=== PATIENT | male | born 1935 | race Caucasian/White ===

== ENCOUNTER → 2016-10-29 08:02 | Outpatient (CLI) | payer MEDICARE, OTHER, SELFPAY ==
[2016-10-29 08:17] VITALS: BP 118/55; PULSE 74; RESP 16; TEMP 36.6; O2SAT 97
[2016-10-29 08:22] VITALS: BMI 23.7
[2016-10-29] MEDS: Lactated Ringers 1,000 ML 500 ML IV (08:35)
[2016-10-29] MEDS: Dextrose 5%/0.9% NaCl 1,000 ML 500 ML IV (10:57)
== END ==
PROVIDERS: Family Provider Family Medicine; PCP Family Medicine; Visit Provider Nurse Practitioner Family
DX: Z45.2 Encounter for adjustment and management of vascular access device (principal)
CPT/HCPCS: 96523; J7120

== ENCOUNTER 2016-11-03 08:00 | Outpatient (CLI) | payer MEDICARE, OTHER, SELFPAY ==
[2016-11-03] MEDS: Lactated Ringers 1,000 ML 500 ML IV (08:05)
[2016-11-03 09:15] VITALS: BP 120/75; PULSE 72; RESP 18; TEMP 36.8; O2SAT 98
--- NOTE | 2016-11-03 09:31 | NURSING ---
ls cta, ap reg, bs active x4 quad. steri strips to 6 lap sites intact w/scant old red drng.
[2016-11-03] MEDS: Dextrose 5%/0.9% NaCl 1,000 ML 500 ML IV (10:10)
--- NOTE | 2016-11-03 10:13 | NURSING ---
resting in chair, present. lunch ordered. 2nd iv bolus infusing. denies further needs at this time
[2016-11-03 12:23] VITALS: BP 130/65; PULSE 70; RESP 18; TEMP 36.9; O2SAT 98
== END 2016-11-03 12:23 | disposition home or self-care (01) ==
PROVIDERS: Family Provider Family Medicine; PCP Family Medicine; Visit Provider Nurse Practitioner Family
DX: Z45.2 Encounter for adjustment and management of vascular access device (principal)
CPT/HCPCS: 96523; J7120; A4216

== ENCOUNTER → 2017-06-25 06:28 | Outpatient (CLI) | payer MEDICARE, OTHER, SELFPAY ==
--- NOTE | 2017-06-25 06:31 | CT_ITS ---
STUDY: CT SOFT TISSUE NECK WITH CONTRAST REASON FOR EXAM: Male, 82 years old. History of esophageal carcinoma with resection and radiation and chemotherapy. RADIATION DOSAGE (If Supplied By Facility): CTDIvol = ( 17.20 ) mGy, DLP = ( 2092.91 ) mGycm TECHNIQUE: The patient was scanned in a multi-detector CT scanner. High resolution transaxial imaging was performed following intravenous administration of 100 ml of Isovue 300 contrast material. Sagittal and coronal images were reconstructed. Individualized dose optimization techniques were used for this CT. COMPARISON: None. FINDINGS: A right-sided portacatheter is seen. There is evidence of prior esophageal surgery with a gastric pull-through procedure. Anastomosis is seen in the proximal esophagus at the level of the aortic arch. There is gaseous distention of the proximal esophagus. Normal bilateral parotid glands. Normal bilateral aurist spaces. Normal bilateral parapharyngeal spaces. Normal bilateral carotid spaces. There is asymmetry of the submandibular glands bilaterally. The right submandibular gland is more prominent than the left. Normal bilateral sublingual and submandibular glands and spaces. Normal visualized nasopharynx. Normal retropharyngeal space. Normal perivertebral space. Normal visualized bilateral faucial tonsils. The visualized tongue, tongue base and oropharynx are normal. The visualized cervical lymph nodes (levels I-) are within normal size limits, and maintain normal morphology. There is no demonstrated solid or cystic mass lesion. There is no abnormal contrast enhancement. Normal epiglottis, bilateral vallecula and hypopharynx. The pre-epiglottic and paraglottic adipose spaces are normal. There is enlargement of the right vocal cord with inhomogeneous soft tissue density in its deep portion. There is a convexity of the right vocal cord. Right vocal cord paralysis due to probable mass lesion should be ruled out. Correlation with endoscopy is recommended. This extends into the right aryepiglottic fold. Normal subglottic trachea. Normal bilateral lobes of the thyroid gland. Normal visualized pulmonary apices. Normal visualized paranasal sinuses. There is multilevel degenerative changes of the cervical spine. CT/Soft Tissue Neck WITH Contrast IMPRESSION: Enlargement of the right vocal cord with homogeneous soft tissue density in its deep portion with convexity. A mass lesion with right vocal cord paralysis should be ruled out. This irregular thickening extends into the right aryepiglottic fold. Electronically Signed: Hany Patricio MD at 9:10 EST Tel [phone], Service support ,
--- NOTE | 2017-06-25 06:36 | CT_ITS ---
STUDY: CT CHEST WITH CONTRAST REASON FOR EXAM: Male, 82 years old. Right sided neck mass. Esophageal carcinoma and resection. RADIATION DOSAGE (If Supplied By Facility): CTDIvol = ( 17.20 ) mGy, DLP = ( 2092.91 ) mGycm TECHNIQUE: Transaxial imaging was performed following intravenous administration of 100 ml of Isovue 300 contrast material. Multiplanar coronal and sagittal images were reformatted. Individualized dose optimization techniques were used for this CT. COMPARISON: Comparison is made with prior examination July 15, 2016. FINDINGS: A right-sided portacatheter is seen. Emphysematous changes more prominent in the upper lobes. Thickening along the posterior aspect of the right major fissure. Increased linear markings at the lung bases worse on the left side suggestive of bibasilar scarring. There is a 1 cm noncalcified nodular density in the lateral aspect of the right lower lobe. This may represent disc changes secondary to scarring. Normal heart and pericardium. Calcified right paratracheal lymph node. Normal hilar regions. Normal enhanced pulmonary arteries. Normal aorta arch and descending thoracic aorta. There are multi-level degenerative changes of the thoracic spine. Increased kyphosis. The patient is status post gastric pull-through surgery and anastomosis. A filling defect is seen in the dependent portion of the stomach at the level of the diaphragmatic hiatus. Endoscopic correlation is recommended. CT/Chest WITH Contrast IMPRESSION: Status post esophageal resection with gastric pull-through and anastomosis as described. Filling defect is seen along the dependent portion of the stomach at the level of the diaphragmatic hiatus. Correlation with endoscopy is recommended. Findings suggestive of bibasilar scarring slightly worse on the right side with 1 cm noncalcified nodule. Electronically Signed: Hany Patricio MD at 14:40 EST Tel [phone], Service support ,
--- NOTE | 2017-06-25 06:36 | CT_ITS ---
STUDY: CT ABDOMEN AND PELVIS WITH CONTRAST REASON FOR EXAM: Male, 82 years old. The patient has a history of esophageal carcinoma with resection. Prior radiation and chemotherapy. RADIATION DOSAGE (If Supplied By Facility): CTDIvol = ( 17.20 ) mGy, DLP = ( 2092.91 ) mGycm TECHNIQUE: Transaxial images were obtained from the dome of the diaphragm to the symphysis pubis with oral contrast. 100 ml of Isovue 300 contrast was administered. Sagittal and coronal images were reconstructed. Individualized dose optimization techniques were used for this CT. COMPARISON: None. FINDINGS: Mild degree of increased linear markings at the lung bases likely worse on the right side suggestive of scarring. There is a 9.1 mm noncalcified nodule in the right lower lobe laterally. This is pleural based. This may represent possible scarring. Minimal bilateral pleural effusions. The visualized portions of the heart are within normal limits. Normal liver. Normal gallbladder and extrahepatic biliary system. Normal spleen. There is diffuse atrophy of the pancreas. Normal bilateral adrenal glands. There is a 3.1 cm cyst in the posterior superior aspect of the right kidney. Normal left kidney. There is evidence of prior gastric pull-through anastomosis through the diaphragmatic hiatus. There is evidence of a 2.6 cm x 2.2 cm rounded filling defect in the posterior aspect of the stomach at the level of the diaphragmatic hiatus. A recurrent mass lesion should be ruled out. Normal small intestine. There are multiple colonic diverticula consistent with diverticulosis. The appendix is visualized and appears normal. There is diffuse atherosclerotic calcification of the abdominal aorta, without a demonstrated aneurysm. Normal inferior vena cava. Normal retroperitoneum. Distended urinary bladder. There is enlargement of the prostate gland. The prostate measures 5.7 cm x 4.9 cm. This causes indentation at the bladder base. Normal abdominal wall. There are diffuse degenerative changes of the visualized lumbar spine. Minimal anterior listhesis of L4 on L5 most likely secondary to facet joint osteoarthritis. CT/Abdomen/Pelvis WITH Contrast IMPRESSION: Sinus suggestive of linear scarring at the lung bases with a 9.1 mm noncalcified nodule in the lateral aspect of the right lower lobe. Prior esophageal resection with gastric pull-through anastomosis as described. A filling defect is seen within the stomach. Correlation with endoscopy is recommended. Distended urinary bladder. Enlargement of the prostate. Electronically Signed: Hany Patircio MD at 14:36 EST Tel [phone], Service support ,
[2017-06-25 06:50] LABS: CREATININE FINGERSTICK 0.9 mg/dL (0.70-1.30); EGFR FINGERSTICK > 60.0000 mL/min (>60)
== END ==
PROVIDERS: Family Provider Family Medicine; PCP Family Medicine; Visit Provider Otolaryngology
DX: C15.9 Malignant neoplasm of esophagus, unspecified (principal); R22.1 Localized swelling, mass and lump, neck
CPT/HCPCS: 70491; 71260; 74177; Q9967; A4216

== ENCOUNTER 2017-07-25 08:15 | Day surgery (SDC) | payer MEDICARE, OTHER, SELFPAY ==
[2017-07-25 08:36] VITALS: BP 116/69; PULSE 64; RESP 16; TEMP 36.6; O2SAT 97; BMI 22.6
[2017-07-25 10:38] VITALS: BP 109/61; BP 116/69; PULSE 63; RESP 18; TEMP 36.3; O2SAT 100
--- NOTE | 2017-07-25 10:41 | OP.PCM_ITS ---
Problem List (1) Esophageal cancer Status: Acute Qualifiers: Malignant neoplasm of esophagus location: unspecified location Qualified Code(s): C15.9 - Malignant neoplasm of esophagus, unspecified (2) Esophageal mass Status: Acute Report of Operation Date of Procedure: 07/25/17 Pre-Operative Diagnosis: History of esophageal cancer and esophagectomy with questionable mass on CT in the neoesophagus Post-Operative Diagnosis: Normal EGD Surgery/Procedure Performed:: EGD Specimen's removed: None Description of Procedure: The major risks and benefits associated with the procedure were explained to the patient in detail. The patient verbalized understanding and agreement with the same. The patient was then placed in the left lateral decubitus position. IV sedation was started by anesthesia. The endoscope was then advanced under direct visualization over the tongue, into the esophagus , stomach and duodenum. The duodenum appeared normal. The scope was withdrawn into the stomach and the stomach was irrigated and washed so that the mucosa was able to be seen. There is a lot of food particles. The mucosa appeared normal in the entire stomach. There was an area of bulging in the mid neoesophagus. This area was pulsatile and when he coughed the mucosa slid over this easy. This seem to be outside of the stomach wall. I suspect this to be the pulmonary artery or vein. The mucosa overlying this bulge was normal. The proximal neoesophagus was normal. The anastomosis appeared normal with no sign of recurrence. Careful examination of the remainder of the esophagus was normal. The scope was then withdrawn from the patient and the procedure terminated. It was well tolerated and there were no immediate complications.
[2017-07-25 10:45] VITALS: BP 111/63; BP 116/69; PULSE 56; RESP 18; O2SAT 100
[2017-07-25 10:50] VITALS: BP 101/56; BP 116/69; PULSE 55; O2SAT 99
[2017-07-25 10:55] VITALS: BP 116/69; BP 119/61; PULSE 54; RESP 18; TEMP 36.6; O2SAT 100
[2017-07-25 11:58] VITALS: BP 116/69
== END 2017-07-25 11:30 | disposition home or self-care (01) ==
LOC: EN 08:16 → AC 08:18
PROVIDERS: Family Provider Family Medicine; PCP Family Medicine; Visit Provider Surgery
PROC: 0DJ08ZZ Inspection of Upper Intestinal Tract, Via Natural or Artificial Opening Endoscopic (ICD-10-PCS; CPT 43235; principal; 2017-07-25 09:25)
DX: C15.9 Malignant neoplasm of esophagus, unspecified (principal); K22.8 Other specified diseases of esophagus; E78.00 Pure hypercholesterolemia, unspecified; I25.10 Atherosclerotic heart disease of native coronary artery without angina pectoris; I35.0 Nonrheumatic aortic (valve) stenosis; I49.3 Ventricular premature depolarization; G25.81 Restless legs syndrome; K21.9 Gastro-esophageal reflux disease without esophagitis; Z86.59 Personal history of other mental and behavioral disorders; Z87.19 Personal history of other diseases of the digestive system; Z86.718 Personal history of other venous thrombosis and embolism; Z86.2 Personal history of diseases of the blood and blood-forming organs and certain disorders involving the immune mechanism; Z87.891 Personal history of nicotine dependence; Z95.1 Presence of aortocoronary bypass graft; Z95.2 Presence of prosthetic heart valve; Z79.82 Long term (current) use of aspirin; Z79.899 Other long term (current) drug therapy
CPT/HCPCS: 43235; J7120; A4216

== ENCOUNTER → 2017-11-10 13:59 | Outpatient (CLI) | payer MEDICARE, OTHER, SELFPAY ==
[2017-11-10 15:53] LABS: Cholesterol 142 mg/dL (200); Ferritin 74 ng/mL (26-388); High Density Lipoprotein 49 mg/dL; Iron 94 ug/dL (65-175); Triglycerides 87 mg/dL; Very Low Density Lipoprotein 17 mg/dL (5-40)
== END ==
PROVIDERS: Family Provider Family Medicine; PCP Family Medicine; Visit Provider Family Medicine
DX: Z00.01 Encounter for general adult medical examination with abnormal findings (principal); E78.5 Hyperlipidemia, unspecified; D61.810 Antineoplastic chemotherapy induced pancytopenia; T45.1X5A Adverse effect of antineoplastic and immunosuppressive drugs, initial encounter; C15.9 Malignant neoplasm of esophagus, unspecified
CPT/HCPCS: 36415; 80061; 82728; 83540

== ENCOUNTER 2018-05-06 09:03 | Emergency (ER) | payer MEDICARE, OTHER, SELFPAY ==
[2018-03-31 12:56] VITALS: BMI 23.7
[2018-05-06 09:06] VITALS: BP 163/87; PULSE 76; RESP 18; TEMP 36.8; O2SAT 100; BMI 23.1
--- NOTE | 2018-05-06 09:26 | ED.DCSUM_ITS ---
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 Patient states last 2 weeks he has had a cough. Intermittent. Now it is yellowish sputum. He denies any significant shortness of breath. He denies chest pain. He denies nausea, vomiting or diarrhea. 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 Physical Examination: Older male no acute distress. Accompanied by his . Vital signs are stable. His pulse ox is 100% on room air no signs of hypoxia. His heart rate is 86. He is in no distress. He is speaking in full sentences. HEENT exam unremarkable. Neck nontender. No lymphadenopathy. No JVD. Lungs clear to auscultation bilaterally. No rales, rhonchi or wheezing. Heart regular rhythm rate about 70. No murmur. Abdomen soft and nontender. Normal bowel sounds no peritoneal signs. Extremities moves all 4. Calves are nontender without edema or cords. Neurologically is awake and alert with no focal motor deficits. Test Results: Two-view chest x-ray shows no acute abnormality. No pneumonia. There is a right lower lobe pericardiac density that is from his procedure where he had partial distal esophageal resection and a stomach pull-through. I do not believe this to be a new mass or a pneumonia. I did discuss this with the radiologist. Emergency Department Course and Treatment: Repeat exam patient is doing well. Clinically has a bronchitis. He does not have a pneumonia. Ongoing cough for weeks is not improving. He will be started on Zithromax Z-MICHAEL. Given first dose in the ER. Treatment Plan: Zithromax and follow-up with his doctor if not improving. Disposition: Discharge Impression: Acute bronchitis This note was generated with [employer] dictation software. It may contain incorrect words, spelling, and punctuation that were not noted in review of the chart prior to signing ED Disposition - Plan for ED Patient: Chief Complaint: Shortness of Breath Referrals: Anthony Donahue DO [Primary Care Provider] -
--- NOTE | 2018-05-06 09:30 | RAD_ITS ---
STUDY: X-RAY CHEST REASON FOR EXAM: Male, 82 years old. Persistent cough. History of esophageal carcinoma. TECHNIQUE: PA and lateral views of the chest. COMPARISON: Comparison is made with prior study dated October 24, 2016. FINDINGS: A right-sided portacatheter is seen. The tip is in the midportion of the superior vena cava. There is blunting of the right costophrenic angle. There is evidence of a consolidation or mass lesion in the posterior medial segment of the right lower lobe. Sternal cerclage wires and vascular clips are present from a prior sternotomy and coronary artery bypass graft procedure (CABG). Normal mediastinum and claude. Normal visualized pulmonary arteries. There is atherosclerotic calcification of the aortic arch with tortuosity. There are diffuse degenerative changes of the visualized thoracic spine. Normal visualized ribs, clavicles, and shoulders. There is no demonstrated abnormality of the visualized soft tissue structures of the upper abdomen. RAD/Chest PA and Lateral IMPRESSION: Consolidation or mass lesion in the posterior medial segment of the right lower lobe. Blunting of the right costophrenic angle. Electronically Signed: Hany Patricio MD at 10:08 EST Tel [phone], Service support ,
[2018-05-06 09:58] VITALS: RESP 18
--- NOTE | 2018-05-06 10:47 | ED.DEP ---
ED Disposition - Plan for ED Patient: Disposition: Home or Assisted Living Chief Complaint: Shortness of Breath Instructions: Acute Bronchitis Prescriptions: Azithromycin [Zithromax] 250 mg PO DAILY 4 Days tab Referrals: Anthony Donahue DO [Primary Care Provider] - 1 Week if not improving Additional Instructions: Zithromax daily for the next 4 days starting tomorrow. Follow Up with your doctor if not improving.
[2018-05-06] MEDS: Azithromycin 250 MG Tablet 500 MG PO (11:30)
== END 2018-05-06 11:32 | disposition home or self-care (01) ==
PROVIDERS: Emergency Provider Emergency Medicine; Family Provider Family Medicine; PCP Family Medicine
DX: J20.9 Acute bronchitis, unspecified (principal); I25.10 Atherosclerotic heart disease of native coronary artery without angina pectoris; Z85.01 Personal history of malignant neoplasm of esophagus; Z95.2 Presence of prosthetic heart valve; Z95.1 Presence of aortocoronary bypass graft; Z79.82 Long term (current) use of aspirin; Z79.899 Other long term (current) drug therapy
CPT/HCPCS: 71046; 99283

== ENCOUNTER → 2018-05-29 16:35 | Outpatient (CLI) | payer MEDICARE, OTHER, SELFPAY ==
[2018-05-06 09:06] VITALS: BMI 23.1
--- NOTE | 2018-05-29 16:37 | CT_ITS ---
STUDY: CT MAXILLOFACIAL SINUSES REASON FOR EXAM: Male, 82 years old. History of esophageal carcinoma, sinusitis RADIATION DOSAGE (If Supplied By Facility): CTDIvol = ( 33.45 ) mGy, DLP = ( 834.91 ) mGycm TECHNIQUE: The patient was scanned in a multi detector CT scanner. High resolution axial imaging was performed without the administration of intravenous contrast material. Sagittal and coronal images were reconstructed. Individualized dose optimization techniques were used for this CT. COMPARISON: Report from 06/25/2017 CT soft tissue neck. Images not available. FINDINGS: FRONTAL SINUSES: Normal aeration, without mucosal inflammatory disease. ETHMOIDAL SINUSES: Normal aeration, without mucosal inflammatory disease. MAXILLARY SINUSES: Normal aeration, without mucosal inflammatory disease. SPHENOIDAL SINUSES: Normal aeration, without mucosal inflammatory disease. There is patency of the bilateral maxillary infundibuli with normal uncinate processes, ethmoid bullae, and hiatus semilunaris. Normal bilateral middle turbinates. Normal bilateral inferior turbinates. Normal midline nasal septum. There is patency of the bilateral nasal airways. The visualized osseous structures are normal. The visualized bilateral orbital contents are normal. There is atherosclerotic calcifications of the bilateral carotid arteries. Persistent prominence of the right aryepiglottic fold, incompletely visualized but described on prior neck CT report of 06/25/2017. CT/Sinus/Facial Bone IMPRESSION: 1. Normal CT examination of the maxillofacial sinuses. 2. Atherosclerosis. 3. Asymmetric right aryepiglottic fold grossly similar since description on prior neck CT report. Electronically Signed: Jamaal Martel MD at 10:12 EST , Service support ,
== END ==
PROVIDERS: Family Provider Family Medicine; PCP Family Medicine; Referring Provider Otolaryngology; Visit Provider Otolaryngology
DX: J32.9 Chronic sinusitis, unspecified (principal)
CPT/HCPCS: 70486

== ENCOUNTER → 2018-06-29 13:30 | Outpatient (CLI) | payer MEDICARE, OTHER, SELFPAY | PROVIDERS: Family Provider Family Medicine; PCP Family Medicine; Visit Provider Family Medicine | DX: R05 Cough (principal) | CPT/HCPCS: 87070; 87205 ==

== ENCOUNTER → 2018-07-14 12:10 | Outpatient (CLI) | payer MEDICARE, OTHER, SELFPAY ==
[2018-07-08 11:56] VITALS: BMI 23.1
--- NOTE | 2018-07-14 12:11 | CT_ITS ---
STUDY: CT CHEST/THORAX WITH CONTRAST REASON FOR EXAM: Male, 83 years old. Esophageal cancer. RADIATION DOSAGE (If Supplied By Facility): CTDIvol = ( 16.87 ) mGy, DLP = ( 956.05 ) mGycm TECHNIQUE: Transaxial imaging was performed following intravenous administration of Isovue 370 100ml IV. Multiplanar coronal and sagittal images were reformatted. Individualized dose optimization techniques were used for this CT. COMPARISON: CT chest with IV contrast June 25, 2017. FINDINGS: Right chest wall Port-A-Cath device has its tip in the superior vena cava. There is airspace disease consistent with subsegmental atelectasis in the posteromedial right lower lobe. Subsegmental minor chronic appearing interstitial densities noted in the anterior left apex. Minor subsegmental atelectasis or scarring also seen in the posterior inferior left lower lobe. There is a stable small dependent right pleural effusion and new small dependent left pleural effusion. Normal heart size and pericardium. Sternal cerclage wires and vascular clips are present from a prior sternotomy and coronary artery bypass graft procedure (CABG). Changes of prior gastric pull-up procedure again noted. There is [id number] volume of undigested material within the stomach and distal cervicothoracic esophagus just above the anastomosis. Normal hilar regions. Normal enhanced pulmonary arteries. The mid ascending aorta is upper normal in size, with an AP diameter of 3.85 cm. There is stable mild atherosclerotic calcification of the aortic arch. There are stable multi-level degenerative changes of the thoracic spine. There are degenerative arthroses of the right acromioclavicular joint and, to a lesser degree, the bilateral shoulders There is no demonstrated abnormality of the visualized upper abdomen. CT/Chest WITH Contrast IMPRESSION: 1. Esophagectomy and gastric pull-up again noted. There is mild to moderate distention of the stomach and upper thoracic esophagus with undigested food. 2. Atherosclerotic vascular calcifications again noted. Prior median sternotomy and CABG. 3. Stable subsegmental atelectasis or scarring in the posterior lung bases as well as mild, chronic-appearing interstitial densities in the anterior left apex. 4. Small left pleural effusion now seen in addition to the stable small right pleural effusion. Electronically Signed: Harsha Nielson MD at 13:26 EDT , Service support ,
--- NOTE | 2018-07-14 12:11 | CT_ITS ---
STUDY: CT ABDOMEN WITH CONTRAST REASON FOR EXAM: Male, 83 years old. Esophageal cancer. RADIATION DOSAGE (If Supplied By Facility): CTDIvol = ( ) mGy, DLP = ( ) mGycm TECHNIQUE: Transaxial images were obtained post I.V. administration of Isovue 370 100ml IV, and with oral contrast. Sagittal and coronal images were reconstructed. Individualized dose optimization techniques were used for this CT. COMPARISON: CT abdomen and pelvis with contrast June 25, 2017. FINDINGS: Subsegmental atelectasis or scarring in seen in the posterior lung bases The visualized portions of the heart are within normal limits. Normal liver. The patent portal vein diameter is 13 mm. Normal gallbladder and extrahepatic biliary system. The common bile duct diameter is 6 mm. Normal spleen. Stable subcentimeter rounded density adjacent to the splenic hilum consistent with a small accessory spleen. There is diffuse atrophy of the pancreas. Normal bilateral adrenal glands. There is a stable exophytic 3.5 x 3.25 x 2.9 cm cortical cyst at the posterior mid to lower pole of the right kidney. Normal left kidney. No hydronephrosis. Prior esophagectomy and gastric pull-up surgery again noted. There is mild distention of the stomach with undigested food. Normal small intestine. Normal colon. The appendix is visualized and appears normal. There is stable moderate atherosclerotic calcification of the abdominal aorta and proximal iliac arteries, without a demonstrated aneurysm. Normal inferior vena cava. Normal retroperitoneum. There is a stable small umbilical hernia containing fat. There are stable diffuse degenerative changes of the visualized lumbar spine, including mild anterolisthesis of L4 on L5 and mild retrolisthesis of L5 on S1. CT/Abdomen WITH IV Contrast IMPRESSION: 1. Prior esophagectomy and gastric pull up again noted. There is mild distention of the stomach with undigested food, but no other sign of bowel obstruction. The appendix is normal. 2. No CT signs of abdominal metastatic disease. 3. Stable exophytic 3.5 cm cortical cyst posterior mid to lower pole of the right kidney. No hydronephrosis. 4. Stable moderate aortoiliac atherosclerotic calcific plaquing. No demonstrated aneurysm. 5. Stable degenerative changes of the spine, as described. 6. Stable small, fat-containing umbilical hernia. Electronically Signed: Harsha Nielson MD at 14:15 EDT , Service support ,
[2018-07-14 12:51] LABS: CREATININE FINGERSTICK 0.9 mg/dL (0.70-1.30); EGFR FINGERSTICK > 60.0000 mL/min (>60)
== END ==
PROVIDERS: Family Provider Family Medicine; PCP Family Medicine; Referring Provider Internal Medicine Medical Oncology; Visit Provider Internal Medicine Medical Oncology
DX: C15.5 Malignant neoplasm of lower third of esophagus (principal); R05 Cough
CPT/HCPCS: 71260; 74160; Q9967

== ENCOUNTER → 2018-07-29 10:22 | Outpatient (CLI) | payer MEDICARE, OTHER, SELFPAY ==
[2018-07-20 13:59] VITALS: BMI 23.4
== END ==
PROVIDERS: Family Provider Family Medicine; PCP Family Medicine; Visit Provider Family Medicine
DX: R05 Cough (principal)
CPT/HCPCS: 87070; 87205

== ENCOUNTER → 2018-10-30 | Outpatient (CLI) | payer MEDICARE, OTHER, SELFPAY ==
[2018-10-26 13:04] VITALS: BMI 23.3
[2018-10-30 10:04] LABS: AST(SGOT) 21 U/L (15-37); Alanine Aminotransfer ALT/SGPT 17 U/L (16-61); Albumin, Serum 3.5 g/dL (3.2-5.0); Alkaline Phosphatase 89 U/L (45-117); Bilirubin, Direct 0.14 mg/dL (0.00-0.30); Cholesterol 131 mg/dL (200); Globulin 3.2 g/dL (2.2-4.2); High Density Lipoprotein 43 mg/dL; Protein, Total 6.7 g/dL (6.4-8.2); Triglycerides 102 mg/dL; Very Low Density Lipoprotein 20 mg/dL (5-40)
== END | disposition home or self-care (01) ==
LOC: LAB 07:35
PROVIDERS: Family Provider Family Medicine; PCP Family Medicine; Referring Provider Internal Medicine Cardiovascular Disease; Visit Provider Internal Medicine Cardiovascular Disease
DX: E78.5 Hyperlipidemia, unspecified (principal)
CPT/HCPCS: 36415; 80061; 80076

== ENCOUNTER → 2019-03-11 07:21 | Outpatient (CLI) | payer MEDICARE, OTHER, SELFPAY ==
[2019-01-20 13:07] VITALS: BMI 23.8
--- NOTE | 2019-03-11 07:30 | MRI_ITS ---
STUDY: MRI LUMBAR SPINE WITHOUT CONTRAST REASON FOR EXAM: Male, 83 years old. Restless legs. History of esophageal cancer. 2 previous lumbar spine surgeries most recently 2012. TECHNIQUE: Standardized fat and water weighted pulse sequences were obtained in the sagittal and axial planes. COMPARISON: 07/14/2018 CT abdomen and pelvis. FINDINGS: Prominent signal abnormality at the L3-4 endplates. This includes low T1/high STIR and T2 signal within the inferior endplate of L3. L4 has more confluent abnormal signal, mostly increased STIR/T2 and decreased T1, but with a region of decreased STIR/T2 and T1 signal communicating with the disc space anteriorly, likely representing a Schmorl's node. No other acute or concerning signal changes in the vertebrae. Alignment unchanged with mild 4 mm anterolisthesis of L4 on L5 and 2 mm retrolisthesis of L5 on S1. Changes of remote L4-5 laminectomy, and bilateral L4 spondylolysis again demonstrated. The conus terminates at the level of the T12 inferior endplate with normal contour and signal. At L1-2, there is no significant narrowing. At L2-3, small disc bulge and mild bilateral facet degeneration causes only mild narrowing. At L3-4, diffuse disc bulge and marked bilateral facet degeneration causes left greater than right subarticular zone narrowing, abutting and possibly compressing the traversing left L4 nerve root in the left subarticular zone. Mild right and moderate left foraminal narrowing. Osteophytes mildly displace the exiting left L3 nerve root. At L4-5, the spinal canal is decompressed with laminectomy. Anterolisthesis with unroofing of the disc causes moderate bilateral foraminal narrowing. At L5-S1, the spinal canal is decompressive laminectomy. Osteophytes extend into and mildly narrow the bilateral foramina. No acute finding in the paraspinal soft tissues. Incidental cyst posterior aspect right kidney. Chronic postoperative changes posterior paraspinal muscles and more peripheral subcutaneous fat. MRI/Spine Lumbar (Routine) IMPRESSION: Prominent signal changes at the L3-4 endplates, most likely degenerative in nature, including a Schmorl's node in the superior endplate of L4. An underlying metastatic lesion in the anterior aspect of the L4 vertebral endplate while less likely cannot be excluded. Consider obtaining CT lumbar spine; this would allow more accurate comparison with the previous study. Otherwise postoperative and degenerative changes described above. This is most prominent at L3-4. If there is left L4 radiculopathy, the left subarticular zone at this level is a most likely etiology. Electronically Signed: Juan Price, at 20:23 EST Tel , Service support ,
== END ==
PROVIDERS: Family Provider Family Medicine; PCP Family Medicine
DX: D49.0 Neoplasm of unspecified behavior of digestive system (principal)
CPT/HCPCS: 72148

== ENCOUNTER → 2019-06-23 07:50 | Outpatient (CLI) | payer MEDICARE, OTHER, SELFPAY ==
[2019-05-03 13:22] VITALS: BMI 23.8
[2019-06-23 08:43] LABS: AST(SGOT) 18 U/L (15-37); Alanine Aminotransfer ALT/SGPT 18 U/L (16-61); Albumin, Serum 3.5 g/dL (3.2-5.0); Alkaline Phosphatase 95 U/L (45-117); Bilirubin, Direct 0.17 mg/dL (0.00-0.30); Cholesterol 119 mg/dL (200); Globulin 3.4 g/dL (2.2-4.2); High Density Lipoprotein 41 mg/dL; Protein, Total 6.9 g/dL (6.4-8.2); Triglycerides 84 mg/dL; Very Low Density Lipoprotein 17 mg/dL (5-40)
== END ==
PROVIDERS: Family Provider Family Medicine; PCP Family Medicine; Referring Provider Internal Medicine Cardiovascular Disease; Visit Provider Internal Medicine Cardiovascular Disease
DX: E78.5 Hyperlipidemia, unspecified (principal)
CPT/HCPCS: 36591; 80061; 80076; A4216

== ENCOUNTER → 2019-07-09 09:45 | Outpatient (CLI) | payer MEDICARE, OTHER, SELFPAY ==
[2019-05-03 13:22] VITALS: BMI 23.8
--- NOTE | 2019-07-09 09:50 | ART_ITS ---
Reason For Study: Non Palpable Rt DP Procedure A bilateral lower extremity continuous wave Doppler with analog waveform analysis and ankle brachial indexes. Left Segmental Pressures Left brachial= 138mmHg. Left posterior tibial artery = 194mmHg. Left dorsalis pedis artery = 183mmHg. Left digit = 95 mmHg. Right Segmental Pressures Right brachial= 145mmHg. Right posterior tibial artery = 222mmHg. Right dorsalis pedis artery = 204mmHg. Right digit = 138 mmHg. Indices The right ankle brachial index by the posterior tibial artery is 1.53. The right ankle brachial index by the dorsalis pedis is 1.41. The right digital-brachial index is 0.95. The left ankle brachial index by the posterior tibial artery is 1.34. The left ankle brachial index by the dorsalis pedis is 1.26. The left digital-brachial index is 0.66. Interpretation Summary Triphasic Doppler waveforms are noted at ankle level bilaterally. Resting ankle-brachial indices are supra-normal on the right, and normal on the left. The right digital-brachial index is normal. The left digital-brachial index is mildly diminished. There is evidence of arterial calcification at ankle level on the right. Arterial flow appears normal at ankle level bilaterally, and at digital level on the right. There is evidence of mild, distal, small-vessel arterial occlusive disease at digital level on the left. Ordering Physician: Anthony Donahue Referring Physician: Anthony Donahue Performed By: Deepika Drake RDCS/RVT
== END ==
PROVIDERS: PCP Family Medicine; Referring Provider Family Medicine; Visit Provider Family Medicine
DX: R09.89 Other specified symptoms and signs involving the circulatory and respiratory systems (principal); M79.604 Pain in right leg
CPT/HCPCS: 93922

== ENCOUNTER → 2020-02-02 12:34 | Outpatient (CLI) | payer MEDICARE, OTHER, SELFPAY ==
[2020-01-17 16:24] VITALS: BMI 23.4
--- NOTE | 2020-02-02 12:35 | ECHOD_ITS ---
Reason For Study: VALVE REPL Procedure This was a 2D Doppler, Color Flow transthoracic echocardiogram. The exam was of adequate technical quality. Exam performed in department. Left Ventricle Normal LV size. Left ventricular systolic function is normal. The estimated ejection fraction is 60 %. The global longitudinal strain = -18 % (normal). Post operative septal motion. Right Ventricle Normal RV size. Normal systolic function. Atria The left atrium is mildly enlarged. The right atrium is mildly enlarged. No doppler evidence for ASD. Mitral Valve There is no mitral annular calcification. Normal mitral valve. Mild (1+) mitral valve insufficiency. Tricuspid Valve Normal tricuspid valve. Mild (1+) tricuspid valve insufficiency. Right ventricular systolic pressure estimated to be 34 mmHg. Aortic Valve Stable appearing bioprosthetic aortic valve apparatus. Pulmonic Valve The pulmonic valve is not well visualized. Trivial pulmonic valve insufficiency. Great Vessels Normal sized aortic root. Pericardium/Pleural No pericardial effusion. MMode/2D Measurements & Calculations LVIDd: 4.6 cm IVSd: 0.89 cm LVOT diam: 2.4 cm LVIDs: 3.1 cm LVPWd: 0.89 cm LVOT area: 4.4 cm2 RVDd: 4.3 cm FS: 32.2 % Ao root diam: 3.5 cm LAV(MOD-bp): 45.5 ml LVAd ap4: 29.8 cm2 LAV(MOD-bp) Indexed: 23.7 ml/m2 EDV(MOD-sp4): 100.0 ml LAV(MOD-sp2): 32.0 ml EDV(sp4-el): 100.7 ml LAV(MOD-sp4): 61.4 ml LVAs ap4: 18.7 cm2 ESV(MOD-sp4): 47.8 ml ESV(sp4-el): 45.7 ml EF(MOD-sp4): 52.2 % EF(sp4-el): 54.6 % SV(MOD-sp4): 52.2 ml SV(sp4-el): 55.0 ml LA A4 area: 21.3 cm2 LA dimension(2D): 4.1 cm RA A4 area: 20.4 cm2 Time Measurements MV dec time: 0.19 sec Doppler Measurements & Calculations MV E max gurwinder: 98.2 cm/sec Lat Peak E' Gurwinder: 10.2 cm/sec Med Peak E' Gurwinder: 4.6 cm/sec MV A max gurwinder: 73.3 cm/sec E/E' lat: 9.6 E/E' med: 21.4 MV E/A: 1.3 MV V2 max: 108.7 cm/sec Ao V2 max: 117.5 cm/sec AI max gurwinder: 198.6 cm/sec MV max P.7 mmHg Ao max P.5 mmHg AI max P.8 mmHg MV V2 mean: 70.0 cm/sec Ao V2 mean: 85.0 cm/sec MV mean P.2 mmHg Ao mean P.1 mmHg AI dec slope: 199.9 cm/sec2 MV V2 VTI: 34.8 cm Ao V2 VTI: 23.0 cm AI P1/2t: 291.0 msec MVA(VTI): 2.3 cm2 NIKI(I,D): 3.4 cm2 NIKI(V,D): 3.1 cm2 LV V1 max: 82.8 cm/sec SV(LVOT): 78.8 ml PA V2 max: 91.6 cm/sec LV V1 max P.7 mmHg LV V1 mean P.4 mmHg LV V1 mean: 56.5 cm/sec LV V1 VTI: 17.8 cm TR max gurwinder: 276.5 cm/sec TR max P.7 mmHg Interpretation Summary Left ventricular systolic function is normal. The estimated ejection fraction is 60 %. The global longitudinal strain = -18 % (normal). Post operative septal motion. The left atrium is mildly enlarged. The right atrium is mildly enlarged. Mild (1+) mitral valve insufficiency. Mild (1+) tricuspid valve insufficiency. Stable appearing bioprosthetic aortic valve apparatus. Trivial pulmonic valve insufficiency. Right ventricular systolic pressure estimated to be 34 mmHg. Transmitral diastolic flow velocities suggest diastolic dysfunction (pseudonormal pattern). Ordering Physician: Chris Swift Referring Physician: SOULEYMANE FOFANA Performed By: Miranda Recio, RDCS, RVT
== END ==
PROVIDERS: PCP Family Medicine; Referring Provider Internal Medicine Cardiovascular Disease; Visit Provider Internal Medicine Cardiovascular Disease
DX: I25.10 Atherosclerotic heart disease of native coronary artery without angina pectoris (principal); Z95.3 Presence of xenogenic heart valve; E78.5 Hyperlipidemia, unspecified
CPT/HCPCS: 93306

== ENCOUNTER 2020-05-18 09:47 | Outpatient (RCR) | payer MEDICARE, OTHER, SELFPAY ==
[2020-03-15 13:31] VITALS: BMI 23.8
== END 2020-05-18 23:59 ==
LOC: IMMUN 09:47
PROVIDERS: PCP Family Medicine; Visit Provider Family Medicine
DX: Z23 Encounter for immunization (principal)
CPT/HCPCS: 0011A; 0012A; 91301

== ENCOUNTER → 2020-08-10 11:40 | Outpatient (CLI) | payer MEDICARE, OTHER, SELFPAY ==
[2020-07-20 08:58] VITALS: BMI 23.1
--- NOTE | 2020-08-10 12:00 | RAD_ITS ---
STUDY: X-RAY - RIGHT TIBIA AND FIBULA REASON FOR EXAM: Localized pain and tenderness for 2 months. TECHNIQUE: 2 view(s) of the tibia and fibula were obtained. COMPARISON: None. FINDINGS: There is mild periosteal reaction of the medial aspect of the distal tibial metaphysis and subtle osteosclerosis of the distal tibial metaphysis. Normal visualized fibula. There is vascular calcification. RAD/Tibia & Fibula 2 Views IMPRESSION: Subtle osteosclerosis and mild periosteal reaction of the distal tibial metaphysis, from suspected stress fracture. Electronically Signed: David Patel MD at 14:08 EDT Tel , Service support , Fax
== END ==
PROVIDERS: PCP Family Medicine; Visit Provider Family Medicine
DX: M79.604 Pain in right leg (principal)
CPT/HCPCS: 73590

== ENCOUNTER → 2020-09-01 06:20 | Outpatient (CLI) | payer MEDICARE, OTHER, SELFPAY ==
[2020-07-20 08:58] VITALS: BMI 23.1
--- NOTE | 2020-09-01 06:43 | MRI_ITS ---
STUDY: MRI RIGHT ANKLE WITHOUT CONTRAST REASON FOR EXAM: Pain in right ankle and leg 2 months. TECHNIQUE: Standardized fat and water weighted pulse sequences were obtained in all 3 orthogonal planes. COMPARISON: Radiographs of the right tibia and fibula 08/10/2020. FINDINGS: There is mild edema in the medial subcutis adipose space. There is a very small volume of fluid in the distal posterior tibialis tendon sheath (T2 axial image 15). The posterior tibialis tendon is morphologically normal. Normal flexor digitorum longus tendon. Normal flexor hallucis longus tendon. Normal peroneus longus and brevis tendons. Normal tibialis anterior tendon. Normal extensor hallucis longus tendon. Normal extensor digitorum longus tendons. Normal Achilles tendon and teno-osseous insertion. There is a small posterior calcaneal enthesophyte. Normal plantar fascia. Normal plantar calcaneal tubercles. There is atrophy with fat replacement of the abductor digiti minimi muscle (T1 sagittal image 9). Normal distal tibiofibular syndesmotic ligamentous complex. Normal lateral ligamentous complex. Normal subtalar ligaments and sinus tarsi. Normal deltoid ligamentous complexes. Normal plantar calcaneonavicular (spring) ligament. There is a very small tibiotalar joint effusion (inversion recovery sagittal image 7). Normal talar dome. There is no bone edema or stress fracture of the distal tibia. Normal subtalar articulations. Normal talonavicular articulation. There is a small subchondral stress fracture of the talar head (inversion recovery sagittal image 10; T2 axial image 15). Normal calcaneocuboid articulation. Normal navicular-cuneiform articulations. MRI/Lower Ext Joint Only (Routine) IMPRESSION: Small subchondral stress fracture of the talar head. Very mild posterior tibialis tenosynovitis. Very small tibiotalar joint effusion. Atrophy of the abductor digiti minimi muscle. No demonstrated stress fracture of the visualized distal tibia. Electronically Signed: David Patel MD at 8:30 EDT Tel , Service support ,
== END ==
PROVIDERS: PCP Family Medicine; Referring Provider Family Medicine; Visit Provider Family Medicine
DX: M25.571 Pain in right ankle and joints of right foot (principal)
CPT/HCPCS: 73721

== ENCOUNTER → 2020-09-04 12:29 | Outpatient (CLI) | payer MEDICARE, OTHER, SELFPAY ==
[2020-03-15 13:31] VITALS: BMI 23.8
[2020-07-20 08:58] VITALS: BMI 23.1
--- NOTE | 2020-09-04 12:30 | CT_ITS ---
STUDY: CT CHEST, ABDOMEN T PELVIS WITH CONTRAST REASON FOR EXAM: Male, 85 years old. ESOPHAGEAL CANCER. Post radiation and chemotherapy. RADIATION DOSAGE (If Supplied By Facility): CTDIvol = ( 12.95 ) mGy, DLP = ( 852.51 ) mGycm TECHNIQUE: Transaxial imaging was performed following intravenous administration of IV 100mL Isovue-300. Individualized dose optimization techniques were used for this CT. COMPARISON: Comparison is made with prior CT scan of the thorax dated 07/14/2018. FINDINGS: A right-sided Port-A-Cath is seen with the tip in the superior vena cava. CHEST Stable minimal increased markings in the medial superior aspect of the left upper lobe with fibrocalcific scarring. Stable mild pleural parenchymal changes at the left lung base. Sternal cerclage wires and vascular clips are present from a prior sternotomy and coronary artery bypass graft procedure (CABG). Coronary artery calcification. Normal mediastinum. Normal hilar regions. Normal unenhanced pulmonary arteries. Normal aorta arch and descending thoracic aorta. There are multi-level degenerative changes of the thoracic spine. The patient is status post esophagectomy with gastric pull-through technique. ABDOMEN Normal liver. Mild distention of the gallbladder. Questionable tiny gallstones along the dependent portion of the gallbladder lumen. Normal spleen. Normal pancreas. Normal bilateral adrenal glands. Stable 3.5 cm x 3 cm cyst in the mid to lower pole of the right kidney. Normal left kidney. The patient is status post hepatectomy with the gastric pull-through anastomosis. Normal small intestine. Normal colon. The appendix is visualized and appears normal. There is diffuse atherosclerotic calcification of the abdominal aorta, without a demonstrated aneurysm. 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 Normal inferior vena cava. Normal retroperitoneum. There is a small umbilical hernia containing fat. There are diffuse degenerative changes of the visualized lumbar spine. Stable mild anterior listhesis of L4 on L5. PELVIS Normal urinary bladder. Prostatic hypertrophy. The prostate measures 4.5 cm x 6.3 cm. This causes indentation at the bladder base. Normal visualized small intestine. Normal visualized colon. There is no pelvic fluid. There is no pelvic lymphadenopathy or mass lesion. There is diffuse atherosclerotic calcification of the pelvic arteries. Normal abdominal wall. CT/CT Chest, Abd, Pel w/Contrast IMPRESSION: Status post esophagectomy with gastric pull-through procedure. Stable examination. Electronically Signed: Hany Patricio MD at 15:12 EDT , Service support ,
[2020-09-04 13:06] LABS: EGFR FINGERSTICK > 60.0000 mL/min (>60)
[2020-09-04] MEDS: 0.9% Saline Lock 10 ML Syringe IV (13:08)
== END ==
PROVIDERS: PCP Family Medicine; Referring Provider Internal Medicine Medical Oncology; Visit Provider Internal Medicine Medical Oncology
DX: C15.9 Malignant neoplasm of esophagus, unspecified (principal)
CPT/HCPCS: 71260; 74177; Q9967; A4216

== ENCOUNTER → 2020-09-20 11:23 | Outpatient (CLI) | payer MEDICARE, OTHER, SELFPAY ==
[2020-09-07 14:02] VITALS: BMI 22.8
[2020-09-20 12:56] LABS: AST(SGOT) 24 U/L (15-37); Alanine Aminotransfer ALT/SGPT 25 U/L (16-61); Albumin, Serum 3.7 g/dL (3.2-5.0); Alkaline Phosphatase 77 U/L (45-117); Bilirubin, Direct 0.24 mg/dL (0.00-0.30); Cholesterol 150 mg/dL (200); Globulin 3.3 g/dL (2.2-4.2); High Density Lipoprotein 62 mg/dL; Triglycerides 63 mg/dL; Very Low Density Lipoprotein 13 mg/dL (5-40)
== END ==
PROVIDERS: PCP Family Medicine; Referring Provider Nurse Practitioner Family; Visit Provider Nurse Practitioner Family
DX: E78.5 Hyperlipidemia, unspecified (principal); E78.00 Pure hypercholesterolemia, unspecified
CPT/HCPCS: 36415; 80061; 80076

== ENCOUNTER → 2020-12-28 06:08 | Outpatient (CLI) | payer MEDICARE, OTHER, SELFPAY ==
[2020-12-12 08:08] VITALS: BMI 23.2
--- NOTE | 2020-12-28 11:23 | STRESSREP ---
Stress Test Report Date: 12-28-2020 Procedure: Pharmacologic stress nuclear imaging study Indications: Chest pain; CAD; CABG; AVR; esophageal carcinoma (chemotherapy/radiation therapy) Consent: Per the patient Procedure: The patient underwent pharmacologic (Regadenoson 0.4mg ) evaluation with a peak heart rate of 84 beats per minute (62%predicted maximal heart rate) and a peak blood pressure of 132/72 mmHg. The baseline ECG demonstrated sinus bradycardia; right IVCD. The peak pharmacologic ECG demonstrated no obvious ECG changes. There were no cardiac dysrhythmias pretest, during pharmacologic infusion, or recovery. There was no complaint of chest discomfort during pharmacologic infusion or recovery. The examination was discontinued secondary to completion of protocol. Impression: 1. Pharmacologic (Regadenoson) evaluation 2. Peak pharmacologic ECG with continued sinus rhythm with right IVCD pattern with no obvious ECG changes. 3. There were no cardiac dysrhythmias pretest, during pharmacologic infusion, or recovery. 4. Nuclear images pending Myocardial perfusion imaging study: Technique: The patient was injected with 11.5 millicuries of technetium 99m Cardiolite and subsequently rest SPECT Cardiolite nuclear imaging was obtained in the horizontal long, vertical long, and short axis views. The patient underwent pharmacologic (Regadenoson) evaluation with a peak heart rate of 84 beats per minute (62% percent predicted maximal heart rate) and a peak blood pressure of 132/72 mmHg. The patient was injected with 32.6 millicuries of technetium 99m Cardiolite and subsequently stress SPECT Cardiolite nuclear imaging was obtained in the horizontal long, vertical long, and short axis views. A gated Cardiolite study at peak stress was obtained. Interpretation: Rest and stress SPECT Cardiolite nuclear imaging status post realignment, normalization, and attenuation correction demonstrate relative uniform tracer uptake and myocardial perfusion appearing within normal limits. There is end systolic thickening and brightening. The gated Cardiolite study demonstrates myocardial thickening and inward wall motion. The reported LVEF is 65%. Impression: 1. Rest and stress SPECT Cardiolite nuclear imaging demonstrate relative uniform tracer uptake and myocardial perfusion appearing within normal limits. 2. The gated Cardiolite study reports an LVEF of 65%. This note was generated with [employer] software. It may contain incorrect words, spelling, and punctuation that were not noted in checking the note before signing.
== END ==
PROVIDERS: PCP Family Medicine; Referring Provider Nurse Practitioner Gerontology; Visit Provider Nurse Practitioner Gerontology
DX: R07.9 Chest pain, unspecified (principal)
CPT/HCPCS: 78452; 93017; A9500; A4216; J2785

== ENCOUNTER 2021-02-10 11:30 | Emergency (ER) | payer MEDICARE, OTHER, SELFPAY ==
[2021-02-10 11:31] VITALS: BP 153/91; PULSE 79; RESP 18; TEMP 36.2; O2SAT 98; BMI 22.4
[2021-02-10 11:54] VITALS: PULSE 73; RESP 20; O2SAT 97
--- NOTE | 2021-02-10 11:54 | RAD_ITS ---
STUDY: X-RAY CHEST REASON FOR EXAM: Male, 85 years old. sob TECHNIQUE: Single view of the chest was obtained COMPARISON: 05/06/2018 FINDINGS: Subsegmental atelectasis in the lung bases. Cardiac size is stable. Midline sternotomy wires. Right-sided central line again seen. No pneumothorax. Calcifications of the aortic knob. Degenerative changes of the thoracic spine. IMPRESSION: Bibasilar platelike atelectasis and/or infiltrates. Electronically Signed: Antony Isaacs MD at 13:00 EDT Tel , Service support , RAD/Chest 1 View (Portable)
--- NOTE | 2021-02-10 11:55 | EKG12_ITS ---
Test Reason : SOB Blood Pressure : / mmHG Vent. Rate : 061 BPM Atrial Rate : 061 BPM P-R Int : 192 ms QRS Dur : 110 ms QT Int : 392 ms P-R-T Axes : 058 032 015 degrees QTc Int : 394 ms Normal sinus rhythm Normal ECG Confirmed by HOLLY MOLINA, NOEL ([id number]), script editor HECTOR AMADOR ([id number]) on 02/13/2021 8:46:47 AM Referred By: PATRIC Confirmed By:NOEL BARRERA MD
--- NOTE | 2021-02-10 12:06 | EDS_ITS ---
HPI History of Present Illness Chief Complaint: Cold Sx Informant: patient Narrative Narrative: 85-year-old male presenting with cough. He states he is coughing up yellow sputum. This has been ongoing for the past week. He is vaccinated for Covid. He has mild shortness of breath. Denies chest pain or chest pressure. Denies fever. Denies sick contacts. Prior similar symptoms: Yes PFSH PFS Medical History (Updated 02/10/21 @ 15:[address] Manisha Hendricks MD) Abnormal abdominal CT scan Adjustment disorder Atherosclerotic heart disease of [place] coronary artery without angina pectoris Chemotherapy-induced nausea Chest discomfort Dehydration Encounter for adjustment or management of vascular access device Esophageal cancer Esophageal cancer Esophageal mass History of DVT (deep vein thrombosis) Hyperlipidemia Hypokalemia Nonrheumatic aortic (valve) stenosis Nonrheumatic aortic valve disorder Premature ventricular contraction Primary cancer of lower third of esophagus Submandibular gland swelling Home Medications vrjnkguj-hgv-AO-lycopen-lutein 1 ea PO DAILY 07/22/17 [History Last Taken ] omeprazole 20 mg capsule,delayed release 20 mg PO DAILY cap 01/14/20 [History Last Taken Unknown] aspirin 81 mg chewable tablet 81 mg PO DAILY tablet 07/20/20 [History Last Taken Unknown] metoprolol tartrate 25 mg tablet 12.5 mg PO BID #90 tab 07/20/20 [Rx Last Taken Unknown] doxycycline hyclate 100 mg PO BID #14 cap 02/10/21 [Rx Last Taken Unknown] simvastatin 10 mg PO MOWEFR 02/10/21 [History Last Taken Unknown] Allergy/AdvReac Type Severity Reaction Status Date / Time No Known Allergies Allergy Verified 02/10/21 11:33 Family History Father No problems noted. Mother Cancer Surgical History History of aortic valve replacement with bioprosthetic valve (~02/13/16) History of bilateral cataract extraction History of esophageal surgery Hx of CABG (~02/13/16) Social History Smoking Status: Former smoker second hand exposure: No alcohol intake: current substance use type: does not use caffeine: Yes what type of physical activity do you participate in: none frequency: does not exercise ROS ROS ED Constitutional Constitutional ED: Denies fever(s) Eyes Eyes: Denies change in vision ENT ENT ED: Denies rhinorrhea or sore throat Cardiovascular Cardiovascular: Denies chest pain or palpitations Respiratory/Chest Respiratory/Chest: Reports cough and dyspnea Gastrointestinal Gastrointestinal: Denies abdominal pain, diarrhea, nausea or vomiting Genitourinary Genitourinary ED: Denies dysuria Musculoskeletal Musculoskeletal: Denies myalgias Integumentary Denies rash Neurologic Neurologic: Denies headache(s) Psychiatric Psychiatric: Denies suicidal thoughts EXAM Physical Exam Const Vital Signs: 02/10/21 11:31 02/10/21 11:54 Temperature 97.1 F L Temperature Source Temporal Pulse Rate 79 73 Respiratory Rate 18 20 H Respiratory Effort Normal Blood Pressure 153/91 H Blood Pressure Mean 111 Pulse Ox 98 97 Oxygen Delivery Method Room Air Room Air Positive well nourished and well developed General Appearance ED: well developed HEENT Reports normocephalic and head/scalp atraumatic Eyes PERRL and EOMs intact bilaterally Neck supple General: Negative for tenderness Chest Wall inspection of chest normal Resp normal respiratory effort and clear to auscultation bilaterally Cardio regular rate and regular rhythm GI non-tender and non-distended Palpation: soft; Negative for guarding or rebound tenderness present no CVA tenderness Extremity normal to inspection Neuro oriented x3 Sensorium / Orientation: alert Psych mental status grossly normal MDM MDM MDM Narrative Medical decision making narrative: CBC, chemistries are unremarkable other than sodium 133, glucose 148. Troponin is negative. Chest x-ray read by myself and radiology shows bibasilar platelike atelectasis and/or infiltrates. His ambulatory pulse ox is 94% on room air. Covid is negative. He is given prescription for doxycycline and advised to follow-up with his primary care physician. Advised return to ED for worsening complaints. Lab Data Attestation: I reviewed the patient's lab results. Labs: Laboratory Results - last 24 hr 02/10/21 02/10/21 12:50 12:50 WBC 9.0 RBC 3.97 L Hgb 13.0 Hct 37.8 L MCV 95.2 H MCH 32.7 H MCHC 34.4 RDW Std Deviation 43.6 RDW Coeff of Rick 12.4 Plt Count 146 L MPV 9.0 Immature Gran % (Auto) 0.400 Neut % (Auto) 82.1 H Lymph % (Auto) 8.5 L [place] % (Auto) 7.8 Eos % (Auto) 0.9 Baso % (Auto) 0.3 Absolute Neuts (auto) 7.4 Absolute Lymphs (auto) 0.76 L Nucleated RBC % 0 Sodium 133 L Potassium 4.3 Chloride 100 Carbon Dioxide 27.0 Anion Gap 6 BUN 18 Creatinine 1.15 Estim Creat Clear Calc 47.63 Est GFR (MDRD) Af Amer 77 Est GFR (MDRD) Non-Af 64 BUN/Creatinine Ratio 15.7 Glucose 148 H Calcium 8.8 Troponin I High Sens 10 Radiography Chest X-Ray - ED: 1 View, Read by ED Physician and Read by Radiologist Diagnostic Testing: Clinical Impression(s) from Imaging Studies Chest X-Ray 02/10/21 11:54 EKG Initial EKG: Attestation: I personally reviewed and interpreted this EKG as follows: Interpretation: Sinus Rhythm and No Acute Injury Pattern Discharge Plan Triage Chief Complaint: Cold Sx ED Provider: Manisha Hendricks Dx/Rx/DC Orders Clinical Impression: Pneumonia Instructions: ED Pneumonia (Adult) Prescriptions: New doxycycline hyclate 100 mg capsule 100 mg PO BID Qty: 14 RF: 0 No Action omeprazole 20 mg capsule,delayed release(DR/EC) 20 mg PO DAILY RF: 0 metoprolol tartrate 25 mg tablet 12.5 mg PO BID Qty: 90 RF: 3 aspirin 81 mg tablet,chewable 81 mg PO DAILY RF: 0 pepbudza-bxo-EH-lycopen-lutein 1 EACH tablet 1 ea PO DAILY RF: 0 simvastatin 10 mg tablet 10 mg PO MOWEFR RF: 0 Primary Care Provider: Anthony Donahue Referrals: Anthony Donahue DO [Primary Care Provider] - Disposition Disposition: Home, Self Care
[2021-02-10 13:11] LABS: Absolute Lymphocyte Count 0.76 X10^3/uL (0.83-4.51); Absolute Neutrophil Count 7.4 X10^3/uL (2.0-7.7); Basophil# 0.03 X10^3/uL; Basophil% 0.3 % (0-1); Eosinophil# 0.08 X10^3/uL; Eosinophils% 0.9 % (0-5); Hematocrit 37.8 % (40-54); Lymphocyte # 0.76 X10^3/ul (0.83-4.51); Lymphocyte % 8.5 % (19-41); Mean Corp Hgb Conc 34.4 g/dL (32-36); Mean Corpuscular Hgb 32.7 pg (27.0-32.0); Mean Corpuscular Volume 95.2 fL (80-94); Monocyte% 7.8 % (0-10); NRBC Flagged by Analyzer 0 % (0-5); Neutrophil # 7.38 X10^3/uL (2.7-7.7); Neutrophil % 82.1 % (47-70); Platelet Count 146 K/mm3 (150-450); RBC Distribution Width CV 12.4 % (11.6-14.6); RBC Distribution Width SD 43.6 fl (35.1-43.9); Red Blood Count 3.97 M/mm3 (4.6-6.2)
[2021-02-10 13:30] LABS: Anion Gap 6 (5-15); BUN 18 mg/dL (7-18); BUN/Creat Ratio 15.7 RATIO (10-20); Calcium,Total 8.8 mg/dL (8.5-10.1); Chloride 100 mmol/L (98-107); Creatinine, Serum 1.15 mg/dL (0.70-1.30); EST Glomerular Filtration Rate 64 mL/min (>60); Est Glom Filt Rate - Afr Amer 77 mL/min (>60); Estimated Creatinine Clearance 47.63 ml/min; Glucose 148 mg/dL (74-106); Potassium 4.3 mmol/L (3.5-5.1); Sodium Level 133 mmol/L (136-145); Troponin-I HS 10 pg/mL (3.0-78.0)
[2021-02-10 14:47] VITALS: O2SAT 96
[2021-02-10] MEDS: Doxycycline 100 MG CAPSULE PO (15:48)
== END 2021-02-10 16:06 | disposition home or self-care (01) ==
PROVIDERS: Emergency Provider Emergency Medicine; PCP Family Medicine
DX: J18.9 Pneumonia, unspecified organism (principal); E78.5 Hyperlipidemia, unspecified; I25.10 Atherosclerotic heart disease of native coronary artery without angina pectoris; I35.0 Nonrheumatic aortic (valve) stenosis; Z85.01 Personal history of malignant neoplasm of esophagus; Z92.21 Personal history of antineoplastic chemotherapy; Z86.718 Personal history of other venous thrombosis and embolism; Z95.1 Presence of aortocoronary bypass graft; Z79.82 Long term (current) use of aspirin; Z79.899 Other long term (current) drug therapy; Z87.891 Personal history of nicotine dependence
CPT/HCPCS: 36591; 71045; 80048; 84484; 85025; 87426; 93005; 99285; A4216

== ENCOUNTER → 2021-03-09 08:14 | Outpatient (CLI) | payer MEDICARE, OTHER, SELFPAY ==
--- NOTE | 2021-03-09 08:15 | CT_ITS ---
STUDY: CT CHEST T ABDOMEN WITH CONTRAST REASON FOR EXAM: Male, 85 years old. HX OF ESOPHAGEAL CA/ABD PAIN RADIATION DOSAGE (If Supplied By Facility): CTDIvol = ( 15.14 ) mGy, DLP = ( 1023.79 ) mGycm TECHNIQUE: Transaxial imaging was performed following intravenous administration of IV 100mL Isovue-370. Individualized dose optimization techniques were used for this CT. COMPARISON: Comparison is made with prior study dated 09/04/2020. FINDINGS: CHEST A right-sided raphael catheter seen with the tip in the superior vena cava. Stable minimal degree of increased markings in the lung bases suggestive of bibasilar scarring. Stable mild fibrocalcific scarring in the medial left upper lobe. Minimal right pleural effusion. Sternal cerclage wires and vascular clips are present from a prior sternotomy and coronary artery bypass graft procedure (CABG). Coronary artery calcification. Normal mediastinum. Normal hilar regions. Normal unenhanced pulmonary arteries. There is atherosclerotic calcification of the aortic arch with tortuosity and elongation of the aortic arch and descending thoracic aorta. Normal osseous structures. Once again, the patient is status post esophagectomy with gastric pull-through anastomosis. ABDOMEN There is evidence of a dilated intrahepatic biliary ducts. The gallbladder is distended. Normal spleen. There is diffuse atrophy of the pancreas. Normal bilateral adrenal glands. Stable 3.5 cm cyst in the mid to lower pole of the right kidney. Normal left kidney. The patient is status post esophageal resection with gastric pull-through anastomosis. Normal small intestine. There are multiple colonic diverticula consistent with diverticulosis. Moderate amount of fecal material is seen in the transverse colon. The appendix is visualized and appears normal. There is diffuse atherosclerotic calcification of the abdominal aorta, without a demonstrated aneurysm. Normal inferior vena cava. Normal retroperitoneum. Normal abdominal wall. There are diffuse degenerative changes of the visualized lumbar spine. CT/CT Chest AND Abd W/ Contrast IMPRESSION: Status post partial resection of the esophagus with gastric pull-through examination. Intrahepatic biliary ductal dilatation. Distended gallbladder. Electronically Signed: Hany Patricio MD at 15:13 EST , Service support ,
[2021-03-09] MEDS: 0.9% Saline Lock 10 ML Syringe IV (08:30)
== END ==
PROVIDERS: PCP Family Medicine; Referring Provider Internal Medicine Medical Oncology; Visit Provider Internal Medicine Medical Oncology
DX: R10.9 Unspecified abdominal pain (principal); Z85.01 Personal history of malignant neoplasm of esophagus
CPT/HCPCS: 71260; 74160; Q9967; A4216

== ENCOUNTER 2021-03-13 06:08 | Day surgery (SDC) | payer MEDICARE, OTHER, SELFPAY ==
--- NOTE | 2021-03-13 | ESO_PTH ---
PATIENT: MILAGROS MELVIN LOC: EN U#:[id number] AGE/SX: 85/M ROOM: RE03/13/[address]: Dr. Epifanio Alejandro MD : [id number] BED: DIS: 03/13/2021 SPEC #: [id number] RECD: 03/13/21 13:26 STATUS: EBONY ANGE #: [id number] ROB: 03/13/21 00:[address]: Epifanio Alejandro DEPT: SURGICAL PATHOLOGY RECD BY: Isaiah Rolle ENTERED: 03/13/21 13:26 SP TYPE: ANSLEY MARTINEZ DR: Dr. 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 Mild chronic inflammation. Negative for dysplasia/malignancy. See comment. BOOKER:benson 03/14/2021 COMMENT Alcian blue/PAS stain with matched control is used in the evaluation of the specimen. Immunohistochemistry ([id number]) for P53 and Ki-67 will be performed and results will be reported separately. 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 Case has been reviewed in consultation with Dr. Rubio who concurs with the above diagnosis. IDC:AM MICROSCOPIC DESCRIPTION Slides are reviewed. GROSS DESCRIPTION Received in fixative is one container labeled with the patient's name and designated proximal esophagus biopsy. The specimen consists of multiple irregular fragments of light franz soft tissue that in aggregate measure 1 x 0.3 x 0.1 cm. The specimen is totally submitted in one cassette. / BOOKER:benson 03/13/21 TC:5 CPT: 22245
--- NOTE | 2021-03-13 | IMM_PTH ---
PATIENT: MILAGROS MELVIN LOC: EN U#:[id number] AGE/SX: 85/M ROOM: RE03/13/[address]: Dr. Epifanio Alejandro MD : 1935 BED: DIS: 03/13/2021 SPEC #: [id number] RECD: 03/14/21 13:48 STATUS: EBONY RECharley #: [id number] ROB: 03/13/21 00:[address]: Epifanio Alejandro DEPT: IMMUNOHISTOCHEMISTRY RECD BY: Lenore Damico ENTERED: 03/14/21 13:50 SP TYPE: IMMUNO OTHR DR: Dr. Anthony Donahue, Tissues: Esophagus, NOS Procedures: P53 (initial) KI-67 (add) PHYSICIAN & INSTITUTION [place] [id number] SPECIMEN INFORMATION: Tissue Source: Proximal esophagus biopsy Clinical Info: Abdominal pain Specimen Number: [id number] CPT code: 96446, 26142 METHODOLOGY: Deparaffinized sections of prefer/formalin-fixed tissue or PAP/DQ stained slides are incubated with monoclonal/polyclonal antibodies/oligonucleotide probes. Localization is made via biotin free immunoperoxidase method. Appropriate controls are performed and reacted as expected. Results on target cell population are indicated in the following table: RESULTS: ANTIBODY / CLONE RESULT P53 (DO-7) negative Ki-67 (30-9) positive, very low These tests were developed and their performance characteristics determined by [facility]. They may not have been cleared or approved by the U.S. Food and Drug Administration. The FDA has determined that such clearance or approval is not necessary. The above immunohistochemical/dualISH markers are ordered and reviewed by the Pathologist. INTERPRETATION: Proximal esophagus, biopsy: Negative for dysplasia. BOOKER:benson 03/15/2021
[2021-03-13 06:39] VITALS: BP 143/81; PULSE 66; RESP 16; TEMP 36.1; O2SAT 99; BMI 22.4
--- NOTE | 2021-03-13 06:46 | HP.PCM_ITS ---
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: No Accompanied by: Is patient in pain?: No Allergies No Known Allergies Allergy (Verified 03/05/21 09:05) Medications liqdoohk-aat-FU-lycopen-lutein 1 ea PO DAILY 07/22/17 [History Confirmed 03/05/21] omeprazole 20 mg capsule,delayed release 20 mg PO DAILY cap 01/14/20 [History C onfirmed 03/05/21] aspirin 81 mg chewable tablet 81 mg PO DAILY tablet 07/20/20 [History Confirmed 03/05/21] metoprolol tartrate 25 mg tablet 12.5 mg PO BID #90 tab 07/20/20 [Rx Confirmed 03/05/21] doxycycline monohydrate 100 mg PO BID 7 Days #14 capsule 02/10/21 [Rx Confirmed 03/05/21] simvastatin 10 mg PO MOWEFR 02/10/21 [History Confirmed 03/05/21] [facility] Medical History (Updated 03/05/21 @ 09:04 by Hetal Villafuerte) Abnormal abdominal CT scan Adjustment disorder Atherosclerotic heart disease of [place] coronary artery without angina pectoris Chemotherapy-induced nausea Chest discomfort Dehydration Dyspepsia Encounter for adjustment or management of vascular access device Esophageal cancer Esophageal cancer Esophageal mass History of DVT (deep vein thrombosis) Hyperlipidemia Hypokalemia Nonrheumatic aortic (valve) stenosis Nonrheumatic aortic valve disorder Premature ventricular contraction 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 Mother Cancer Social History (Reviewed 03/05/21 @ 09:03 by Hetal Gonzalez Smoking Status: Former smoker second hand exposure: No alcohol intake: current substance use type: does not use caffeine: Yes what type of physical activity do you participate in: none frequency: does not exercise HPI HPI HPI: MILAGROS MELVIN, is a 85 M who presents to the office today for epigastric pain. Patient reports he is having postprandial epigastric pain that lasts about an hour. He does not change depending on what he is eating. He reports no dysphagia. ROS General General: No weight change, appetite, fatigue, colon cancer, breast cancer or weakness HEENT HEENT: Yes eye surgery; No difficulty swallowing, eye injury, swollen glands or hoarseness Endo Endocrine: No thyroid disease, diabetes mellitus, thyroid cancer, Hair loss, heat intolerance or cold intolerance Skin Skin: No rash or changing moles Breast Breast: No left breast lump, right breast lump, nipple discharge, breast pain, abnormal mammogram, abnormal US or breast enlargement Musc Musculoskeletal: No back problems, arthritis, rheumatoid arthritis, gout or joint pain Cardio Cardiovascular: Yes heart disease; No murmur, pacemaker, atrial fibrillation, high blood pressure, heart attack, heart stent, palpitations, shortness of breat with exertion or chest pain Psych Psychiatric: No depression, anxiety or hearing voices Resp Respiratory: Yes shortness of breath, No sleep apnea, No cough, No COPD, No asthma, No emphysema and No wheezing Gastro Gastrointestinal: No abdominal pain, No nausea or vomiting, No diarrhea, No constipation, No blood in stool, Yes acid reflux, No hemorrhoids, No ulcers, No gallbladder problem and No black,tarry stools Pavel Hematologic: Yes blood thinners, No blood disorders, No bleeding, No anemia and Yes blood clots Neuro Neurologic: No system reviewed and no additional complaints, except as documented, No as per HPI, No abnormal gait, No abnormal hearing, No abnormal movements, No abnormal speech, No behavioral changes, No burning sensations, No confusion, No convulsions, No disequilibrium, No dizziness, No localized weakness, No frequent falls, No headache(s), No lack of coordination, No loss of vision, No memory loss, No numbness, No other visual disturbances, No radicular pain, No restless legs, No sensory deficit, No syncope, No tingling, No tremor(s), No weakness and No other Exam Const General: cooperative Orientation: alert and oriented x3 HENMT Head: normal to inspection Neck Neck: normal visual inspection and full ROM Chest Chest palpation & inspection: normal inspection of the chest Resp Effort & Inspection: normal respiratory effort Auscultation: clear to auscultation bilaterally Cardio Rate: regular rate Rhythm: regular rhythm GI Inspection: non-distended Palpation: soft and nontender Skin General: no rashes or lesions noted Neuro General: patient alert and patient oriented x3 Extrem General: full ROM Psych Appearance: grossly normal Mental Status: mental status grossly normal Assessment and Plan Assessment and Plan (1) Abdominal pain: Status: Acute Qualifiers: Abdominal location: left upper quadrant Qualified Code(s): R10.12 - Left upper quadrant pain Orders: Orders: EGD Today Plan - Dr. Epifanio Alejandro MD: Patient is having epigastric pain postprandially. Patient had a small gallstone in the gallbladder in 2017 on ultrasound of the gallbladder. Patient has had esophagectomy for esophageal cancer. Patient is having a CT scan of the abdomen and pelvis this Friday for normal follow-up and I will perform an EGD next week to ensure that there is nothing wrong with his stomach or duodenum. If that is the case and I would recommend laparoscopic cholecystectomy for his gallstones this may be biliary colic. Epifanio Alejandro MD Pager: [facility] [address] [place] [address], [address] [place] [address] Office: Patient seen and examined, no changes. Pt had CT scan which was normal.
[2021-03-13] MEDS: Lactated Ringers 1,000 ML 15 ML IV (07:00)
--- NOTE | 2021-03-13 07:59 | OP.EGD_ITS ---
Patient Name: Moises Tavarez Procedure Date: 03/13/2021 6:58 AM Date of : 1935 Age: 85 Procedure: Upper GI endoscopy Indications: Abdominal pain in the left upper quadrant Providers: Epifanio Alejandro MD Referring MD: Seth Cheng MD Medicines: Monitored Anesthesia Care Patient Profile: This is an 85 year old male. Refer to note in patient chart for documentation of history and physical. Complications: No immediate complications. Estimated blood loss: Minimal. Procedure: Pre-Anesthesia Assessment: - Prior to the procedure, a History and Physical was performed, and patient medications and allergies were reviewed. The patient's tolerance of previous anesthesia was also reviewed. The risks and benefits of the procedure and the sedation options and risks were discussed with the patient. All questions were answered, and informed consent was obtained. Prior Anticoagulants: The patient has taken aspirin, last dose was 1 day prior to procedure. After reviewing the risks and benefits, the patient was deemed in satisfactory condition to undergo the procedure. After obtaining informed consent, the endoscope was passed under direct vision. Throughout the procedure, the patient's blood pressure, pulse, and oxygen saturations were monitored continuously. The Endoscope was introduced through the mouth, and advanced to the third part of duodenum. The upper GI endoscopy was accomplished without difficulty. The patient tolerated the procedure well. Scope In: 7:46:50 AM Scope Out: 7:53:35 AM Total Procedure Duration Time 0 hours 6 minutes 45 seconds Findings: Localized moderate mucosal changes were found in the upper third of the esophagus. Biopsies were taken with a cold forceps for histology. A large amount of food (residue) was found in the entire examined stomach. The examined duodenum was normal. Impression: - Mucosal changes in the esophagus. Biopsied. - A large amount of food (residue) in the stomach. Pt may have gastric emptying delays as pills from the prior evening were still in stomach. - Normal examined duodenum. Recommendation: - Discharge patient to home. - Resume previous diet. - Continue present medications. - Await pathology results. Procedure Code(s): --- Professional --- 98613, Esophagogastroduodenoscopy, flexible, transoral; with biopsy, single or multiple Diagnosis Code(s): --- Professional --- K22.8, Other specified diseases of esophagus R10.12, Left upper quadrant pain CPT copyright 2017 [employer]. All rights reserved. The codes documented in this report are preliminary and upon orthopedic podiatrist review may be revised to meet current compliance requirements. Epifanio Alejandro MD 03/13/2021 7:58:45 AM This report has been signed electronically. Number of Addenda: 0 Note Initiated On: 03/13/2021 6:58 AM
--- NOTE | 2021-03-13 08:00 | OP.CCLET_ITS ---
03/13/2021 Seth Cheng MD [address] [facility] [address] [place] [address] Re : Upper GI endoscopy procedure for Moises [place] Dear Dr. Cheng This procedure was performed on Saturday, March 13, 2021. My impressions and recommendations are as follows: Impressions : - Mucosal changes in the esophagus. Biopsied. - A large amount of food (residue) in the stomach. Pt may have gastric emptying delays as pills from the prior evening were still in stomach. - Normal examined duodenum. Recommendations : - Discharge patient to home. - Resume previous diet. - Continue present medications. - Await pathology results. My findings are described in the full procedure note, which is enclosed. If I can be of further assistance, please feel free to contact me at Doctor phone number(s): , Work: . Sincerely, Epifanio Alejandro MD 03/13/2021 7:58:45 AM This report has been signed electronically.
[2021-03-13 08:01] VITALS: BP 123/85; BP 143/81; PULSE 56; RESP 16; TEMP 35.8; O2SAT 98
[2021-03-13 08:05] VITALS: BP 128/74; BP 143/81; PULSE 55; RESP 16; O2SAT 97
[2021-03-13 08:10] VITALS: BP 132/73; BP 143/81; PULSE 58; RESP 16; O2SAT 99
[2021-03-13 08:15] VITALS: BP 135/70; BP 143/81; BP 146/85; PULSE 57; PULSE 61; RESP 16; TEMP 36; O2SAT 100; O2SAT 99
[2021-03-13 08:54] VITALS: BP 143/81
== END 2021-03-13 08:55 ==
LOC: EN 06:08 → AC 06:09
PROVIDERS: PCP Family Medicine; Referring Provider Family Medicine; Visit Provider Surgery
PROC: 0DJ08ZZ Inspection of Upper Intestinal Tract, Via Natural or Artificial Opening Endoscopic (ICD-10-PCS; CPT 43235; principal; 2021-03-13 07:25)
DX: K21.00 Gastro-esophageal reflux disease with esophagitis, without bleeding (principal); E78.5 Hyperlipidemia, unspecified; I35.0 Nonrheumatic aortic (valve) stenosis; I25.10 Atherosclerotic heart disease of native coronary artery without angina pectoris; G25.81 Restless legs syndrome; E78.00 Pure hypercholesterolemia, unspecified; Z86.73 Personal history of transient ischemic attack (TIA), and cerebral infarction without residual deficits; Z85.01 Personal history of malignant neoplasm of esophagus; Z86.718 Personal history of other venous thrombosis and embolism; Z95.2 Presence of prosthetic heart valve; Z95.1 Presence of aortocoronary bypass graft; Z79.82 Long term (current) use of aspirin; Z79.899 Other long term (current) drug therapy; Z87.891 Personal history of nicotine dependence
CPT/HCPCS: 43239; 88305; 88341; 88342; J7120; A4216; J2405

== ENCOUNTER → 2021-03-28 13:11 | Outpatient (CLI) | payer MEDICARE, OTHER, SELFPAY ==
--- NOTE | 2021-03-28 13:15 | NM_ITS ---
CLINICAL: 85-year-old male with history of abdominal pain. SEMI-SOLID PHASE 99m Tc SULFUR COLLOID GASTRIC EMPTYING STUDY COMPARISON: None available FINDINGS: The patient was administered 1.0 mCi of 99m Tc sulfur colloid mixed with oatmeal and consumed per os. Image acquisitions in the anterior-posterior projections were obtained for 60 minutes. There is prompt visualization of the stomach. No definitive emptying of the labeled radiopharmaceutical is defined over the course of image acquisition. NM/Gastric Emptying Study IMPRESSION: 1. SEVERELY ABNORMAL 99m Tc sulfur colloid semi-solid phase (oatmeal) gastric emptying imaging examination. A. There is marked delayed semi-solid phase gastric emptying compared to normal controls with no effective emptying identified. (Leobardo et al, J Nucl Med Tech 38: 186, 2010). Electronically Signed: Albin Gottlieb DO at 23:22 EST Tel , Service support ,
== END ==
PROVIDERS: PCP Family Medicine; Referring Provider Internal Medicine Medical Oncology; Visit Provider Internal Medicine Medical Oncology
DX: C15.5 Malignant neoplasm of lower third of esophagus (principal)
CPT/HCPCS: 78264; A9541

== ENCOUNTER → 2021-06-13 07:53 | Outpatient (CLI) | payer MEDICARE, OTHER, SELFPAY ==
[2021-06-13 08:57] LABS: AST(SGOT) 29 U/L (15-37); Alanine Aminotransfer ALT/SGPT 27 U/L (16-61); Albumin, Serum 3.7 g/dL (3.2-5.0); Alkaline Phosphatase 116 U/L (45-117); Cholesterol 140 mg/dL (200); Globulin 3.6 g/dL (2.2-4.2); High Density Lipoprotein 50 mg/dL; Protein, Total 7.3 g/dL (6.4-8.2); Triglycerides 107 mg/dL; Very Low Density Lipoprotein 21 mg/dL (5-40)
== END ==
PROVIDERS: Nurse Practitioner Family; PCP Family Medicine; Referring Provider Nurse Practitioner Gerontology; Visit Provider Nurse Practitioner Gerontology
DX: E78.00 Pure hypercholesterolemia, unspecified (principal); E78.5 Hyperlipidemia, unspecified
CPT/HCPCS: 36415; 80061; 80076

== ENCOUNTER 2021-08-29 05:51 | Emergency (ER) | payer MEDICARE, OTHER, SELFPAY ==
[2021-08-29 05:53] VITALS: BP 187/93; PULSE 55; RESP 17; TEMP 36.5; O2SAT 98; BMI 23.6
--- NOTE | 2021-08-29 06:14 | CT_ITS ---
EXAM: CT abdomen and pelvis with contrast. HISTORY: abd pain TECHNIQUE: CT Abdomen And Pelvis W/ Contrast Injection. This CT exam was performed using one or more of the following dose reduction techniques: automated exposure control, adjustment of the mA and/or kV according to patient size, and/or use of iterative reconstruction technique COMPARISON: March 09, 2021. LIMITATIONS: The contents of the hiatal hernia are not entirely included on the examination. LOWER CHEST: Postsurgical changes in the esophagus after gastric pull up procedure, partially visualized. A massive hiatal hernia is partially visualized containing multiple loops of large bowel and the majority of the small bowel as well as a significant portion of the mesentery. The hiatal hernia is increased in size since the prior exam. The multiple loops of small bowel within the hiatal hernia are new since the prior study. Small right pleural effusion. Bibasilar atelectasis. LIVER: Normal. GALLBLADDER: Distended. No gross wall thickening. Mild to moderate fluid adjacent to the gallbladder fundus BILE DUCTS: Normal. PANCREAS: Fatty atrophy. SPLEEN: Normal. ADRENAL GLANDS: Normal. 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 Cyst in the right kidney. No hydronephrosis. Moderate distention of the bladder. AORTA: Normal caliber. Atherosclerotic calcification of the abdominal aorta. 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 BOWEL/MESENTERY: Diverticula are without evidence of diverticulitis. Possible mild wall thickening of the underdistended descending and sigmoid colon. Moderate fluid-filled distention of the esophagus/gastric pull-up. No small bowel obstruction. APPENDIX: Not well visualized. PERITONEUM: Mild free fluid. REPRODUCTIVE ORGANS: Enlarged prostate gland. BONES/SOFT TISSUES: Degenerative and postsurgical changes in the lumbar spine. OTHER: None. CONCLUSION: 1. Postsurgical changes in the esophagus after gastric pull up procedure. Associated massive hiatal hernia contains multiple loops of large bowel and the majority of the small bowel as well as a significant portion of the mesentery. The hiatal hernia is increased in size since the prior exam. 2. Gallbladder distention with fluid adjacent to the fundus. If acute cholecystitis is a clinical concern, ultrasound is recommended. 3. Mild colitis of the left colon versus underdistention. Electronically Signed: Sigifredo Bolivar MD at 8:05 EDT , CT/Abdomen/Pelvis W IV Cont ONLY IMPRESSION: undefined
[2021-08-29 06:28] LABS: Absolute Lymphocyte Count 0.76 X10^3/uL (0.83-4.51); Basophil# 0.01 X10^3/uL; Basophil% 0.1 % (0-1); Eosinophil# 0.01 X10^3/uL; Eosinophils% 0.1 % (0-5); Hematocrit 38.9 % (40-54); Lymphocyte # 0.76 X10^3/ul (0.83-4.51); Lymphocyte % 10.4 % (19-41); Mean Corp Hgb Conc 33.4 g/dL (32-36); Mean Corpuscular Hgb 32.4 pg (27.0-32.0); Mean Platelet Vol. 10.1 fl (6.2-12.0); Monocyte# 0.43 X10^3/uL; Monocyte% 5.9 % (0-10); NRBC Flagged by Analyzer 0 % (0-5); Neutrophil # 6.04 X10^3/uL (2.7-7.7); Platelet Count 109 K/mm3 (150-450); RBC Distribution Width CV 13.2 % (11.6-14.6); RBC Distribution Width SD 47.6 fl (35.1-43.9); Red Blood Count 4.01 M/mm3 (4.6-6.2); White Blood Count 7.3 K/mm3 (4.4-11.0)
[2021-08-29 06:41] LABS: AST(SGOT) 26 U/L (15-37); Alanine Aminotransfer ALT/SGPT 24 U/L (16-61); Albumin, Serum 3.8 g/dL (3.2-5.0); Alkaline Phosphatase 98 U/L (45-117); Anion Gap 6 (5-15); BUN 17 mg/dL (7-18); BUN/Creat Ratio 13.2 RATIO (10-20); Bilirubin, Direct 0.17 mg/dL (0.00-0.30); Calcium,Total 9.1 mg/dL (8.5-10.1); Chloride 105 mmol/L (98-107); Creatinine, Serum 1.29 mg/dL (0.70-1.30); EST Glomerular Filtration Rate 56 mL/min (>60); Est Glom Filt Rate - Afr Amer 68 mL/min (>60); Estimated Creatinine Clearance 42.97 ml/min; Globulin 3.6 g/dL (2.2-4.2); Glucose 178 mg/dL (74-106); Lipase 89 U/L (73-393); Potassium 3.9 mmol/L (3.5-5.1); Protein, Total 7.4 g/dL (6.4-8.2); Sodium Level 138 mmol/L (136-145)
[2021-08-29] MEDS: Morphine 2 MG/ML Syringe IV (06:42)
[2021-08-29] MEDS: Ondansetron 4 MG/2 ML Vial IV (06:42)
[2021-08-29 07:01] LABS: Lactic Acid 2.1 mmol/L (0.4-1.9)
[2021-08-29] MEDS: fentaNYL 100 MCG/2 ML Ampul 50 MCG IV (07:18)
--- NOTE | 2021-08-29 07:19 | EX.ED.DYSGE1 ---
HPI History of Present Illness Chief Complaint: General Illness Narrative Narrative: Patient is an 86-year-old male from home with past medical history of esophageal cancer as well as esophageal resection secondary to the cancer. He states this was done approximately 5 years ago and that he can still eat and drink without difficulty and has no need for a feeding tube. He states that earlier this morning he awoke with generalized abdominal discomfort and bouts of dry heaving. He denies any chest pain or shortness of breath he denies any fevers or chills or known sick. He denies any loose stool or diarrhea. However because of his previous medical history and abdominal pain he presents for evaluation [facility] Medical History Abnormal abdominal CT scan Adjustment disorder Alcohol use Arthritis Atherosclerotic heart disease of [place] coronary artery without angina pectoris Back pain Cancer Cardiology follow-up encounter Chemotherapy-induced nausea Chest discomfort Dehydration DVT (deep venous thrombosis) Dyspepsia Encounter for adjustment or management of vascular access device Esophageal cancer Esophageal cancer Esophageal mass Former smoker Gastric reflux High cholesterol History of DVT (deep vein thrombosis) History of echocardiogram History of hiatal hernia History of stress test Hx of peripheral neuropathy Hyperlipidemia Hypokalemia Injury of head and neck Low iron Nonrheumatic aortic (valve) stenosis Nonrheumatic aortic valve disorder Premature ventricular contraction Primary cancer of lower third of esophagus Restless legs Submandibular gland swelling TIA (transient ischemic attack) Wears glasses Wears hearing aid Wears partial dentures Home Medications fuszevsx-vhl-SE-lycopen-lutein 1 ea PO DAILY 07/22/17 [History Last Taken 07/20/17] omeprazole 20 mg capsule,delayed release 20 mg PO DAILY cap 01/14/20 [History Last Taken Unknown] aspirin 81 mg chewable tablet 81 mg PO DAILY tablet 07/20/20 [History Last Taken Unknown] simvastatin 10 mg PO MOWEFR 02/10/21 [History Last Taken Unknown] metoprolol tartrate 25 mg tablet 12.5 mg PO BID #90 tab 07/31/21 [Rx Last Taken Unknown] Allergy/AdvReac Type Severity Reaction Status Date / Time No Known Allergies Allergy Verified 08/29/21 05:57 Family History Father No problems noted. Mother Cancer Surgical History History of aortic valve replacement with bioprosthetic valve (~02/13/16) History of bilateral cataract extraction History of cardiac catheterization History of esophageal surgery History of esophagogastroduodenoscopy (EGD) Hx of brain surgery Hx of CABG (~02/13/16) Hx of colonoscopy Hx of decompressive lumbar laminectomy Social History Smoking Status: Former smoker second hand exposure: No alcohol intake: current substance use type: does not use caffeine: Yes what type of physical activity do you participate in: none frequency: does not exercise ROS ROS ED Constitutional Constitutional ED: Denies chills or fever(s) ENT ENT ED: Denies sore throat Cardiovascular Cardiovascular: Denies chest pain Respiratory/Chest Respiratory/Chest: Denies cough or dyspnea Gastrointestinal Gastrointestinal: Reports abdominal pain and nausea; Denies diarrhea or vomiting Genitourinary Genitourinary ED: Denies dysuria Musculoskeletal Musculoskeletal: Denies myalgias Integumentary Denies rash Neurologic Neurologic: Denies headache(s) Hematologic/Lymphatic Hematologic/Lymphatic: Denies easy bleeding or easy bruising EXAM Physical Exam Const Vital Signs: 08/29/21 05:53 08/29/21 05:57 Temperature 97.7 F L Temperature Source Temporal Pulse Rate 55 L Respiratory Rate 17 Respiratory Effort Normal Blood Pressure 187/93 H Blood Pressure Mean 124 Pulse Ox 98 Oxygen Delivery Method Room Air Positive well nourished and well developed General Appearance ED: well developed HEENT Reports dry mucous membranes Mouth ED: Yes dry mucous membranes Mouth: dry mucous membranes Eyes PERRL and EOMs intact bilaterally Neck supple Chest Wall Chest Narrative: Patient has a port in place in the right upper chest without surrounding soft tissue changes to suggest infection Resp normal respiratory effort and clear to auscultation bilaterally Cardio regular rate and regular rhythm Rate: other Other Details: Radial pulses are +2-4 bilaterally are equal and symmetric GI non-distended and no masses GI Narrative: Abdomen is soft and nondistended with hyperactive bowel sounds. There is mild diffuse pain with palpation without voluntary guarding or rigidity. No pulsatile mass or fluid wave Palpation: soft Extremity normal to inspection Neuro oriented x3 and CN's II-XII intact bilaterally Sensorium / Orientation: alert Motor Exam: strength 5/5 throughout Psych mental status grossly normal Skin no rashes or lesions noted Skin Narrative: Skin turgor is increased MDM MDM MDM Narrative Medical decision making narrative: Patient presented to the ER hypertensive but afebrile. His abdomen was not domed or distended to suggest obstruction and I could not reproduce any specific location of pain. However with his history of previous cancer and his advanced age I did feel there is need for basic blood work and a CT scan. Labs revealed no clinically significant findings. His lactic acid is just slightly elevated and therefore do not feel this correlates with an acute ischemic event. CT scan showed massive hiatal hernia with some fluid around the gallbladder. His liver enzymes are normal and he does not have specific pain in the right upper quadrant but based on his report of nausea and pain an ultrasound will be added Lab Data Attestation: I reviewed the patient's lab results. Labs: Laboratory Results - last 24 hr 08/29/21 08/29/21 08/29/21 05:42 05:42 06:25 WBC 7.3 RBC 4.01 L Hgb 13.0 Hct 38.9 L MCV 97.0 H MCH 32.4 H MCHC 33.4 RDW Std Deviation 47.6 H RDW Coeff of Rick 13.2 Plt Count 109 L MPV 10.1 Immature Gran % (Auto) 0.500 Neut % (Auto) 83.0 H Lymph % (Auto) 10.4 L Mclennan % (Auto) 5.9 Eos % (Auto) 0.1 Baso % (Auto) 0.1 Absolute Neuts (auto) 6.0 Absolute Lymphs (auto) 0.76 L Nucleated RBC % 0 Sodium 138 Potassium 3.9 Chloride 105 Carbon Dioxide 27.0 Anion Gap 6 BUN 17 Creatinine 1.29 Estim Creat Clear Calc 42.97 Est GFR (MDRD) Af Amer 68 Est GFR (MDRD) Non-Af 56 L BUN/Creatinine Ratio 13.2 Glucose 178 H Lactic Acid 2.1 H* Calcium 9.1 Total Bilirubin 0.50 Direct Bilirubin 0.17 AST 26 ALT 24 Alkaline Phosphatase 98 Total Protein 7.4 Albumin 3.8 Globulin 3.6 Lipase 89 Radiography Diagnostic Testing: Clinical Impression(s) from Imaging Studies Abdomen/Pelvis CT 08/29/21 06:14 IMPRESSION: undefined Discharge Plan Triage Chief Complaint: General Illness ED Provider: Evelio Khoury Dx/Rx/DC Orders Prescriptions: No Action omeprazole 20 mg capsule,delayed release(DR/EC) 20 mg PO DAILY RF: 0 aspirin 81 mg tablet,chewable 81 mg PO DAILY RF: 0 oixqsrxw-yze-ZN-lycopen-lutein 1 EACH tablet 1 ea PO DAILY RF: 0 simvastatin 10 mg tablet 10 mg PO MOWEFR RF: 0 metoprolol tartrate 25 mg tablet 12.5 mg PO BID Qty: 90 RF: 3 Primary Care Provider: Anthony Donahue
[2021-08-29 08:15] VITALS: BP 190/96; PULSE 49; O2SAT 95
--- NOTE | 2021-08-29 08:16 | US_ITS ---
STUDY: ABDOMINAL ULTRASOUND - RIGHT UPPER QUADRANT REASON FOR VISIT: Male, 86 years old abd pain -- EPIGASTRIC PAIN X 1 DAY, NAUSEA TECHNIQUE: Ultrasound evaluation of the right upper quadrant was performed with real-time and static loya-scale imaging. TECHNICAL QUALITY: Adequate. COMPARISON: Comparison is made with prior examination of 05/08/2016. FINDINGS: Liver: The liver measures 16.7 cm. There is normal echogenicity of the liver. The bile ducts are within normal limits. There is hepatic color flow. The direction of portal flow is hepatopetal. There is no demonstrated mass lesion. Gallbladder: There is a distended gallbladder. The gallbladder wall measures 2.7 mm. There is a negative sonographic Ramirez''s sign. There is pericholecystic fluid. There are multiple echogenic structures within the gallbladder, consistent with multiple gallstones. Sludge is also seen within the gallbladder lumen. Common Bile Duct (C.B.D.): The common bile duct measures 3.8 mm. Pancreas: There is diffuse atrophy of the pancreas. There is increased echogenicity of the pancreas. There is no demonstrated pancreatic mass or cyst. Right Kidney: Normal size of the right kidney. The right kidney measures 10.3 cm x 5.4 cm x 5.1 cm. Normal renal cortex. The right cortex measures 1.8 cm. There is a 3.5 cm x 3.8 cm x 3.4 cm renal cyst. There is no right hydronephrosis. US/Gallbladder IMPRESSION: Multiple gallstones and sludge within the gallbladder lumen. Small amount of pericholecystic fluid. Right renal cyst. Electronically Signed: Hany Patricio MD at 10:06 EDT ,
[2021-08-29] MEDS: Morphine 4 MG/ML Syringe IV (09:24)
[2021-08-29 09:56] VITALS: BP 178/86; O2SAT 95
[2021-08-29 10:29] LABS: Reflex Lactate? Y
--- NOTE | 2021-08-29 11:01 | NURSING ---
CALLING [facility] FOR TRANSFER
--- NOTE | 2021-08-29 11:18 | ED.RN ---
critical result received lactate 3.1 md aware.
[2021-08-29 11:19] LABS: Lactic Acid 3.1 mmol/L (0.4-1.9)
--- NOTE | 2021-08-29 11:22 | NURSING ---
CALLED [facility], ETA IS 30 MIN
[2021-08-29 11:35] VITALS: BP 195/107; PULSE 71; RESP 16; O2SAT 96
[2021-08-29 11:37] LABS: International Normalized Ratio 1.2; Prothrombin Time (Protime)PT. 14.7 SECONDS (11.7-14.9)
[2021-08-29 11:38] LABS: Partial Thromboplast Time 25.2 Seconds (24.1-36.2)
[2021-08-29] MEDS: Lactated Ringers 1,000 ML 150 ML IV (11:41)
--- NOTE | 2021-08-29 11:51 | ED.RN ---
Report given to Saba at [facility].
== END 2021-08-29 12:49 | disposition other institution (70) ==
PROVIDERS: Emergency Medicine; Emergency Provider Emergency Medicine; PCP Family Medicine; Visit Provider Emergency Medicine
DX: K44.9 Diaphragmatic hernia without obstruction or gangrene (principal); I25.10 Atherosclerotic heart disease of native coronary artery without angina pectoris; E78.5 Hyperlipidemia, unspecified; Z87.891 Personal history of nicotine dependence; E78.00 Pure hypercholesterolemia, unspecified; Z85.01 Personal history of malignant neoplasm of esophagus; Z86.718 Personal history of other venous thrombosis and embolism; K21.9 Gastro-esophageal reflux disease without esophagitis; I35.0 Nonrheumatic aortic (valve) stenosis; Z86.73 Personal history of transient ischemic attack (TIA), and cerebral infarction without residual deficits; Z92.21 Personal history of antineoplastic chemotherapy; Z79.82 Long term (current) use of aspirin; Z79.899 Other long term (current) drug therapy; Z95.2 Presence of prosthetic heart valve; Z95.1 Presence of aortocoronary bypass graft
CPT/HCPCS: 74177; 76705; 80048; 80076; 83605; 83690; 85025; 85610; 85730; 96361; 96365; 96375; 96376; 99285; J7030; J7120; Q9967; A4216; J2405

== ENCOUNTER → 2021-11-30 | Outpatient (CLI) | payer MEDICARE, OTHER, SELFPAY ==
[2021-11-30 08:45] LABS: AST(SGOT) 18 U/L (15-37); Alanine Aminotransfer ALT/SGPT 15 U/L (16-61); Albumin, Serum 3.4 g/dL (3.2-5.0); Alkaline Phosphatase 92 U/L (45-117); Bilirubin, Direct 0.19 mg/dL (0.00-0.30); Cholesterol 139 mg/dL (200); Globulin 3.3 g/dL (2.2-4.2); High Density Lipoprotein 52 mg/dL; Protein, Total 6.7 g/dL (6.4-8.2); Triglycerides 89 mg/dL; Very Low Density Lipoprotein 18 mg/dL (5-40)
== END | disposition home or self-care (01) ==
LOC: LAB 07:23
PROVIDERS: PCP Family Medicine; Referring Provider Nurse Practitioner Family; Visit Provider Nurse Practitioner Family
DX: E78.5 Hyperlipidemia, unspecified (principal)
CPT/HCPCS: 36415; 80061; 80076

== ENCOUNTER 2022-04-26 07:56 | Day surgery (SDC) | payer MEDICARE, OTHER, SELFPAY ==
[2022-04-26] MEDS: Lactated Ringers 1,000 ML 15 ML IV (08:10)
--- NOTE | 2022-04-26 08:27 | HP.PCM_ITS ---
History and Physical Date of Admission: 04/26/22 Intake Vital Signs ? 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 Abnormal abdominal CT scan Adjustment disorder Alcohol use Arthritis Atherosclerotic heart disease of [place] coronary artery without angina pectoris Back pain Cancer Cardiology follow-up encounter Chemotherapy-induced nausea Chest discomfort Dehydration DVT (deep venous thrombosis) Dyspepsia Encounter for adjustment or management of vascular access device Esophageal cancer Esophageal cancer Esophageal mass Former smoker Gastric reflux High cholesterol History of DVT (deep vein thrombosis) History of echocardiogram History of hiatal hernia History of stress test Hx of peripheral neuropathy Hyperlipidemia Hypokalemia Injury of head and neck Low iron Nonrheumatic aortic (valve) stenosis Nonrheumatic aortic valve disorder Premature ventricular contraction Primary cancer of lower third of esophagus Restless legs Submandibular gland swelling TIA (transient ischemic attack) Wears glasses Wears hearing aid Wears partial dentures Surgical History? History of aortic valve replacement with bioprosthetic valve (~02/13/16) History of bilateral cataract extraction History of cardiac catheterization History of esophageal surgery History of esophagogastroduodenoscopy (EGD) History of hernia repair (~09/01/21) History of repair of hiatal hernia Hx of brain surgery Hx of CABG (~02/13/16) Hx of colonoscopy Hx of decompressive lumbar laminectomy Family History? Father? No problems noted. Mother?? Cancer Social History? Smoking Status:? Former smoker how long ago did patient quit smoking:? 02/13/2016 second hand exposure:? No alcohol intake:? current alcohol intake frequency: holidays/special occasions only substance use type:? does not use caffeine:? Yes Type: coffee Number of servings: 3 and tea Number of servings: 1 what type of physical activity do you participate in:? none frequency:? does not exercise HPI HPI HPI: Patient is a 86-year-old male here with diarrhea.? The patient had history of esophageal cancer with esophagectomy.? Patient was admitted to an outside hospital in August with a hiatal hernia containing his transverse colon and part of the small bowel.? He had laparotomy at that time.? He says he was doing well until about 2 months ago when he started having diarrhea.? He says that his bowel movements in the morning started solid but they progressed to diarrhea and then he has diarrhea through the rest of the day.? He only complains of mild abdominal pain which is diffuse.? He says he feels gas rumbling and then the diarrhea starts.? Patient denies right upper quadrant pain or nausea or vomiting. ROS General General: No weight change, appetite, fatigue, colon cancer, breast cancer or weakness HEENT HEENT: Yes eye injury and eye surgery; No difficulty swallowing, swollen glands or hoarseness Endo Endocrine: No thyroid disease, diabetes mellitus, thyroid cancer, Hair loss, heat intolerance or cold intolerance Skin Skin: No rash or changing moles Breast Breast: No left breast lump, right breast lump, nipple discharge, breast pain, abnormal mammogram, abnormal US or breast enlargement Musc Musculoskeletal: No back problems, arthritis, rheumatoid arthritis, gout or joint pain Cardio Cardiovascular: Yes heart disease; No murmur, pacemaker, atrial fibrillation, high blood pressure, heart attack, heart stent, palpitations, shortness of breat with exertion or chest pain Psych Psychiatric: No depression, anxiety or hearing voices Resp Respiratory: No shortness of breath, No sleep apnea, No cough, No COPD, No asthma, No emphysema and No wheezing Gastro Gastrointestinal: Yes abdominal pain, No nausea or vomiting, Yes diarrhea, Yes constipation, No blood in stool, No acid reflux, No hemorrhoids, No ulcers, No gallbladder problem and No black,tarry stools Pavel Hematologic: Yes blood thinners, No blood disorders, No bleeding, No anemia and No blood clots Neuro Neurologic: No system reviewed and no additional complaints, except as documented, No as per HPI, No abnormal gait, No abnormal hearing, No abnormal movements, No abnormal speech, No behavioral changes, No burning sensations, No confusion, No convulsions, No disequilibrium, No dizziness, No localized weakness, No frequent falls, No headache(s), No lack of coordination, No loss of vision, No memory loss, Yes numbness, No other visual disturbances, No radicular pain, No restless legs, No sensory deficit, No syncope, No tingling, No tremor(s), No weakness and No other Exam Const General: cooperative Orientation: alert and oriented x3 [facility] Head: normal to inspection Neck Neck: normal visual inspection and full ROM Chest Chest palpation & inspection: normal inspection of the chest Resp Effort & Inspection: normal respiratory effort Auscultation: clear to auscultation bilaterally Cardio Rate: regular rate Rhythm: regular rhythm GI Inspection: non-distended Palpation: soft and nontender Skin General: no rashes or lesions noted Neuro General: patient alert and patient oriented x3 Extrem General: full ROM Psych Appearance: grossly normal Mental Status: mental status grossly normal Assessment and Plan Assessment and Plan (1) Chronic diarrhea: ?Status:?Chronic ?Plan: Patient has been having a lot of diarrhea over the last few months.? Patient denies any blood in the diarrhea.? He did have a laparotomy due to transverse colon being in his hiatal hernia back in August.? Patient has not had a CT scan since then his last colonoscopy was about 4 to 5 years ago.? At this time I recommend performing a colonoscopy to check the colon and perform random biopsies for microscopic colitis.? If the colonoscopy is normal and the biopsies are normal then I would recommend performing a CT scan. Epifanio Alejandro MD Pager: [facility] [address] [place] [address], [address] [place] [id number] Office: I have examined the patient and the H&P has been reviewed. There are no clinical changes since date of exam.
[2022-04-26 08:32] VITALS: BP 141/79; PULSE 65; RESP 16; TEMP 36.6; O2SAT 93; BMI 22.1
--- NOTE | 2022-04-26 09:00 | COLBX_PTH ---
PATIENT: MILAGROS MELVIN LOC: EN U#:[id number] AGE/SX: 86/M ROOM: RE04/26/[address]: Dr. Epifanio Alejandro MD : 1935 BED: DIS: 04/26/2022 SPEC #: [id number] RECD: 04/26/22 12:02 STATUS: EBONY ANGE #: [id number] ROB: 04/26/22 09:[address]: Epifanio Alejandro DEPT: SURGICAL PATHOLOGY RECD BY: Bubba Harvey ENTERED: 04/26/22 12:02 SP TYPE: COLON BX OTHR DR: Dr. Anthony Donahue DO Tissues: COLON BIOPSY Procedures: Surgery Specimen Level IV HEADER OPERATION: Partial colonoscopy with biopsies (MAC) PRE-OP DIAGNOSIS: Chronic diarrhea TISSUE SUBMITTED: Random colon biopsy MICROSCOPIC DIAGNOSIS Colon, random biopsy: Melanosis coli. AM:benson 04/30/2022 MICROSCOPIC DESCRIPTION Slides are reviewed. GROSS DESCRIPTION Received in fixative is one container labeled with the patient's name and designated random colon biopsy. The specimen consists of multiple irregular fragments of light franz soft tissue that in aggregate measure 1.5 x 0.5 x 0.1 cm. The specimen is totally submitted in one cassette. / SJ:benson 04/26/2022 TC:3 CPT: 98162
--- NOTE | 2022-04-26 09:09 | OP.COLON_ITS ---
Patient Name: Moises Tavarez Procedure Date: 04/26/2022 8:36 AM Date of : 1935 Age: 86 Procedure: Colonoscopy Indications: Chronic diarrhea Providers: Epifanio Alejandro MD Referring MD: Epifanio Alejandro MD Medicines: Monitored Anesthesia Care Patient Profile: This is an 86 year old male. Refer to note in patient chart for documentation of history and physical. Last Colonoscopy: 5 years ago. Complications: No immediate complications. Estimated blood loss: Minimal. Procedure: Pre-Anesthesia Assessment: - Prior to the procedure, a History and Physical was performed, and patient medications and allergies were reviewed. The patient's tolerance of previous anesthesia was also reviewed. The risks and benefits of the procedure and the sedation options and risks were discussed with the patient. All questions were answered, and informed consent was obtained. Prior Anticoagulants: The patient has taken no previous anticoagulant or antiplatelet agents. After reviewing the risks and benefits, the patient was deemed in satisfactory condition to undergo the procedure. After I obtained informed consent, the scope was passed under direct vision. Throughout the procedure, the patient's blood pressure, pulse, and oxygen saturations were monitored continuously. The pediatric colonoscope was introduced through the anus and advanced to the transverse colon. The colonoscopy was extremely difficult due to significant looping. Successful completion of the procedure was aided by changing the patient to a supine position. The patient tolerated the procedure well. The quality of the bowel preparation was good. Scope In: 8:43:33 AM Scope Out: 9:03:46 AM Total Procedure Duration Time 0 hours 20 minutes 13 seconds Findings: The entire examined colon appeared normal on direct and retroflexion views. Biopsies for histology were taken with a cold forceps from the entire colon for evaluation of microscopic colitis. Impression: - The entire examined colon is normal on direct and retroflexion views. - Biopsies were taken with a cold forceps from the entire colon for evaluation of microscopic colitis. Recommendation: - Discharge patient to home. - Resume previous diet. - Continue present medications. - Await pathology results. - Repeat colonoscopy in 6 months because the examination was incomplete. - Return to GI office. Procedure Code(s): --- Professional --- 13076, 52, Colonoscopy, flexible; with biopsy, single or multiple Diagnosis Code(s): --- Professional --- K52.9, Noninfective gastroenteritis and colitis, unspecified CPT copyright 2017 [employer]. All rights reserved. The codes documented in this report are preliminary and upon napper fixer review may be revised to meet current compliance requirements. Epifanio Alejandro MD 04/26/2022 9:09:14 AM This report has been signed electronically. Number of Addenda: 0 Note Initiated On: 04/26/2022 8:36 AM
[2022-04-26 09:10] VITALS: BP 111/74; BP 141/79; PULSE 72; RESP 18; TEMP 36.5; O2SAT 98
--- NOTE | 2022-04-26 09:11 | OP.CCLET_ITS ---
04/26/2022 Anthony Donahue [address] [place] [address] Re : Colonoscopy procedure for Moises Beebe Dear Dr. Donahue This procedure was performed on Tuesday, April 26, 2022. My impressions and recommendations are as follows: Impressions : - The entire examined colon is normal on direct and retroflexion views. - Biopsies were taken with a cold forceps from the entire colon for evaluation of microscopic colitis. Recommendations : - Discharge patient to home. - Resume previous diet. - Continue present medications. - Await pathology results. - Repeat colonoscopy in 6 months because the examination was incomplete. - Return to GI office. My findings are described in the full procedure note, which is enclosed. If I can be of further assistance, please feel free to contact me at Doctor phone number(s): , Work: . Sincerely, Epifanio Alejandro MD 04/26/2022 9:09:14 AM This report has been signed electronically.
[2022-04-26 09:15] VITALS: BP 114/74; BP 141/79; PULSE 72; RESP 18; O2SAT 100
[2022-04-26 09:20] VITALS: BP 109/79; BP 141/79; PULSE 74; RESP 18; TEMP 36.6; O2SAT 100
[2022-04-26 09:22] VITALS: BP 115/77; BP 141/79; PULSE 73; RESP 18; TEMP 36.6; O2SAT 100
[2022-04-26] MEDS: 0.9% Saline Lock 10 ML Syringe IV (09:44)
[2022-04-26 09:52] VITALS: BP 141/79
== END 2022-04-26 09:55 | disposition home or self-care (01) ==
LOC: EN 07:57 → AC 07:58
PROVIDERS: PCP Family Medicine; Referring Provider Surgery; Visit Provider Surgery
PROC: 0DJD8ZZ Inspection of Lower Intestinal Tract, Via Natural or Artificial Opening Endoscopic (ICD-10-PCS; CPT 45378; principal; 2022-04-26 08:55)
DX: K63.89 Other specified diseases of intestine (principal); K52.9 Noninfective gastroenteritis and colitis, unspecified; I25.10 Atherosclerotic heart disease of native coronary artery without angina pectoris; K21.9 Gastro-esophageal reflux disease without esophagitis; E78.00 Pure hypercholesterolemia, unspecified; Z86.718 Personal history of other venous thrombosis and embolism; Z86.73 Personal history of transient ischemic attack (TIA), and cerebral infarction without residual deficits; Z95.1 Presence of aortocoronary bypass graft; Z87.891 Personal history of nicotine dependence; Z79.82 Long term (current) use of aspirin; Z79.899 Other long term (current) drug therapy; Z85.01 Personal history of malignant neoplasm of esophagus
CPT/HCPCS: 45380; 88305; J7120; A4216; J2405

== ENCOUNTER 2022-04-27 08:58 | Emergency (ER) | payer MEDICARE, OTHER, SELFPAY ==
[2022-04-27 08:59] VITALS: BP 178/98; PULSE 78; RESP 16; TEMP 36.4; O2SAT 100; BMI 22.1
--- NOTE | 2022-04-27 09:51 | CT_ITS ---
EXAM: CT ABDOMEN AND PELVIS WITH INTRAVENOUS CONTRAST CLINICAL INDICATION: Abdominal pain. Colonoscopy yesterday. Esophageal carcinoma and had esophageal resection with gastric pull-through procedure and anastomosis. TECHNIQUE: Helically acquired images were obtained of the abdomen and pelvis with intravenous contrast. This CT exam was performed using one or more of the following dose reduction techniques: automated exposure control, adjustment of the mA and/or kV according to patient size, and/or use of iterative reconstruction technique. This report was created using [employer] report [employer] technology. CONTRAST: 100 mL of IV Isovue-370. RADIATION DOSE: CTDIvol = 14.70 mGy, DLP = 913.29 mGy-cm COMPARISON: CT abdomen and pelvis with contrast 08/29/2021. CT chest, abdomen and pelvis with contrast 03/09/2021. FINDINGS: LOWER THORAX: Esophageal resection with gastric pull-through anastomosis and the bowel loops overlying the right hemidiaphragm are unchanged. The bowel loops overlying the left hemidiaphragm are now below the left hemidiaphragm. Lung bases are clear. No cardiomegaly. No significant pericardial effusion. ABDOMEN: LIVER: Normal liver. Mild intrahepatic biliary ductal dilatation is unchanged. GALLBLADDER AND BILE DUCTS: Normal gallbladder without gallstones and no pericholecystic fluid. Mild intrahepatic biliary ductal dilatation is unchanged. PANCREAS: Unremarkable. No focal cystic or solid mass. SPLEEN: Unremarkable. Normal size without focal cystic or solid mass. ADRENALS: Unremarkable. No nodules. KIDNEYS AND URETERS: Nonenhancing right posterior renal cyst is unchanged. Normal renal size and position. STOMACH AND BOWEL: See above. PELVIS: APPENDIX: Normal. BLADDER: Unremarkable. REPRODUCTIVE: Unremarkable as visualized. No mass. ABDOMEN and PELVIS: INTRAPERITONEAL SPACE: No free air. No free fluid. BONES/JOINTS: Pronounced L4-L5 disc space height narrowing with mild degenerative anterolisthesis of L4-5, moderately pronounced stenosis of the bilateral L4-L5 intervertebral neural foramina. Postsurgical absence of the L4 and L5 spinous processes and lamina. Moderate L5-S1 disc space height narrowing with degenerative vacuum phenomenon. Prominent central Schmorl''s node of the upper L4 vertebral body. No suspicious lytic or blastic abnormality. SOFT TISSUES: Unremarkable. No discrete abdominal or pelvic wall hernia. VASCULATURE: Unremarkable. Abdominal aorta is non-dilated. LYMPH NODES: Unremarkable. No enlarged lymph nodes. CT/Abdomen/Pelvis WITH Contrast IMPRESSION: 1. No CT evidence of pneumoperitoneum from recent colonoscopy. 2. No acute abnormality in the abdomen and pelvis. 3. Esophageal resection with gastric pull-through anastomosis and the bowel loops overlying the right hemidiaphragm are unchanged. 4. Interval improvement of the bowel loops which were overlying the left hemidiaphragm and are now below the left hemidiaphragm. Electronically Signed: Mauro Gomez MD at 12:13 EST ,
[2022-04-27] MEDS: 0.9% Normal Saline 1,000 ML 1000 ML IV (10:17)
[2022-04-27] MEDS: Ondansetron 4 MG/2 ML Vial IV ×2 (10:18→14:11)
[2022-04-27] MEDS: Morphine 4 MG/ML Syringe IV ×2 (10:19→14:51)
[2022-04-27 10:21] LABS: Absolute Lymphocyte Count 0.86 X10^3/uL (0.83-4.51); Absolute Neutrophil Count 10.1 X10^3/uL (2.0-7.7); Basophil# 0.01 X10^3/uL; Basophil% 0.1 % (0-1); Eosinophil# 0.01 X10^3/uL; Eosinophils% 0.1 % (0-5); Hematocrit 38.4 % (40-54); Lymphocyte # 0.86 X10^3/ul (0.83-4.51); Lymphocyte % 7.5 % (19-41); Mean Corp Hgb Conc 33.9 g/dL (32-36); Mean Corpuscular Hgb 32.3 pg (27.0-32.0); Mean Corpuscular Volume 95.5 fL (80-94); Mean Platelet Vol. 9.6 fl (6.2-12.0); Monocyte# 0.49 X10^3/uL; Monocyte% 4.3 % (0-10); NRBC Flagged by Analyzer 0 % (0-5); Neutrophil # 10.07 X10^3/uL (2.7-7.7); Neutrophil % 87.7 % (47-70); Platelet Count 148 K/mm3 (150-450); RBC Distribution Width CV 14.3 % (11.6-14.6); RBC Distribution Width SD 50.4 fl (35.1-43.9); Red Blood Count 4.02 M/mm3 (4.6-6.2); White Blood Count 11.5 K/mm3 (4.4-11.0)
[2022-04-27 10:37] LABS: AST(SGOT) 21 U/L (15-37); Alanine Aminotransfer ALT/SGPT 18 U/L (16-61); Alkaline Phosphatase 97 U/L (45-117); Anion Gap 9 (5-15); BUN 24 mg/dL (7-18); BUN/Creat Ratio 17.5 RATIO (10-20); Calcium,Total 9.6 mg/dL (8.5-10.1); Chloride 104 mmol/L (98-107); Creatinine, Serum 1.37 mg/dL (0.70-1.30); EST Glomerular Filtration Rate 52 mL/min (>60); Est Glom Filt Rate - Afr Amer 63 mL/min (>60); Estimated Creatinine Clearance 38.75 ml/min; Globulin 3.9 g/dL (2.2-4.2); Glucose 198 mg/dL (74-106); Lipase 60 U/L (73-393); Protein, Total 7.9 g/dL (6.4-8.2); Sodium Level 137 mmol/L (136-145)
[2022-04-27 11:00] VITALS: BP 180/79; PULSE 68; RESP 16; TEMP 36.6
--- NOTE | 2022-04-27 11:01 | ED.VIS.GI ---
HPI HPI - GI History of Present Illness Chief Complaint: Abd Pain Informant: patient Abdominal Pain/Flank Pain Onset: Yesterday Context: Sudden Onset Timing: Continuous Quality: Aching and - (Nauseating) Location: Diffuse and Epigastric Worsened by: Nothing Relieved by: - (Vomiting) Nausea/Vomiting/Emesis GI Symptom: Positive for Nausea and Vomiting Onset: Yesterday Diarrhea/Melena/Hematochezia GI Symptom: Positive for Diarrhea; Negative for Melena or Hematochezia Onset: Yesterday Associated Symptoms Associated Symptoms: Negative for Dysuria, Frequency or Hematuria Narrative Narrative: Patient presents with abdominal pain that began yesterday afternoon. Patient had a colonoscopy done yesterday. Patient states that his pain began after he got home after that. Patient states his pain has been constant. Patient describes the pain as aching and nauseating. Patient states the pain is mainly over the epigastric area but also has some pain diffusely across his abdomen. Patient states it did get better after an episode of vomiting yesterday. Patient denies any hematemesis or coffee-ground emesis. Patient states she has also had some diarrhea but denies any melena or hematochezia. Patient denies any dysuria, frequency, or hematuria. Patient denies any fevers or chills. [facility] Medical History Abnormal abdominal CT scan Adjustment disorder Alcohol use Arthritis Atherosclerotic heart disease of [place] coronary artery without angina pectoris Back pain Cancer Cardiology follow-up encounter Chemotherapy-induced nausea Chest discomfort Dehydration DVT (deep venous thrombosis) Dyspepsia Encounter for adjustment or management of vascular access device Esophageal cancer Esophageal cancer Esophageal mass Former smoker Gastric reflux High cholesterol History of DVT (deep vein thrombosis) History of echocardiogram History of hiatal hernia History of stress test Hx of peripheral neuropathy Hyperlipidemia Hypokalemia Injury of head and neck Low iron Migraine headache Nonrheumatic aortic (valve) stenosis Nonrheumatic aortic valve disorder Premature ventricular contraction Primary cancer of lower third of esophagus Restless legs Submandibular gland swelling TIA (transient ischemic attack) Wears glasses Wears hearing aid Wears partial dentures Home Medications aspirin 81 mg chewable tablet 81 mg PO QHS 07/20/20 [History Last Taken Unknown] metoprolol tartrate 25 mg tablet 12.5 mg PO BID #90 tabs 07/31/21 [Rx Last Taken Unknown] omeprazole 20 mg capsule,delayed release 20 mg PO BID 11/28/21 [History Last Taken Unknown] simvastatin 10 mg tablet 10 mg PO MOWEFR 90 days #39 tabs 11/28/21 [Rx Last Taken Unknown] ondansetron 4 mg disintegrating tablet 4 mg PO Q8H PRN PRN Nausea #10 tabs 04/27/22 [Rx Last Taken Unknown] Allergy/AdvReac Type Severity Reaction Status Date / Time diphenhydramine Allergy Intermediate Restless Verified 04/27/22 09:00 [From Benadryl] legs Family History Father No problems noted. Mother Cancer Surgical History History of aortic valve replacement with bioprosthetic valve (~02/13/16) History of bilateral cataract extraction History of cardiac catheterization History of esophageal surgery History of esophagogastroduodenoscopy (EGD) History of hernia repair (~09/01/21) History of repair of hiatal hernia Hx of brain surgery Hx of CABG (~02/13/16) Hx of colonoscopy Hx of decompressive lumbar laminectomy Social History Smoking Status: Former smoker how long ago did patient quit smokin02/13/2016 second hand exposure: No alcohol intake: current alcohol intake frequency: holidays/special occasions only substance use type: does not use caffeine: Yes Type: coffee Number of servings: 3 and tea Number of servings: 1 what type of physical activity do you participate in: none frequency: does not exercise ROS ROS ED Constitutional Constitutional ED: Reports chills; Denies fever(s) Eyes Eyes: Denies blurry vision or change in vision ENT ENT ED: Denies rhinorrhea or sore throat Cardiovascular Cardiovascular: Reports chest pain; Denies palpitations Respiratory/Chest Respiratory/Chest: Denies cough or dyspnea Gastrointestinal Gastrointestinal: Reports abdominal pain, diarrhea, nausea and vomiting Genitourinary Genitourinary ED: Denies dysuria or hematuria Musculoskeletal Musculoskeletal: Denies back pain or neck pain Integumentary Denies abscess or rash Neurologic Neurologic: Denies headache(s) or weakness Allergic/Immunologic Allergic/Immunologic ED: Denies mouth swelling or urticaria EXAM Physical Exam Const Vital Signs: 04/27/22 08:59 04/27/22 11:00 04/27/22 13:37 Temperature 97.6 F L 97.9 F 98.0 F Temperature Source Temporal Temporal Oral Pulse Rate 78 68 78 Respiratory Rate 16 16 18 Blood Pressure 178/98 H 180/79 H 157/92 H Blood Pressure Mean 124 112 113 Pulse Ox 100 96 Oxygen Delivery Method Room Air Room Air Positive well nourished and well developed General Appearance ED: well developed HEENT Reports moist mucous membranes Neck supple and no JVD Resp normal respiratory effort and clear to auscultation bilaterally Cardio regular rate, regular rhythm and no murmurs GI normal to inspection, nondistended, normoactive bowel sounds Palpation: soft and tender epigastric; Negative for guarding or rebound tenderness present Extremity normal to inspection General Extremety ED: Negative for edema or tenderness General Extremity: Negative for edema Neuro oriented x3, CN's II-XII intact bilaterally and no sensory deficits noted Sensorium / Orientation: alert Motor Exam: strength 5/5 throughout Psych mental status grossly normal Mood & Affect: depressed Skin no rashes or lesions noted MDM MDM MDM Narrative Medical decision making narrative: Patient was given IV fluids, morphine, and Zofran. Patient did have an emesis after drinking the oral contrast for the CT scan. Patient was able to hold down approximately three fourths of the dose of the contrast. CBC shows a slight leukocytosis of 11.5. Hemoglobin was stable at 13.0. Comprehensive metabolic profile shows a creatinine of 1.37 and BUN of 24. These are consistent with prior results. Lipase was normal. CT scan of the abdomen pelvis was obtained. There is no evidence of perforation or obstruction. There is no acute abnormality noted. This was interpreted by the radiologist and reviewed by myself. Patient was feeling better on reevaluation. Case was discussed with Dr. Alejandro. He recommended obtaining influenza swab. COVID-19 and influenza swab was obtained and is pending. Patient will follow up with Dr. Alejandro this week. Patient was instructed to start with a liquid diet and advance as tolerated. Patient started having more nausea. Patient was given a repeat dose of Zofran and morphine. Patient had another emesis. Patient was observed after this. Patient was feeling better on reevaluation. Patient was offered admission and NG tube placement. Patient states he wants to go home. Patient states he feels like he can go home and tolerate p.o. fluids. Patient was instructed to return if worse in any way. Patient and family understood and were agreeable with the plan. All questions were answered. Lab Data Attestation: I reviewed the patient's lab results. Labs: Laboratory Results - last 24 hr 04/27/22 04/27/22 10:10 10:10 WBC 11.5 H RBC 4.02 L Hgb 13.0 Hct 38.4 L MCV 95.5 H MCH 32.3 H MCHC 33.9 RDW Std Deviation 50.4 H RDW Coeff of Rick 14.3 Plt Count 148 L MPV 9.6 Immature Gran % (Auto) 0.300 Neut % (Auto) 87.7 H Lymph % (Auto) 7.5 L [place] % (Auto) 4.3 Eos % (Auto) 0.1 Baso % (Auto) 0.1 Absolute Neuts (auto) 10.1 H Absolute Lymphs (auto) 0.86 Nucleated RBC % 0 Sodium 137 Potassium 4.0 Chloride 104 Carbon Dioxide 24.0 Anion Gap 9 BUN 24 H Creatinine 1.37 H Estim Creat Clear Calc 38.75 Est GFR (MDRD) Af Amer 63 Est GFR (MDRD) Non-Af 52 L BUN/Creatinine Ratio 17.5 Glucose 198 H Calcium 9.6 Total Bilirubin 1.10 H AST 21 ALT 18 Alkaline Phosphatase 97 Total Protein 7.9 Albumin 4.0 Globulin 3.9 Albumin/Globulin Ratio 1.0 Lipase 60 L Radiography Diagnostic Testing: Clinical Impression(s) from Imaging Studies Abdomen/Pelvis CT 04/27/22 09:51 IMPRESSION: 1. No CT evidence of pneumoperitoneum from recent colonoscopy. 2. No acute abnormality in the abdomen and pelvis. 3. Esophageal resection with gastric pull-through anastomosis and the bowel loops overlying the right hemidiaphragm are unchanged. 4. Interval improvement of the bowel loops which were overlying the left hemidiaphragm and are now below the left hemidiaphragm. Electronically Signed: Mauro Gomez MD at 12:13 EST , Discharge Plan Triage Chief Complaint: Abd Pain ED Provider: Palomo Ayers Dx/Rx/DC Orders Clinical Impression: Abdominal pain, History of esophageal cancer Instructions: ED Abdominal Pain Unkn Cause Male... Prescriptions: New ondansetron [ondansetron] 4 mg tablet,disintegrating 4 mg PO Q8H PRN PRN (Reason: Nausea) Qty: 10 0RF No Action omeprazole 20 mg capsule,delayed release(DR/EC) 20 mg PO BID simvastatin 10 mg tablet 10 mg PO MOWEFR 90 Days Qty: 39 3RF aspirin 81 mg tablet,chewable 81 mg PO QHS metoprolol tartrate 25 mg tablet 12.5 mg PO BID Qty: 90 3RF Primary Care Provider: Anthony Donahue Referrals: Epifanio Alejandro MD [Med Staff - Active Staff] - 3-5 Days Anthony Donahue DO [Primary Care Provider] - Disposition Disposition: Home, Self Care
--- NOTE | 2022-04-27 11:15 | ED.RN ---
pt with 150cc emesis after drinking ct scan. aware and ct and no further orders.
[2022-04-27 13:37] VITALS: BP 157/92; PULSE 78; RESP 18; TEMP 36.7; O2SAT 96
--- NOTE | 2022-04-27 14:54 | ED.RN ---
EMESIS AFTER SECOND MORPHINE. OBSERVE PT PER
[2022-04-27 15:21] VITALS: BP 139/84; PULSE 90; RESP 16; O2SAT 99
== END 2022-04-27 15:22 | disposition home or self-care (01) ==
PROVIDERS: Emergency Provider Emergency Medicine; PCP Family Medicine; Visit Provider Emergency Medicine
DX: R10.9 Unspecified abdominal pain (principal); R19.7 Diarrhea, unspecified; E78.5 Hyperlipidemia, unspecified; I25.10 Atherosclerotic heart disease of native coronary artery without angina pectoris; R11.2 Nausea with vomiting, unspecified; R07.9 Chest pain, unspecified; Z87.891 Personal history of nicotine dependence; Z85.01 Personal history of malignant neoplasm of esophagus; Z20.822 Contact with and (suspected) exposure to COVID-19
CPT/HCPCS: 36591; 74177; 80053; 83690; 85025; 87428; 96361; 96374; 96375; 96376; 99284; J7030; Q9967; A4216; J2405

== ENCOUNTER 2022-04-28 10:45 | Emergency (ER) | payer MEDICARE, OTHER, SELFPAY ==
[2022-04-28] VITALS (7 sets, daily range): BP systolic 128–156; BP diastolic 83–96; PULSE 68–80; RESP 16–18; TEMP 36; O2SAT 98; BMI 20.9
--- NOTE | 2022-04-28 11:10 | EKG12_ITS ---
Test Reason : NAUSEA/VOMITING Blood Pressure : / mmHG Vent. Rate : 090 BPM Atrial Rate : 090 BPM P-R Int : 158 ms QRS Dur : 104 ms QT Int : 390 ms P-R-T Axes : 081 048 012 degrees QTc Int : 477 ms Sinus rhythm with Premature supraventricular complexes Low voltage QRS (Limb Leads) Confirmed by SLOAN MOLINA, AUDI ([id number]), newspaper or periodical editor HECTOR AMADOR ([id number]) on 04/30/2022 1:13:40 PM Referred By: Confirmed By:AUDI LISA MD
--- NOTE | 2022-04-28 11:11 | EX.ED.DYSGE1 ---
HPI History of Present Illness Chief Complaint: Nausea/Vomiting/Diarrhea Narrative Narrative: 86-year-old male presenting with nausea, vomiting, diarrhea. Patient had colonoscopy on Friday per Dr. Alejandro. He was seen in the ED yesterday had CT scan performed. He states throughout the night he continued to have diarrhea and vomiting. Has been unable to keep anything down. Complains of diffuse abdominal pain. Denies fever. Denies blood in stool or emesis. Prior similar symptoms: Yes Recent Illness/Hospitalization: Yes PFSH PFSH Medical History Abnormal abdominal CT scan Adjustment disorder Alcohol use Arthritis Atherosclerotic heart disease of [place] coronary artery without angina pectoris Back pain Cancer Cardiology follow-up encounter Chemotherapy-induced nausea Chest discomfort Dehydration DVT (deep venous thrombosis) Dyspepsia Encounter for adjustment or management of vascular access device Esophageal cancer Esophageal cancer Esophageal mass Former smoker Gastric reflux High cholesterol History of DVT (deep vein thrombosis) History of echocardiogram History of hiatal hernia History of stress test Hx of peripheral neuropathy Hyperlipidemia Hypokalemia Injury of head and neck Low iron Migraine headache Nonrheumatic aortic (valve) stenosis Nonrheumatic aortic valve disorder Premature ventricular contraction Primary cancer of lower third of esophagus Restless legs Submandibular gland swelling TIA (transient ischemic attack) Wears glasses Wears hearing aid Wears partial dentures Home Medications aspirin 81 mg chewable tablet 81 mg PO QHS 07/20/20 [History Last Taken Unknown] metoprolol tartrate 25 mg tablet 12.5 mg PO BID #90 tabs 07/31/21 [Rx Last Taken Unknown] omeprazole 20 mg capsule,delayed release 20 mg PO BID 11/28/21 [History Last Taken Unknown] simvastatin 10 mg tablet 10 mg PO MOWEFR 90 days #39 tabs 11/28/21 [Rx Last Taken Unknown] ondansetron 4 mg disintegrating tablet 4 mg PO Q8H PRN PRN Nausea #10 tabs 04/27/22 [Rx Last Taken Unknown] Allergy/AdvReac Type Severity Reaction Status Date / Time diphenhydramine Allergy Intermediate Restless Verified 04/28/22 10:52 [From Benadryl] legs Family History Father No problems noted. Mother Cancer Surgical History History of aortic valve replacement with bioprosthetic valve (~02/13/16) History of bilateral cataract extraction History of cardiac catheterization History of esophageal surgery History of esophagogastroduodenoscopy (EGD) History of hernia repair (~09/01/21) History of repair of hiatal hernia Hx of brain surgery Hx of CABG (~02/13/16) Hx of colonoscopy Hx of decompressive lumbar laminectomy Social History Smoking Status: Former smoker how long ago did patient quit smokin02/13/2016 second hand exposure: No alcohol intake: current alcohol intake frequency: holidays/special occasions only substance use type: does not use caffeine: Yes Type: coffee Number of servings: 3 and tea Number of servings: 1 what type of physical activity do you participate in: none frequency: does not exercise ROS ROS ED Constitutional Constitutional ED: Denies fever(s) Eyes Eyes: Denies change in vision ENT ENT ED: Denies rhinorrhea or sore throat Cardiovascular Cardiovascular: Denies chest pain or palpitations Respiratory/Chest Respiratory/Chest: Denies cough or dyspnea Gastrointestinal Gastrointestinal: Reports abdominal pain, diarrhea, nausea and vomiting Genitourinary Genitourinary ED: Denies dysuria Musculoskeletal Musculoskeletal: Denies myalgias Integumentary Denies rash Neurologic Neurologic: Denies headache(s) Psychiatric Psychiatric: Denies suicidal thoughts EXAM Physical Exam Const Vital Signs: 04/28/22 10:46 Temperature 96.8 F L Temperature Source Temporal Pulse Rate 80 Respiratory Rate 18 Blood Pressure 155/96 H Blood Pressure Mean 115 Pulse Ox 98 Oxygen Delivery Method Room Air Positive well nourished and well developed General Appearance ED: well developed HEENT Reports normocephalic and head/scalp atraumatic Eyes PERRL and EOMs intact bilaterally Neck supple General: Negative for tenderness Chest Wall inspection of chest normal Resp normal respiratory effort and clear to auscultation bilaterally Cardio regular rate and regular rhythm GI non-distended Palpation: soft and tender other (diffuse); Negative for guarding or rebound tenderness present no CVA tenderness Extremity normal to inspection Neuro oriented x3 Sensorium / Orientation: alert Psych mental status grossly normal MDM MDM MDM Narrative Medical decision making narrative: Patient was given IV fluids, Zofran. He continues to have nausea and vomiting in the ED. CBC, chemistries are unremarkable. Glucose 175. Total bili 1.1. Lipase is normal. Troponin is negative. Abdominal x-ray read by myself and radiology shows no acute pulmonary process, small bowel ileus, no obstruction. Discussed with Dr. Alejandro. He will evaluate the patient in the ED. patient had CT abdomen pelvis without contrast. Images were reviewed by Dr. Alejandro. He has a small bowel obstruction with loop of bowel kinked in the previous hiatal hernia repair site. Patient is now agreeable to NG tube. Dr. Alejandro feels patient should be transferred to [facility] where his previous surgeries were performed. Patient and family are agreeable to this plan. Discussed with [facility] for transfer. Lab Data Attestation: I reviewed the patient's lab results. Labs: Laboratory Results - last 24 hr 04/28/22 04/28/22 04/28/22 11:31 11:31 12:56 WBC 8.9 RBC 4.00 L Hgb 12.8 L Hct 38.4 L MCV 96.0 H MCH 32.0 MCHC 33.3 RDW Std Deviation 50.9 H RDW Coeff of Rick 14.6 Plt Count 130 L MPV 9.5 Immature Gran % (Auto) 0.300 Neut % (Auto) 85.7 H Lymph % (Auto) 6.4 L [place] % (Auto) 7.5 Eos % (Auto) 0.0 Baso % (Auto) 0.1 Absolute Neuts (auto) 7.6 Absolute Lymphs (auto) 0.57 L Nucleated RBC % 0 Differential Comment SCANNED Sodium 137 Potassium 3.7 Chloride 104 Carbon Dioxide 27.0 Anion Gap 6 BUN 30 H Creatinine 1.28 Estim Creat Clear Calc 39.13 Est GFR (MDRD) Af Amer 68 Est GFR (MDRD) Non-Af 56 L BUN/Creatinine Ratio 23.4 H Glucose 175 H Calcium 9.0 Total Bilirubin 1.10 H AST 17 ALT 17 Alkaline Phosphatase 86 Troponin I High Sens 12 Total Protein 7.6 Albumin 3.7 Globulin 3.9 Albumin/Globulin Ratio 0.9 Lipase 73 Urine Color Yellow Urine Clarity Clear Urine pH 5.0 Ur Specific [place] 1.020 Urine Protein 30 H Urine Glucose (UA) Normal Urine Ketones 5 H Urine Occult Blood 25 H Urine Nitrite Negative Urine Bilirubin Negative Urine Urobilinogen Normal Ur Leukocyte Esterase Negative Urine RBC 0 SEEN Urine WBC 0 SEEN Ur Squamous Epith Cells 0 SEEN Urine Bacteria 0 SEEN Urine Mucus 0 SEEN Radiography Diagnostic Testing: Clinical Impression(s) from Imaging Studies Acute Abdomen Series 04/28/22 11:45 IMPRESSION: No acute pulmonary process, opacification in the right lung base is the patient''s stomach from an esophageal pull-through surgery Small bowel ileus, no demonstrated free air or obstruction Remote CABG Electronically Signed: Harsha Faustin MD at 12:02 EST , Abdomen/Pelvis CT 04/28/22 13:04 IMPRESSION: Stable appearance of a known gastric pull-through surgery. Small bowel ileus Hyperdense sludge within the gallbladder but no CT evidence of acute cholecystitis Stable right renal cyst, no specific follow-up needed Degenerative bony changes Overall, little significant interval change since the previous study Electronically Signed: Harsha Faustin MD at 14:03 EST , Discharge Plan Triage Chief Complaint: Nausea/Vomiting/Diarrhea ED Provider: Manisha Hendricks Dx/Rx/DC Orders Clinical Impression: SBO (small bowel obstruction) Prescriptions: No Action omeprazole 20 mg capsule,delayed release(DR/EC) 20 mg PO BID simvastatin 10 mg tablet 10 mg PO MOWEFR 90 Days Qty: 39 3RF aspirin 81 mg tablet,chewable 81 mg PO QHS ondansetron [ondansetron] 4 mg tablet,disintegrating 4 mg PO Q8H PRN PRN (Reason: Nausea) Qty: 10 0RF metoprolol tartrate 25 mg tablet 12.5 mg PO BID Qty: 90 3RF Primary Care Provider: Anthony Donahue Referrals: Anthony Donahue DO [Primary Care Provider] - Disposition Disposition: Acute Care Hospital Discharge Location: [facility]
[2022-04-28] MEDS: 0.9% Normal Saline 1,000 ML 1000 ML IV (11:36)
[2022-04-28] MEDS: Ondansetron 4 MG/2 ML Vial IV (11:36)
[2022-04-28 11:37] LABS: Absolute Lymphocyte Count 0.57 X10^3/uL (0.83-4.51); Absolute Neutrophil Count 7.6 X10^3/uL (2.0-7.7); Basophil# 0.01 X10^3/uL; Basophil% 0.1 % (0-1); Hematocrit 38.4 % (40-54); Hemoglobin 12.8 g/dL (13.0-16.5); Lymphocyte # 0.57 X10^3/ul (0.83-4.51); Lymphocyte % 6.4 % (19-41); Mean Corp Hgb Conc 33.3 g/dL (32-36); Mean Platelet Vol. 9.5 fl (6.2-12.0); Monocyte# 0.67 X10^3/uL; Monocyte% 7.5 % (0-10); NRBC Flagged by Analyzer 0 % (0-5); Neutrophil # 7.64 X10^3/uL (2.7-7.7); Neutrophil % 85.7 % (47-70); POSITIVE DIFFERENTIAL YES; Platelet Count 130 K/mm3 (150-450); RBC Distribution Width CV 14.6 % (11.6-14.6); RBC Distribution Width SD 50.9 fl (35.1-43.9); White Blood Count 8.9 K/mm3 (4.4-11.0)
[2022-04-28 11:41] LABS: Differential Indicated SCAN CRITERIA MET
--- NOTE | 2022-04-28 11:45 | RAD_ITS ---
STUDY: X-RAY - ACUTE ABDOMINAL SERIES REASON FOR EXAM: Male, 86 years old. vomiting TECHNIQUE: Single view of the chest. Supine, and erect view(s) of the abdomen were obtained. 4 views obtained COMPARISON: None. FINDINGS: Satisfactory appearance of a right subclavian port Lungs are expanded without evidence of a superimposed acute pulmonary process, the opacification in the right lung base is the patient''s stomach as a result of an esophageal pull-through surgery Remote CABG. Normal mediastinum and claude. Normal visualized pulmonary arteries. There is atherosclerotic calcification of the aortic arch with tortuosity. Multiple air-fluid levels are noted on the upright abdominal film consistent with an ileus, no demonstrated obstruction. The soft tissue structures of the abdomen and pelvis are unremarkable. There are diffuse degenerative changes of the visualized lumbar spine. RAD/Acute Abdomen Inc Chest IMPRESSION: No acute pulmonary process, opacification in the right lung base is the patient''s stomach from an esophageal pull-through surgery Small bowel ileus, no demonstrated free air or obstruction Remote CABG Electronically Signed: Harsha Faustin MD at 12:02 EST ,
[2022-04-28 11:55] LABS: ALB/GLOB Ratio 0.9 RATIO (0.9-2.4); AST(SGOT) 17 U/L (15-37); Alanine Aminotransfer ALT/SGPT 17 U/L (16-61); Albumin, Serum 3.7 g/dL (3.2-5.0); Alkaline Phosphatase 86 U/L (45-117); Anion Gap 6 (5-15); BUN 30 mg/dL (7-18); BUN/Creat Ratio 23.4 RATIO (10-20); Chloride 104 mmol/L (98-107); Creatinine, Serum 1.28 mg/dL (0.70-1.30); EST Glomerular Filtration Rate 56 mL/min (>60); Est Glom Filt Rate - Afr Amer 68 mL/min (>60); Estimated Creatinine Clearance 39.13 ml/min; Globulin 3.9 g/dL (2.2-4.2); Glucose 175 mg/dL (74-106); Lipase 73 U/L (73-393); Potassium 3.7 mmol/L (3.5-5.1); Protein, Total 7.6 g/dL (6.4-8.2); Sodium Level 137 mmol/L (136-145); Troponin-I HS 12 pg/mL (3.0-78.0)
[2022-04-28 12:09] LABS: Differential Comment SCANNED
[2022-04-28 13:01] LABS: Bacteria 0 SEEN /hpf (None Seen); Mucous, Urine 0 SEEN /hpf (<or=2+); Red Blood Cells-Urine 0 SEEN /hpf (0-5); Squamous Epithelial Cells - UA 0 SEEN /hpf (0-5); White Blood Cells 0 SEEN /hpf (0-5)
--- NOTE | 2022-04-28 13:04 | CT_ITS ---
STUDY: CT ABDOMEN AND PELVIS WITHOUT CONTRAST REASON FOR EXAM: Male, 86 years old. Abd pain, vomiting RADIATION DOSAGE (If Supplied By Facility): CTDIvol = ( 6.86 ) mGy, DLP = ( 404.63 ) mGy TECHNIQUE: Transaxial images were obtained from the dome of the diaphragm to the symphysis pubis without oral contrast, and without intravenous contrast. Sagittal and coronal images were reconstructed. Individualized dose optimization techniques were used for this CT. COMPARISON: Yesterday FINDINGS: Lung bases again show chronic interstitial changes with opacification in the right lung base due to gastric pull-through surgery. Previously noted atelectasis in the right lung base has slightly worsened since the previous study. Heart size is normal. Normal liver. Hyperdense sludge noted within the gallbladder but there is no wall thickening or other evidence of cholecystitis. Normal spleen. Normal pancreas. Normal bilateral adrenal glands. No obstructive uropathy, or suspicious solid renal lesion, stable simple cyst in the right kidney. There has been a previous gastric pull-through surgery. Stable fluid distended loops of small bowel consistent with ileus. Retained stool in the colon There is diffuse atherosclerotic calcification of the abdominal aorta with elongation and tortuosity, but without a demonstrated aneurysm. Normal inferior vena cava. Normal retroperitoneum. Normal urinary bladder. Prostate is mildly enlarged and contains calcifications. Normal abdominal wall. There are diffuse degenerative changes of the visualized lumbar spine, and pelvis. CT/Abdomen/Pelvis without Cont IMPRESSION: Stable appearance of a known gastric pull-through surgery. Small bowel ileus Hyperdense sludge within the gallbladder but no CT evidence of acute cholecystitis Stable right renal cyst, no specific follow-up needed Degenerative bony changes Overall, little significant interval change since the previous study Electronically Signed: Harsha Faustin MD at 14:03 EST ,
[2022-04-28 13:05] LABS: Color, Urine Yellow (Yellow); Glucose, Dipstick Normal (Normal); Ketone-Dipstick 5 mg/dl (Negative); Leukocyte Esterase-Dipstick Negative /ul (Negative); Nitrite-Dipstick Negative (Negative); Occult Blood-Urine 25 /ul (Negative); Protein-Dipstick 30 mg/dl (Negative); Urine Bilirubin Dipstick Negative (Negative); Urine Clarity Clear (Clear); Urine Urobilinogen Normal (Normal)
--- NOTE | 2022-04-28 14:09 | HP.PCM.SX_ITS ---
HPI - General HPI Narrative MILAGROS MELVIN, is a 86 M who presents with continued vomiting and abdominal pain. The patient had a colonoscopy for chronic diarrhea on Friday. At that time the patient's colonoscopy was complicated by redundant colon and significant looping and I was unable to complete the colonoscopy. I was only able to examine the patient's transverse and descending colon. The procedure was aborted. The following day the patient came back again with vomiting overnight and central abdominal pain. Patient has CT scan which showed dilated proximal bowel. Patient was feeling better and was discharged home from the emergency room. He says he vomited all night long and came back again today with the same abdominal pain in the central abdomen and vomiting of anything he can try to take down. He says he is having some diarrhea. He does not think he is passing any flatus. [facility] Medical History Abnormal abdominal CT scan Adjustment disorder Alcohol use Arthritis Atherosclerotic heart disease of [place] coronary artery without angina pectoris Back pain Cancer Cardiology follow-up encounter Chemotherapy-induced nausea Chest discomfort Dehydration DVT (deep venous thrombosis) Dyspepsia Encounter for adjustment or management of vascular access device Esophageal cancer Esophageal cancer Esophageal mass Former smoker Gastric reflux High cholesterol History of DVT (deep vein thrombosis) History of echocardiogram History of hiatal hernia History of stress test Hx of peripheral neuropathy Hyperlipidemia Hypokalemia Injury of head and neck Low iron Migraine headache Nonrheumatic aortic (valve) stenosis Nonrheumatic aortic valve disorder Premature ventricular contraction Primary cancer of lower third of esophagus Restless legs Submandibular gland swelling TIA (transient ischemic attack) Wears glasses Wears hearing aid Wears partial dentures Home Medications aspirin 81 mg chewable tablet 81 mg PO QHS 07/20/20 [History Last Taken Unknown] metoprolol tartrate 25 mg tablet 12.5 mg PO BID #90 tabs 07/31/21 [Rx Last Taken Unknown] omeprazole 20 mg capsule,delayed release 20 mg PO BID 11/28/21 [History Last Taken Unknown] simvastatin 10 mg tablet 10 mg PO MOWEFR 90 days #39 tabs 11/28/21 [Rx Last Taken Unknown] ondansetron 4 mg disintegrating tablet 4 mg PO Q8H PRN PRN Nausea #10 tabs 04/27/22 [Rx Last Taken Unknown] Allergy/AdvReac Type Severity Reaction Status Date / Time diphenhydramine Allergy Intermediate Restless Verified 04/28/22 10:52 [From Benadryl] legs Family History Father No problems noted. Mother Cancer Surgical History History of aortic valve replacement with bioprosthetic valve (~02/13/16) History of bilateral cataract extraction History of cardiac catheterization History of esophageal surgery History of esophagogastroduodenoscopy (EGD) History of hernia repair (~09/01/21) History of repair of hiatal hernia Hx of brain surgery Hx of CABG (~02/13/16) Hx of colonoscopy Hx of decompressive lumbar laminectomy Social History Smoking Status: Former smoker how long ago did patient quit smokin02/13/2016 second hand exposure: No alcohol intake: current alcohol intake frequency: holidays/special occasions only substance use type: does not use caffeine: Yes Type: coffee Number of servings: 3 and tea Number of servings: 1 what type of physical activity do you participate in: none frequency: does not exercise Vital Signs Vital Signs Vital Signs: 04/28/22 10:46 Temperature 96.8 F L Temperature Source Temporal Pulse Rate 80 Respiratory Rate 18 Blood Pressure 155/96 H Blood Pressure Mean 115 Pulse Ox 98 Oxygen Delivery Method Room Air Weight Weight: 150 lb Body Mass Index (BMI) 20.9 Physical Exam Const oriented x3 Resp normal respiratory effort GI soft to palpation Palpation: tender Results Lab / Micro Data Result Diagrams: 04/28/22 11:31 04/28/22 11:31 Labs: Laboratory Results - last 24 hr 04/28/22 11:31: WBC 8.9, RBC 4.00 L, Hgb 12.8 L, Hct 38.4 L, MCV 96.0 H, MCH 32.0, MCHC 33.3, RDW Std Deviation 50.9 H, RDW Coeff of Rick 14.6, Plt Count 130 L, MPV 9.5, Immature Gran % (Auto) 0.300, Neut % (Auto) 85.7 H, Lymph % (Auto) 6.4 L, Burt % (Auto) 7.5, Eos % (Auto) 0.0, Baso % (Auto) 0.1, Absolute Neuts (auto) 7.6, Absolute Lymphs (auto) 0.57 L, Nucleated RBC % 0, Differential Comment SCANNED 04/28/22 11:31: Sodium 137, Potassium 3.7, Chloride 104, Carbon Dioxide 27.0, Anion Gap 6, BUN 30 H, Creatinine 1.28, Estim Creat Clear Calc 39.13, Est GFR (MDRD) Af Amer 68, Est GFR (MDRD) Non-Af 56 L, BUN/Creatinine Ratio 23.4 H, Glucose 175 H, Calcium 9.0, Total Bilirubin 1.10 H, AST 17, ALT 17, Alkaline Phosphatase 86, Troponin I High Sens 12, Total Protein 7.6, Albumin 3.7, Globulin 3.9, Albumin/Globulin Ratio 0.9, Lipase 73 04/28/22 12:56: Urine Color Yellow, Urine Clarity Clear, Urine pH 5.0, Ur Specific Evangeline 1.020, Urine Protein 30 H, Urine Glucose (UA) Normal, Urine Ketones 5 H, Urine Occult Blood 25 H, Urine Nitrite Negative, Urine Bilirubin Negative, Urine Urobilinogen Normal, Ur Leukocyte Esterase Negative, Urine RBC 0 SEEN, Urine WBC 0 SEEN, Ur Squamous Epith Cells 0 SEEN, Urine Bacteria 0 SEEN, Urine Mucus 0 SEEN Radiology Impression Acute Abdomen Series 04/28/22 11:45 IMPRESSION: No acute pulmonary process, opacification in the right lung base is the patient''s stomach from an esophageal pull-through surgery Small bowel ileus, no demonstrated free air or obstruction Remote CABG Electronically Signed: Harsha Faustin MD at 12:02 EST , Abdomen/Pelvis CT 04/28/22 13:04 IMPRESSION: Stable appearance of a known gastric pull-through surgery. Small bowel ileus Hyperdense sludge within the gallbladder but no CT evidence of acute cholecystitis Stable right renal cyst, no specific follow-up needed Degenerative bony changes Overall, little significant interval change since the previous study Electronically Signed: Harsha Faustin MD at 14:03 EST , Assessment & Plan Assessment/Plan (1) SBO (small bowel obstruction): PLAN: The patient has ongoing vomiting after his colonoscopy. I am unsure as to the etiology. Patient's had significant surgery in the past with esophageal resection as well as a recent laparotomy with a large hiatal hernia repair. I am unsure as to why I was unable to reach the end of the colon or how this would create a small bowel obstruction. The patient had a repeat CT scan today which was read as possible ileus but it appears the distal small bowel loops are nondistended and its mostly the stomach and proximal small bowel. This did not resolve at all and his white count is still normal. At this time I would like him transferred to his surgical center where he had all of his surgical procedures done at [facility]. I am unsure as to the etiology of what is happening but if it is a bowel obstruction I would not feel comfortable operating as he has had several rearrangements of his bowel from past surgeries. I offered the patient conservative admission to decompress with NG and observe but I informed him that he would need to be transferred if any surgical intervention was necessary with the patient's that he would rather not have an NG tube or be admi tted. Epifanio Alejandro MD Pager: [facility] [address] [place] [address], [address] [place] [address] Office:
--- NOTE | 2022-04-28 14:15 | NURSING ---
CALLED [facility], TALKED TO ROSA MARY
--- NOTE | 2022-04-28 14:43 | RAD_ITS ---
STUDY: X-RAY - ABDOMEN/PELVIS REASON FOR EXAM: Male, 86 years old. sbo -- KUB with both diaphragms for NG/OG Verification TECHNIQUE: To AP view of the chest abdomen COMPARISON: None. FINDINGS: Dense opacification right base/right upper abdomen. Enteric tube appears to be over the right mainstem bronchus with kinking along its tip. Patient at productive size and has esophagectomy and gastric pull up. Right internal jugular port. Atelectasis or infiltrate in the right base. RAD/Abdomen Single View (Portable) IMPRESSION: Enteric tube is kinked along its distal course projecting over the right mainstem bronchus, this however could be within the patient''s gastric pull-up as there was a large drainage of gastric fluid obtained. Reviewed with Dr. GALLEGOS at the time of interpretation. Atelectasis right base. Electronically Signed: Jeane Peralta MD at 15:57 EST Reading Location ID and State: , Service support ,
[2022-04-28] MEDS: Lidocaine Jelly 2% 20 ML Syringe (URO-JET) 1 APPLIC TOPICAL (15:10)
[2022-04-28] MEDS: Oxymetazoline 0.05% 1 SPRAY SPRAY.BTL 2 SPRAY NASAL (15:10)
--- NOTE | 2022-04-28 16:01 | NURSING ---
1534 CALLED [facility], ETA IS 2 HOURS
--- NOTE | 2022-04-28 17:03 | NURSING ---
JANUSZ, PHYSICANS, CALLED. THE [address] [facility] FROM [facility] IS COMING FOR PATIENT. HE WAS ASKED TO TRY AND OUT SOURCE
--- NOTE | 2022-04-28 20:20 | NURSING ---
CALLED PHYSICIANS AT 2015, S[facility] 25 MINUTES OUT.
== END 2022-04-28 20:59 | disposition short-term general hospital (02) ==
PROVIDERS: Emergency Provider Emergency Medicine; PCP Family Medicine; Visit Provider Emergency Medicine
DX: K56.609 Unspecified intestinal obstruction, unspecified as to partial versus complete obstruction (principal); I25.10 Atherosclerotic heart disease of native coronary artery without angina pectoris; Z87.891 Personal history of nicotine dependence; Z86.718 Personal history of other venous thrombosis and embolism; Z86.73 Personal history of transient ischemic attack (TIA), and cerebral infarction without residual deficits
CPT/HCPCS: 36591; 74018; 74022; 74176; 80053; 81001; 83690; 84484; 85025; 93005; 96361; 96374; 99285; J7030; A4216; J2405

== ENCOUNTER → 2022-06-19 | Outpatient (CLI) | payer MEDICARE, OTHER, SELFPAY | END | disposition home or self-care (01) | LOC: PSN 13:40 | PROVIDERS: PCP Family Medicine; Referring Provider Physician Assistant Medical; Visit Provider Physician Assistant Medical | DX: I97.89 Other postprocedural complications and disorders of the circulatory system, not elsewhere classified (principal); I48.91 Unspecified atrial fibrillation | CPT/HCPCS: 93225; 93226 ==

== ENCOUNTER → 2022-10-11 | Outpatient (CLI) | payer MEDICARE, OTHER, SELFPAY ==
[2022-10-11 17:14] LABS: Absolute Lymphocyte Count 1.31 X10^3/uL (0.83-4.51); Absolute Neutrophil Count 2.8 X10^3/uL (2.0-7.7); Basophil# 0.04 X10^3/uL; Basophil% 0.8 % (0-1); Eosinophil# 0.15 X10^3/uL; Eosinophils% 3.2 % (0-5); Hematocrit 37.2 % (40-54); Hemoglobin 12.1 g/dL (13.0-16.5); Lymphocyte # 1.31 X10^3/ul (0.83-4.51); Lymphocyte % 27.8 % (19-41); Mean Corp Hgb Conc 32.5 g/dL (32-36); Mean Corpuscular Hgb 32.2 pg (27.0-32.0); Mean Corpuscular Volume 98.9 fL (80-94); Mean Platelet Vol. 9.4 fl (6.2-12.0); Monocyte# 0.39 X10^3/uL; Monocyte% 8.3 % (0-10); NRBC Flagged by Analyzer 0 % (0-5); Neutrophil # 2.83 X10^3/uL (2.7-7.7); Neutrophil % 59.9 % (47-70); Platelet Count 152 K/mm3 (150-450); RBC Distribution Width CV 13.5 % (11.6-14.6); RBC Distribution Width SD 49.1 fl (35.1-43.9); Red Blood Count 3.76 M/mm3 (4.6-6.2); White Blood Count 4.7 K/mm3 (4.4-11.0)
[2022-10-11 17:27] LABS: Erythrocyte Sedimentation Rate 22 mm/hr (0-20)
[2022-10-11 18:09] LABS: AST(SGOT) 24 U/L (15-37); Alanine Aminotransfer ALT/SGPT 16 U/L (16-61); Albumin, Serum 3.9 g/dL (3.2-5.0); Alkaline Phosphatase 123 U/L (45-117); Bilirubin, Direct 0.17 mg/dL (0.00-0.30); Cholesterol 135 mg/dL (200); Globulin 4.1 g/dL (2.2-4.2); High Density Lipoprotein 51 mg/dL; Triglycerides 77 mg/dL; Very Low Density Lipoprotein 15 mg/dL (5-40)
[2022-10-11 18:23] LABS: Ferritin 51 ng/mL (26-388); LDH 250 U/L (87-241)
[2022-10-11 19:13] LABS: AST(SGOT) 25 U/L (15-37); Alanine Aminotransfer ALT/SGPT 17 U/L (16-61); Albumin, Serum 3.9 g/dL (3.2-5.0); Alkaline Phosphatase 119 U/L (45-117); Anion Gap 10 (5-15); BUN 19 mg/dL (7-18); BUN/Creat Ratio 14.6 RATIO (10-20); Calcium,Total 9.2 mg/dL (8.5-10.1); Chloride 104 mmol/L (98-107); EST Glomerular Filtration Rate 55 mL/min (>60); Est Glom Filt Rate - Afr Amer 67 mL/min (>60); Globulin 4.1 g/dL (2.2-4.2); Glucose 89 mg/dL (74-106); Potassium 4.7 mmol/L (3.5-5.1); Sodium Level 137 mmol/L (136-145)
[2022-10-14 16:09] LABS: Endomysial Antibody IgA Negative (Negative); Immunoglobulin A 337 mg/dL (61-437); t-Transglutaminase IgA <2 U/mL (0-3)
[2022-10-15 14:09] LABS: Anti-Centromere B Ab <0.2 AI (0.0-0.9); Anti-Chromatin <0.2 AI (0.0-0.9); Anti-Jo <0.2 AI (0.0-0.9); Anti-Scleroderma-70 AB <0.2 AI (0.0-0.9); Anti-dsDNA Ab <1 IU/mL (0-9); RNP Ab <0.2 AI (0.0-0.9); SJOGREN'S Anti-SS-A test < 0.2 AI (0.0-0.9); SJOGREN'S Anti-SS-B test 1.1 AI (0.0-0.9); Smith Ab <0.2 AI (0.0-0.9); Vitamin D 1,25-Dihydroxy 58.5 pg/mL (24.8-81.5)
[2022-10-17 17:07] LABS: Albumin 3.8 g/dL (2.9-4.4); Alpha-1-Globulins 0.3 g/dL (0.0-0.4); Alpha-2-Globulins 0.9 g/dL (0.4-1.0); Cytoplasmic Ab (C-ANCA) <1:20 titer (Neg:<1:20); Gamma Globulin 1.2 g/dL (0.4-1.8); Immunoglobulin A 354 mg/dL (61-437); Immunoglobulin E 5 IU/mL (6-495); Immunoglobulin G 1123 mg/dL (603-1613); Immunoglobulin M 79 mg/dL (15-143); PROEL- TOTAL PROTEIN 7.1 g/dL (6.0-8.5); Perinuclear Ab (P-ANCA) <1:20 titer (Neg:<1:20)
== END | disposition home or self-care (01) ==
LOC: LAB 15:46
PROVIDERS: Internal Medicine Medical Oncology; Nurse Practitioner Family; PCP Family Medicine; Visit Provider Internal Medicine Gastroenterology
DX: K52.9 Noninfective gastroenteritis and colitis, unspecified (principal); E78.00 Pure hypercholesterolemia, unspecified; I49.3 Ventricular premature depolarization; Z85.01 Personal history of malignant neoplasm of esophagus; K22.9 Disease of esophagus, unspecified
CPT/HCPCS: 36415; 80053; 80061; 80076; 82652; 82728; 82784; 82785; 83516; 83615; 84165; 84443; 85025; 85652; 86140; 86225; 86235; 86255; 86256; 86334

== ENCOUNTER → 2022-10-14 | Outpatient (CLI) | payer MEDICARE, OTHER, SELFPAY ==
[2022-10-16 20:07] LABS: Pancreatic Elastase, Fecal < 50 (>200)
[2022-10-19 21:07] LABS: Calprotectin, Stool 79 ug/g (0-120); Fats, Neutral Normal (.); Fats, Total Normal (.)
== END | disposition home or self-care (01) ==
LOC: LABSPEC 09:17
PROVIDERS: PCP Family Medicine; Referring Provider Internal Medicine Gastroenterology; Visit Provider Internal Medicine Gastroenterology
DX: R10.12 Left upper quadrant pain (principal); K52.9 Noninfective gastroenteritis and colitis, unspecified
CPT/HCPCS: 82274; 82653; 82705; 83630; 83993; 87177; 87209; 87329; 87493; 87506

== ENCOUNTER → 2022-10-21 | Outpatient (CLI) | payer MEDICARE, OTHER, SELFPAY ==
--- NOTE | 2022-10-21 07:32 | CT_ITS ---
STUDY: CT ABDOMEN AND PELVIS WITH CONTRAST REASON FOR EXAM: Male, 87 years old. Abdominal pain. Esophageal cancer with 80% of the esophagus removed. Status post chemotherapy and radiation. RADIATION DOSAGE (If Supplied By Facility): CTDIvol = ( 21.68 ) mGy, DLP = ( 662.93 ) mGycm TECHNIQUE: 100 mL of Isovue 300 was administered. Oral contrast was also utilized. Transaxial images were obtained from the dome of the diaphragm to the symphysis pubis in the arterial, nephrographic and excretory phases. Multiplanar coronal and sagittal images were reformatted. Individualized Dose Optimization Techniques Were Used For This CT. COMPARISON: April 28, 2022 and April 27, 2022. FINDINGS: Small left pleural effusion. The lungs are otherwise unremarkable.. The visualized portions of the heart are within normal limits. Evidence of median sternotomy. There is evidence of a gastric pull-up procedure in the right posterior hemithorax. Normal liver. Normal gallbladder and extrahepatic biliary system. Normal spleen. Normal pancreas. Normal bilateral adrenal glands. Only the antrum lies below the diaphragm. Normal small intestine. Normal colon. There is non-visualization of the appendix. There is diffuse atherosclerotic calcification of the abdominal aorta, without a demonstrated aneurysm. Normal IVC. No retroperitoneal adenopathy. There is a 4.4 x 3.4 x 3.3 cm cyst extending off the lower pole but otherwise normal right kidney. There is questionable cortical loss in the upper pole of the left kidney. There is decreased enhancement as well. This appears unchanged from April 27, 2022 Mild wall thickening of the urinary bladder without filling defect. Markedly enlarged prostate. No pelvic lymphadenopathy. No free air or free fluid is seen within the peritoneal cavity. Normal abdominal wall. There are diffuse degenerative changes of the visualized lumbar spine. No lytic or blastic lesions. CT/Abdomen/Pelvis WITH Contrast IMPRESSION: 1. Cortical loss and decreased enhancement in the upper pole left kidney. This is stable. 2. Status post gastric pull-up procedure. 3. Stable left renal cyst. 4. No evidence of acute intra-abdominal process. 5. Small left pleural effusion. Electronically Signed: Ray Henry DO at 21:49 EDT Reading Location ID and State: [facility] / [place] Tel [phone], Service support ,
[2022-10-21] MEDS: 0.9% Saline Lock 10 ML Syringe IV (07:50)
== END | disposition home or self-care (01) ==
LOC: NM 07:30 → CT 07:31
PROVIDERS: PCP Family Medicine; Referring Provider Internal Medicine Gastroenterology; Visit Provider Internal Medicine Gastroenterology
DX: R10.9 Unspecified abdominal pain (principal)
CPT/HCPCS: 74177; Q9967; A4216

== ENCOUNTER → 2022-10-28 | Outpatient (CLI) | payer MEDICARE, OTHER, SELFPAY ==
--- NOTE | 2022-10-28 11:36 | NM_ITS ---
CLINICAL: 87-year-old male with history of esophageal carcinoma status post gastric pull-through procedure with the current clinical presentation of gastroparesis. SEMI-SOLID PHASE 99m Tc SULFUR COLLOID GASTRIC EMPTYING STUDY COMPARISON: None available FINDINGS: The patient was administered 1.1 mCi of 99m Tc sulfur colloid mixed with oatmeal and consumed per os. Image acquisitions in the anterior-posterior projections were obtained for 60 minutes. There is prompt visualization of the stomach. There is no gastroesophageal reflux identified. The T ? linear fit was calculated to be 53.46 minutes, (Normal: 12-56 minutes). NM/Gastric Emptying Study IMPRESSION: 1. NORMAL 99m Tc sulfur colloid semi-solid phase (oatmeal) gastric emptying imaging examination. A. There is upper limits of normal and preserved semi-solid phase gastric emptying compared to normal controls with maintained first order kinetics throughout all phases of the examination. Electronically Signed: Albin Gottlieb, at 9:45 EDT ,
== END | disposition home or self-care (01) ==
LOC: NM 11:36
PROVIDERS: PCP Family Medicine; Referring Provider Internal Medicine Gastroenterology; Visit Provider Internal Medicine Gastroenterology
DX: R10.9 Unspecified abdominal pain (principal)
CPT/HCPCS: 78264; A9541

== ENCOUNTER → 2023-03-07 | Outpatient (CLI) | payer MEDICARE, OTHER, SELFPAY ==
--- NOTE | 2023-03-07 08:29 | US_ITS ---
STUDY: ABDOMINAL ULTRASOUND - RIGHT UPPER QUADRANT REASON FOR VISIT: Male, 87 years old RUQ PAIN INTERMITTENT TECHNIQUE: Ultrasound evaluation of the right upper quadrant was performed with real-time and static loya-scale imaging. TECHNICAL QUALITY: Adequate. COMPARISON: 08/29/2021 FINDINGS: Liver: The liver measures 14.8 cm. There is normal echogenicity of the liver. The bile ducts are within normal limits. There is hepatic color flow. The direction of portal flow is hepatopetal. There is no demonstrated mass lesion. Gallbladder: Normal distended gallbladder. The gallbladder wall measures 2 mm. There is a negative sonographic Ramirez''s sign. There is no pericholecystic fluid. There are multiple echogenic structures within the gallbladder, consistent with multiple gallstones. Common Bile Duct (C.B.D.): The common bile duct measures 5 mm. Pancreas: There is nonvisualization of the pancreas.. Right Kidney: Normal size of the right kidney. The right kidney measures 9.9 cm. Normal renal cortex. The right cortex measures 2.0 cm. 4 cm cyst in the upper pole the right kidney. There is no right hydronephrosis. US/Abdomen Limited IMPRESSION: Cholelithiasis. Electronically Signed: Albin Driver MD at 22:28 EST ,
== END | disposition home or self-care (01) ==
PROVIDERS: PCP Family Medicine; Referring Provider Family Medicine; Visit Provider Family Medicine
DX: R10.11 Right upper quadrant pain (principal)
CPT/HCPCS: 76705

== ENCOUNTER 2023-07-03 08:48 | Observation (INO) | payer MEDICARE, OTHER, SELFPAY ==
[2023-07-03] VITALS (10 sets, daily range): BP systolic 112–160; BP diastolic 44–56; PULSE 79–105; RESP 14–26; TEMP 36.4–36.8; O2SAT 93–98; BMI 23.8; BMI 23.5
--- NOTE | 2023-07-03 09:08 | EKG12_ITS ---
Test Reason : CP Blood Pressure : / mmHG Vent. Rate : 097 BPM Atrial Rate : 000 BPM P-R Int : 000 ms QRS Dur : 100 ms QT Int : 354 ms P-R-T Axes : 000 027 -19 degrees QTc Int : 449 ms Atrial fibrillation with premature ventricular or aberrantly conducted complexes Incomplete right bundle branch block CAN NOT RULE OUT Septal infarct , age undetermined Abnormal ECG Confirmed by Yohannes Rock ([id number]), photography editor OTTO CALABRESE ([id number]) on 07/07/2023 1:56:21 PM Referred By: Confirmed By:Yohannes Rock
--- NOTE | 2023-07-03 09:08 | RAD_ITS ---
EXAM: XR CHEST, 1 VIEW CLINICAL INDICATION: chest pain TECHNIQUE: Frontal view of the chest. COMPARISON: No relevant prior studies available. FINDINGS: LUNGS AND PLEURAL SPACES: Tenting of the peripheral aspect of the right hemidiaphragm due to scarring. Blunting of the right costophrenic sulcus may be due to pleural thickening or small pleural fluid. Mild asymmetric bibasilar fibrosis. Thickening of the minor fissure versus small fluid. No pneumothorax. HEART: Unremarkable. Normal cardiac size. MEDIASTINUM: Central airways and mediastinal contour are unremarkable. BONES/JOINTS: Intact sternal wires. No acute fracture. SOFT TISSUES: Unremarkable. TUBES, LINES AND DEVICES: Right IJ approach [id number] tip is in the distal SVC. RAD/Chest 1 View (Portable) IMPRESSION: 1. No suspicious acute cardiopulmonary pathology. 2. Asymmetric bibasilar fibrosis with tenting in the peripheral aspect of the right hemidiaphragm. Electronically Signed: Mauro Gomez MD at 10:44 EST ,
[2023-07-03] MEDS: Aspirin 81 MG TAB.CHEW 324 MG PO (09:24)
[2023-07-03 09:52] LABS: Absolute Lymphocyte Count 0.91 X10^3/uL (0.83-4.51); Absolute Neutrophil Count 5.8 X10^3/uL (2.0-7.7); Basophil# 0.03 X10^3/uL; Basophil% 0.4 % (0-1); Eosinophil# 0.04 X10^3/uL; Eosinophils% 0.5 % (0-5); Hematocrit 34.6 % (40-54); Hemoglobin 11.6 g/dL (13.0-16.5); Lymphocyte # 0.91 X10^3/ul (0.83-4.51); Lymphocyte % 12.4 % (19-41); Mean Corp Hgb Conc 33.5 g/dL (32-36); Mean Corpuscular Hgb 32.4 pg (27.0-32.0); Mean Corpuscular Volume 96.6 fL (80-94); Mean Platelet Vol. 10.2 fl (6.2-12.0); Monocyte# 0.51 X10^3/uL; NRBC Flagged by Analyzer 0 % (0-5); Neutrophil # 5.81 X10^3/uL (2.7-7.7); Neutrophil % 79.4 % (47-70); Platelet Count 114 K/mm3 (150-450); RBC Distribution Width CV 14.1 % (11.6-14.6); RBC Distribution Width SD 49.9 fl (35.1-43.9); Red Blood Count 3.58 M/mm3 (4.6-6.2); White Blood Count 7.3 K/mm3 (4.4-11.0)
--- NOTE | 2023-07-03 10:07 | ED.VIS.CHEST ---
HPI History of Present Illness Chief Complaint: Chest Pain Narrative Narrative: 88-year-old male presenting with chest pain. States started last evening at about 930. Patient has a history of ND and CABG x 4. Patient states that he also has a hiatal hernia secondary to esophageal cancer and removal of part of his lower esophagus. Patient also states that he has a history of gallbladder problems and states that he had an ultrasound which showed gallstones. He states that he has not had a lot of pain with eating. Yesterday he ate pork chops and salad at lunch and did not get any symptoms until 9:30 at night. He states that the symptoms are all in his chest. He does feel lightheaded when he stands. Patient still has a port for his history of esophageal cancer but does not receive chemotherapy anymore. Denies nausea, vomiting, diarrhea. Denies shortness of breath. Denies fever or chills. [facility] Medical History Abdominal pain Abnormal abdominal CT scan Adjustment disorder Alcohol use Arthritis Atherosclerotic heart disease of [place] coronary artery without angina pectoris Back pain Cancer Cardiology follow-up encounter Chemotherapy-induced nausea Chest discomfort Dehydration DVT (deep venous thrombosis) Dyspepsia Encounter for adjustment or management of vascular access device Former smoker Gastric reflux History of DVT (deep vein thrombosis) History of echocardiogram History of hiatal hernia History of stress test Hx of peripheral neuropathy Hyperlipidemia Hypokalemia Injury of head and neck Low iron Migraine headache Nonrheumatic aortic (valve) stenosis Nonrheumatic aortic valve disorder Premature ventricular contraction Primary cancer of lower third of esophagus Restless legs SBO (small bowel obstruction) Submandibular gland swelling TIA (transient ischemic attack) Wears glasses Wears hearing aid Wears partial dentures Home Medications aspirin 81 mg chewable tablet 81 mg PO QHS 07/20/20 [History Last Taken 07/02/23] simvastatin 10 mg tablet 10 mg PO MOWEFR 90 days #39 tabs 07/23/22 [Rx Last Taken 07/02/23] metoprolol tartrate 25 mg tablet 12.5 mg (1/2 x 25 mg) PO BID #90 tabs 08/14/22 [Rx Last Taken 07/02/23] omeprazole 20 mg capsule,delayed release 20 mg PO BID #180 caps 08/14/22 [Rx Last Taken 07/02/23] budesonide 3 mg capsule,delayed,extended release 6 mg (2 x 3 mg) PO DAILY 30 days #60 ea 11/08/22 [Rx Last Taken 07/02/23] [id number]-[id number] 2 - 3 cap PO TID 07/03/23 [History Last Taken 07/02/23] multivitamin-ferrous fumarate-folic acid 18 mg-400 mcg tablet (Daily Multivitamin with Iron) 1 tab PO DAILY 07/03/23 [History Last Taken 07/02/23] propylene glycol 0.6 % eye drops (Systane Balance) 1 drp EACH EYE BID PRN dry eye(s) 07/03/23 [History Last Taken 07/02/23] Allergy/AdvReac Type Severity Reaction Status Date / Time diphenhydramine Allergy Intermediate Restless Verified 07/03/23 08:49 [From Benadryl] legs Family History Father No problems noted. Mother Cancer Surgical History History of aortic valve replacement with bioprosthetic valve (~02/13/16) History of bilateral cataract extraction History of cardiac catheterization History of esophageal surgery History of esophagogastroduodenoscopy (EGD) History of hernia repair (~09/01/21) History of repair of hiatal hernia Hx of brain surgery Hx of CABG (~02/13/16) Hx of colonoscopy Hx of decompressive lumbar laminectomy Hx of exploratory laparotomy (~04/2022) Social History Smoking Status: Former smoker how long ago did patient quit smokin02/13/2016 second hand exposure: No alcohol intake: current alcohol intake frequency: holidays/special occasions only substance use type: does not use caffeine: Yes Type: coffee Number of servings: 3 and tea Number of servings: 1 what type of physical activity do you participate in: none frequency: does not exercise ROS ROS ED Constitutional Constitutional ED: Denies chills, fever(s) or sweats Eyes Eyes: Denies blurry vision or change in vision ENT ENT ED: Denies ear pain or sore throat Cardiovascular Cardiovascular: Reports chest pain and other Details: Lightheadedness ; Denies palpitations or racing heartbeat Respiratory/Chest Respiratory/Chest: Denies cough, dyspnea or sputum Gastrointestinal Gastrointestinal: Denies abdominal pain, constipation, diarrhea, nausea or vomiting Genitourinary Genitourinary ED: Denies dysuria, hematuria or urinary frequency Musculoskeletal Musculoskeletal: Denies arthralgias, myalgias or neck pain Integumentary Denies abscess, Abrasions or rash Neurologic Neurologic: Denies headache(s), paresthesias or weakness Psychiatric Psychiatric: Denies anxiety, depression, suicidal ideation or suicidal thoughts Endocrine Endocrinology: Denies polydipsia or polyuria EXAM Physical Exam Const Vital Signs: 07/03/23 08:49 07/03/23 09:41 07/03/23 09:42 Temperature 98.1 F Temperature Source Temporal Pulse Rate 96 Pulse Rate [Lying] Pulse Rate [Sitting (for 1 minute prior to obtaining)] Pulse Rate [Standing (for 1 minute prior to obtaining)] Respiratory Rate 14 Respiratory Pattern Normal Blood Pressure 160/55 H Blood Pressure [Lying] Blood Pressure [Sitting (for 1 minute prior to obtaining)] Blood Pressure [Standing (for 1 minute prior to obtaining)] Blood Pressure Mean 90 Blood Pressure Mean [Lying] Blood Pressure Mean [Sitting (for 1 minute prior to obtaining)] Blood Pressure Mean [Standing (for 1 minute prior to obtaining)] Pulse Ox 95 Oxygen Delivery Method Room Air Room Air 07/03/23 10:19 07/03/23 10:08 07/03/23 11:29 Temperature Temperature Source Pulse Rate 88 80 Pulse Rate [Lying] 96 Pulse Rate [Sitting (for 1 minute prior to obtaining)] 88 Pulse Rate [Standing (for 1 minute prior to obtaining)] 105 H Respiratory Rate 16 18 Respiratory Pattern Blood Pressure 131/51 H 113/53 L Blood Pressure [Lying] 112/54 L Blood Pressure [Sitting (for 1 minute prior to obtaining)] 122/48 H Blood Pressure [Standing (for 1 minute prior to obtaining)] 123/55 H Blood Pressure Mean 77 73 Blood Pressure Mean [Lying] 73 Blood Pressure Mean [Sitting (for 1 minute prior to obtaining)] 72 Blood Pressure Mean [Standing (for 1 minute prior to obtaining)] 77 Pulse Ox 94 97 Oxygen Delivery Method Room Air 07/03/23 13:00 Temperature Temperature Source Pulse Rate 79 Pulse Rate [Lying] Pulse Rate [Sitting (for 1 minute prior to obtaining)] Pulse Rate [Standing (for 1 minute prior to obtaining)] Respiratory Rate 18 Respiratory Pattern Blood Pressure 117/44 L Blood Pressure [Lying] Blood Pressure [Sitting (for 1 minute prior to obtaining)] Blood Pressure [Standing (for 1 minute prior to obtaining)] Blood Pressure Mean 68 Blood Pressure Mean [Lying] Blood Pressure Mean [Sitting (for 1 minute prior to obtaining)] Blood Pressure Mean [Standing (for 1 minute prior to obtaining)] Pulse Ox 93 Oxygen Delivery Method Positive well nourished General Appearance ED: NAD HEENT Reports moist mucous membranes normocephalic and atraumatic Eyes PERRL Chest Wall inspection of chest normal Resp normal respiratory effort and clear to auscultation bilaterally Effort and Inspection: respiratory distress Auscultation: Negative for rales, rhonchi or wheezes Cardio regular rate and regular rhythm GI normal to inspection, nondistended, normoactive bowel sounds, soft to palpation and non-tender Extremity normal to inspection Neuro oriented x3 and CN's II-XII intact bilaterally Sensorium / Orientation: awake and alert Psych mental status grossly normal MDM MDM MDM Narrative Medical decision making narrative: Differential includes but is not limited to ACS, PE, pneumonia, muscle strain, costochondritis, GERD, gastritis, cholelithiasis, pancreatitis, dehydration, anemia. Patient currently pain-free. Physical exam unremarkable. Abdomen soft nontender nondistended. Lungs clear bilaterally. Heart regular rate and rhythm. CBC to assess white blood cell count, hemoglobin, platelets. BMP to assess renal function, electrolytes, glucose. LFTs to assess liver enzymes. Lipase to assess for pancreatitis. Patient declines analgesia. Will obtain orthostatic vital signs given his lightheadedness. Chest x-ray to rule out pneumonia. EKG to rule out ischemia. High-sensitivity troponin will be obtained for the same reason. EKG shows atrial fibrillation at 97 bpm. CBC within normal limits. CMP shows total bilirubin 1.1, direct bilirubin 0.33, LFTs otherwise unremarkable. Creatinine elevated at 1.52 which is above his baseline. Patient will require IV fluids. High-sensitivity troponin 92, delta troponin 119 therefore patient has a change of greater than 20 and will need to be admitted to the hospital. Lipase negative. Chest x-ray my interpretation shows no acute process. Patient given aspirin 325 mg. Impression: 1. Chest pain 2. NSTEMI 3. Dehydration Lab Data Attestation: I reviewed the patient's lab results. Labs: Laboratory Results - last 24 hr 07/03/23 07/03/23 09:37 12:10 WBC 7.3 RBC 3.58 L Hgb 11.6 L Hct 34.6 L MCV 96.6 H MCH 32.4 H MCHC 33.5 RDW Std Deviation 49.9 H RDW Coeff of Rick 14.1 Plt Count 114 L MPV 10.2 Immature Gran % (Auto) 0.300 Neut % (Auto) 79.4 H Lymph % (Auto) 12.4 L [place] % (Auto) 7.0 Eos % (Auto) 0.5 Baso % (Auto) 0.4 Absolute Neuts (auto) 5.8 Absolute Lymphs (auto) 0.91 Nucleated RBC % 0 Sodium 140 Potassium 4.1 Chloride 109 H Carbon Dioxide 21.0 Anion Gap 10 BUN 24 H Creatinine 1.52 H Estim Creat Clear Calc 35.09 Est GFR (MDRD) Af Amer 56 L Est GFR (MDRD) Non-Af 46 L BUN/Creatinine Ratio 15.8 Glucose 111 H Calcium 8.6 Total Bilirubin 1.10 H Direct Bilirubin 0.33 H AST 20 ALT 14 L Alkaline Phosphatase 104 Troponin I High Sens 92 H 119 H Total Protein 6.5 Albumin 3.2 Globulin 3.3 Lipase 11 L Radiography Diagnostic Testing: Clinical Impression(s) from Imaging Studies Chest X-Ray 07/03/23 09:08 IMPRESSION: 1. No suspicious acute cardiopulmonary pathology. 2. Asymmetric bibasilar fibrosis with tenting in the peripheral aspect of the right hemidiaphragm. Electronically Signed: Mauro Gomez MD at 10:44 EST , Discharge Plan Triage Chief Complaint: Chest Pain ED Provider: Kennedy Yo Dx/Rx/DC Orders Prescriptions: No Action metoprolol tartrate 25 mg tablet 12.5 mg PO BID Qty: 90 3RF omeprazole 20 mg capsule,delayed release(DR/EC) 20 mg PO BID Qty: 180 3RF aspirin 81 mg tablet,chewable 81 mg PO QHS [id number] [Zenpep] 2 - 3 cap PO TID Rx Instructions: TAKE 2-3 CAPS AFTER MEALS AND 1 CAPSULE AFTER SNACKS Daily Multivitamin with Iron 18-400 mg-mcg tablet 1 tab PO DAILY Systane Balance 0.6 % drops 1 drp EACH EYE BID PRN (Reason: dry eye(s)) simvastatin 10 mg tablet 10 mg PO MOWEFR 90 Days Qty: 39 3RF budesonide 3 mg capsule,delayed,extend.release 6 mg PO DAILY 30 Days Qty: 60 2RF Primary Care Provider: Anthony Donahue Referrals: Anthony Donahue DO [Primary Care Provider] -
[2023-07-03 10:12] LABS: AST(SGOT) 20 U/L (15-37); Alanine Aminotransfer ALT/SGPT 14 U/L (16-61); Albumin, Serum 3.2 g/dL (3.2-5.0); Alkaline Phosphatase 104 U/L (45-117); Anion Gap 10 (5-15); BUN 24 mg/dL (7-18); BUN/Creat Ratio 15.8 RATIO (10-20); Bilirubin, Direct 0.33 mg/dL (0.00-0.30); Calcium,Total 8.6 mg/dL (8.5-10.1); Chloride 109 mmol/L (98-107); Creatinine, Serum 1.52 mg/dL (0.70-1.30); EST Glomerular Filtration Rate 46 mL/min (>60); Est Glom Filt Rate - Afr Amer 56 mL/min (>60); Estimated Creatinine Clearance 35.09 ml/min; Globulin 3.3 g/dL (2.2-4.2); Glucose 111 mg/dL (74-106); Lipase 11 U/L (13-75); Potassium 4.1 mmol/L (3.5-5.1); Protein, Total 6.5 g/dL (6.4-8.2); Sodium Level 140 mmol/L (136-145); Troponin-I HS 92 pg/mL (3.0-78.0)
[2023-07-03 13:17] LABS: Troponin-I HS 119 pg/mL (3.0-78.0)
--- NOTE | 2023-07-03 13:44 | HP.PCM.HOS_ITS ---
HPI - General General Date of Admission: 07/03/23 Date of Service: 07/03/23 Chief Complaint: Chest pain HPI Narrative MILAGROS MELVIN SR, is a 88 M with multiple comorbidities including coronary artery disease status post CABG, esophageal CA status post esophagectomy in 2017 currently remission, history of gallbladder disease for which cholecystectomy was recommended but deferred presented with chest pain. Per patient he was in usual state of health when he developed chest discomfort. Pain was located in the retrosternal region described as heaviness which a sensation of heavy objects [place] on the chest. Patient denies any shortness of breath however did complain of some lightheadedness. In view of the persistent nature of his sym ptoms presented to the emergency department. Initial cardiac enzymes came back negative repeat however did show a significant bump. Given patient past cardiac history decision was made to admit patient for further management [facility] Medical History Abdominal pain Abnormal abdominal CT scan Adjustment disorder Alcohol use Arthritis Atherosclerotic heart disease of [place] coronary artery without angina pectoris Back pain Cancer Cardiology follow-up encounter Chemotherapy-induced nausea Chest discomfort Dehydration DVT (deep venous thrombosis) Dyspepsia Encounter for adjustment or management of vascular access device Former smoker Gastric reflux History of DVT (deep vein thrombosis) History of echocardiogram History of hiatal hernia History of stress test Hx of peripheral neuropathy Hyperlipidemia Hypokalemia Injury of head and neck Low iron Migraine headache Nonrheumatic aortic (valve) stenosis Nonrheumatic aortic valve disorder Premature ventricular contraction Primary cancer of lower third of esophagus Restless legs SBO (small bowel obstruction) Submandibular gland swelling TIA (transient ischemic attack) Wears glasses Wears hearing aid Wears partial dentures Home Medications aspirin 81 mg chewable tablet 81 mg PO QHS 07/20/20 [History Last Taken 07/02/23] simvastatin 10 mg tablet 10 mg PO MOWEFR 90 days #39 tabs 07/23/22 [Rx Last Taken 07/02/23] metoprolol tartrate 25 mg tablet 12.5 mg (1/2 x 25 mg) PO BID #90 tabs 08/14/22 [Rx Last Taken 07/02/23] omeprazole 20 mg capsule,delayed release 20 mg PO BID #180 caps 08/14/22 [Rx Last Taken 07/02/23] budesonide 3 mg capsule,delayed,extended release 6 mg (2 x 3 mg) PO DAILY 30 days #60 ea 11/08/22 [Rx Last Taken 07/02/23] hfexra-cxuqydxt-ozmyaby 2 - 3 cap PO TID 07/03/23 [History Last Taken 07/02/23] multivitamin-ferrous fumarate-folic acid 18 mg-400 mcg tablet (Daily Multivitamin with Iron) 1 tab PO DAILY 07/03/23 [History Last Taken 07/02/23] propylene glycol 0.6 % eye drops (Systane Balance) 1 drp EACH EYE BID PRN dry eye(s) 07/03/23 [History Last Taken 07/02/23] Allergy/AdvReac Type Severity Reaction Status Date / Time diphenhydramine Allergy Intermediate Restless Verified 07/03/23 08:49 [From Benadryl] legs Family History Father No problems noted. Mother Cancer Surgical History History of aortic valve replacement with bioprosthetic valve (~02/13/16) History of bilateral cataract extraction History of cardiac catheterization History of esophageal surgery History of esophagogastroduodenoscopy (EGD) History of hernia repair (~09/01/21) History of repair of hiatal hernia Hx of brain surgery Hx of CABG (~02/13/16) Hx of colonoscopy Hx of decompressive lumbar laminectomy Hx of exploratory laparotomy (~04/2022) Social History Smoking Status: Former smoker how long ago did patient quit smokin02/13/2016 second hand exposure: No alcohol intake: current alcohol intake frequency: holidays/special occasions only substance use type: does not use caffeine: Yes Type: coffee Number of servings: 3 and tea Number of servings: 1 what type of physical activity do you participate in: none frequency: does not exercise ROS ROS Narrative GENERAL: denies fever, chills, night sweats, weight loss, anorexia HEENT: denies headache, sinus congestion, or drainage, dysphagia RESPIRATORY: denies cough, sputum production, CARDIAC: chest pain, palpitations, orthopnea, PND GASTROINTESTINAL: denies abdominal pain, nausea, vomiting, melena, GENITOURINARY: denies dysuria, urgency, frequency, heamaturia EXTREMITY: denies swelling MUSCULOSKELETAL: denies current joint pain or tenderness NEUROLOGIC: denies focal numbness, weakness, tingling HEMATOLOGIC: denies easy bruising and/or hemorrhage INTEGUMENT: denies rashes PSYCHIATRIC: denies suicidal or homicidal ideation Vital Signs Vital Signs Vital Signs: 07/03/23 08:49 07/03/23 09:41 07/03/23 09:42 Temperature 98.1 F Temperature Source Temporal Pulse Rate 96 Pulse Rate [Lying] Pulse Rate [Sitting (for 1 minute prior to obtaining)] Pulse Rate [Standing (for 1 minute prior to obtaining)] Respiratory Rate 14 Respiratory Pattern Normal Blood Pressure 160/55 H Blood Pressure [Lying] Blood Pressure [Sitting (for 1 minute prior to obtaining)] Blood Pressure [Standing (for 1 minute prior to obtaining)] Blood Pressure Mean 90 Blood Pressure Mean [Lying] Blood Pressure Mean [Sitting (for 1 minute prior to obtaining)] Blood Pressure Mean [Standing (for 1 minute prior to obtaining)] Pulse Ox 95 Oxygen Delivery Method Room Air Room Air 07/03/23 10:19 07/03/23 10:08 07/03/23 11:29 Temperature Temperature Source Pulse Rate 88 80 Pulse Rate [Lying] 96 Pulse Rate [Sitting (for 1 minute prior to obtaining)] 88 Pulse Rate [Standing (for 1 minute prior to obtaining)] 105 H Respiratory Rate 16 18 Respiratory Pattern Blood Pressure 131/51 H 113/53 L Blood Pressure [Lying] 112/54 L Blood Pressure [Sitting (for 1 minute prior to obtaining)] 122/48 H Blood Pressure [Standing (for 1 minute prior to obtaining)] 123/55 H Blood Pressure Mean 77 73 Blood Pressure Mean [Lying] 73 Blood Pressure Mean [Sitting (for 1 minute prior to obtaining)] 72 Blood Pressure Mean [Standing (for 1 minute prior to obtaining)] 77 Pulse Ox 94 97 Oxygen Delivery Method Room Air 07/03/23 13:00 Temperature Temperature Source Pulse Rate 79 Pulse Rate [Lying] Pulse Rate [Sitting (for 1 minute prior to obtaining)] Pulse Rate [Standing (for 1 minute prior to obtaining)] Respiratory Rate 18 Respiratory Pattern Blood Pressure 117/44 L Blood Pressure [Lying] Blood Pressure [Sitting (for 1 minute prior to obtaining)] Blood Pressure [Standing (for 1 minute prior to obtaining)] Blood Pressure Mean 68 Blood Pressure Mean [Lying] Blood Pressure Mean [Sitting (for 1 minute prior to obtaining)] Blood Pressure Mean [Standing (for 1 minute prior to obtaining)] Pulse Ox 93 Oxygen Delivery Method Weight Weight: 77.7 kg Body Mass Index (BMI) 23.8 Physical Exam Narrative GENERAL: cooperative HEENT: Atraumatic; normocephalic EYES; Anicteric, Normal Conjunctiva NECK; supple, normal thyroid, RESPIRATORY: Diminished to auscultation CARDIOVASCULAR: Regular S1 S2, GI: soft, normoactive bowel sounds, : No Renal angle tenderness; EXTREMITIES: No edema, no clubbing, MUSCULOSKELETAL: no muscle wasting NEURO: Awake; no lateralizing signs. SKIN: No Rash PSYCH; Flat affect Results Lab / Micro Data 07/03/23 09:37 07/03/23 09:37 Labs: Laboratory Results - last 24 hr 07/03/23 09:37: WBC 7.3, RBC 3.58 L, Hgb 11.6 L, Hct 34.6 L, MCV 96.6 H, MCH 32.4 H, MCHC 33.5, RDW Std Deviation 49.9 H, RDW Coeff of Rick 14.1, Plt Count 114 L, MPV 10.2, Immature Gran % (Auto) 0.300, Neut % (Auto) 79.4 H, Lymph % (Auto) 12.4 L, [place] % (Auto) 7.0, Eos % (Auto) 0.5, Baso % (Auto) 0.4, Absolute Neuts (auto) 5.8, Absolute Lymphs (auto) 0.91, Nucleated RBC % 0, Sodium 140, Potassium 4.1, Chloride 109 H, Carbon Dioxide 21.0, Anion Gap 10, BUN 24 H, Creatinine 1.52 H, Estim Creat Clear Calc 35.09, Est GFR (MDRD) Af Amer 56 L, Est GFR (MDRD) Non-Af 46 L, BUN/Creatinine Ratio 15.8, Glucose 111 H, Calcium 8.6, Total Bilirubin 1.10 H, Direct Bilirubin 0.33 H, AST 20, ALT 14 L, Alkaline Phosphatase 104, Troponin I High Sens 92 H, Total Protein 6.5, Albumin 3.2, Emmy bulin 3.3, Lipase 11 L 07/03/23 12:10: Troponin I High Sens 119 H Imaging Radiology Impression Chest X-Ray 07/03/23 09:08 IMPRESSION: 1. No suspicious acute cardiopulmonary pathology. 2. Asymmetric bibasilar fibrosis with tenting in the peripheral aspect of the right hemidiaphragm. Electronically Signed: Mauro Gomez MD at 10:44 EST , Assessment & Plan Assessment/Plan (1) Chest pain: PLAN: Plan Patient is an 88-year-old gentleman presented with chest pain 1 chest pain ? Patient has significant past cardiac history including coronary artery disease with previous CABG. Patient admitted to monitored bed plan is to rule out CO with serial cardiac enzymes. As part of patient's management ordered 2D echo started on therapeutic Lovenox. Patient already on beta-blockers as well as statin therapy did continue 2. Gallbladder disease ? Patient had apparently been offered cholecystectomy deferred. Ordered right upper quadrant ultrasound for further management 3. History of esophageal CA ? Status post minimally invasive esophagectomy in October 2016 with subsequent adjuvant chemotherapy. Patient has since remained in remission. Patient is followed by Dr. Schneider oncology as outpatient plan is to resume care on discharge 4. Coronary artery disease ? Status post CABG 5. History of exocrine pancreatic insufficiency ? Patient is on lipase/protease/amylase supplements did continue 6. Dyslipidemia -Patient is on statin therapy, continued at home dose 7. Valvular heart disease ? With history of aortic valve replacement with bioprosthetic valve 8.Previous history of DVT ? Treated appropriately ordered D-dimer given patient chest discomfort 9. Chronic kidney disease stage III ? Kidney function appears to be at baseline 10. DVT prophylaxis ? On Lovenox Time spent in the patient's overall evaluation,decision-making process, review of diagnostic data, adjustment of management, discussion with other providers, nursing nursing and ancillary staff involved in patient's care documentation,75 Minutes Advance planning; did discuss with the patient and family (patient's son) regarding advanced directives as well as CODE STATUS. Did explain the various scenarios involved ( FULL CODE, DNR CCA, DNR CCA with no intubation, and DNR CC and what each meant) patient elected remain full code with CPR and intubation if needed. Order was placed. Time spent on discussion 18 minutes. Charges/Coding Visit Charges Inpatient E&M: 64311 Init Hosp L3 Procedures Hospitalists Procedures: 74957 Advncd Care Plan 30 Min
--- NOTE | 2023-07-03 14:08 | US_ITS ---
STUDY: ABDOMINAL ULTRASOUND - RIGHT UPPER QUADRANT REASON FOR VISIT: Male, 88 years old RUQ pain TECHNIQUE: Ultrasound evaluation of the right upper quadrant was performed with real-time and static loya-scale imaging. TECHNICAL QUALITY: Adequate. COMPARISON: None. FINDINGS: Liver: The liver measures 13 cm. There is normal echogenicity of the liver. The bile ducts are within normal limits. There is hepatic color flow. The direction of portal flow is hepatopetal. There is no demonstrated mass lesion. Gallbladder: Normal distended gallbladder. The gallbladder wall measures 6 mm. There is a negative sonographic Ramirez''s sign. There is no pericholecystic fluid. There are multiple gallstones. Common Bile Duct (C.B.D.): The common bile duct measures 3.3 mm. Pancreas: Not visualized due to abdominal wall scar. Right Kidney: Normal size of the right kidney. The right kidney measures 9.8 x 5.1 x 4.4 cm. Normal renal cortex. The right cortex measures 1.5 cm. There is a cyst measuring 3.5 x 3.6 x 3.2 cm. There is no right hydronephrosis. US/Gallbladder IMPRESSION: Cholelithiasis without definitive evidence for acute cholecystitis. HIDA scan would be useful for further evaluation if clinically warranted Electronically Signed: Randy Chappell MD at 18:49 EST ,
[2023-07-03 14:21] LABS: D-Dimer Quantitative (DVT/PE) 2.26 FEU/ug/m (0.27-0.49)
--- NOTE | 2023-07-03 18:10 | EKG12_ITS ---
Test Reason : CP ADMIT Blood Pressure : / mmHG Vent. Rate : 095 BPM Atrial Rate : 214 BPM P-R Int : 000 ms QRS Dur : 090 ms QT Int : 358 ms P-R-T Axes : 256 047 -31 degrees QTc Int : 449 ms Atrial flutter with variable A-V block with premature ventricular or aberrantly conducted complexes Septal infarct , age undetermined Abnormal ECG Confirmed by Yohannes Rock ([id number]), graphics editor OTTO CALABRESE ([id number]) on 07/11/2023 10:15:00 AM Referred By: EDUARDO Confirmed By:Yohannes Rock
--- NOTE | 2023-07-03 18:10 | ECHOD_ITS ---
Reason For Study: Chest Pain Procedure This was a 2D Doppler, Color Flow transthoracic echocardiogram. The study was technically difficult. Exam performed portable in patient room. Left Ventricle Normal LV size. The estimated ejection fraction is 55 %. Unable to assess diastolic dysfunction. No regional wall motion abnormalities noted. Right Ventricle Normal RV size. Normal systolic function. Atria The left atrium is moderately enlarged. The right atrium is moderately enlarged. No doppler evidence for ASD. Mitral Valve There is moderate to severe mitral annular calcification. There is no mitral valve stenosis. No mitral valve insufficiency. Tricuspid Valve There is no tricuspid stenosis. Mild tricuspid valve insufficiency. Unable to estimate RV systolic pressure due to insufficient tricuspid regurgitant envelope. Aortic Valve Trisinus/trileaflet aortic valve. Aortic sclerosis, no stenosis. There is no aortic stenosis. No aortic valve insufficiency. Pulmonic Valve There is no pulmonic valvular stenosis. Trivial pulmonic valve insufficiency. Great Vessels Normal aortic root. Pericardium/Pleural No pericardial effusion. MMode/2D Measurements & Calculations LVIDd: 5.0 cm IVSd: 0.84 cm LVOT diam: 2.0 cm LVIDs: 3.6 cm LVPWd: 0.74 cm LVOT area: 3.3 cm2 RVDd: 4.6 cm FS: 27.8 % LA dimension: 4.2 cm LAV(MOD-sp4): 89.1 ml LA A4 area: 28.1 cm2 RA A4 area: 29.4 cm2 Doppler Measurements & Calculations MV E max olaf: 108.3 cm/sec MV V2 max: 147.4 cm/sec Ao V2 max: 108.4 cm/sec MV max P.7 mmHg Ao max P.7 mmHg MV V2 mean: 83.8 cm/sec NIKI(V,D): 3.4 cm2 MV mean P.4 mmHg MV V2 VTI: 26.3 cm MVA(VTI): 2.4 cm2 LV V1 max: 112.1 cm/sec SV(LVOT): 62.0 ml PA V2 max: 57.8 cm/sec LV V1 max P.0 mmHg LV V1 mean P.2 mmHg LV V1 mean: 67.3 cm/sec LV V1 VTI: 18.9 cm ECHO/Echo Complete Interpretation Summary The estimated ejection fraction is 55 %. Unable to assess diastolic dysfunction. The left atrium is moderately enlarged. The right atrium is moderately enlarged. Ordering Physician: Kenneth Whitten Referring Physician: Anthony Donahue Performed By: Adán Contreras RCS
[2023-07-03] MEDS: 0.9% Normal Saline (1000mL) 1,000 ML 125 ML IV (19:10)
[2023-07-03 19:38] LABS: Troponin-I HS 114 pg/mL (3.0-78.0)
[2023-07-03] MEDS: Metoprolol Tartrate 25 MG Tablet 12.5 MG PO (22:12)
[2023-07-03] MEDS: Enoxaparin 80 MG/0.8 ML Syringe SC (22:16)
[2023-07-03] MEDS: Aspirin 81 MG TAB.CHEW PO (22:16)
[2023-07-03] MEDS: Pantoprazole Sodium 20 MG Tablet PO (22:17)
[2023-07-04] VITALS (7 sets, daily range): BP systolic 116–134; BP diastolic 54–69; PULSE 84–108; RESP 16–18; TEMP 36.4–36.8; O2SAT 92–98
[2023-07-04] MEDS: 0.9% Normal Saline (1000mL) 1,000 ML 125 ML IV ×3 (03:35→21:59)
[2023-07-04 06:40] LABS: Absolute Lymphocyte Count 0.75 X10^3/uL (0.83-4.51); Absolute Neutrophil Count 5.5 X10^3/uL (2.0-7.7); Basophil# 0.03 X10^3/uL; Basophil% 0.4 % (0-1); Eosinophil# 0.05 X10^3/uL; Eosinophils% 0.7 % (0-5); Hematocrit 34.8 % (40-54); Hemoglobin 11.3 g/dL (13.0-16.5); Lymphocyte # 0.75 X10^3/ul (0.83-4.51); Lymphocyte % 10.9 % (19-41); Mean Corp Hgb Conc 32.5 g/dL (32-36); Mean Corpuscular Hgb 31.8 pg (27.0-32.0); Mean Platelet Vol. 10.6 fl (6.2-12.0); Monocyte# 0.52 X10^3/uL; Monocyte% 7.5 % (0-10); NRBC Flagged by Analyzer 0 % (0-5); Neutrophil # 5.51 X10^3/uL (2.7-7.7); Neutrophil % 79.9 % (47-70); Platelet Count 115 K/mm3 (150-450); RBC Distribution Width CV 14.1 % (11.6-14.6); RBC Distribution Width SD 50.5 fl (35.1-43.9); Red Blood Count 3.55 M/mm3 (4.6-6.2); White Blood Count 6.9 K/mm3 (4.4-11.0)
[2023-07-04 08:08] LABS: Anion Gap 8 (5-15); BUN 24 mg/dL (7-18); BUN/Creat Ratio 18.5 RATIO (10-20); Calcium,Total 8.5 mg/dL (8.5-10.1); Chloride 110 mmol/L (98-107); EST Glomerular Filtration Rate 55 mL/min (>60); Est Glom Filt Rate - Afr Amer 67 mL/min (>60); Estimated Creatinine Clearance 41.03 ml/min; Glucose 99 mg/dL (74-106); Potassium 4.2 mmol/L (3.5-5.1); Sodium Level 137 mmol/L (136-145)
--- NOTE | 2023-07-04 08:31 | CT_ITS ---
STUDY: CTA CHEST REASON FOR EXAM: Male, 88 years old. CHEST PAIN; ELEVATED DIMER RADIATION DOSAGE (If Supplied By Facility): CTDIvol = ( 14.30 ) mGy, DLP = ( 461.65 ) mGycm TECHNIQUE: The examination was performed with the intravenous administration of IV 100mL Isovue-370. Post-processing of the angiographic images was performed, with multiplanar reformation and 3D reconstruction. Individualized dose optimization techniques were used for this CT. COMPARISON: None. FINDINGS: Port on the right extends to the superior vena cava. Normal enhancement of the main pulmonary artery and right and left pulmonary arteries. Normal enhancement of the bilateral peripheral pulmonary arteries. There is no demonstrated pulmonary embolism. There is atherosclerotic calcification of the aortic arch with tortuosity. There is no demonstrated aortic dissection. Sternal cerclage wires are present from a prior sternotomy. There are calcifications of the coronary arteries. There is postoperative change in the mediastinum with esophagectomy and gastric pull-through. Normal hilar regions. Normal visualized trachea and bronchi. The lungs are well expanded. There are moderate mid and lower lung airspace opacities. There are moderate bilateral pleural effusions Normal chest wall structures. There are degenerative changes of thoracic spine. Normal visualized upper abdomen. CT/CTA Chest W/WO Contrast IMPRESSION: CTA chest examination, without a demonstrated pulmonary embolism or arterial dissection. Bilateral pneumonia or edema and pleural effusions. Postoperative change. Electronically Signed: Julian Connors MD at 10:03 [facility] ,
--- NOTE | 2023-07-04 08:46 | PCM.PN.HOSP ---
Reason for Visit Reason for Visit: Diagnoses Chest pain, unspecified (07/03/23) Subjective Subjective Patient is an 88-year-old gentleman admitted with chest discomfort patient was found to have elevated troponin peaked at 119 trending down. Was also found to have elevated D-dimer CTA of the chest ordered for subsequent eval of note patient had been started on therapeutic Lovenox on admission Objective Data Objective Data Vital Signs: Vital Signs Temp Pulse Resp BP Pulse Ox O2 Del Method 97.5 F L 108 H 18 116/67 95 Room Air 07/04/23 04:15 07/04/23 04:15 07/04/23 04:15 07/04/23 04:15 07/04/23 07:25 07/04/23 07:25 Oxygen Delivery Method Room Air Weight: 76.5 kg Body Mass Index (BMI) 23.5 Intake & Output: Intake and Output for Last 24 Hours 07/02/23 07/03/23 07/04/23 23:59 23:59 23:59 Intake Total 1500 / 1500 Balance 1500 / 1500 Lab / Micro Data 07/04/23 05:23 07/04/23 05:23 Labs: Laboratory Results - last 24 hr 07/03/23 09:37: WBC 7.3, RBC 3.58 L, Hgb 11.6 L, Hct 34.6 L, MCV 96.6 H, MCH 32.4 H, MCHC 33.5, RDW Std Deviation 49.9 H, RDW Coeff of Rick 14.1, Plt Count 114 L, MPV 10.2, Immature Gran % (Auto) 0.300, Neut % (Auto) 79.4 H, Lymph % (Auto) 12.4 L, Bollinger % (Auto) 7.0, Eos % (Auto) 0.5, Baso % (Auto) 0.4, Absolute Neuts (auto) 5.8, Absolute Lymphs (auto) 0.91, Nucleated RBC % 0, D-Dimer Quant (PE/DVT) 2.26 H*, Sodium 140, Potassium 4.1, Chloride 109 H, Carbon Dioxide 21.0, Anion Gap 10, BUN 24 H, Creatinine 1.52 H, Estim Creat Clear Calc 35.09, Est GFR (MDRD) Af Amer 56 L, Est GFR (MDRD) Non-Af 46 L, BUN/Creatinine Ratio 15.8, Glucose 111 H, Calcium 8.6, Total Bilirubin 1.10 H, Direct Bilirubin 0.33 H, AST 20, ALT 14 L, Alkaline Phosphatase 104, Troponin I High Sens 92 H, Total Protein 6.5, Albumin 3.2, Globulin 3.3, Lipase 11 L 07/03/23 12:10: Troponin I High Sens 119 H 07/03/23 19:03: Troponin I High Sens 114 H 07/04/23 05:23: WBC 6.9, RBC 3.55 L, Hgb 11.3 L, Hct 34.8 L, MCV 98.0 H, MCH 31.8, MCHC 32.5, RDW Std Deviation 50.5 H, RDW Coeff of Rick 14.1, Plt Count 115 L, MPV 10.6, Immature Gran % (Auto) 0.600, Neut % (Auto) 79.9 H, Lymph % (Auto) 10.9 L, Bollinger % (Auto) 7.5, Eos % (Auto) 0.7, Baso % (Auto) 0.4, Absolute Neuts (auto) 5.5, Absolute Lymphs (auto) 0.75 L, Nucleated RBC % 0, Sodium 137, Potassium 4.2, Chloride 110 H, Carbon Dioxide 19.0 L, Anion Gap 8, BUN 24 H, Creatinine 1.30, Estim Creat Clear Calc 41.03, Est GFR (MDRD) Af Amer 67, Est GFR (MDRD) Non-Af 55 L, BUN/Creatinine Ratio 18.5, Glucose 99, Calcium 8.5 Radiography Diagnostic Testing: Radiology Impression Chest X-Ray 07/03/23 09:08 IMPRESSION: 1. No suspicious acute cardiopulmonary pathology. 2. Asymmetric bibasilar fibrosis with tenting in the peripheral aspect of the right hemidiaphragm. Electronically Signed: Mauro Gomez MD at 10:44 EST , Gallbladder Ultrasound 07/03/23 14:08 IMPRESSION: Cholelithiasis without definitive evidence for acute cholecystitis. HIDA scan would be useful for further evaluation if clinically warranted Electronically Signed: Randy Chappell MD at 18:49 EST Reading Location ID and State: [address] [place] [address] Tel , Service support , Physical Exam Narrative GENERAL: cooperative HEENT: Atraumatic; normocephalic EYES; Anicteric, Normal Conjunctiva NECK; supple, normal thyroid, RESPIRATORY: Diminished to auscultation CARDIOVASCULAR: Regular S1 S2, GI: soft, normoactive bowel sounds, : No Renal angle tenderness; EXTREMITIES: No edema, no clubbing, MUSCULOSKELETAL: no muscle wasting NEURO: Awake; no lateralizing signs. SKIN: No Rash PSYCH; Flat affect Assessment & Plan Assessment/Plan (1) Chest pain: PLAN: Plan Patient is an 88-year-old gentleman presented with chest pain 1. Chest pain ? Patient has significant past cardiac history including coronary artery disease with previous CABG. Patient admitted to monitored bed plan is to rule out AL with serial cardiac enzymes. As part of patient's management ordered 2D echo started on therapeutic Lovenox. Patient already on beta-blockers as well as statin therapy did continue ? 07/04/2023atient is an 88-year-old gentleman admitted with chest discomfort patient was found to have elevated troponin peaked at 119 trending down. Was also found to have elevated D-dimer CTA of the chest ordered for subsequent eval of note patient had been started on therapeutic Lovenox on admission 2. Gallbladder disease ? Patient had apparently been offered cholecystectomy deferred. Ordered right upper quadrant ultrasound for further management ? 07/04/2023; right upper quadrant ultrasound Cholelithiasis without definitive evidence for acute cholecystitis. HIDA scan would be useful for further evaluation if clinically warranted.. With patient continue to experience pain with meals HIDA scan was ordered for subsequent eval 3. Elevated D-dimer ? CT of the chest as well as bilateral venous duplex ordered to rule out VTE 4. History of esophageal CA ? Status post minimally invasive esophagectomy in October 2016 with subsequent adjuvant chemotherapy. Patient has since remained in remission. Patient is followed by Dr. Cheng with oncology as outpatient plan is to resume care on discharge 5. Coronary artery disease ? Status post CABG. Patient remains on guideline directed medical ? 07/04/2023 patient had slightly elevated troponin plan is to consult cardiology if patient CTA fails to reveal pulmonary embolism 6. History of exocrine pancreatic insufficiency ? Patient is on lipase/protease/amylase supplements did continue 7. Dyslipidemia -Patient is on statin therapy, continued at home dose 8. Valvular heart disease ? With history of aortic valve replacement with bioprosthetic valve 9.Previous history of DVT ? Treated appropriately ordered D-dimer given patient chest discomfort 10. Chronic kidney disease stage III ? Kidney function appears to be at baseline 11. DVT prophylaxis ? On Lovenox Time spent in the patient's overall evaluation,decision-making process, review of diagnostic data, adjustment of management, discussion with other providers, nursing nursing and ancillary staff involved in patient's care documentation, 50 Minutes Charges/Coding Visit Charges Inpatient E&M: 55684 [facility] L3
--- NOTE | 2023-07-04 08:57 | VDLE_ITS ---
Reason For Study: ELEVATED D DIMER (2.26) RIGHT LEFT GSV is absent (harvested). GSV is normal. CFV is compressible, spontaneous, competent CFV is compressible, spontaneous, competent, and demonstrates pulsatile venous flow. and demonstrates pulsatile venous flow. FV is compressible, spontaneous, competent FV is compressible, spontaneous, competent and demonstrates pulsatile venous flow. and demonstrates pulsatile venous flow. POP V is compressible, spontaneous, competent POP V is compressible, spontaneous, competent and demonstrates pulsatile venous flow. and demonstrates pulsatile venous flow. T/P Trunk is compressible. T/P Trunk is compressible. PTV is compressible. PTV is compressible. RT PerV is compressible. LT PerV is compressible. Procedure This is a venous duplex using B-mode, color flow and spectral Doppler. Exam performed portable in patient room. The study was technically difficult. A preliminary report was called and/or faxed to [facility]. VL/Venous Duplex US - Matt Extrem Interpretation Summary No evidence for acute deep venous thrombosis bilateral lower extremities Surgically absent right great saphenous vein Patent and compressible left great saphenous vein Pulsatile venous flow is noted bilaterally consistent with proximal venous hype rtension or obstruction. Clinical correlation would be appropriate. Ordering Physician: Kenneth Whitten Referring Physician: Anthony Donahue Performed By: Hetal Delgado, OUSMANE, RVT
--- NOTE | 2023-07-04 08:57 | NM_ITS ---
CLINICAL: 88-year-old male with history of right upper quadrant abdominal pain. RADIONUCLIDE HEPATOBILIARY SCINTIGRAPHY COMPARISON: Abdominal ultrasound report 07/03/2023, CT of the abdomen-pelvis report 07/04/2023 FINDINGS: Following the intravenous administration of 5.4 mCi of 99m Tc Mebrofenin, hepatobiliary images reveal: 1. Relatively prompt and homogeneous radiopharmaceutical concentration is noted by a normal sized liver. No parenchymal defects are identified. 2. Gallbladder activity is identified at 45 minutes post radiopharmaceutical administration. 3. Small intestinal tract is not visualized during 60 minutes of pre-CCK sequential imaging. Small bowel activity is identified following the administration of cholecystokinin. 4. Washout of the radiopharmaceutical by the hepatic parenchyma appears qualitatively delayed. Cholecystokinin (0.02 ug/kg) was administered intravenously over a 30-minute period. The post CCK gallbladder ejection fraction calculated at 20 minutes following Cholecystokinin administration was noted to be < 5 % (normal greater than 35%). OR/Hepatobilliary Img w/Pharm Int IMPRESSION: 1. ABNORMAL 99m Tc Mebrofenin hepatobiliary imaging examination with Cholecystokinin. A. A gallbladder ejection fraction calculated to be less than 35% following the administration of Cholecystokinin is consistent with the presence of functional hepatobiliary disease (gallbladder and/or sphincter of Oddi dyskinesia) and/or organic hepatobiliary disease (chronic acalculous cholecystitis and/or cystic duct syndrome) in patients with intermediate to high pretest likelihoods of hepatobiliary illness. ([employer] [facility] et al, Journal of Nuclear Medicine 32:1695, 1991). B. 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 Electronically Signed: Albin Gottlieb DO at 11:55 EST ,
--- NOTE | 2023-07-04 09:08 | CT_ITS ---
STUDY: CT ABDOMEN AND PELVIS WITH CONTRAST REASON FOR EXAM: Male, 88 years old. ESOPHAGEAL CANCER RADIATION DOSAGE (If Supplied By Facility): CTDIvol = ( 13.93 ) mGy, DLP = ( 1476.88 ) mGycm TECHNIQUE: Transaxial images were obtained from the dome of the diaphragm to the symphysis pubis without oral contrast. IV 100mL Isovue-370 was administered. Sagittal and coronal images were reconstructed. Individualized dose optimization techniques were used for this CT. COMPARISON: None. FINDINGS: There is bilateral lower lung consolidation and pleural effusions. The visualized portions of the heart are within normal limits. Normal liver. Normal gallbladder and extrahepatic biliary system. Normal spleen. There is diffuse atrophy of the pancreas. Normal bilateral adrenal glands. There is 4.5 cm cyst of the right kidney. There is focal atrophy and decreased function of the upper pole of the left kidney. The patient is status post esophagectomy and gastric pull-through. Normal small intestine. Normal colon. The appendix is visualized and appears normal. There is diffuse atherosclerotic calcification of the abdominal aorta, without a demonstrated aneurysm. Normal inferior vena cava. Normal retroperitoneum. Normal urinary bladder. There is enlargement of the prostate gland. There is no free fluid in the abdomen or pelvis. Normal abdominal wall. There are diffuse degenerative changes of the visualized lumbar spine. CT/Abdomen/Pelvis WITH Contrast IMPRESSION: Postoperative change. No obstruction. Colonic diverticulosis. Decreased function and atrophy of the upper pole of the left kidney. Lower lung consolidation and pleural effusions. Electronically Signed: Julian Connors MD at 10:10 EST ,
[2023-07-04] MEDS: Enoxaparin 80 MG/0.8 ML Syringe SC (12:17)
[2023-07-04] MEDS: Budesonide 3 MG CAPSULE.EC 6 MG PO (12:18)
[2023-07-04] MEDS: Pantoprazole Sodium 20 MG Tablet PO ×2 (12:18→21:50)
[2023-07-04] MEDS: Metoprolol Tartrate 25 MG Tablet 12.5 MG PO ×2 (12:18→21:57)
[2023-07-04] MEDS: Multivitamins,Ther W-Minerals Tablet 1 TABLET PO (12:23)
[2023-07-04] MEDS: Creon 24,000 unit DR Capsule PO (12:24)
--- NOTE | 2023-07-04 14:54 | CASEMGMT ---
Met with?patient to complete M[employer] form. M[employer] form explained to?patient who voiced understanding and signed form. Original form placed in pt?s chart and copy provided to patient. Fany Srivastava, Discharge Planning Asst
[2023-07-04] MEDS: Atorvastatin Calcium 10 MG Tablet 5 MG PO (15:22)
--- NOTE | 2023-07-04 15:59 | PCM.CONS.C ---
Assessment & Plan Assessment/Plan (1) History of aortic valve replacement with bioprosthetic valve: PLAN: Patient has a history of aortic valve replacement with a stentless bioprosthetic device. This was in January 2016. Echo today shows no significant gradients across the valve. LV function is normal. The patient should practice SBE prophylaxis. (2) Atherosclerotic heart disease of creek coronary artery without angina pectoris: QUALIFIERS: [place] vs. transplanted heart: creek heart Qualified Code(s): I25.10 - Atherosclerotic heart disease of [place] coronary artery without angina pectoris; I25.10 - Atherosclerotic heart disease of [place] coronary artery without angina pectoris; I25.10 - Atherosclerotic heart disease of [place] coronary artery without angina pectoris PLAN: The patient's enzymes are not consistent with an acute coronary syndrome. This makes represents a minimal elevation probably related to his atrial fibrillation in the face of known coronary disease and rapid ventricular response. I do not feel that further investigation is indicated at this point in time. (3) Atrial fibrillation: QUALIFIERS: Atrial fibrillation type: persistent (not longstanding) Qualified Code(s): I48.19 - Other persistent atrial fibrillation PLAN: The patient's EKG and telemetry are consistent with atrial fibrillation and at times with rapid ventricular response at other times in the 80 to 90 bpm range. The daughter and patient report to me that their son noticed he was in atrial fibrillation in April 2022 when he was at [facility]. He had a Holter monitor done May 2022 which showed sinus rhythm no atrial fibrillation was noted at that time. It appears that he has been he has been in atrial fibrillation since his admission here this admission. He has not been anticoagulated in his home environment raises the possibility that this severe pain he had may be intestinal ischemia related to an embolic event. I have asked that his stools be Hemoccult. Would also like to anticoagulate him with Eliquis 2.5 mg twice daily even in the face of the bioprosthetic valve I feel that Eliquis is a safer alternative than trying to anticoagulate him with Coumadin and bridging him with heparin. If the patient has heme positive stool we should discontinue the oral anticoagulation. PLAN: Plan 1. Eliquis 2.5 mg twice daily. 2. Hemoccult stools 3. Monitor his H&H. 4. Defers further abdominal pain evaluation to the primary service. HPI Consult Data Date of Consult: 07/04/23 HPI Narrative Reason for Consultation: Chest pain and with a patient with known coronary disease HPI Narrative: MILAGROS MELVIN SR, is a 88 M who presents patient presented with lower thoracic upper abdominal severe discomfort to the emergency department. His EKG did not show any definitive ischemic changes he was in atrial fibrillation. He had a CTA done that showed no evidence of pulmonary emboli or dissection. And his abdominal pelvic CT did not show anything that could explain the severe pain. He did have an abnormal HIDA scan which is being evaluated and worked up by the primary service. The patient's troponins were minimally elevated. There were 92, 119, and 114 in sequence. This is not unexpected in someone with atrial fibrillation and known coronary artery disease. 2D echocardiogram done today preliminary shows an EF in the 55% range with no wall motion abnormalities there is moderate left and right atrial enlargement there is mitral and calcification with no mitral regurgitation there is mild tricuspid regurgitation the patient has a bovine aortic valve replacement and the aortic valve peak gradient was measured at 5. The patient has survived esophageal cancer status post multiple extensive GI surgical interventions. These were done at [facility]. Atrophy had coronary bypass graft surgery done in January 2016 where he received a LINO to the diagonal and LAD as a sequential graft a vein graft to the circumflex. This was accompanied with an aortic valve replacement with a #25 stentless pericardial valve. This was done in January 2016 at [facility]. The patient reports to me that it was a bovine prosthesis. The patient has a history of hyperlipidemia which has been fairly well-controlled on simvastatin. His last lipids in the office done in September 2022 showed a total cholesterol 135 HDL 51 LDL 69 triglycerides 77. The patient is followed up routinely by his oncologist and a CT abdomen was performed today. He had been seen in the oncology office recently complaining of some discomfort and was afraid his cancer may be have recurred. The patient is active in his home environment according to he and his daughter's report. [facility] Medical History Abdominal pain Abnormal abdominal CT scan Adjustment disorder Alcohol use Arthritis Atherosclerotic heart disease of [place] coronary artery without angina pectoris Back pain Cancer Cardiology follow-up encounter Chemotherapy-induced nausea Chest discomfort Dehydration DVT (deep venous thrombosis) Dyspepsia Encounter for adjustment or management of vascular access device Former smoker Gastric reflux History of DVT (deep vein thrombosis) History of echocardiogram History of hiatal hernia History of stress test Hx of peripheral neuropathy Hyperlipidemia Hypokalemia Injury of head and neck Low iron Migraine headache Nonrheumatic aortic (valve) stenosis Nonrheumatic aortic valve disorder Premature ventricular contraction Primary cancer of lower third of esophagus Restless legs SBO (small bowel obstruction) Submandibular gland swelling TIA (transient ischemic attack) Wears glasses Wears hearing aid Wears partial dentures Home Medications aspirin 81 mg chewable tablet 81 mg PO QHS 07/20/20 [History Last Taken 07/02/23] simvastatin 10 mg tablet 10 mg PO MOWEFR 90 days #39 tabs 07/23/22 [Rx Last Taken 07/02/23] metoprolol tartrate 25 mg tablet 12.5 mg (1/2 x 25 mg) PO BID #90 tabs 08/14/22 [Rx Last Taken 07/02/23] omeprazole 20 mg capsule,delayed release 20 mg PO BID #180 caps 08/14/22 [Rx Last Taken 07/02/23] budesonide 3 mg capsule,delayed,extended release 6 mg (2 x 3 mg) PO DAILY 30 days #60 ea 11/08/22 [Rx Last Taken 07/02/23] aphecq-wglqjhcs-xtxjotq 2 - 3 cap PO TID 07/03/23 [History Last Taken 07/02/23] multivitamin-ferrous fumarate-folic acid 18 mg-400 mcg tablet (Daily Multivitamin with Iron) 1 tab PO DAILY 07/03/23 [History Last Taken 07/02/23] propylene glycol 0.6 % eye drops (Systane Balance) 1 drp EACH EYE BID PRN dry eye(s) 07/03/23 [History Last Taken 07/02/23] Allergy/AdvReac Type Severity Reaction Status Date / Time diphenhydramine Allergy Intermediate Restless Verified 07/03/23 08:49 [From Benadryl] legs Family History Father No problems noted. Mother Cancer Surgical History History of aortic valve replacement with bioprosthetic valve (~02/13/16) History of bilateral cataract extraction History of cardiac catheterization History of esophageal surgery History of esophagogastroduodenoscopy (EGD) History of hernia repair (~09/01/21) History of repair of hiatal hernia Hx of brain surgery Hx of CABG (~02/13/16) Hx of colonoscopy Hx of decompressive lumbar laminectomy Hx of exploratory laparotomy (~04/2022) Social History Smoking Status: Former smoker how long ago did patient quit smokin02/13/2016 second hand exposure: No alcohol intake: current alcohol intake frequency: holidays/special occasions only substance use type: does not use caffeine: Yes Type: coffee Number of servings: 3 and tea Number of servings: 1 what type of physical activity do you participate in: none frequency: does not exercise ROS Constitutional Constitutional: Reports as per HPI Eyes Eyes: Reports systems reviewed and no addt'l complaints, except as documented ENT HEENT: Reports systems reviewed and no addt'l complaints, except as documented Cardiovascular Cardiovascular: Reports as per HPI Respiratory/Chest Respiratory/Chest: Reports as per HPI Gastrointestinal Gastrointestinal: Reports as per HPI Genitourinary Genitourinary: Reports systems reviewed and no addt'l complaints, except as documented Musculoskeletal Musculoskeletal: Reports systems reviewed and no addt'l complaints, except as documented Integumentary Integumentary: Reports systems reviewed and no addt'l complaints, except as documented Neurologic Neurologic: Reports systems reviewed and no addt'l complaints, except as documented Psychiatric Psychiatric: Reports systems reviewed and no addt'l complaints, except as documented Endocrine Endocrinology: Reports systems reviewed and no addt'l complaints, except as documented Hematologic/Lymphatic Hematologic/Lymphatic: Reports as per HPI Allergic/Immunologic Allergic/Immunologic: Reports systems reviewed and no addt'l complaints, except as documented Physical Exam Const oriented x3 HEENT normocephalic Eyes EOMs intact bilaterally Neck no JVD Chest Chest Narrative: There is deformity of the chest in the midline incision. Is consistent with his coronary bypass graft surgery. He also has a Mediport in the immediate right infraclavicular area Chest: midline sternotomy incision Resp normal respiratory effort and clear to auscultation bilaterally Cardio regular rate Rhythm: abnormal rhythm irregularly irregular Heart Sounds: S1 normal, S2 normal and murmur systolic I/ soft right sternal border; Negative for click or gallop GI soft to palpation and no bruits Extremity no pedal edema Skin no rashes or lesions noted Neuro Neuro Narrative: Alert and oriented x 3 Psych mental status grossly normal Risk Stratification Risk Stratification Applicable: Yes Age >/= 65: Yes >/= 3 CAD Risk Factors (HTN, HLD, DM, family hx of CAD, or current smoker): Yes Aspirin Use in the Past 7 Days: Yes Severe Angina (>/= episodes in 24 hours): No EKG ST Changes >/= 0.5mm: No Positive Cardiac Marker: Yes DALTON Risk Stratification Score: 4 DALTON % Risk: 20% Risk Charges/Coding Visit Charges Inpatient E&M: 64852 Init Hosp L3 Objective Data Vital Signs: Vital Signs Temp Pulse Resp BP Pulse Ox O2 Del Method 97.8 F 84 16 121/54 H 94 Room Air 07/04/23 15:17 07/04/23 15:17 07/04/23 15:17 07/04/23 15:17 07/04/23 15:17 07/04/23 15:17 Oxygen Delivery Method Room Air Weight: 168 lb 10.458 oz Body Mass Index (BMI) 23.5 Intake & Output: Intake and Output for Last 24 Hours 07/02/23 07/03/23 07/04/23 23:59 23:59 23:59 Intake Total 2500 / 2500 Balance 2500 / 2500 Lab / Micro Data Attestation: I reviewed the patient's lab results. 07/04/23 05:23 07/04/23 05:23 Labs: Laboratory Results - last 24 hr 07/03/23 19:03: Troponin I High Sens 114 H 07/04/23 05:23: WBC 6.9, RBC 3.55 L, Hgb 11.3 L, Hct 34.8 L, MCV 98.0 H, MCH 31.8, MCHC 32.5, RDW Std Deviation 50.5 H, RDW Coeff of Rick 14.1, Plt Count 115 L, MPV 10.6, Immature Gran % (Auto) 0.600, Neut % (Auto) 79.9 H, Lymph % (Auto) 10.9 L, [place] % (Auto) 7.5, Eos % (Auto) 0.7, Baso % (Auto) 0.4, Absolute Neuts (auto) 5.5, Absolute Lymphs (auto) 0.75 L, Nucleated RBC % 0, Sodium 137, Potassium 4.2, Chloride 110 H, Carbon Dioxide 19.0 L, Anion Gap 8, BUN 24 H, Creatinine 1.30, Estim Creat Clear Calc 41.03, Est GFR (MDRD) Af Amer 67, Est GFR (MDRD) Non-Af 55 L, BUN/Creatinine Ratio 18.5, Glucose 99, Calcium 8.5 Rhythm Strip Rhythm Strip: A-fib Rate: 90 Cardiology Labs/Tests 07/04/23 05:23: WBC 6.9, RBC 3.55 L, Hgb 11.3 L, Hct 34.8 L, MCV 98.0 H, MCH 31.8, MCHC 32.5, Plt Count 115 L, MPV 10.6, Immature Gran % (Auto) 0.600, Neut % (Auto) 79.9 H, Lymph % (Auto) 10.9 L, [place] % (Auto) 7.5, Eos % (Auto) 0.7, Baso % (Auto) 0.4, Absolute Neuts (auto) 5.5, Nucleated RBC % 0, Sodium 137, Potassium 4.2, Chloride 110 H, Carbon Dioxide 19.0 L, Anion Gap 8, BUN 24 H, Creatinine 1.30, Est GFR (MDRD) Af Amer 67, Est GFR (MDRD) Non-Af 55 L, BUN/Creatinine Ratio 18.5, Glucose 99, Calcium 8.5 Rhythm: EKG: ECHO: Stress Test: Cardiac Cath: PCI: CT Surgery: Holter monitor: EPS: PPM: CXR: Chest CT Scan: Radiography Diagnostic Testing: Radiology Impression Gallbladder Ultrasound 07/03/23 14:08 IMPRESSION: Cholelithiasis without definitive evidence for acute cholecystitis. HIDA scan would be useful for further evaluation if clinically warranted Electronically Signed: Randy Chappell MD at 18:49 EST , Echocardiogram 07/03/23 18:10 Interpretation Summary The estimated ejection fraction is 55 %. Unable to assess diastolic dysfunction. The left atrium is moderately enlarged. The right atrium is moderately enlarged. Ordering Physician: Kenneth Whitten Referring Physician: Anthony Donahue Performed By: Adán Contreras RCS Chest CTA 07/04/23 08:31 IMPRESSION: CTA chest examination, without a demonstrated pulmonary embolism or arterial dissection. Bilateral pneumonia or edema and pleural effusions. Postoperative change. Electronically Signed: Julian Connors MD at 10:03 EST , Hepatobiliary Scan Nuclear Medicine 07/04/23 08:57 IMPRESSION: 1. ABNORMAL 99m Tc Mebrofenin hepatobiliary imaging examination with Cholecystokinin. A. A gallbladder ejection fraction calculated to be less than 35% following the administration of Cholecystokinin is consistent with the presence of functional hepatobiliary disease (gallbladder and/or sphincter of Oddi dyskinesia) and/or organic hepatobiliary disease (chronic acalculous cholecystitis and/or cystic duct syndrome) in patients with intermediate to high pretest likelihoods of hepatobiliary illness. (Tiburcio Wynn al, Journal of Nuclear Medicine 32:1695, 1991). B. 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 Electronically Signed: Albin Gottlieb DO at 11:55 EST , Venous Doppler Study 07/04/23 08:57 Interpretation Summary No evidence for acute deep venous thrombosis bilateral lower extremities Surgically absent right great saphenous vein Patent and compressible left great saphenous vein Pulsatile venous flow is noted bilaterally consistent with proximal venous hypertension or obstruction. Clinical correlation would be appropriate. Ordering Physician: Kenneth Whitten Referring Physician: Anthony Donahue Performed By: Hetal Delgado, BRANDONCS, RVT Abdomen/Pelvis CT 07/04/23 09:08 IMPRESSION: Postoperative change. No obstruction. Colonic diverticulosis. Decreased function and atrophy of the upper pole of the left kidney. Lower lung consolidation and pleural effusions. Electronically Signed: Julian Connors MD at 10:10 EST ,
[2023-07-04] MEDS: Aspirin 81 MG TAB.CHEW PO (21:51)
[2023-07-04] MEDS: APIXABAN 2.5 MG TABLET (WCH) PO (21:52)
--- NOTE | 2023-07-05 03:38 | EKG12_ITS ---
Test Reason : RHYTHM CHANGE Blood Pressure : / mmHG Vent. Rate : 078 BPM Atrial Rate : 192 BPM P-R Int : 000 ms QRS Dur : 090 ms QT Int : 386 ms P-R-T Axes : 000 033 -31 degrees QTc Int : 440 ms Critical Test Result: AV Block ATRIAL TACH WITH VARIABLE CONDUCTION Septal infarct , age undetermined Abnormal ECG When compared with ECG of 03-JUL-2023 19:52, MANUAL COMPARISON REQUIRED, DATA IS UNCONFIRMED Confirmed by Yohannes Rock ([id number]), assignment desk editor OTTO CALABRESE ([id number]) on 07/11/2023 10:14:25 AM Referred By: DAMIAN Confirmed By:Yohannes Rock
[2023-07-05 04:00] LABS: Absolute Lymphocyte Count 0.69 X10^3/uL (0.83-4.51); Absolute Neutrophil Count 4.3 X10^3/uL (2.0-7.7); Basophil# 0.02 X10^3/uL; Basophil% 0.4 % (0-1); Eosinophil# 0.02 X10^3/uL; Eosinophils% 0.4 % (0-5); Hemoglobin 11.2 g/dL (13.0-16.5); Lymphocyte # 0.69 X10^3/ul (0.83-4.51); Lymphocyte % 12.6 % (19-41); Mean Corp Hgb Conc 32.9 g/dL (32-36); Mean Corpuscular Hgb 32.3 pg (27.0-32.0); Mean Platelet Vol. 10.2 fl (6.2-12.0); Monocyte# 0.46 X10^3/uL; Monocyte% 8.4 % (0-10); NRBC Flagged by Analyzer 0 % (0-5); Neutrophil # 4.25 X10^3/uL (2.7-7.7); Neutrophil % 77.8 % (47-70); Platelet Count 116 K/mm3 (150-450); RBC Distribution Width CV 14.4 % (11.6-14.6); RBC Distribution Width SD 51.2 fl (35.1-43.9); Red Blood Count 3.47 M/mm3 (4.6-6.2); White Blood Count 5.5 K/mm3 (4.4-11.0)
--- NOTE | 2023-07-05 04:11 | PCM.HOSP.N ---
Hospitalist Note Staff concern for rhythm change. EKG with AF with questionable variable block, possible mobitz type II. Currently VS otherwise stable. Requested staff send EKG and update Dr. Rock for EKG review for Cardiology opinion. In interim will request pacer pads to be placed to be cautious. No current immediate need for atropine.
[2023-07-05 04:23] LABS: Anion Gap 7 (5-15); BUN 25 mg/dL (7-18); BUN/Creat Ratio 19.4 RATIO (10-20); Calcium,Total 8.2 mg/dL (8.5-10.1); Chloride 111 mmol/L (98-107); Creatinine, Serum 1.29 mg/dL (0.70-1.30); EST Glomerular Filtration Rate 56 mL/min (>60); Est Glom Filt Rate - Afr Amer 67 mL/min (>60); Estimated Creatinine Clearance 41.35 ml/min; Glucose 112 mg/dL (74-106); Potassium 4.4 mmol/L (3.5-5.1); Sodium Level 137 mmol/L (136-145)
[2023-07-05 04:24] VITALS: BP 94/76; PULSE 82; RESP 16; TEMP 36.8; O2SAT 95
[2023-07-05] MEDS: 0.9% Normal Saline (1000mL) 1,000 ML 125 ML IV (04:26)
[2023-07-05 07:54] VITALS: O2SAT 93
--- NOTE | 2023-07-05 08:05 | PN.HOSP_ITS ---
Reason for Visit Reason for Visit: Diagnoses Atherosclerotic heart disease of [place] coronary artery without angina pectoris (07/03/23) Other persistent atrial fibrillation (07/03/23) Chest pain, unspecified (07/03/23) Presence of xenogenic heart valve (07/03/23) Subjective Subjective Patient went into A-fib with RVR rate remains controlled. Objective Data Objective Data Vital Signs: Vital Signs Temp Pulse Resp BP Pulse Ox O2 Del Method 98.3 F 82 16 94/76 95 Room Air 07/05/23 04:24 07/05/23 04:24 07/05/23 04:24 07/05/23 04:24 07/05/23 04:24 07/05/23 07:58 Oxygen Delivery Method Room Air Weight: 76.5 kg Body Mass Index (BMI) 23.5 Intake & Output: Intake and Output for Last 24 Hours 07/03/23 07/04/23 07/05/23 23:59 23:59 23:59 Intake Total 3331.25 / 3331.25 806.25 / 806.25 Balance 3331.25 / 3331.25 806.25 / 806.25 Lab / Micro Data 07/05/23 03:16 07/05/23 03:16 Labs: Laboratory Results - last 24 hr 07/04/23 05:23: Sodium 137, Potassium 4.2, Chloride 110 H, Carbon Dioxide 19.0 L , Anion Gap 8, BUN 24 H, Creatinine 1.30, Estim Creat Clear Calc 41.03, Est GFR (MDRD) Af Amer 67, Est GFR (MDRD) Non-Af 55 L, BUN/Creatinine Ratio 18.5, Glucose 99, Calcium 8.5 07/05/23 03:16: WBC 5.5, RBC 3.47 L, Hgb 11.2 L, Hct 34.0 L, MCV 98.0 H, MCH 32. 3 H, MCHC 32.9, RDW Std Deviation 51.2 H, RDW Coeff of Rick 14.4, Plt Count 116 L , MPV 10.2, Immature Gran % (Auto) 0.400, Neut % (Auto) 77.8 H, Lymph % (Auto) 12.6 L, [place] % (Auto) 8.4, Eos % (Auto) 0.4, Baso % (Auto) 0.4, Absolute Neuts (auto) 4.3, Absolute Lymphs (auto) 0.69 L, Nucleated RBC % 0, Sodium 137, Potassium 4.4, Chloride 111 H, Carbon Dioxide 19.0 L, Anion Gap 7, BUN 25 H, Creatinine 1.29, Estim Creat Clear Calc 41.35, Est GFR (MDRD) Af Amer 67, Est GFR (MDRD) Non-Af 56 L, BUN/Creatinine Ratio 19.4, Glucose 112 H, Calcium 8.2 L Radiography Diagnostic Testing: Radiology Impression Echocardiogram 07/03/23 18:10 Interpretation Summary The estimated ejection fraction is 55 %. Unable to assess diastolic dysfunction. The left atrium is moderately enlarged. The right atrium is moderately enlarged. Ordering Physician: Kenneth Whitten Referring Physician: Anthony Donahue Performed By: Adán Contreras RCS Chest CTA 07/04/23 08:31 IMPRESSION: CTA chest examination, without a demonstrated pulmonary embolism or arterial dissection. Bilateral pneumonia or edema and pleural effusions. Postoperative change. Electronically Signed: Julian Connors MD at 10:03 EST , Hepatobiliary Scan Nuclear Medicine 07/04/23 08:57 IMPRESSION: 1. ABNORMAL 99m Tc Mebrofenin hepatobiliary imaging examination with Cholecystokinin. A. A gallbladder ejection fraction calculated to be less than 35% following the administration of Cholecystokinin is consistent with the presence of functional hepatobiliary disease (gallbladder and/or sphincter of Oddi dyskinesia) and/or organic hepatobiliary disease (chronic acalculous cholecystitis and/or cystic duct syndrome) in patients with intermediate to high pretest likelihoods of hepatobiliary illness. (Tiburcio Heart et al, Journal of Nuclear Medicine 32:1695, 1991). B. 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 Electronically Signed: Albin Gottlieb DO at 11:55 EST , Venous Doppler Study 07/04/23 08:57 Interpretation Summary No evidence for acute deep venous thrombosis bilateral lower extremities Surgically absent right great saphenous vein Patent and compressible left great saphenous vein Pulsatile venous flow is noted bilaterally consistent with proximal venous hypertension or obstruction. Clinical correlation would be appropriate. Ordering Physician: Kenneth Whitten Referring Physician: Anthony Donahue Performed By: Hetal Delgado, OUSMANE, RVT Abdomen/Pelvis CT 07/04/23 09:08 IMPRESSION: Postoperative change. No obstruction. Colonic diverticulosis. Decreased function and atrophy of the upper pole of the left kidney. Lower lung consolidation and pleural effusions. Electronically Signed: Julian Connors MD at 10:10 EST , Rhythm Strip Rhythm Strip: A-fib Rate: 90 Physical Exam Narrative GENERAL: cooperative HEENT: Atraumatic; normocephalic EYES; Anicteric, Normal Conjunctiva NECK; supple, normal thyroid, RESPIRATORY: Diminished to auscultation CARDIOVASCULAR: Regular S1 S2, GI: soft, normoactive bowel sounds, : No Renal angle tenderness; EXTREMITIES: No edema, no clubbing, MUSCULOSKELETAL: no muscle wasting NEURO: Awake; no lateralizing signs. SKIN: No Rash PSYCH; Flat affect Assessment & Plan Assessment/Plan (1) Chest pain: PLAN: Plan Patient is an 88-year-old gentleman presented with chest pain 1. Chest pain ? Patient has significant past cardiac history including coronary artery disease with previous CABG. Patient admitted to monitored bed plan is to rule out MT with serial cardiac enzymes. As part of patient's management ordered 2D echo started on therapeutic Lovenox. Patient already on beta-blockers as well as statin therapy did continue ? 07/04/2023atient is an 88-year-old gentleman admitted with chest discomfort patient was found to have elevated troponin peaked at 119 trending down. Was also found to have elevated D-dimer CTA of the chest ordered for subsequent eval of note patient had been started on therapeutic Lovenox on admission ? 07/05/2023; chest pain resolved 2. Gallbladder disease ? Patient had apparently been offered cholecystectomy deferred. Ordered right upper quadrant ultrasound for further management ? 07/04/2023; right upper quadrant ultrasound Cholelithiasis without definitive evidence for acute cholecystitis. HIDA scan would be useful for further evaluation if clinically warranted.. With patient continue to experience pain with meals HIDA scan was ordered for subseq uent eval ? 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 Plan is for patient to follow-up with primary surgeon as outpatient for subsequent care 3. Paroxysmal A-fib ? Seen in consultation by cardiology Dr. Rock recommended initiation of Eliquis 4. History of esophageal CA ? Status post minimally invasive esophagectomy in October 2016 with subsequent adjuvant chemotherapy. Patient has since remained in remission. Patient is fol lowed by Dr. Cheng with oncology as outpatient plan is to resume care on discharge 5. Coronary artery disease ? Status post CABG. Patient remains on guideline directed medical ? 07/04/2023 patient had slightly elevated troponin plan is to consult cardiology if patient CTA fails to reveal pulmonary embolism 6. History of exocrine pancreatic insufficiency ? Patient is on lipase/protease/amylase supplements did continue 7. Dyslipidemia -Patient is on statin therapy, continued at home dose 8. Valvular heart disease ? With history of aortic valve replacement with bioprosthetic valve 9. Previous history of DVT ? Treated appropriately ordered D-dimer given patient chest discomfort ? CT of the chest as well as bilateral venous duplex ordered to rule out VTE ? CTA and bilateral venous duplex both negative for VTE 10. Chronic kidney disease stage III ? Kidney function appears to be at baseline 11. DVT prophylaxis ? On Lovenox Time spent in the patient's overall evaluation,decision-making process, review of diagnostic data, adjustment of management, discussion with other providers, nursing nursing and ancillary staff involved in patient's care documentation,33 Minutes
[2023-07-05] MEDS: Multivitamins,Ther W-Minerals Tablet 1 TABLET PO (08:07)
[2023-07-05] MEDS: Creon 24,000 unit DR Capsule PO (08:08)
--- NOTE | 2023-07-05 10:11 | PCM.DC.SUM ---
Providers Date of Admission: 07/03/23 Date of Discharge: 07/05/23 Primary Care Physician: Dr. Anthony Donahue, DO Consultations 07/04/23 12:55 Consult: Cardiology Routine Consulting Provider: Yohannes Rock Reason for Consult: ELEVATED TROP EMERGENT Consult: No MD Notified: Yes Date Notified: 07/04/23 Time Notified: 12:55 Method of Notification: Verbal Reason For Visit: CHEST PAIN Diagnosis Discharge Diagnosis (1) Chest pain: Status: Resolved Code(s): R07.9 - Chest pain, unspecified Plan Patient is an 88-year-old gentleman presented with chest pain 1. Chest pain ? Patient has significant past cardiac history including coronary artery disease with previous CABG. Patient admitted to monitored bed plan is to rule out UT with serial cardiac enzymes. As part of patient's management ordered 2D echo started on therapeutic Lovenox. Patient already on beta-blockers as well as statin therapy did continue ? 07/04/2023atient is an 88-year-old gentleman admitted with chest discomfort patient was found to have elevated troponin peaked at 119 trending down. Was also found to have elevated D-dimer CTA of the chest ordered for subsequent eval of note patient had been started on therapeutic Lovenox on admission ? 07/05/2023; chest pain resolved 2. Gallbladder disease ? Patient had apparently been offered cholecystectomy deferred. Ordered right upper quadrant ultrasound for further management ? 07/04/2023; right upper quadrant ultrasound Cholelithiasis without definitive evidence for acute cholecystitis. HIDA scan would be useful for further evaluation if clinically warranted.. With patient continue to experience pain with meals HIDA scan was ordered for subsequent eval ? 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 Plan is for patient to follow-up with primary surgeon as outpatient for subsequent care 3. Paroxysmal A-fib ? Seen in consultation by cardiology Dr. Rock recommended initiation of Eliquis 4. History of esophageal CA ? Status post minimally invasive esophagectomy in October 2016 with subsequent adjuvant chemotherapy. Patient has since remained in remission. Patient is followed by Dr. Cheng with oncology as outpatient plan is to resume care on discharge 5. Coronary artery disease ? Status post CABG. Patient remains on guideline directed medical ? 07/04/2023 patient had slightly elevated troponin plan is to consult cardiology if patient CTA fails to reveal pulmonary embolism 6. History of exocrine pancreatic insufficiency ? Patient is on lipase/protease/amylase supplements did continue 7. Dyslipidemia -Patient is on statin therapy, continued at home dose 8. Valvular heart disease ? With history of aortic valve replacement with bioprosthetic valve 9. Previous history of DVT ? Treated appropriately ordered D-dimer given patient chest discomfort ? CT of the chest as well as bilateral venous duplex ordered to rule out VTE ? CTA and bilateral venous duplex both negative for VTE 10. Chronic kidney disease stage III ? Kidney function appears to be at baseline 11. DVT prophylaxis ? On Lovenox Time spent in the patient's overall evaluation,decision-making process, review of diagnostic data, adjustment of management, discussion with other providers, nursing nursing and ancillary staff involved in patient's care documentation,33 Minutes Medications at Discharge Home Medications aspirin 81 mg chewable tablet 81 mg PO QHS 07/20/20 simvastatin 10 mg tablet 10 mg PO MOWEFR 90 days #39 tabs 07/23/22 metoprolol tartrate 25 mg tablet 12.5 mg (1/2 x 25 mg) PO BID #90 tabs 08/14/22 omeprazole 20 mg capsule,delayed release 20 mg PO BID #180 caps 08/14/22 budesonide 3 mg capsule,delayed,extended release 6 mg (2 x 3 mg) PO DAILY 30 days #60 ea 11/08/22 ringnx-yhgscvnv-mrmqbnb 2 - 3 cap PO TID 07/03/23 multivitamin-ferrous fumarate-folic acid 18 mg-400 mcg tablet (Daily Multivitamin with Iron) 1 tab PO DAILY 07/03/23 propylene glycol 0.6 % eye drops (Systane Balance) 1 drp EACH EYE BID PRN dry eye(s) 07/03/23 apixaban 2.5 mg tablet 2.5 mg PO BID #120 tabs 07/05/23 Physical Exam Narrative GENERAL: cooperative HEENT: Atraumatic; normocephalic EYES; Anicteric, Normal Conjunctiva NECK; supple, normal thyroid, RESPIRATORY: Diminished to auscultation CARDIOVASCULAR: Regular S1 S2, GI: soft, normoactive bowel sounds, : No Renal angle tenderness; EXTREMITIES: No edema, no clubbing, MUSCULOSKELETAL: no muscle wasting NEURO: Awake; no lateralizing signs. SKIN: No Rash PSYCH; Flat affect Weight / BMI Weight Weight: 76.5 kg Body Mass Index (BMI) 23.5 ABG / Lab / Microbiology Data 07/05/23 03:16 07/05/23 03:16 Laboratory: Laboratory Results - last 24 hr 07/05/23 03:16: WBC 5.5, RBC 3.47 L, Hgb 11.2 L, Hct 34.0 L, MCV 98.0 H, MCH 32.3 H, MCHC 32.9, RDW Std Deviation 51.2 H, RDW Coeff of Rick 14.4, Plt Count 116 L, MPV 10.2, Immature Gran % (Auto) 0.400, Neut % (Auto) 77.8 H, Lymph % (Auto) 12.6 L, [place] % (Auto) 8.4, Eos % (Auto) 0.4, Baso % (Auto) 0.4, Absolute Neuts (auto) 4.3, Absolute Lymphs (auto) 0.69 L, Nucleated RBC % 0, Sodium 137, Potassium 4.4, Chloride 111 H, Carbon Dioxide 19.0 L, Anion Gap 7, BUN 25 H, Creatinine 1.29, Estim Creat Clear Calc 41.35, Est GFR (MDRD) Af Amer 67, Est GFR (MDRD) Non-Af 56 L, BUN/Creatinine Ratio 19.4, Glucose 112 H, Calcium 8.2 L Radiography Diagnostic Testing: Radiology Impression Echocardiogram 07/03/23 18:10 Interpretation Summary The estimated ejection fraction is 55 %. Unable to assess diastolic dysfunction. The left atrium is moderately enlarged. The right atrium is moderately enlarged. Ordering Physician: Kenneth Whitten Referring Physician: Anthony Donahue Performed By: Adán Contreras RCS Hepatobiliary Scan Nuclear Medicine 07/04/23 08:57 IMPRESSION: 1. ABNORMAL 99m Tc Mebrofenin hepatobiliary imaging examination with Cholecystokinin. A. A gallbladder ejection fraction calculated to be less than 35% following the administration of Cholecystokinin is consistent with the presence of functional hepatobiliary disease (gallbladder and/or sphincter of Oddi dyskinesia) and/or organic hepatobiliary disease (chronic acalculous cholecystitis and/or cystic duct syndrome) in patients with intermediate to high pretest likelihoods of hepatobiliary illness. (T[place]urcio Heart et al, Journal of Nuclear Medicine 32:1695, 1991). B. 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 Electronically Signed: Albin Gottlieb DO at 11:55 EST , Venous Doppler Study 07/04/23 08:57 Interpretation Summary No evidence for acute deep venous thrombosis bilateral lower extremities Surgically absent right great saphenous vein Patent and compressible left great saphenous vein Pulsatile venous flow is noted bilaterally consistent with proximal venous hypertension or obstruction. Clinical correlation would be appropriate. Ordering Physician: Kenneth Whitten Referring Physician: Anthony Donahue Performed By: Hetal Delgado, OUSMANE, RVT Abdomen/Pelvis CT 07/04/23 09:08 IMPRESSION: Postoperative change. No obstruction. Colonic diverticulosis. Decreased function and atrophy of the upper pole of the left kidney. Lower lung consolidation and pleural effusions. Electronically Signed: Julian Connors MD at 10:10 EST , D/C Instructions Discharge Diet: No restrictions Discharge Activity: Return to Normal Activity Call your doctor if you observe: Fever of 101 or Higher, Shortness of breath, Fainting spells and Chest pain Meaningful Use Info Meaningful Use Diagnoses (Choose all that apply): None applicable Discharge Plan Admission Admit Date/Time: 07/03/23 14:01 Attending Provider: Kenneth Whitten Primary Care Provider: Anthony Donahue Consulting Providers: oYhannes Rock Discharge Orders/Prescriptions Prescriptions: New apixaban 2.5 mg tablet 2.5 mg PO BID Qty: 120 0RF Continued metoprolol tartrate 25 mg tablet 12.5 mg PO BID Qty: 90 3RF omeprazole 20 mg capsule,delayed release(DR/EC) 20 mg PO BID Qty: 180 3RF aspirin 81 mg tablet,chewable 81 mg PO QHS nmgljp-nnezalvz-soysgyx [Zenpep] 2 - 3 cap PO TID Rx Instructions: TAKE 2-3 CAPS AFTER MEALS AND 1 CAPSULE AFTER SNACKS Daily Multivitamin with Iron 18-400 mg-mcg tablet 1 tab PO DAILY Systane Balance 0.6 % drops 1 drp EACH EYE BID PRN (Reason: dry eye(s)) simvastatin 10 mg tablet 10 mg PO MOWEFR 90 Days Qty: 39 3RF budesonide 3 mg capsule,delayed,extend.release 6 mg PO DAILY 30 Days Qty: 60 2RF Referrals / Follow Up: Anthony Donahue DO [Primary Care Provider] - Within 2 Weeks Disposition Disposition (needs filled in before D/C Order can be placed): Home, Self Care Charges/Coding Visit Charges Inpatient E&M: 28609 Disch Hosp >30min
[2023-07-05 10:20] VITALS: BP 125/58; PULSE 103; RESP 16; TEMP 36.5; O2SAT 95
[2023-07-05] MEDS: Budesonide 3 MG CAPSULE.EC 6 MG PO (10:25)
[2023-07-05 10:26] VITALS: PULSE 103
[2023-07-05] MEDS: Metoprolol Tartrate 25 MG Tablet 12.5 MG PO (10:26)
[2023-07-05] MEDS: Pantoprazole Sodium 20 MG Tablet PO (10:26)
[2023-07-05] MEDS: APIXABAN 2.5 MG TABLET (WCH) PO (10:26)
--- NOTE | 2023-07-05 11:42 | PCM.PN.CARD ---
Subjective Subjective The patient reports he is feeling much better today. His heart rate slowed last night into the 70s and EKG was done which showed atrial tachycardia at about 200 to 210 bpm with a 3-1 conduction. His blood pressure was 95/70 and he was asymptomatic. The patient reports that he has been up to the bathroom but is very difficult given the compression hose that he has on He denies any lightheadedness reports that his abdominal discomfort has resolved and he tolerated breakfast this morning. Objective Data Vital Signs: Vital Signs Temp Pulse Resp BP Pulse Ox O2 Del Method 97.7 F L 103 H 16 125/58 H 95 Room Air 07/05/23 10:20 07/05/23 10:26 07/05/23 10:20 07/05/23 10:20 07/05/23 10:20 07/05/23 10:20 Oxygen Delivery Method Room Air Weight: 168 lb 10.458 oz Body Mass Index (BMI) 23.5 Intake & Output: Intake and Output for Last 24 Hours 07/03/23 07/04/23 07/05/23 23:59 23:59 23:59 Intake Total 3331.25 / 3331.25 806.25 / 806.25 Balance 3331.25 / 3331.25 806.25 / 806.25 Lab / Micro Data Attestation: I reviewed the patient's lab results. 07/05/23 03:16 07/05/23 03:16 Labs: Laboratory Results - last 24 hr 07/05/23 03:16: WBC 5.5, RBC 3.47 L, Hgb 11.2 L, Hct 34.0 L, MCV 98.0 H, MCH 32.3 H, MCHC 32.9, RDW Std Deviation 51.2 H, RDW Coeff of Rick 14.4, Plt Count 116 L, MPV 10.2, Immature Gran % (Auto) 0.400, Neut % (Auto) 77.8 H, Lymph % (Auto) 12.6 L, [place] % (Auto) 8.4, Eos % (Auto) 0.4, Baso % (Auto) 0.4, Absolute Neuts (auto) 4.3, Absolute Lymphs (auto) 0.69 L, Nucleated RBC % 0, Sodium 137, Potassium 4.4, Chloride 111 H, Carbon Dioxide 19.0 L, Anion Gap 7, BUN 25 H, Creatinine 1.29, Estim Creat Clear Calc 41.35, Est GFR (MDRD) Af Amer 67, Est GFR (MDRD) Non-Af 56 L, BUN/Creatinine Ratio 19.4, Glucose 112 H, Calcium 8.2 L Rhythm Strip Rhythm Strip: Atrial tach/flutter Rate: 90 Cardiology Labs/Tests 07/05/23 03:16: WBC 5.5, RBC 3.47 L, Hgb 11.2 L, Hct 34.0 L, MCV 98.0 H, MCH 32.3 H, MCHC 32.9, Plt Count 116 L, MPV 10.2, Immature Gran % (Auto) 0.400, Neut % (Auto) 77.8 H, Lymph % (Auto) 12.6 L, [place] % (Auto) 8.4, Eos % (Auto) 0.4, Baso % (Auto) 0.4, Absolute Neuts (auto) 4.3, Nucleated RBC % 0, Sodium 137, Potassium 4.4, Chloride 111 H, Carbon Dioxide 19.0 L, Anion Gap 7, BUN 25 H, Creatinine 1.29, Est GFR (MDRD) Af Amer 67, Est GFR (MDRD) Non-Af 56 L, BUN/Creatinine Ratio 19.4, Glucose 112 H, Calcium 8.2 L Rhythm: EKG: ECHO: Stress Test: Cardiac Cath: PCI: CT Surgery: Holter monitor: EPS: PPM: CXR: Chest CT Scan: Radiography Diagnostic Testing: Radiology Impression Echocardiogram 07/03/23 18:10 Interpretation Summary The estimated ejection fraction is 55 %. Unable to assess diastolic dysfunction. The left atrium is moderately enlarged. The right atrium is moderately enlarged. Ordering Physician: Kenneth Whitten Referring Physician: Anthony Donahue Performed By: Adán Contreras RCS Hepatobiliary Scan Nuclear Medicine 07/04/23 08:57 IMPRESSION: 1. ABNORMAL 99m Tc Mebrofenin hepatobiliary imaging examination with Cholecystokinin. A. A gallbladder ejection fraction calculated to be less than 35% following the administration of Cholecystokinin is consistent with the presence of functional hepatobiliary disease (gallbladder and/or sphincter of Oddi dyskinesia) and/or organic hepatobiliary disease (chronic acalculous cholecystitis and/or cystic duct syndrome) in patients with intermediate to high pretest likelihoods of hepatobiliary illness. (Tiburcio Wynn al, Journal of Nuclear Medicine 32:1695, 1991). B. 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 Electronically Signed: Albin Gottlieb DO at 11:55 EST , Venous Doppler Study 07/04/23 08:57 Interpretation Summary No evidence for acute deep venous thrombosis bilateral lower extremities Surgically absent right great saphenous vein Patent and compressible left great saphenous vein Pulsatile venous flow is noted bilaterally consistent with proximal venous hypertension or obstruction. Clinical correlation would be appropriate. Ordering Physician: Kenneth Whitten Referring Physician: Anthony Donahue Performed By: Hetal Delgado, OUSMANE, RVT Physical Exam Const oriented x3 HEENT normocephalic Eyes EOMs intact bilaterally Neck supple Chest Chest Narrative: Multiple scars related to surgical interventions and a Mediport in place in the right infraclavicular Resp normal respiratory effort and clear to auscultation bilaterally Cardio Rate: tachycardic Rhythm: regular rhythm Heart Sounds: S1 normal, S2 normal and murmur systolic II/; Negative for click or gallop GI soft to palpation Extremity no pedal edema Skin no rashes or lesions noted Neuro Neuro Narrative: Alert and oriented x 3 Psych mental status grossly normal Assessment & Plan Assessment/Plan (1) Atrial fibrillation: QUALIFIERS: Atrial fibrillation type: persistent (not longstanding) Qualified Code(s): I48.19 - Other persistent atrial fibrillation PLAN: Patient's rhythm on the EKG done last night and on the telemetry appears to be an atrial tachycardia or slow atrial flutter in the 200 to 250 bpm range. He has variable AV conduction majority of time his heart rates in the 95-110 range. We will increase his beta-moira to 12 and half milligrams 3 times a day during the daytime to try and better control his rate. I am concerned about given him beta-blockers at bedtime due to the potential of bradycardia arrhythmias at night. He should increase his activity levels and make sure he is safe to be discharged home. (2) History of aortic valve replacement with bioprosthetic valve: PLAN: The patient does have a 2/6 systolic murmur. The echo did not show any significant gradients. (3) Atherosclerotic heart disease of [place] coronary artery without angina pectoris: QUALIFIERS: [place] vs. transplanted heart: [place] heart Qualified Code(s): I25.10 - Atherosclerotic heart disease of [place] coronary artery without angina pectoris; I25.10 - Atherosclerotic heart disease of [place] coronary artery without angina pectoris; I25.10 - Atherosclerotic heart disease of [place] coronary artery without angina pectoris PLAN: The patient denies any anginal type symptoms he should continue with aggressive secondary risk factor modifications. PLAN: Plan 1. Would recommend continued Eliquis at 2.5 mg twice daily due to the patient's atrial tach/flutter. 2. Further evaluation for his gallbladder per per the primary service. 3. Will monitor him through the office for heart rate control and blood pressure management with the potential to increase his Lopressor in the ambulatory setting. His target heart rate should be in the 70-80 range. Charges/Coding Visit Charges Inpatient E&M: 51785 Subs Hosp L2
[2023-07-05] MEDS: 0.9% Saline Lock 10 ML Syringe IV (12:03)
--- NOTE | 2023-07-05 12:36 | CASEMGMT ---
RN [facility] Planning: Pt to DC home on eliquis. Spoke with pharmacy who applied the coupon for 1 month free. Per pharmacy no RX coverage on file. Spoke with pt bedside. Pt reports he does not have Part D due to the cost. Pt reports he was on something in the past that was 800$ per month and was able to do the prescription assistance. Pt informed to contact his box tender next week to make them aware he does not have prescription drug coverage so that they can discuss alternate option or work with pt to apply for the patient assistance program. Pt agreeable. Jazmin Sultana MSN, RN, CCM
== END 2023-07-05 12:18 | disposition home or self-care (01) ==
LOC: ED 14:14 → PCU 17:39
PROVIDERS: Admitting Provider Internal Medicine; Emergency Provider Student in an Organized Health Care Education/Training Program; PCP Family Medicine; Visit Provider Internal Medicine
DX: R07.89 Other chest pain (principal); I48.0 Paroxysmal atrial fibrillation; N18.30 Chronic kidney disease, stage 3 unspecified; E86.0 Dehydration; I47.19 Other supraventricular tachycardia; R42 Dizziness and giddiness; Z87.891 Personal history of nicotine dependence; I25.10 Atherosclerotic heart disease of native coronary artery without angina pectoris; E78.5 Hyperlipidemia, unspecified; Z95.828 Presence of other vascular implants and grafts; Z95.2 Presence of prosthetic heart valve; Z79.82 Long term (current) use of aspirin; Z79.899 Other long term (current) drug therapy; I25.2 Old myocardial infarction; Z95.1 Presence of aortocoronary bypass graft; K44.9 Diaphragmatic hernia without obstruction or gangrene; Z85.01 Personal history of malignant neoplasm of esophagus; Z86.718 Personal history of other venous thrombosis and embolism; K21.9 Gastro-esophageal reflux disease without esophagitis; K80.20 Calculus of gallbladder without cholecystitis without obstruction; I45.10 Unspecified right bundle-branch block; R94.31 Abnormal electrocardiogram [ECG] [EKG]
CPT/HCPCS: 36415; 36591; 71045; 71275; 74177; 76705; 78227; 80048; 80076; 83690; 84484; 85025; 85379; 93005; 93306; 93970; 96360; 96361; 96372; 99221; 99252; 99285; A9537; J7030; Q9967; A4216; G0378; G0463; J2805

== ENCOUNTER 2023-07-07 15:11 | Emergency (ER) | payer MEDICARE, OTHER, SELFPAY ==
[2023-07-07] VITALS (7 sets, daily range): BP systolic 125–146; BP diastolic 59–68; PULSE 101–108; RESP 16–24; TEMP 35.6–36.4; O2SAT 95–100
--- NOTE | 2023-07-07 15:45 | EKG12_ITS ---
Test Reason : SOB Blood Pressure : / mmHG Vent. Rate : 106 BPM Atrial Rate : 214 BPM P-R Int : 000 ms QRS Dur : 094 ms QT Int : 344 ms P-R-T Axes : 151 032 -67 degrees QTc Int : 456 ms Atrial flutter with variable A-V block with premature ventricular or aberrantly conducted complexes ST & WVE ABNORMALITY Abnormal ECG Confirmed by Yohannes Rock ([id number]), news video editor OTTO CALABRESE ([id number]) on 07/08/2023 11:20:05 AM Referred By: JOSE MANUEL/CHRISTIANO Confirmed By:Yohannes Rock
--- NOTE | 2023-07-07 15:53 | EX.ED.DYSGE1 ---
HPI History of Present Illness Chief Complaint: Shortness of Breath Informant: patient Narrative Narrative: Patient present secondary to increased shortness of breath. Patient was admitted to the hospital July 02 through the secondary to lower chest and upper abdominal pain. He was found to be in A-fib. He was started on Eliquis and is currently on Lopressor for rate control. Per cardiology's notes his target heart rate is between 70 and 80. Patient also was found to have some gallstones during his workup and a HIDA scan revealed diminished output. He is scheduled to follow-up with surgery as an outpatient for this. Patient called the cardiology office today asking for oxygen. He reports getting shortness of breath with any exertion. As an example, he references going up 14 steps to his second story. He states he has to stop 3 times to catch his breath. He states the director cpg was concerned about possible GI bleed since he was just initiated on Eliquis. Patient denies having black stools. [facility] Medical History Abdominal pain Abnormal abdominal CT scan Adjustment disorder Alcohol use Arthritis Atherosclerotic heart disease of [place] coronary artery without angina pectoris Back pain Cancer Cardiology follow-up encounter Chemotherapy-induced nausea Chest discomfort Dehydration DVT (deep venous thrombosis) Dyspepsia Encounter for adjustment or management of vascular access device Former smoker Gastric reflux History of DVT (deep vein thrombosis) History of echocardiogram History of hiatal hernia History of stress test Hx of peripheral neuropathy Hyperlipidemia Hypokalemia Injury of head and neck Low iron Migraine headache Nonrheumatic aortic (valve) stenosis Nonrheumatic aortic valve disorder Premature ventricular contraction Primary cancer of lower third of esophagus Restless legs SBO (small bowel obstruction) Submandibular gland swelling TIA (transient ischemic attack) Wears glasses Wears hearing aid Wears partial dentures Home Medications aspirin 81 mg chewable tablet 81 mg PO QHS Heart [facility] 07/20/20 [History Last Taken 07/02/23] simvastatin 10 mg tablet 10 mg PO MOWEFR cholesterol 90 days #39 tabs 07/23/22 [Rx Last Taken 07/02/23] metoprolol tartrate 25 mg tablet 12.5 mg (1/2 x 25 mg) PO BID blood pressure #90 tabs 08/14/22 [Rx Last Taken 07/02/23] omeprazole 20 mg capsule,delayed release 20 mg PO BID reflux #180 caps 08/14/22 [Rx Last Taken 07/02/23] budesonide 3 mg capsule,delayed,extended release 6 mg (2 x 3 mg) PO DAILY bowls 30 days #60 ea 11/08/22 [Rx Last Taken 07/02/23] calblz-unbvokxp-ndpgcad 2 - 3 cap PO TID enzyme 07/03/23 [History Last Taken 07/02/23] multivitamin-ferrous fumarate-folic acid 18 mg-400 mcg tablet (Daily Multivitamin with Iron) 1 tab PO DAILY vitamin 07/03/23 [History Last Taken 07/02/23] propylene glycol 0.6 % eye drops (Systane Balance) 1 drp EACH EYE BID PRN dry eye(s) 07/03/23 [History Last Taken 07/02/23] apixaban 2.5 mg tablet 2.5 mg PO BID #120 tabs 07/05/23 [Rx Last Taken Unknown] furosemide 40 mg tablet (Lasix) 40 mg PO DAILY #30 tabs 07/07/23 [Rx Last Taken Unknown] Allergy/AdvReac Type Severity Reaction Status Date / Time diphenhydramine Allergy Intermediate Restless Verified 07/07/23 15:16 [From Benadryl] legs Family History Father No problems noted. Mother Cancer Surgical History History of aortic valve replacement with bioprosthetic valve (~02/13/16) History of bilateral cataract extraction History of cardiac catheterization History of esophageal surgery History of esophagogastroduodenoscopy (EGD) History of hernia repair (~09/01/21) History of repair of hiatal hernia Hx of brain surgery Hx of CABG (~02/13/16) Hx of colonoscopy Hx of decompressive lumbar laminectomy Hx of exploratory laparotomy (~04/2022) Social History Smoking Status: Former smoker how long ago did patient quit smokin02/13/2016 second hand exposure: No alcohol intake: current alcohol intake frequency: holidays/special occasions only substance use type: does not use caffeine: Yes Type: coffee Number of servings: 3 and tea Number of servings: 1 what type of physical activity do you participate in: none frequency: does not exercise ROS ROS ED Constitutional Constitutional ED: Denies chills or fever(s) Eyes Eyes: Denies discharge from eye(s) ENT ENT ED: Denies discharge from eye(s), rhinorrhea or sore throat Cardiovascular Cardiovascular: Reports chest pain; Denies palpitations Respiratory/Chest Respiratory/Chest: Reports dyspnea; Denies cough Gastrointestinal Gastrointestinal: Denies abdominal pain, nausea or vomiting Genitourinary Genitourinary ED: Denies dysuria Musculoskeletal Musculoskeletal: Denies back pain or extremity pain Integumentary Denies Abrasions or rash Neurologic Neurologic: Denies headache(s) or weakness Allergic/Immunologic Allergic/Immunologic ED: Denies lip swelling or urticaria EXAM Physical Exam Const Vital Signs: 07/07/23 15:14 07/07/23 15:26 07/07/23 15:28 Temperature 96.1 F L Temperature Source Temporal Pulse Rate 105 H 108 H Respiratory Rate 20 H 23 H Respiratory Effort Short of Breath Blood Pressure 146/59 H 146/65 H Blood Pressure Mean 88 92 Pulse Ox 100 95 Oxygen Delivery Method Room Air Room Air Room Air 07/07/23 16:18 07/07/23 16:34 07/07/23 17:00 Temperature Temperature Source Pulse Rate 105 H 101 H 102 H Respiratory Rate 16 24 H 23 H Respiratory Effort Blood Pressure 125/61 H 125/61 H 128/68 H Blood Pressure Mean 82 82 88 Pulse Ox 100 96 96 Oxygen Delivery Method Room Air Room Air Room Air Positive well nourished and well developed General Appearance ED: well developed HEENT Reports moist mucous membranes Eyes EOMs intact bilaterally Chest Wall inspection of chest normal and palpation of chest normal Resp normal respiratory effort Resp Narrative: Diminished breath sounds bilateral bases with mild crackles. Cardio Rhythm: abnormal rhythm irregularly irregular (Heart rate slightly irregular with ventricular rate of 105-106.) GI non-tender Palpation: soft Extremity normal to inspection Neuro oriented x3 and no sensory deficits noted Motor Exam: strength 5/5 throughout Psych mental status grossly normal Skin no rashes or lesions noted MDM MDM MDM Narrative Medical decision making narrative: Patient placed on groundwater monitoring technician. IV line initiated. Labwork obtained to evaluate for leukocytosis, anemia, and electrolyte derangement. EKG obtained to evaluate for cardiac arrhythmia/ischemia. Chest x-ray obtained to evaluate for acute lung pathology, cardiac size, or mediastinal abnormality. History & Record Review Discussion w/independent historian: Patient and Family Additional record(s) reviewed:: Prior inpatient record, Prior ED visit and Prior labs Lab Data Attestation: I reviewed the patient's lab results. Labs: Laboratory Results - last 24 hr 07/07/23 16:15 WBC 7.2 RBC 3.62 L Hgb 11.6 L Hct 35.4 L MCV 97.8 H MCH 32.0 MCHC 32.8 RDW Std Deviation 51.5 H RDW Coeff of Rick 14.6 Plt Count 127 L MPV 9.8 Immature Gran % (Auto) 0.700 Neut % (Auto) 85.0 H Lymph % (Auto) 6.8 L Clinch % (Auto) 7.3 Eos % (Auto) 0.1 Baso % (Auto) 0.1 Absolute Neuts (auto) 6.1 Absolute Lymphs (auto) 0.49 L Nucleated RBC % 0 Differential Comment SEE COMMENT Platelet Estimate SLT DEC RBC Morphology N CHROM Anisocytosis RARE Macrocytosis RARE Sodium 138 Potassium 4.2 Chloride 109 H Carbon Dioxide 22.0 Anion Gap 7 BUN 29 H Creatinine 1.32 H Est GFR (MDRD) Af Amer 66 Est GFR (MDRD) Non-Af 54 L BUN/Creatinine Ratio 22.0 H Glucose 150 H Calcium 8.3 L Total Bilirubin 0.80 Direct Bilirubin 0.31 H AST 21 ALT 14 L Alkaline Phosphatase 89 Troponin I High Sens 121 H* B-Natriuretic Peptide 1601.8 H Total Protein 6.4 Albumin 3.1 L Globulin 3.3 Lipase < 10 L Radiography Chest X-Ray - ED: 1 View, Read by ED Physician and CHF Diagnostic Testing: Clinical Impression(s) from Imaging Studies Chest X-Ray 07/07/23 16:00 IMPRESSION: Worsening atelectasis or infiltrate and small pleural effusions in both lung bases. Electronically Signed: Arslan Amato MD at 17:29 EDT , EKG Initial EKG: Attestation: I personally reviewed and interpreted this EKG as follows: Interpretation: Atrial Flutter (A flutter with ventricular rate of 106. PVC noted.) Treatment and Re-Evaluation :: CBC reveals white count of 7.2 with a hemoglobin 11.6. Chemistry studies reveal a BUN of 29 and creatinine 1.32. This is near his baseline. Glucose is 150 troponin is elevated at 121. This is consistent from his recent admission. His BNP is 1601. LFTs are largely unremarkable. Portable chest x-ray per my interpretation reveals CHF with small effusions bilaterally, left greater than right. Radiology interpretation reviewed and agrees. I spoke with Dr. Rock who knows the patient from his recent admission. He asked that we give the patient 40 mg of IV Lasix here. Patient is to increase his metoprolol from 12.5 mg Q 12 hours to 12.5 mg every 6 hours. Patient will call Dr. Rock with an update tomorrow. I will write him a prescription for Lasix that he will take only as directed by Dr. Rock. Discharge Plan Triage Chief Complaint: Shortness of Breath ED Provider: Nikole Pichardo Dx/Rx/DC Orders Clinical Impression: CHF (congestive heart failure) Instructions: ED Heart Failure, Congestive (CHF) Prescriptions: New furosemide [Lasix] 40 mg tablet 40 mg PO DAILY Qty: 30 0RF No Action metoprolol tartrate 25 mg tablet 12.5 mg PO BID Qty: 90 3RF omeprazole 20 mg capsule,delayed release(DR/EC) 20 mg PO BID Qty: 180 3RF aspirin 81 mg tablet,chewable 81 mg PO QHS [id number]-iqhsxito-[id number] [Zenpep] 2 - 3 cap PO TID Rx Instructions: TAKE 2-3 CAPS AFTER MEALS AND 1 CAPSULE AFTER SNACKS Daily Multivitamin with Iron 18-400 mg-mcg tablet 1 tab PO DAILY Systane Balance 0.6 % drops 1 drp EACH EYE BID PRN (Reason: dry eye(s)) apixaban 2.5 mg tablet 2.5 mg PO BID Qty: 120 0RF simvastatin 10 mg tablet 10 mg PO MOWEFR 90 Days Qty: 39 3RF budesonide 3 mg capsule,delayed,extend.release 6 mg PO DAILY 30 Days Qty: 60 2RF Primary Care Provider: Anthony Donahue Referrals: Anthony Donahue, [Primary Care Provider] - Activity Restrictions/Additional Instructions: As discussed with Dr. Rock, please increase your metoprolol 12.5 mg to every [address] Rock tomorrow with an update on your symptoms. He may instruct you to start taking the oral Lasix that was written for you tonight. Do not take this medication unless directed by Dr. Rock. Disposition Disposition: Home, Self Care
--- NOTE | 2023-07-07 16:00 | RAD_ITS ---
STUDY: X-RAY CHEST REASON FOR EXAM: Male, 88 years old. sob TECHNIQUE: Single AP portable view of the chest. COMPARISON: 07/03/2023. FINDINGS: Stable indwelling catheter through the right IJ into the lower SVC. Increasing atelectasis or infiltrate in both lung bases. Bilateral small pleural effusions. Normal size heart. Previous CABG. Normal mediastinum and claude. Normal visualized pulmonary arteries. Normal visualized aortic arch and descending thoracic aorta. There are diffuse degenerative changes of the visualized thoracic spine. Normal visualized ribs, clavicles, and shoulders. There is no demonstrated abnormality of the visualized soft tissue structures of the upper abdomen. RAD/Chest 1 View (Portable) IMPRESSION: Worsening atelectasis or infiltrate and small pleural effusions in both lung bases. Electronically Signed: Arslan Amato MD at 17:29 EDT ,
[2023-07-07 16:22] LABS: Absolute Lymphocyte Count 0.49 X10^3/uL (0.83-4.51); Absolute Neutrophil Count 6.1 X10^3/uL (2.0-7.7); Basophil# 0.01 X10^3/uL; Basophil% 0.1 % (0-1); Eosinophil# 0.01 X10^3/uL; Eosinophils% 0.1 % (0-5); Hematocrit 35.4 % (40-54); Hemoglobin 11.6 g/dL (13.0-16.5); Lymphocyte # 0.49 X10^3/ul (0.83-4.51); Lymphocyte % 6.8 % (19-41); Mean Corp Hgb Conc 32.8 g/dL (32-36); Mean Corpuscular Volume 97.8 fL (80-94); Mean Platelet Vol. 9.8 fl (6.2-12.0); Monocyte# 0.52 X10^3/uL; Monocyte% 7.3 % (0-10); NRBC Flagged by Analyzer 0 % (0-5); Neutrophil # 6.08 X10^3/uL (2.7-7.7); POSITIVE DIFFERENTIAL YES; Platelet Count 127 K/mm3 (150-450); RBC Distribution Width CV 14.6 % (11.6-14.6); RBC Distribution Width SD 51.5 fl (35.1-43.9); Red Blood Count 3.62 M/mm3 (4.6-6.2); White Blood Count 7.2 K/mm3 (4.4-11.0)
[2023-07-07 16:27] LABS: Differential Indicated SCAN CRITERIA MET
[2023-07-07 16:55] LABS: Anisocytosis RARE; Macrocytosis RARE; Platelet Estimate SLT DEC (ADEQ); Red Cell Morphology N CHROM NORMAL (NORM C&C)
[2023-07-07 16:56] LABS: BNP,B-Type NATRIURETIC PEPTIDE 1601.8 pg/mL (0-100)
[2023-07-07 17:03] LABS: AST(SGOT) 21 U/L (15-37); Alanine Aminotransfer ALT/SGPT 14 U/L (16-61); Albumin, Serum 3.1 g/dL (3.2-5.0); Alkaline Phosphatase 89 U/L (45-117); Anion Gap 7 (5-15); BUN 29 mg/dL (7-18); Bilirubin, Direct 0.31 mg/dL (0.00-0.30); Calcium,Total 8.3 mg/dL (8.5-10.1); Chloride 109 mmol/L (98-107); Creatinine, Serum 1.32 mg/dL (0.70-1.30); EST Glomerular Filtration Rate 54 mL/min (>60); Est Glom Filt Rate - Afr Amer 66 mL/min (>60); Globulin 3.3 g/dL (2.2-4.2); Glucose 150 mg/dL (74-106); Lipase < 10 U/L (13-75); Potassium 4.2 mmol/L (3.5-5.1); Protein, Total 6.4 g/dL (6.4-8.2); Sodium Level 138 mmol/L (136-145); Troponin-I HS (w/2H Reflex) 121 pg/mL (3.0-78.0)
[2023-07-07] MEDS: Furosemide 40 MG/4 ML Vial IV (17:28)
[2023-07-07 18:19] LABS: Reflex Troponin-HS? (from REC) Y
--- NOTE | 2023-07-07 18:37 | ED.RN ---
rn flushed IVAD with 10ml 0.9% saline and 5ml heparin before deaccessing. pt tolerated well.
== END 2023-07-07 18:42 | disposition home or self-care (01) ==
PROVIDERS: Emergency Provider Emergency Medicine; PCP Family Medicine; Visit Provider Emergency Medicine
DX: I50.9 Heart failure, unspecified (principal); I48.91 Unspecified atrial fibrillation; Z87.891 Personal history of nicotine dependence; I25.10 Atherosclerotic heart disease of native coronary artery without angina pectoris; E78.5 Hyperlipidemia, unspecified; Z86.73 Personal history of transient ischemic attack (TIA), and cerebral infarction without residual deficits; Z79.899 Other long term (current) drug therapy; K21.9 Gastro-esophageal reflux disease without esophagitis; Z95.3 Presence of xenogenic heart valve; Z98.41 Cataract extraction status, right eye; Z98.42 Cataract extraction status, left eye; Z95.1 Presence of aortocoronary bypass graft
CPT/HCPCS: 36591; 71045; 80048; 80076; 83690; 83880; 84484; 85025; 93005; 96374; 99285; A4216; J1940

== ENCOUNTER 2023-07-11 11:53 | Inpatient (IN) | payer MEDICARE, OTHER, SELFPAY ==
[2023-07-11] VITALS (12 sets, daily range): BP systolic 112–149; BP diastolic 55–86; PULSE 102–104; RESP 16–25; TEMP 35.9–36.8; O2SAT 95–100; BMI 24.3
--- NOTE | 2023-07-11 12:43 | RAD_ITS ---
STUDY: X-RAY CHEST REASON FOR EXAM: Male, 88 years old. Chest pain TECHNIQUE: Single AP portable view of the chest. COMPARISON: Comparison is made with prior study July 07, 2023. FINDINGS: A right-sided raphael catheter seen with the tip in the superior vena cava. EKG electrodes are seen. Persistent pleural-parenchymal changes at the lung bases slightly worse on the left side. There has been minimal improvement as compared to prior study. There is no demonstrated pleural abnormality. Sternal cerclage wires and vascular clips are present from a prior sternotomy and coronary artery bypass graft procedure (CABG). Normal mediastinum and claude. Normal visualized pulmonary arteries. There is atherosclerotic calcification of the aortic arch with tortuosity. There are diffuse degenerative changes of the visualized thoracic spine. There is degenerative osteoarthritis of the bilateral shoulders. There is no demonstrated abnormality of the visualized soft tissue structures of the upper abdomen. RAD/Chest 1 View (Portable) IMPRESSION: Persistent bibasilar pleural-parenchymal changes worse on the left lung base. There has been mild improvement as compared to prior study. Electronically Signed: Hany Patricio MD at 13:54 EDT ,
[2023-07-11 13:21] LABS: Absolute Lymphocyte Count 0.57 X10^3/uL (0.83-4.51); Basophil# 0.02 X10^3/uL; Basophil% 0.3 % (0-1); Hematocrit 39.3 % (40-54); Lymphocyte # 0.57 X10^3/ul (0.83-4.51); Lymphocyte % 8.1 % (19-41); Mean Corp Hgb Conc 33.1 g/dL (32-36); Mean Corpuscular Hgb 31.9 pg (27.0-32.0); Mean Corpuscular Volume 96.6 fL (80-94); Monocyte# 0.42 X10^3/uL; Monocyte% 5.9 % (0-10); NRBC Flagged by Analyzer 0 % (0-5); Neutrophil # 6.03 X10^3/uL (2.7-7.7); Neutrophil % 85.1 % (47-70); POSITIVE DIFFERENTIAL YES; Platelet Count 153 K/mm3 (150-450); RBC Distribution Width SD 52.1 fl (35.1-43.9); Red Blood Count 4.07 M/mm3 (4.6-6.2); White Blood Count 7.1 K/mm3 (4.4-11.0)
[2023-07-11 13:34] LABS: BNP,B-Type NATRIURETIC PEPTIDE 2376.5 pg/mL (0-100)
[2023-07-11 13:43] LABS: Anion Gap 11 (5-15); BUN 39 mg/dL (7-18); BUN/Creat Ratio 22.3 RATIO (10-20); Calcium,Total 8.6 mg/dL (8.5-10.1); Chloride 105 mmol/L (98-107); Creatinine, Serum 1.75 mg/dL (0.70-1.30); EST Glomerular Filtration Rate 39 mL/min (>60); Est Glom Filt Rate - Afr Amer 47 mL/min (>60); Glucose 149 mg/dL (74-106); Potassium 3.7 mmol/L (3.5-5.1); Sodium Level 137 mmol/L (136-145); Troponin-I HS 124 pg/mL (3.0-78.0)
--- NOTE | 2023-07-11 14:27 | HP.PCM.HOS_ITS ---
HPI - General General Date of Admission: 07/11/23 HPI Narrative MILAGROS MELVIN, is a 88 M who presents to the hospital at the direction of his furniture sprayer secondary to increasing shortness of breath. He was recently admitted for atrial tachycardia with 3-1 conduction block and discharged with a heart rate of 103 on metoprolol. He continued to have some shortness of breath and called the furniture sprayer who recommended increasing his beta-moira to every 6 hours dosing which she has been on since Friday without any significant improvement as his heart rate is still at around 103 on presentation to the ER. Creatinine is slightly elevated from his baseline of 1.3 to 1.75 but his BNP has also been elevated and he is unclear if he was supposed be taking 40 mg of Lasix or 20 mg of Lasix. Troponin is elevated but stable for him. [facility] Medical History Abdominal pain Abnormal abdominal CT scan Adjustment disorder Alcohol use Arthritis Atherosclerotic heart disease of [place] coronary artery without angina pectoris Back pain Cancer Cardiology follow-up encounter Chemotherapy-induced nausea Chest discomfort Dehydration DVT (deep venous thrombosis) Dyspepsia Encounter for adjustment or management of vascular access device Former smoker Gastric reflux History of DVT (deep vein thrombosis) History of echocardiogram History of hiatal hernia History of stress test Hx of peripheral neuropathy Hyperlipidemia Hypokalemia Injury of head and neck Low iron Migraine headache Nonrheumatic aortic (valve) stenosis Nonrheumatic aortic valve disorder Premature ventricular contraction Primary cancer of lower third of esophagus Restless legs SBO (small bowel obstruction) Submandibular gland swelling TIA (transient ischemic attack) Wears glasses Wears hearing aid Wears partial dentures Home Medications aspirin 81 mg chewable tablet 81 mg PO QHS Heart health 07/20/20 [History Last Taken 07/02/23] simvastatin 10 mg tablet 10 mg PO MOWEFR cholesterol 90 days #39 tabs 07/23/22 [Rx Last Taken 07/02/23] omeprazole 20 mg capsule,delayed release 20 mg PO BID reflux #180 caps 08/14/22 [Rx Last Taken 07/02/23] budesonide 3 mg capsule,delayed,extended release 6 mg (2 x 3 mg) PO DAILY bowls 30 days #60 ea 11/08/22 [Rx Last Taken 07/02/23] hjsdlv-ajchiaeq-zxsleon 2 - 3 cap PO TID enzyme 07/03/23 [History Last Taken 07/02/23] multivitamin-ferrous fumarate-folic acid 18 mg-400 mcg tablet (Daily Multivitamin with Iron) 1 tab PO DAILY vitamin 07/03/23 [History Last Taken 07/02/23] propylene glycol 0.6 % eye drops (Systane Balance) 1 drp EACH EYE BID PRN dry eye(s) 07/03/23 [History Last Taken 07/02/23] apixaban 2.5 mg tablet 2.5 mg PO BID #120 tabs 07/05/23 [Rx Last Taken Unknown] furosemide 40 mg tablet (Lasix) 40 mg PO DAILY #30 tabs 07/07/23 [Rx Last Taken Unknown] metoprolol tartrate 25 mg tablet 12.5 mg PO .x4/day blood pressure 07/11/23 [History Last Taken Unknown] Allergy/AdvReac Type Severity Reaction Status Date / Time diphenhydramine Allergy Intermediate Restless Verified 07/07/23 15:16 [From Benadryl] legs Family History Father No problems noted. Mother Cancer Surgical History History of aortic valve replacement with bioprosthetic valve (~02/13/16) History of bilateral cataract extraction History of cardiac catheterization History of esophageal surgery History of esophagogastroduodenoscopy (EGD) History of hernia repair (~09/01/21) History of repair of hiatal hernia Hx of brain surgery Hx of CABG (~02/13/16) Hx of colonoscopy Hx of decompressive lumbar laminectomy Hx of exploratory laparotomy (~04/2022) Social History Smoking Status: Former smoker how long ago did patient quit smokin02/13/2016 second hand exposure: No alcohol intake: current alcohol intake frequency: holidays/special occasions only substance use type: does not use caffeine: Yes Type: coffee Number of servings: 3 and tea Number of servings: 1 what type of physical activity do you participate in: none frequency: does not exercise ROS Constitutional Constitutional: Denies chills, fatigue, fever(s) or malaise Eyes Eyes: Denies blurry vision ENT HEENT: Denies headache(s) or nasal discharge Cardiovascular Cardiovascular: Reports dyspnea on exertion and orthopnea; Denies chest pain or syncope Respiratory/Chest Respiratory/Chest: Reports cough; Denies shortness of breath at rest or shortness of breath with exertion Gastrointestinal Gastrointestinal: Denies constipation, diarrhea, nausea or vomiting Genitourinary Genitourinary: Denies dysuria Neurologic Neurologic: Denies focal weakness, numbness or tremor(s) Psychiatric Psychiatric: Denies anxiety or depression Vital Signs Vital Signs Vital Signs: 07/11/23 12:00 07/11/23 12:05 07/11/23 12:49 Temperature 97.6 F L 97.6 F L Temperature Source Oral Oral Pulse Rate 102 H 102 H Respiratory Rate 25 H 25 H Respiratory Effort Respiratory Pattern Blood Pressure 132/64 H 132/64 H Blood Pressure Mean 86 86 Pulse Ox 95 95 Oxygen Delivery Method Room Air Room Air Room Air 07/11/23 13:05 07/11/23 13:42 07/11/23 14:00 Temperature 97.3 F L 96.7 F L Temperature Source Temporal Temporal Pulse Rate 102 H 103 H Respiratory Rate 21 H 23 H Respiratory Effort Short of Breath Respiratory Pattern Tachypnea Blood Pressure 112/55 L 136/64 H Blood Pressure Mean 74 88 Pulse Ox 98 96 Oxygen Delivery Method Room Air Room Air Room Air Physical Exam Narrative General: Alert, Oriented x3, Cooperative, No apparent distress HEENT: Atraumatic, PERRLA, EOMI, Normocephalic Oral: Moist Mucosa Neck: Supple, No JVD Lungs: Diminished, Normal air movement, No rhonchi, No wheeze, No rales Cardiovascular: Tachycardic, Regular Rhythm, Normal S1, Normal S2, No murmurs Abdomen: Soft, Non Tender, Non-Distended, No Hepato-splenomegaly Extremities: No edema, Capillary Refill Less than 3 Seconds Skin: No rashes, No breakdown Musculoskeletal: No Tenderness to Palpation of Joints or Extremities Neurological: No focal neurological deficits, Motor Exam 5/5 strength throughout, Sensory exam intact to light touch and pain Psych/Mental Status: Normal Affect, Appropriate Results Lab / Micro Data 07/11/23 13:00 07/11/23 13:00 Labs: Laboratory Results - last 24 hr 07/11/23 13:00: WBC 7.1, RBC 4.07 L, Hgb 13.0, Hct 39.3 L, MCV 96.6 H, MCH 31.9, MCHC 33.1, RDW Std Deviation 52.1 H, RDW Coeff of Rick 15.0 H, Plt Count 153, MPV 10.0, Immature Gran % (Auto) 0.600, Neut % (Auto) 85.1 H, Lymph % (Auto) 8.1 L, [place] % (Auto) 5.9, Eos % (Auto) 0.0, Baso % (Auto) 0.3, Absolute Neuts (auto) 6.0, Absolute Lymphs (auto) 0.57 L, Nucleated RBC % 0, Sodium 137, Potassium 3.7, Chloride 105, Carbon Dioxide 21.0, Anion Gap 11, BUN 39 H, Creatinine 1.75 H, Est GFR (MDRD) Af Amer 47 L, Est GFR (MDRD) Non-Af 39 L, BUN/Creatinine Ratio 22.3 H, Glucose 149 H, Calcium 8.6, Troponin I High Sens 124 H*, B-Natriuretic Peptide 2376.5 H Imaging Radiology Impression Chest X-Ray 07/11/23 12:43 IMPRESSION: Persistent bibasilar pleural-parenchymal changes worse on the left lung base. There has been mild improvement as compared to prior study. Electronically Signed: Hany Patricio MD at 13:54 EDT Reading Location ID and State: [facility] / [place] , Service support , Assessment & Plan Assessment/Plan (1) CHF (congestive heart failure): (2) Atrial fibrillation: QUALIFIERS: Atrial fibrillation type: persistent (not longstanding) Qualified Code(s): I48.19 - Other persistent atrial fibrillation PLAN: Plan 1. Shortness of breath secondary to acute on chronic diastolic CHF/paroxysmal A-fib/HTN/HLD/CAD status post CABG ? He had an echo on 07/04/2023 with an EF of 55% with dilated right and left atria ? Will continue with aggressive diuresis ? Will increase his beta-moira to 50 mg p.o. twice daily as it does appear that his pressures can handle ? His creatinine did elevate slightly so this will be closely monitored however his BNP also went up from 1600 to about 2400 ? He does have a history of an aortic valve replacement ? Continue Eliquis 2. History of esophageal cancer in remission/exocrine pancreatic insufficiency/history of DVT ? He did have an esophagectomy between and has a port in his right chest remains in remission ? Continue with his pancreatic medications ? He did have Doppler in his lower extremities on his previous admission which were negative for any blood clots and a CTA at that time was negative for PE 3. GERD ? Stable ? Continue with PPI 4. Gallbladder disease ? Did have a HIDA scan on 07/05/2023 with an EF of less than 35%, he will need to follow-up with general surgery as an outpatient DVT: Eliquis 75 minutes was spent on direct patient care, including documentation as well as chart review and collaboration with colleagues Charges/Coding Visit Charges Inpatient E&M: 02811 Init Hosp L3
[2023-07-11] MEDS: Furosemide 40 MG/4 ML Vial IV ×2 (15:01→18:27)
--- NOTE | 2023-07-11 15:13 | EDS_ITS ---
HPI History of Present Illness Chief Complaint: Shortness of Breath Narrative Narrative: 88-year-old male sent to the ER by Dr. Rock for diuresis. Patient with history of CHF on Eliquis for persistent A-fib. Patient apparently needs to be admitted for diuresis as he is having more shortness of breath and dyspnea on exertion. He is also describing orthopnea. He feels well at rest. At baseline last week he said he could walk 100 feet and now he can only walk 5. PFSH PFS Medical History Abdominal pain Abnormal abdominal CT scan Adjustment disorder Alcohol use Arthritis Atherosclerotic heart disease of [place] coronary artery without angina pectoris Back pain Cancer Cardiology follow-up encounter Chemotherapy-induced nausea Chest discomfort Dehydration DVT (deep venous thrombosis) Dyspepsia Encounter for adjustment or management of vascular access device Former smoker Gastric reflux History of DVT (deep vein thrombosis) History of echocardiogram History of hiatal hernia History of stress test Hx of peripheral neuropathy Hyperlipidemia Hypokalemia Injury of head and neck Low iron Migraine headache Nonrheumatic aortic (valve) stenosis Nonrheumatic aortic valve disorder Premature ventricular contraction Primary cancer of lower third of esophagus Restless legs SBO (small bowel obstruction) Submandibular gland swelling TIA (transient ischemic attack) Wears glasses Wears hearing aid Wears partial dentures Home Medications aspirin 81 mg chewable tablet 81 mg PO QHS Heart health 07/20/20 [History Last Taken 07/02/23] simvastatin 10 mg tablet 10 mg PO MOWEFR cholesterol 90 days #39 tabs 07/23/22 [Rx Last Taken 07/02/23] metoprolol tartrate 25 mg tablet 12.5 mg (1/2 x 25 mg) PO BID blood pressure #90 tabs 08/14/22 [Rx Last Taken 07/02/23] omeprazole 20 mg capsule,delayed release 20 mg PO BID reflux #180 caps 08/14/22 [Rx Last Taken 07/02/23] budesonide 3 mg capsule,delayed,extended release 6 mg (2 x 3 mg) PO DAILY bowls 30 days #60 ea 11/08/22 [Rx Last Taken 07/02/23] guhvmh-geeqekzl-oroczts 2 - 3 cap PO TID enzyme 07/03/23 [History Last Taken 07/02/23] multivitamin-ferrous fumarate-folic acid 18 mg-400 mcg tablet (Daily Multivitamin with Iron) 1 tab PO DAILY vitamin 07/03/23 [History Last Taken 07/02/23] propylene glycol 0.6 % eye drops (Systane Balance) 1 drp EACH EYE BID PRN dry eye(s) 07/03/23 [History Last Taken 07/02/23] apixaban 2.5 mg tablet 2.5 mg PO BID #120 tabs 07/05/23 [Rx Last Taken Unknown] furosemide 40 mg tablet (Lasix) 40 mg PO DAILY #30 tabs 07/07/23 [Rx Last Taken Unknown] Allergy/AdvReac Type Severity Reaction Status Date / Time diphenhydramine Allergy Intermediate Restless Verified 07/07/23 15:16 [From Benadryl] legs Family History Father No problems noted. Mother Cancer Surgical History History of aortic valve replacement with bioprosthetic valve (~02/13/16) History of bilateral cataract extraction History of cardiac catheterization History of esophageal surgery History of esophagogastroduodenoscopy (EGD) History of hernia repair (~09/01/21) History of repair of hiatal hernia Hx of brain surgery Hx of CABG (~02/13/16) Hx of colonoscopy Hx of decompressive lumbar laminectomy Hx of exploratory laparotomy (~04/2022) Social History Smoking Status: Former smoker how long ago did patient quit smokin02/13/2016 second hand exposure: No alcohol intake: current alcohol intake frequency: holidays/special occasions only substance use type: does not use caffeine: Yes Type: coffee Number of servings: 3 and tea Number of servings: 1 what type of physical activity do you participate in: none frequency: does not exercise ROS ROS ED Constitutional Constitutional ED: Denies chills, fever(s) or sweats Eyes Eyes: Denies blurry vision or change in vision ENT ENT ED: Denies ear pain or sore throat Cardiovascular Cardiovascular: Denies chest pain, palpitations or racing heartbeat Respiratory/Chest Respiratory/Chest: Reports dyspnea and dyspnea on exertion; Denies sputum Gastrointestinal Gastrointestinal: Denies abdominal pain, constipation, diarrhea, nausea or vomiting Genitourinary Genitourinary ED: Denies dysuria, hematuria or urinary frequency Musculoskeletal Musculoskeletal: Denies arthralgias, myalgias or neck pain Integumentary Denies abscess, Abrasions or rash Neurologic Neurologic: Denies headache(s), paresthesias or weakness Psychiatric Psychiatric: Denies anxiety, depression, suicidal ideation or suicidal thoughts Endocrine Endocrinology: Denies polydipsia or polyuria EXAM Physical Exam Const Vital Signs: 07/11/23 12:00 07/11/23 12:05 07/11/23 12:49 Temperature 97.6 F L 97.6 F L Temperature Source Oral Oral Pulse Rate 102 H 102 H Respiratory Rate 25 H 25 H Respiratory Effort Respiratory Pattern Blood Pressure 132/64 H 132/64 H Blood Pressure Mean 86 86 Pulse Ox 95 95 Oxygen Delivery Method Room Air Room Air Room Air 07/11/23 13:05 07/11/23 13:42 07/11/23 14:00 Temperature 97.3 F L 96.7 F L Temperature Source Temporal Temporal Pulse Rate 102 H 103 H Respiratory Rate 21 H 23 H Respiratory Effort Short of Breath Respiratory Pattern Tachypnea Blood Pressure 112/55 L 136/64 H Blood Pressure Mean 74 88 Pulse Ox 98 96 Oxygen Delivery Method Room Air Room Air Room Air Positive well nourished HEENT Reports moist mucous membranes Eyes PERRL and EOMs intact bilaterally Neck no lymphadenopathy Resp normal respiratory effort Auscultation: Negative for rhonchi Cardio Rate: tachycardic Rhythm: abnormal rhythm irregularly irregular GI non-tender Neuro oriented x3 and CN's II-XII intact bilaterally Psych mental status grossly normal Skin no wounds MDM MDM MDM Narrative Medical decision making narrative: Patient presenting with presumed CHF exacerbation. Appropriate lab work was obtained. CBC shows normal white blood cell count of 7.1, hemoglobin 13.0, platelets 153, creatinine near baseline at 1.75 however slightly elevated. Glucose 149 without anion gap. High-sensitivity troponin is 124 which is similar to previous. BNP is not 2376.5 which is higher than before. Patient given 40 mg of Lasix. Chest x-ray my interpretation shows very mild by lateral pleural effusions. This is improved from previous. Radiology interprets this and agrees. EKG on my interpretation shows same a flutter rate with a variable AV block 140 abdomen atrial flutter with a ventricular rate of 104 bpm with variable AV block. Discussed with hospitalist for admission. Impression: 1. A flutter 2. CHF exacerbation Lab Data Attestation: I reviewed the patient's lab results. Labs: Laboratory Results - last 24 hr 07/11/23 13:00 WBC 7.1 RBC 4.07 L Hgb 13.0 Hct 39.3 L MCV 96.6 H MCH 31.9 MCHC 33.1 RDW Std Deviation 52.1 H RDW Coeff of Rick 15.0 H Plt Count 153 MPV 10.0 Immature Gran % (Auto) 0.600 Neut % (Auto) 85.1 H Lymph % (Auto) 8.1 L [place] % (Auto) 5.9 Eos % (Auto) 0.0 Baso % (Auto) 0.3 Absolute Neuts (auto) 6.0 Absolute Lymphs (auto) 0.57 L Nucleated RBC % 0 Sodium 137 Potassium 3.7 Chloride 105 Carbon Dioxide 21.0 Anion Gap 11 BUN 39 H Creatinine 1.75 H Est GFR (MDRD) Af Amer 47 L Est GFR (MDRD) Non-Af 39 L BUN/Creatinine Ratio 22.3 H Glucose 149 H Calcium 8.6 Troponin I High Sens 124 H* B-Natriuretic Peptide 2376.5 H Radiography Diagnostic Testing: Clinical Impression(s) from Imaging Studies Chest X-Ray 07/11/23 12:43 IMPRESSION: Persistent bibasilar pleural-parenchymal changes worse on the left lung base. There has been mild improvement as compared to prior study. Electronically Signed: Hany Patricio MD at 13:54 EDT , Discharge Plan Triage Chief Complaint: Shortness of Breath ED Provider: Kennedy Yo Dx/Rx/DC Orders Primary Care Provider: Anthony Donahue
[2023-07-11] MEDS: Aspirin 81 MG TAB.CHEW PO (22:18)
[2023-07-11] MEDS: Atorvastatin Calcium 10 MG Tablet 5 MG PO (22:18)
[2023-07-11] MEDS: Metoprolol Tartrate 50 MG Tablet PO (22:18)
[2023-07-11] MEDS: APIXABAN 2.5 MG TABLET (WCH) PO (22:19)
[2023-07-11] MEDS: Pantoprazole Sodium 20 MG Tablet PO (22:19)
[2023-07-12] VITALS (8 sets, daily range): BP systolic 110–124; BP diastolic 52–77; PULSE 86–102; RESP 15–18; TEMP 36.3–36.6; O2SAT 98–100; BMI 24.3
[2023-07-12 05:10] LABS: Absolute Lymphocyte Count 0.94 X10^3/uL (0.83-4.51); Absolute Neutrophil Count 6.1 X10^3/uL (2.0-7.7); Basophil# 0.03 X10^3/uL; Basophil% 0.4 % (0-1); Hemoglobin 13.4 g/dL (13.0-16.5); Lymphocyte # 0.94 X10^3/ul (0.83-4.51); Lymphocyte % 12.4 % (19-41); Mean Corp Hgb Conc 33.5 g/dL (32-36); Mean Corpuscular Hgb 32.1 pg (27.0-32.0); Mean Corpuscular Volume 95.9 fL (80-94); Mean Platelet Vol. 10.4 fl (6.2-12.0); Monocyte# 0.49 X10^3/uL; Monocyte% 6.5 % (0-10); NRBC Flagged by Analyzer 0 % (0-5); Neutrophil % 80.3 % (47-70); Platelet Count 153 K/mm3 (150-450); RBC Distribution Width CV 15.2 % (11.6-14.6); Red Blood Count 4.17 M/mm3 (4.6-6.2); White Blood Count 7.6 K/mm3 (4.4-11.0)
[2023-07-12 05:37] LABS: Anion Gap 11 (5-15); BUN 46 mg/dL (7-18); BUN/Creat Ratio 24.2 RATIO (10-20); Calcium,Total 8.9 mg/dL (8.5-10.1); Chloride 105 mmol/L (98-107); EST Glomerular Filtration Rate 36 mL/min (>60); Est Glom Filt Rate - Afr Amer 43 mL/min (>60); Estimated Creatinine Clearance 28.07 ml/min; Glucose 149 mg/dL (74-106); Potassium 3.9 mmol/L (3.5-5.1); Sodium Level 137 mmol/L (136-145)
--- NOTE | 2023-07-12 07:28 | PN.HOSP_ITS ---
Reason for Visit Reason for Visit: Diagnoses Other persistent atrial fibrillation (07/11/23) Heart failure, unspecified (07/11/23) Subjective Subjective Had chest pain across his chest last night, since resolved. Objective Data Objective Data Vital Signs: Vital Signs Temp Pulse Resp BP Pulse Ox O2 Del Method O2 Flow Rate 36.3 C L 102 H 15 123/57 H 98 Nasal Cannula 1 07/12/23 06:00 07/12/23 06:00 07/12/23 06:00 07/12/23 06:00 07/12/23 06:00 07/12/23 06:00 07/12/23 06:00 Oxygen Flow Rate (L/min) 1 Oxygen Delivery Method Nasal Cannula Weight: 79.2 kg Body Mass Index (BMI) 24.3 Intake & Output: Intake and Output for Last 24 Hours 07/10/23 07/11/23 07/12/23 23:59 23:59 23:59 Intake Total 200 / 300 100 / 100 Balance 200 / 300 100 / 100 Lab / Micro Data 07/12/23 04:11 07/12/23 04:11 Labs: Laboratory Results - last 24 hr 07/11/23 13:00: WBC 7.1, RBC 4.07 L, Hgb 13.0, Hct 39.3 L, MCV 96.6 H, MCH 31.9, MCHC 33.1, RDW Std Deviation 52.1 H, RDW Coeff of Rick 15.0 H, Plt Count 153, MPV 10.0, Immature Gran % (Auto) 0.600, Neut % (Auto) 85.1 H, Lymph % (Auto) 8.1 L, [place] % (Auto) 5.9, Eos % (Auto) 0.0, Baso % (Auto) 0.3, Absolute Neuts (auto) 6.0, Absolute Lymphs (auto) 0.57 L, Nucleated RBC % 0, Sodium 137, Potassium 3.7, Chloride 105, Carbon Dioxide 21.0, Anion Gap 11, BUN 39 H, Creatinine 1.75 H, Est GFR (MDRD) Af Amer 47 L, Est GFR (MDRD) Non-Af 39 L, BUN/Creatinine Ratio 22.3 H, Glucose 149 H, Calcium 8.6, Troponin I High Sens 124 H*, B-Natriuretic Peptide 2376.5 H 07/12/23 04:11: WBC 7.6, RBC 4.17 L, Hgb 13.4, Hct 40.0, MCV 95.9 H, MCH 32.1 H, MCHC 33.5, RDW Std Deviation 52.0 H, RDW Coeff of Rick 15.2 H, Plt Count 153, MPV 10.4, Immature Gran % (Auto) 0.400, Neut % (Auto) 80.3 H, Lymph % (Auto) 12.4 L, [place] % (Auto) 6.5, Eos % (Auto) 0.0, Baso % (Auto) 0.4, Absolute Neuts (auto) 6.1, Absolute Lymphs (auto) 0.94, Nucleated RBC % 0, Sodium 137, Potassium 3.9, Chloride 105, Carbon Dioxide 21.0, Anion Gap 11, BUN 46 H, Creatinine 1.90 H, Estim Creat Clear Calc 28.07, Est GFR (MDRD) Af Amer 43 L, Est GFR (MDRD) Non-Af 36 L, BUN/Creatinine Ratio 24.2 H, Glucose 149 H, Calcium 8.9 Radiography Diagnostic Testing: Radiology Impression Chest X-Ray 07/11/23 12:43 IMPRESSION: Persistent bibasilar pleural-parenchymal changes worse on the left lung base. There has been mild improvement as compared to prior study. Electronically Signed: Hany Patricio MD at 13:54 EDT Reading Location ID and State: [facility] / [place] , Service support , Physical Exam Const alert and no apparent distress Constitutional Narrative: up in chair. breathing. no respiratory distress. No conversational dyspnea. Resp normal respiratory effort, no retractions, no use of accessory muscles and clear to auscultation bilaterally Cardio regular rate, regular rhythm, S1 normal heart sound and S2 normal heart sound GI normal to inspection, nondistended, normoactive bowel sounds, soft to palpation and non-distended Assessment & Plan Assessment/Plan (1) CHF (congestive heart failure): (2) Atrial fibrillation: QUALIFIERS: Atrial fibrillation type: persistent (not l ongstanding) Qualified Code(s): I48.19 - Other persistent atrial fibrillation PLAN: Plan acute HFpEF * He had an echo on 07/04/2023 with an EF of 55% with dilated right and left atria * furosemide 40 IV BID, will dc given OTILIO * No ACEi given OTILIO OTILIO * worsening this month: 1.29 on 07/04, now up to 1.9 * hold diuresis Chronic conditions: * pAfib: metop tart and apixaban. * History of esophageal cancer in remission/exocrine pancreatic insuffic iency/history of DVT? He did have an esophagectomy between and has a port in his right chest remains in remission? Continue with his pancreatic medications * GERD? Stable? Continue with PPI * 4. Gallbladder disease? Did have a HIDA scan on 07/05/2023 with an EF of less than 35%, he will need to follow-up with general surgery as an outpatient DVT: not indicated as already anticoagulated. Disposition: plan to monitor overnight, if stable, could anticipate discharge on the . Charges/Coding Visit Charges Inpatient E&M: 10390 Subs Hosp L2
[2023-07-12] MEDS: Metoprolol Tartrate 50 MG Tablet PO ×2 (09:49→21:55)
[2023-07-12] MEDS: Pantoprazole Sodium 20 MG Tablet PO ×2 (09:50→21:53)
[2023-07-12] MEDS: Budesonide 3 MG CAPSULE.EC 6 MG PO (09:50)
[2023-07-12] MEDS: APIXABAN 2.5 MG TABLET (WCH) PO ×2 (09:50→21:53)
[2023-07-12] MEDS: Flu Vacc QS2023-24(65YR UP)/PF 240 MCG/0.7 ML Syringe IM (09:53)
--- NOTE | 2023-07-12 10:15 | CASEMGMT ---
ELIZABETH CUTLER Face to Face with patient for initial transition planning/care coordination assessment. RN OMAYRA introduced self and role at [facility]. Patient sitting in chair, alert and oriented. Patient willing to participate in assessment and is able to answer all questions appropriately. Care providers, pharmacy, and demographics verified. PCP: [facility] Specialists: Pranav, development assistant; Prosper, oncologist; Friend, GI Preferred Pharmacy: [facility] retail Insurance: MCR, [employer] Prescription Benefit: none Living Will/HPOA: yes, son Moises Tavarez Jr LNOK: son Living Arrangements: Patient lives with son in a 2 story home with bed and bath on first floor. Patient states he was independent at home. Transportation: self, son DME/HHC: Patient has shower chair, cane, walker, and grab bars at home. No previous HHC or SNF. Will montior for home oxygen at discharge, prefers [employer]. Will monitor for HHC pending therapy. Patient wishes to discharge home and denies needs at discharge, will monitor for HHC at discharge. Patient states he has no further needs or concerns at this time. CM to follow for discharge planning needs that may arise. Disposition Plan: Patient to discharge home with family support and follow-up plans in place. Will monitor progress with therapy and need for HHC. Terra MOSLEY, RN, CM
--- NOTE | 2023-07-12 11:39 | EKG12_ITS ---
Test Reason : CP Blood Pressure : / mmHG Vent. Rate : 098 BPM Atrial Rate : 196 BPM P-R Int : 000 ms QRS Dur : 106 ms QT Int : 370 ms P-R-T Axes : 241 043 -67 degrees QTc Int : 472 ms Atrial flutter with 2:1 A-V conduction Incomplete right bundle branch block Anteroseptal infarct , age undetermined Abnormal ECG When compared with ECG of 11-JUL-2023 12:13, MANUAL COMPARISON REQUIRED, DATA IS UNCONFIRMED Confirmed by HOLLY MOLINA, NOEL ([id number]), editorial assistant HECTOR AMADOR ([id number]) on 07/15/2023 6:55:43 AM Referred By: Confirmed By:NOEL BARRERA MD
--- NOTE | 2023-07-12 16:41 | CASEMGMT ---
RN CM in to complete MORRISSEY form with patient. RN CM explained MORRIS[facility]Y form to patient, patient voiced understanding. Patient signed M[employer]RIS[employer] Form and filed in chart. Patient provided with copy of signed MORRISSEY. RN CM discussed possible HHC at discharge. A list of HHC providers including quality and resource use data and consistent with the patient?s preferred geographical region, medical needs, and insurance network were [facility]. CM to follow therapy and setup HHC if needed. Patient declined further needs or concerns at this time.
[2023-07-12] MEDS: Aspirin 81 MG TAB.CHEW PO (21:53)
[2023-07-12] MEDS: traZODone 50 MG Tablet PO (21:53)
[2023-07-13] VITALS (7 sets, daily range): BP systolic 110–127; BP diastolic 52–62; PULSE 86–100; RESP 18–20; TEMP 35.9–36.3; O2SAT 97–100; BMI 23.8
[2023-07-13 05:56] LABS: Anion Gap 12 (5-15); BUN 64 mg/dL (7-18); BUN/Creat Ratio 28.2 RATIO (10-20); Calcium,Total 8.7 mg/dL (8.5-10.1); Chloride 106 mmol/L (98-107); Creatinine, Serum 2.27 mg/dL (0.70-1.30); EST Glomerular Filtration Rate 29 mL/min (>60); Est Glom Filt Rate - Afr Amer 35 mL/min (>60); Glucose 163 mg/dL (74-106); Potassium 4.3 mmol/L (3.5-5.1); Sodium Level 136 mmol/L (136-145)
--- NOTE | 2023-07-13 07:41 | PN.HOSP_ITS ---
Reason for Visit Reason for Visit: Diagnoses Other persistent atrial fibrillation (07/11/23) Heart failure, unspecified (07/11/23) Subjective Subjective No events overnight. No further chest pain. Objective Data Objective Data Vital Signs: Vital Signs Temp Pulse Resp BP Pulse Ox O2 Del Method O2 Flow Rate 36.1 C L 86 18 110/52 L 100 Nasal Cannula 2 07/13/23 03:45 07/13/23 03:45 07/13/23 03:45 07/13/23 03:45 07/13/23 03:45 07/13/23 04:26 07/13/23 04:26 Oxygen Flow Rate (L/min) 2 Oxygen Delivery Method Nasal Cannula Weight: 77.5 kg Body Mass Index (BMI) 23.8 Intake & Output: Intake and Output for Last 24 Hours 07/11/23 07/12/23 07/13/23 23:59 23:59 23:59 Intake Total 200 / 300 700 / 1050 350 / 350 Balance 200 / 300 700 / 1050 350 / 350 Lab / Micro Data 07/12/23 04:11 07/13/23 05:21 Labs: Laboratory Results - last 24 hr 07/13/23 05:21: Sodium 136, Potassium 4.3, Chloride 106, Carbon Dioxide 18.0 L, Anion Gap 12, BUN 64 H, Creatinine 2.27 H, Estim Creat Clear Calc 23.50, Est GFR (MDRD) Af Amer 35 L, Est GFR (MDRD) Non-Af 29 L, BUN/Creatinine Ratio 28.2 H, Glucose 163 H, Calcium 8.7 Physical Exam Const alert and no apparent distress HEENT head/scalp atraumatic and moist oral mucous membranes Resp normal respiratory effort, no retractions, no use of accessory muscles and clear to auscultation bilaterally Cardio regular rate, regular rhythm, S1 normal heart sound and S2 normal heart sound GI normal to inspection, nondistended, normoactive bowel sounds, soft to palpation, non-tender and non-distended Extremity normal to inspection Assessment & Plan Assessment/Plan (1) CHF (congestive heart failure): (2) Atrial fibrillation: QUALIFIERS: Atrial fibrillation type: persistent (not longstanding) Qualified Code(s): I48.19 - Other persistent atrial fibrillation PLAN: Plan acute HFpEF * He had an echo on 07/04/2023 with an EF of 55% with dilated right and left atria * furosemide dc'd given OTILIO * No ACEi given OTILIO OTILIO * worsening this month: 1.29 on 07/04, now up to 2.27 * continue hold diuresis * check urine studies. Elevated troponin * unclear if demand ischemia * cardiology consulted. * already anticoagulated Chronic conditions: * pAfib: metop tart and apixaban. * History of esophageal cancer in remission/exocrine pancreatic insufficiency/history of DVT? He did have an esophagectomy between and has a port in his right chest remains in remission? Continue with his pancreatic medications * GERD? Stable? Continue with PPI * 4. Gallbladder disease? Did have a HIDA scan on 07/05/2023 with an EF of less than 35%, he will need to follow-up with general surgery as an outpatient DVT: not indicated as already anticoagulated. Charges/Coding Visit Charges Inpatient E&M: 27893 Subs Hosp L2
[2023-07-13] MEDS: Budesonide 3 MG CAPSULE.EC 6 MG PO (08:50)
[2023-07-13] MEDS: Pantoprazole Sodium 20 MG Tablet PO ×2 (08:50→20:33)
[2023-07-13] MEDS: APIXABAN 2.5 MG TABLET (WCH) PO ×2 (08:50→20:33)
[2023-07-13] MEDS: Metoprolol Tartrate 50 MG Tablet PO ×2 (08:50→20:33)
--- NOTE | 2023-07-13 11:52 | PCM.CONS.C ---
Assessment & Plan Assessment/Plan (1) (HFpEF) heart failure with preserved ejection fraction: PLAN: Patient presently does not appear to be fluid volume overloaded. Furosemide being held for increasing creatinine. (2) Atrial tachycardia: PLAN: Presently ventricular rate controlled with metoprolol. Will continue to monitor. (3) Paroxysmal atrial fibrillation: PLAN: On apixaban for history of paroxysmal atrial fibrillation. (4) History of aortic valve replacement with bioprosthetic valve: PLAN: Periodic echo and clinical surveillance (5) Coronary artery disease: PLAN: History of nonobstructive coronary artery disease. Continue aspirin. Beta-blockers. Troponin mildly elevated but not much difference than baseline. (6) Acute kidney injury: PLAN: Recommend nephrology consult. HPI Consult Data Date of Consult: 07/13/23 HPI Narrative Reason for Consultation: Dyspnea HPI Narrative: This gentleman has past medical history significant for paroxysmal atrial fibrillation, atrial tachycardia, nonobstructive coronary artery disease diagnosed on coronary angiography in 2015 with negative stress test in 2020, esophageal cancer and diastolic heart failure. He has been admitted to the hospital with exacerbation of his diastolic heart failure. Patient called his commercial coordinator Dr. Rock with complaints of increasing shortness of breath at home. He was advised to go to the emergency room. In the emergency room, patient was noted to have markedly elevated BNP. Subsequently admitted with exacerbation heart failure. Denies any chest pains. Positive shortness of breath with exertion. [facility] Medical History Abdominal pain Abnormal abdominal CT scan Adjustment disorder Alcohol use Arthritis Atherosclerotic heart disease of [place] coronary artery without angina pectoris Back pain Cancer Cardiology follow-up encounter Chemotherapy-induced nausea Chest discomfort Dehydration DVT (deep venous thrombosis) Dyspepsia Encounter for adjustment or management of vascular access device Former smoker Gastric reflux History of DVT (deep vein thrombosis) History of echocardiogram History of hiatal hernia History of stress test Hx of peripheral neuropathy Hyperlipidemia Hypokalemia Injury of head and neck Low iron Migraine headache Nonrheumatic aortic (valve) stenosis Nonrheumatic aortic valve disorder Premature ventricular contraction Primary cancer of lower third of esophagus Restless legs SBO (small bowel obstruction) Submandibular gland swelling TIA (transient ischemic attack) Wears glasses Wears hearing aid Wears partial dentures Home Medications aspirin 81 mg chewable tablet 81 mg PO QHS [email or web address] 07/20/20 [History Last Taken 07/02/23] simvastatin 10 mg tablet 10 mg PO MOWEFR cholesterol 90 days #39 tabs 07/23/22 [Rx Last Taken 07/02/23] omeprazole 20 mg capsule,delayed release 20 mg PO BID reflux #180 caps 08/14/22 [Rx Last Taken 07/02/23] budesonide 3 mg capsule,delayed,extended release 6 mg (2 x 3 mg) PO DAILY bowls 30 days #60 ea 11/08/22 [Rx Last Taken 07/02/23] fzdsch-gaqzdndn-wqbcbse 2 - 3 cap PO TID enzyme 07/03/23 [History Last Taken 07/02/23] multivitamin-ferrous fumarate-folic acid 18 mg-400 mcg tablet (Daily Multivitamin with Iron) 1 tab PO DAILY vitamin 07/03/23 [History Last Taken 07/02/23] propylene glycol 0.6 % eye drops (Systane Balance) 1 drp EACH EYE BID PRN dry eye(s) 07/03/23 [History Last Taken 07/02/23] apixaban 2.5 mg tablet 2.5 mg PO BID #120 tabs 07/05/23 [Rx Last Taken Unknown] furosemide 40 mg tablet (Lasix) 40 mg PO DAILY #30 tabs 07/07/23 [Rx Last Taken Unknown] metoprolol tartrate 25 mg tablet 12.5 mg PO .x4/day blood pressure 07/11/23 [History Last Taken Unknown] Allergy/AdvReac Type Severity Reaction Status Date / Time diphenhydramine Allergy Intermediate Restless Verified 07/07/23 15:16 [From Benadryl] legs Family History Father No problems noted. Mother Cancer Surgical History History of aortic valve replacement with bioprosthetic valve (~02/13/16) History of bilateral cataract extraction History of cardiac catheterization History of esophageal surgery History of esophagogastroduodenoscopy (EGD) History of hernia repair (~09/01/21) History of repair of hiatal hernia Hx of brain surgery Hx of CABG (~02/13/16) Hx of colonoscopy Hx of decompressive lumbar laminectomy Hx of exploratory laparotomy (~04/2022) Social History Smoking Status: Former smoker how long ago did patient quit smokin02/13/2016 second hand exposure: No alcohol intake: current alcohol intake frequency: holidays/special occasions only substance use type: does not use caffeine: Yes Type: coffee Number of servings: 3 and tea Number of servings: 1 what type of physical activity do you participate in: none frequency: does not exercise Physical Exam Narrative Comfortable. No apparent distress. Lying flat in the bed. Heart sounds 1 and 2 noted. Chest clear to auscultation bilaterally. Trace bilateral ankle edema. Risk Stratification Risk Stratification Applicable: No Objective Data Vital Signs: Vital Signs Temp Pulse Resp BP Pulse Ox O2 Del Method O2 Flow Rate 96.7 F L 95 18 126/56 H 97 Room Air 2 07/13/23 08:46 07/13/23 08:50 07/13/23 08:46 07/13/23 08:46 07/13/23 08:46 07/13/23 10:00 07/13/23 04:26 Oxygen Flow Rate (L/min) 2 Oxygen Delivery Method Room Air Weight: 170 lb 13.732 oz Body Mass Index (BMI) 23.8 Intake & Output: Intake and Output for Last 24 Hours 07/11/23 07/12/23 07/13/23 23:59 23:59 23:59 Intake Total 200 / 300 700 / 1050 750 / 750 Balance 200 / 300 700 / 1050 750 / 750 Lab / Micro Data 07/12/23 04:11 07/13/23 05:21 Labs: Laboratory Results - last 24 hr 07/13/23 05:21: Sodium 136, Potassium 4.3, Chloride 106, Carbon Dioxide 18.0 L, Anion Gap 12, BUN 64 H, Creatinine 2.27 H, Estim Creat Clear Calc 23.50, Est GFR (MDRD) Af Amer 35 L, Est GFR (MDRD) Non-Af 29 L, BUN/Creatinine Ratio 28.2 H, Glucose 163 H, Calcium 8.7 Rhythm Strip Rhythm Strip: Atrial tachycardia with 3:1 conduction Cardiology Labs/Tests 07/13/23 05:21: Sodium 136, Potassium 4.3, Chloride 106, Carbon Dioxide 18.0 L, Anion Gap 12, BUN 64 H, Creatinine 2.27 H, Est GFR (MDRD) Af Amer 35 L, Est GFR (MDRD) Non-Af 29 L, BUN/Creatinine Ratio 28.2 H, Glucose 163 H, Calcium 8.7 Rhythm: EKG: Atrial tachycardia versus slow atrial flutter with 2:1 conduction ECHO: Stress Test: Cardiac Cath: PCI: CT Surgery: Holter monitor: EPS: PPM: CXR: Chest CT Scan:
[2023-07-13] MEDS: traZODone 50 MG Tablet PO (20:32)
[2023-07-13] MEDS: Aspirin 81 MG TAB.CHEW PO (20:32)
[2023-07-14] VITALS (13 sets, daily range): BP systolic 100–121; BP diastolic 40–62; PULSE 82–99; RESP 16–24; TEMP 36.4–36.8; O2SAT 91–100; BMI 23.8
--- NOTE | 2023-07-14 | IMM_PTH ---
PATIENT: MILAGROS MELVIN LOC: [facility] U#:[id number] AGE/SX: 88/M ROOM: [facility] RE07/13/[address]: Dr. Dany Sauer MD : 1935 BED: 1 DIS: 07/19/2023 SPEC #: [id number] RECD: 07/16/23 13:44 STATUS: EBONY REQ #: [id number] ROB: 07/14/23 00:[address]: Palomo Worley DEPT: IMMUNOHISTOCHEMISTRY RECD BY: Odilon Gacria ENTERED: 07/16/23 13:46 SP TYPE: IMMUNO OTHR DR: MD Dr. Holger Nelson MD Dr. Mark Stutzman, DO Dr. Dany Sauer MD Tissues: THORACIC FLUID Procedures: Gomez Ret (add) CK5-6 (add) CK7 (add) KI-67 (add) P53 (add) Vimentin (add) Pankeratin (initial) P40 (add) CD68 (ADD) PHYSICIAN & INSTITUTION [place] [id number] SPECIMEN INFORMATION: Tissue Source: Thoracentesis Clinical Info: Left pleural effusion Specimen Number: [id number] CPT code: 57437, 71524 x8 METHODOLOGY: Deparaffinized sections of prefer/formalin-fixed tissue or PAP/DQ stained slides are incubated with monoclonal/polyclonal antibodies/oligonucleotide probes. Localization is made via biotin free immunoperoxidase method. Appropriate controls are performed and reacted as expected. Results on target cell population are indicated in the following table: RESULTS: ANTIBODY / CLONE RESULT AE1-3 (AE1/AE3/PCK26) positive CK7 (OV-TL12/30) positive Vimentin (V9) positive CD68 (KP-1) positive CALRET (polyclonal) positive CK5-6 (D5 & 1684) positive P40 (BC28) negative P53 (DO-7) negative, null pattern Ki-67 (30-9) positive, rare cells These tests were developed and their performance characteristics determined by [facility]. They may not have been cleared or approved by the U.S. Food and Drug Administration. The FDA has determined that such clearance or approval is not necessary. The above immunohistochemical/dualISH markers are ordered and reviewed by the Pathologist. INTERPRETATION: Thoracentesis (cellblock): No evidence of malignancy. AM:benson 07/17/2023
--- NOTE | 2023-07-14 | FLU_PTH ---
PATIENT: MILAGROS MELVIN LOC: [facility] U#:[id number] AGE/SX: 88/M ROOM: [facility] RE07/13/[address]: Dr. Dany Sauer MD : 1935 BED: 1 DIS: 07/19/2023 SPEC #: [id number] RECD: 07/14/23 15:26 STATUS: EBONY CASSIDY #: [id number] ROB: 07/14/23 00:[address]: Palomo Worley DEPT: CYTOLOGY RECD BY: Isaiah Rolle ENTERED: 07/15/23 08:24 SP TYPE: Fluid OTHR DR: MD Dr. Holger Nelson MD Dr. Mark Stutzman, DO Dr. Nicholas F Kotsonis, MD Tissues: THORACIC FLUID Procedures: Special Stain Group II Mucicarmine Stain (control) Surgery Specimen Level IV Cytospin Fluid HEADER OPERATION: Thoracentesis PRE-OP DIAGNOSIS: Left pleural effusion TISSUE SUBMITTED: Thoracentesis for cytology DIAGNOSIS CYTOLOGY Thoracentesis fluid for cytology (cytospin and cellblock); Negative for malignant cells. See comment. AM/ 07/16/2023 COMMENT Immunohistochemistry ([id number]) supports the above diagnosis. Mucin stain with matched control was used in the evaluation of this case. CYTOLOGY STUDY Slides are reviewed. CYTOLOGY GROSS Received is 80 ml of Light yellow-cloudy fluid labeled with the patient's name and and designated per the requisition as Thoracentesis. Submitted for cytology preparation including cell block. mr 07/15/23 TC:5 CPT: 51645 ,60911,76885
[2023-07-14 00:09] LABS: Bacteria 0 SEEN /hpf (None Seen); Mucous, Urine 0 SEEN /hpf (<or=2+); Red Blood Cells-Urine 0 SEEN /hpf (0-5); Squamous Epithelial Cells - UA 0 SEEN /hpf (0-5); White Blood Cells 0 SEEN /hpf (0-5)
[2023-07-14 00:48] LABS: Urea Nitrogen, Urine 720 mg/dL (NO RANGE EST.)
[2023-07-14 01:39] LABS: Color, Urine Yellow (Yellow); Glucose, Dipstick Normal (Normal); Ketone-Dipstick Negative (Negative); Leukocyte Esterase-Dipstick 25 /ul (Negative); Nitrite-Dipstick Negative (Negative); Occult Blood-Urine 10 /ul (Negative); Protein-Dipstick 30 mg/dl (Negative); Specific Gravity, Urine 1.025 (1.002-1.030); Urine Clarity Clear (Clear); Urine Urobilinogen 1 mg/dl (Normal)
[2023-07-14 01:57] LABS: Urine Bilirubin Dipstick 1 mg/dL (Negative)
[2023-07-14 04:43] LABS: Hyaline Cast 25-50 SEEN /lpf (0-5)
--- NOTE | 2023-07-14 07:31 | PCM.PN.HOSP ---
Reason for Visit Reason for Visit: Diagnoses Atherosclerotic heart disease of [place] coronary artery without angina pectoris (07/13/23) Other supraventricular tachycardia (07/13/23) Paroxysmal atrial fibrillation (07/13/23) Other persistent atrial fibrillation (07/13/23) Unspecified diastolic (congestive) heart failure (07/13/23) Heart failure, unspecified (07/13/23) Acute kidney failure, unspecified (07/13/23) Presence of xenogenic heart valve (07/13/23) Subjective Subjective Having right sided chest pain intermittently. Objective Data Objective Data Vital Signs: Vital Signs Temp Pulse Resp BP Pulse Ox O2 Del Method O2 Flow Rate 36.3 C L 100 20 H 121/62 H 100 Nasal Cannula 2 07/13/23 20:30 07/13/23 20:33 07/13/23 20:30 07/13/23 20:33 07/13/23 20:30 07/13/23 22:00 07/13/23 22:00 Oxygen Flow Rate (L/min) 2 Oxygen Delivery Method Nasal Cannula Weight: 77.3 kg Body Mass Index (BMI) 23.8 Intake & Output: Intake and Output for Last 24 Hours 07/12/23 07/13/23 07/14/23 23:59 23:59 23:59 Intake Total 700 / 1050 950 / 1050 100 / 100 Output Total 150 / 150 Balance 700 / 1050 950 / 900 -50 / -50 Lab / Micro Data 07/12/23 04:11 07/14/23 06:22 Labs: Laboratory Results - last 24 hr 07/13/23 00:00: Urine Creatinine 181.00, Urine Urea Nitrogen 720 07/13/23 23:50: Urine Color Yellow, Urine Clarity Clear, Urine pH 5.0, Ur Specific [place] 1.025, Urine Protein 30 H, Urine Glucose (UA) Normal, Urine Ketones Negative, Urine Occult Blood 10 H, Urine Nitrite Negative, Urine Bilirubin 1 H, Urine Urobilinogen 1 H, Ur Leukocyte Esterase 25 H, Urine RBC 0 SEEN, Urine WBC 0 SEEN, Ur Squamous Epith Cells 0 SEEN, Urine Bacteria 0 SEEN, Hyaline Casts 25-50 SEEN, Urine Mucus 0 SEEN Rhythm Strip Rhythm Strip: Atrial tachycardia with 3:1 conduction Physical Exam Const alert and no apparent distress Constitutional Narrative: flat affect. minimal eye contact. HEENT head/scalp atraumatic and moist oral mucous membranes Resp normal respiratory effort, no retractions, no use of accessory muscles and clear to auscultation bilaterally Cardio regular rate, regular rhythm, S1 normal heart sound and S2 normal heart sound GI normal to inspection, nondistended, normoactive bowel sounds, soft to palpation, non-tender and non-distended Extremity normal to inspection Neuro Sensorium / Orientation: awake and alert Assessment & Plan Assessment/Plan (1) CHF (congestive heart failure): (2) Atrial fibrillation: QUALIFIERS: Atrial fibrillation type: persistent (not longstanding) Qualified Code(s): I48.19 - Other persistent atrial fibrillation PLAN: Plan acute HFpEF He had an echo on 07/04/2023 with an EF of 55% with dilated right and left atria furosemide dc'd given OTILIO No ACEi given OTILIO Pleurl effusions likely cause of dyspena suspect transudative. CT chest showed moderate pleural effusions. Given ongoing symptoms, will order thoracentesis. OTILIO worsening this month: 1.29 on 07/04, now up to 2.27 continue hold diuresis FEUrea 12.91%. Consult nephrology. Will given IVF, 1 liters. Elevated troponin unclear if demand ischemia Seen by cardiology. Appears at baseline. already anticoagulated Chronic conditions: pAfib: metop tart and apixaban held. History of esophageal cancer in remission/exocrine pancreatic insufficiency/history of DVT? He did have an esophagectomy between and has a port in his right chest remains in remission? Continue with his pancreatic medications GERD? Stable? Continue with PPI Gallbladder disease? Did have a HIDA scan on 07/05/2023 with an EF of less than 35%, he will need to follow-up with general surgery as an outpatient DVT: SCD Charges/Coding Visit Charges Inpatient E&M: 77980 Subs Hosp L2
[2023-07-14 07:45] LABS: Anion Gap 13 (5-15); BUN 86 mg/dL (7-18); BUN/Creat Ratio 30.8 RATIO (10-20); Calcium,Total 8.7 mg/dL (8.5-10.1); Chloride 105 mmol/L (98-107); Creatinine, Serum 2.79 mg/dL (0.70-1.30); EST Glomerular Filtration Rate 23 mL/min (>60); Est Glom Filt Rate - Afr Amer 28 mL/min (>60); Estimated Creatinine Clearance 19.12 ml/min; Glucose 172 mg/dL (74-106); Potassium 4.5 mmol/L (3.5-5.1); Sodium Level 135 mmol/L (136-145)
--- NOTE | 2023-07-14 08:50 | RAD_ITS ---
STUDY: X-RAY CHEST REASON FOR EXAM: Male, 88 years old. SOB TECHNIQUE: Single AP portable view of the chest. COMPARISON: Comparison is made with prior study dated July 11, 2023. FINDINGS: A right-sided portacatheter is seen with the tip at the junction of the superior vena cava and right atrium. EKG electrodes are seen. Residual small bilateral pleural effusions with bibasilar atelectasis worse at the left lung base. There has been improvement as compared to prior study. Sternal cerclage wires and vascular clips are present from a prior sternotomy and coronary artery bypass graft procedure (CABG). Normal mediastinum and claude. Normal visualized pulmonary arteries. There is atherosclerotic calcification of the aortic arch with tortuosity. There are diffuse degenerative changes of the visualized thoracic spine. There is degenerative osteoarthritis of the bilateral shoulders. There is no demonstrated abnormality of the visualized soft tissue structures of the upper abdomen. RAD/Chest 1 View IMPRESSION: Persistent small bilateral pleural effusions with bibasilar atelectasis and/or infiltrates worse at the left lung base. There is been improvement as compared to prior study. Electronically Signed: Hany Particio MD at 10:43 EDT ,
--- NOTE | 2023-07-14 08:52 | CT_ITS ---
STUDY: CT CHEST WITHOUT CONTRAST REASON FOR EXAM: Male, 88 years old. Dyspnea RADIATION DOSAGE (If Supplied By Facility): CTDIvol = ( 14.09 ) mGy, DLP = ( 478.75 ) mGycm TECHNIQUE: Transaxial imaging was performed without the administration of intravenous contrast material. Individualized dose optimization techniques were used for this CT. COMPARISON: Comparison is made with prior chest radiograph done earlier in the day and prior CT head scan of thorax dated March 09, 2021. FINDINGS: CHEST A right-sided raphael catheter seen with the tip in the superior vena cava. Moderate bilateral pleural effusions with bibasilar infiltration and/or atelectasis. There are calcifications of the coronary arteries. Cardiomegaly. The right atrium is dilated. Prior CABG. There are small lymph nodes within the mediastinum, which are normal in size and morphology most compatible with reactive lymph hyperplasia. Calcified right hilar lymph nodes. Normal unenhanced pulmonary arteries. Normal aorta arch and descending thoracic aorta. There are multi-level degenerative changes of the thoracic spine. There is no demonstrated abnormality of the visualized upper abdomen. CT/Chest without Contrast IMPRESSION: Moderate degree of bilateral pleural effusions with bibasilar atelectasis and/or infiltrates. Electronically Signed: Hany Patricio MD at 10:59 EDT ,
--- NOTE | 2023-07-14 09:08 | NM_ITS ---
CLINICAL: Male, 88 years old. Dyspnea -- COVID PRECATUTIONS -- CT OF CHEST TODAY ALSO NUCLEAR VENTILATION/PERFUSION - LUNG TECHNIQUE: The patient was administered 5.8 mCi of Tc MAA followed by a perfusion lung scan. Comparison made to prior chest radiograph dated July 14, 2023.. Perfusion examination was performed. COMPARISON STUDIES : NM - None. CR - Not available for review at this time. CT - Not available for review at this time. MR - Not available for review at this time. FINDINGS: The pulmonary perfusion study demonstrates uniform perfusion throughout both lung perez. There are no demonstrated segmental or subsegmental perfusion defects NM/Quant Lung Perfusion Scan IMPRESSION: No evidence of pulmonary embolism. Electronically Signed: Hany Patricio MD at 10:42 EDT ,
[2023-07-14] MEDS: Pantoprazole Sodium 20 MG Tablet PO ×2 (09:21→22:09)
[2023-07-14] MEDS: APIXABAN 2.5 MG TABLET (WCH) PO (09:21)
[2023-07-14] MEDS: Budesonide 3 MG CAPSULE.EC 6 MG PO (09:22)
[2023-07-14] MEDS: Metoprolol Tartrate 50 MG Tablet PO ×2 (09:22→22:08)
[2023-07-14 11:18] LABS: Allen Test Positive; Base Excess -10 mmol/L (-2 to +2); Bicarbonate 15.4 mmol/L (22-26); Blood Gas Specimen Type ART; Mode Not entered; O2 Delivery Device Cannula; PO2 128 mmHG (75-100); SITE L Radial; SO2 99 % (95-99); Total Carbon Dioxide 16 mmol/L; pCO2 28.3 mmHg (35-45); pH 7.34 (7.35-7.45)
--- NOTE | 2023-07-14 11:53 | PCM.CONS.R ---
Assessment & Plan Assessment/Plan (1) Acute kidney injury: (2) (HFpEF) heart failure with preserved ejection fraction: (3) Paroxysmal atrial fibrillation: PLAN: Plan This is a pleasant 88-year-old male with past medical history significant for coronary artery disease status post CABG, history of aortic valve replacement with bioprosthetic valve, atrial fibrillation, heart failure with preserved EF, esophageal cancer status post esophagectomy in 2017 currently in remission who presented to the emergency room on July 10 per direction of his janitor supervisor secondary to worsening shortness of breath. Patient was admitted for shortness of breath felt to be secondary to acute on chronic heart failure with preserved EF. Initially patient was started on furosemide 40 mg IV twice daily but diuretic stopped due to worsening creatinine. Nephrology consulted in view of rising creatinine. In reviewing past serum creatinine trends, baseline creatinine is around 1.1 to 1.3 mg/dL. Patient's creatinine was 1.32 on July 06, on admission, July 10, creatinine 1.75. Serum creatinine slowly rising since admission and today creatinine is up to 2.79 mg/dL. Possible rise in serum creatinine from overdiuresis. Also to note patient reports he has had poor appetite since admission, therefore likely volume depleted. Patient is off IV diuretics. Recommend continue holding diuretics for now. He is being started on gentle IV fluids today. Patient is nonoliguric, weights are down 2 kg since admission. No hyperkalemia or significant acidemia, volume status appears to be compensated therefore no acute indication for LIVESTOCK PRODUCER at this time. Encouraged patient to try to increase solute and fluid intake. Reviewed patient's blood pressures, no significant hypotension over the last few days. Patient is on metoprolol. No recent ARLEN or ARB's. UA from admission 30 protein, no RBCs. Patient did have CT of abdomen and pelvis with contrast on July 03, focal atrophy and decreased function in upper pole of left kidney. Will obtain renal ultrasound. Other reasons for shortness of breath being ruled out, patient to have RSV and COVID checked as well as had noncontrast chest CT and VQ scan this morning. Last echo from July 03: EF 55%, normal LV size, unable to assess diastolic dysfunction, left atrium and right atrium moderately enlarged. Further orders forthcoming as hospitalization evolves, thank you for allowing us to participate in the care of Mr. Tavarez. HPI Consult Data Date of Consult: 07/14/23 HPI Narrative HPI Narrative: MILAGROS TAVAREZ, is a 88 M with past medical history significant for coronary artery disease status post CABG, history of aortic valve replacement with bioprosthetic valve, atrial fibrillation, heart failure with preserved EF, esophageal cancer status post esophagectomy in 2017 currently in remission who presented to the emergency room on July 10 per direction of his janitor supervisor secondary to worsening shortness of breath. Patient was admitted for shortness of breath felt to be secondary to acute on chronic diastolic heart failure and A-fib. Initially patient was started on aggressive diuresis, Lasix 40 mg IV twice daily. Nephrology consulted in view of rising creatinine. On admission, July 10 patient's creatinine was 1.75, serum creatinine has been slowly rising since admission and today his creatinine is 2.79 mg/dL. Patient is alert and oriented. He reports he has not been seen by legal administrative assistant in past. In reviewing past creatinine trends it seems baseline creatinine is around 1.3 mg/dL. Patient reports since being in hospital his shortness of breath has slightly improved. He does not wear oxygen at home. Patient does report he has very poor appetite and has only had Jell-O to eat over the last 24 hours. He denies any urinary habitus changes including dysuria or hematuria. Denies NSAIDs. [facility] Medical History Abdominal pain Abnormal abdominal CT scan Adjustment disorder Alcohol use Arthritis Atherosclerotic heart disease of [place] coronary artery without angina pectoris Back pain Cancer Cardiology follow-up encounter Chemotherapy-induced nausea Chest discomfort Dehydration DVT (deep venous thrombosis) Dyspepsia Encounter for adjustment or management of vascular access device Former smoker Gastric reflux History of DVT (deep vein thrombosis) History of echocardiogram History of hiatal hernia History of stress test Hx of peripheral neuropathy Hyperlipidemia Hypokalemia Injury of head and neck Low iron Migraine headache Nonrheumatic aortic (valve) stenosis Nonrheumatic aortic valve disorder Premature ventricular contraction Primary cancer of lower third of esophagus Restless legs SBO (small bowel obstruction) Submandibular gland swelling TIA (transient ischemic attack) Wears glasses Wears hearing aid Wears partial dentures Home Medications aspirin 81 mg chewable tablet 81 mg PO QHS Heart health 07/20/20 [History Last Taken 07/02/23] simvastatin 10 mg tablet 10 mg PO MOWEFR cholesterol 90 days #39 tabs 07/23/22 [Rx Last Taken 07/02/23] omeprazole 20 mg capsule,delayed release 20 mg PO BID reflux #180 caps 08/14/22 [Rx Last Taken 07/02/23] budesonide 3 mg capsule,delayed,extended release 6 mg (2 x 3 mg) PO DAILY bowls 30 days #60 ea 11/08/22 [Rx Last Taken 07/02/23] yqxfbx-fxmcvxcr-prohtrn 2 - 3 cap PO TID enzyme 07/03/23 [History Last Taken 07/02/23] multivitamin-ferrous fumarate-folic acid 18 mg-400 mcg tablet (Daily Multivitamin with Iron) 1 tab PO DAILY vitamin 07/03/23 [History Last Taken 07/02/23] propylene glycol 0.6 % eye drops (Systane Balance) 1 drp EACH EYE BID PRN dry eye(s) 07/03/23 [History Last Taken 07/02/23] apixaban 2.5 mg tablet 2.5 mg PO BID #120 tabs 07/05/23 [Rx Last Taken Unknown] furosemide 40 mg tablet (Lasix) 40 mg PO DAILY #30 tabs 07/07/23 [Rx Last Taken Unknown] metoprolol tartrate 25 mg tablet 12.5 mg PO .x4/day blood pressure 07/11/23 [History Last Taken Unknown] Allergy/AdvReac Type Severity Reaction Status Date / Time diphenhydramine Allergy Intermediate Restless Verified 07/07/23 15:16 [From [place]] legs Family History Father No problems noted. Mother Cancer Surgical History History of aortic valve replacement with bioprosthetic valve (~02/13/16) History of bilateral cataract extraction History of cardiac catheterization History of esophageal surgery History of esophagogastroduodenoscopy (EGD) History of hernia repair (~09/01/21) History of repair of hiatal hernia Hx of brain surgery Hx of CABG (~02/13/16) Hx of colonoscopy Hx of decompressive lumbar laminectomy Hx of exploratory laparotomy (~04/2022) Social History Smoking Status: Former smoker how long ago did patient quit smokin02/13/2016 second hand exposure: No alcohol intake: current alcohol intake frequency: holidays/special occasions only substance use type: does not use caffeine: Yes Type: coffee Number of servings: 3 and tea Number of servings: 1 what type of physical activity do you participate in: none frequency: does not exercise ROS ROS Narrative As in HPI and past medical history Physical Exam Narrative Alert and orient x 3, no apparent distress S1, S2, rhythm irregular, rate controlled Lung sounds clear anteriorly. Diminished breath sounds posterior bases. No wheezes, rhonchi or rales noted Abdomen soft, nontender Trace, nonpitting edema noted bilateral lower legs with right greater than left Lab / Micro Data 07/12/23 04:11 07/14/23 06:22 Labs: Laboratory Results - last 24 hr 07/13/23 00:00: Urine Creatinine 181.00, Urine Urea Nitrogen 720 07/13/23 23:50: Urine Color Yellow, Urine Clarity Clear, Urine pH 5.0, Ur Specific [place] 1.025, Urine Protein 30 H, Urine Glucose (UA) Normal, Urine Ketones Negative, Urine Occult Blood 10 H, Urine Nitrite Negative, Urine Bilirubin 1 H, Urine Urobilinogen 1 H, Ur Leukocyte Esterase 25 H, Urine RBC 0 SEEN, Urine WBC 0 SEEN, Ur Squamous Epith Cells 0 SEEN, Urine Bacteria 0 SEEN, Hyaline Casts 25-50 SEEN, Urine Mucus 0 SEEN 07/14/23 06:22: Sodium 135 L, Potassium 4.5, Chloride 105, Carbon Dioxide 17.0 L, Anion Gap 13, BUN 86 H, Creatinine 2.79 H, Estim Creat Clear Calc 19.12, Est GFR (MDRD) Af Amer 28 L, Est GFR (MDRD) Non-Af 23 L, BUN/Creatinine Ratio 30.8 H, Glucose 172 H, Calcium 8.7 ABG Data ABG results: ABG 07/14/23 11:15 Specimen Type ART Sample Site L Radial pH 7.34 L Bicarbonate Actual 15.4 L Total CO2 16 Base Excess -10 L O2 Saturation 99 O2 % 4.0 ABG pCO2 28.3 L ABG pO2 128 H Asim Test Positive O2 Delivery Device Cannula Vent Mode Not entered Rhythm Strip Rhythm Strip: Atrial tachycardia with 3:1 conduction Imaging Radiology Impression Chest X-Ray 07/14/23 08:50 IMPRESSION: Persistent small bilateral pleural effusions with bibasilar atelectasis and/or infiltrates worse at the left lung base. There is been improvement as compared to prior study. Electronically Signed: Hany Patricio MD at 10:43 EDT , Chest CT 07/14/23 08:52 IMPRESSION: Moderate degree of bilateral pleural effusions with bibasilar atelectasis and/or infiltrates. Electronically Signed: Hany Patricio MD at 10:59 EDT , Lung Scan-VQ NM 07/14/23 09:08 IMPRESSION: No evidence of pulmonary embolism. Electronically Signed: Hany Patricio MD at 10:42 EDT ,
--- NOTE | 2023-07-14 12:13 | US_ITS ---
INDICATION: OTILIO EXAMINATION: Ultrasound US Kidney(s) complete (eg, kidneys and bladder) TECHNIQUE: Lindsay scale and color doppler images were obtained of the kidneys. COMPARISON: None. FINDINGS: RIGHT KIDNEY: 9.6 x 5.5 x 3.6 cm. There is no hydronephrosis. No shadowing calculus or perinephric collection is demonstrated. Anechoic cyst lower pole measures up to 3.7 cm. Cortical echotexture unremarkable. LEFT KIDNEY: 7.4 x 4.4 x 4.2 cm. There is no hydronephrosis. No shadowing calculus, focal lesion or perinephric collection is demonstrated. Cortical echotexture unremarkable. URINARY BLADDER: Trabeculated bladder wall. Enlarged prostate with mass effect on the bladder base. US/Kidney and Bladder IMPRESSION: No hydronephrosis bilaterally. Trabeculated bladder wall, possible neurogenic bladder as evidence of partial bladder outlet obstruction. Electronically Signed: Mil Quiñones MD at 19:18 EDT ,
[2023-07-14] MEDS: 0.9% Normal Saline (1000mL) 1,000 ML 150 ML IV (13:05)
--- NOTE | 2023-07-14 13:34 | PN.CARD_ITS ---
Subjective Subjective Complains of shortness of breath. Tachypneic. No chest pain. Objective Data Vital Signs: Vital Signs Temp Pulse Resp BP Pulse Ox O2 Del Method O2 Flow Rate 97.7 F L 93 16 121/58 H 96 Nasal Cannula 4 07/14/23 09:16 07/14/23 09:22 07/14/23 09:16 07/14/23 09:22 07/14/23 09:16 07/14/23 09:16 07/14/23 12:16 Oxygen Flow Rate (L/min) 4 Oxygen Delivery Method Nasal Cannula Weight: 170 lb 6.677 oz Body Mass Index (BMI) 23.8 Intake & Output: Intake and Output for Last 24 Hours 07/12/23 07/13/23 07/14/23 23:59 23:59 23:59 Intake Total 700 / 1050 950 / 1050 200 / 200 Output Total 150 / 150 Balance 700 / 1050 950 / 900 50 / 50 Lab / Micro Data 07/12/23 04:11 07/14/23 06:22 Labs: Laboratory Results - last 24 hr 07/13/23 00:00: Urine Creatinine 181.00, Urine Urea Nitrogen 720 07/13/23 23:50: Urine Color Yellow, Urine Clarity Clear, Urine pH 5.0, Ur Specific [place] 1.025, Urine Protein 30 H, Urine Glucose (UA) Normal, Urine Ketones Negative, Urine Occult Blood 10 H, Urine Nitrite Negative, Urine Bilirubin 1 H, Urine Urobilinogen 1 H, Ur Leukocyte Esterase 25 H, Urine RBC 0 SEEN, Urine WBC 0 SEEN, Ur Squamous Epith Cells 0 SEEN, Urine Bacteria 0 SEEN, Hyaline Casts 25-50 SEEN, Urine Mucus 0 SEEN 07/14/23 06:22: Sodium 135 L, Potassium 4.5, Chloride 105, Carbon Dioxide 17.0 L , Anion Gap 13, BUN 86 H, Creatinine 2.79 H, Estim Creat Clear Calc 19.12, Est GFR (MDRD) Af Amer 28 L, Est GFR (MDRD) Non-Af 23 L, BUN/Creatinine Ratio 30.8 H , Glucose 172 H, Calcium 8.7 Micro: Microbiology 07/14/23 10:55 Mucosa - Nasopharyngeal Coronavirus COVID-19 PCR - Final ABG Data ABG results: ABG 07/14/23 11:15 Specimen Type ART Sample Site L Radial pH 7.34 L Bicarbonate Actual 15.4 L Total CO2 16 Base Excess -10 L O2 Saturation 99 O2 % 4.0 ABG pCO2 28.3 L ABG pO2 128 H Asim Test Positive O2 Delivery Device Cannula Vent Mode Not entered Rhythm Strip Rhythm Strip: Atrial tachycardia with 3:1 conduction Cardiology Labs/Tests 07/13/23 23:50: Urine Color Yellow, Urine Clarity Clear, Urine pH 5.0, Ur Specific [place] 1.025, Urine Protein 30 H, Urine Glucose (UA) Normal, Urine Ketones Negative, Urine Occult Blood 10 H, Urine Nitrite Negative, Urine Bilirubin 1 H, Urine Urobilinogen 1 H, Ur Leukocyte Esterase 25 H, Urine RBC 0 SEEN, Urine WBC 0 SEEN 07/14/23 06:22: Sodium 135 L, Potassium 4.5, Chloride 105, Carbon Dioxide 17.0 L , Anion Gap 13, BUN 86 H, Creatinine 2.79 H, Est GFR (MDRD) Af Amer 28 L, Est GFR (MDRD) Non-Af 23 L, BUN/Creatinine Ratio 30.8 H, Glucose 172 H, Calcium 8.7 07/14/23 11:15: pH 7.34 L, Bicarbonate Actual 15.4 L, Base Excess -10 L, O2 Saturation 99, ABG pCO2 28.3 L, ABG pO2 128 H, Asim Test Positive Rhythm: EKG: ECHO: Stress Test: Cardiac Cath: PCI: CT Surgery: Holter monitor: EPS: PPM: CXR: Chest CT Scan: Radiography Diagnostic Testing: Radiology Impression Chest X-Ray 07/14/23 08:50 IMPRESSION: Persistent small bilateral pleural effusions with bibasilar atelectasis and/or infiltrates worse at the left lung base. There is been improvement as compared to prior study. Electronically Signed: Hany Patricio MD at 10:43 EDT , Chest CT 07/14/23 08:52 IMPRESSION: Moderate degree of bilateral pleural effusions with bibasilar atelectasis and/or infiltrates. Electronically Signed: Hany Patricio MD at 10:59 EDT , Lung Scan-VQ NM 07/14/23 09:08 IMPRESSION: No evidence of pulmonary embolism. Electronically Signed: Hany Patricio MD at 10:42 EDT , Physical Exam Narrative Appears tachypneic. Lying flat in the bed. Heart sounds 1 and 2 noted. Decreased breath sounds at both bases. 1+ bilateral ankle edema. Assessment & Plan Assessment/Plan (1) Dyspnea: PLAN: CT scan of the chest showed bibasilar atelectasis/infiltrates. I believe presently the patient's symptoms cannot be explained with diastolic heart failure as he does not appear to be fluid volume overloaded. Consider pneumo reggie. Consider starting antibiotics. Follow as per internal medicine. Consider pulmonology consult. (2) (HFpEF) heart failure with preserved ejection fraction: PLAN: Patient presently does not appear to be fluid volume overloaded. Furosemide being held for increasing creatinine. (3) Atrial tachycardia: PLAN: Presently ventricular rate controlled with metoprolol. Will continue to monitor. (4) Paroxysmal atrial fibrillation: PLAN: On apixaban for history of paroxysmal atrial fibrillation. (5) History of aortic valve replacement with bioprosthetic valve: PLAN: Periodic echo and clinical surveillance (6) Coronary artery disease: PLAN: History of nonobstructive coronary artery disease. Continue aspirin. Beta-blockers. Troponin mildly elevated but not much difference than baseline. (7) Acute kidney injury: PLAN: Recommend nephrology consult.
[2023-07-14 14:31] LABS: BNP,B-Type NATRIURETIC PEPTIDE 2183.2 pg/mL (0-100)
[2023-07-14] MEDS: Lidocaine 2% (20 ml mdv) 20 ML Vial INFILT (15:10)
--- NOTE | 2023-07-14 15:20 | RAD_ITS ---
STUDY: X-RAY CHEST REASON FOR EXAM: Male, 88 years old. Post thora TECHNIQUE: Single AP portable view of the chest. COMPARISON: Comparison is made with prior study July 14, 2023. FINDINGS: Stable appearance of the right-sided portacatheter. EKG electrodes are seen. The patient is status post left thoracentesis. There is no evidence of pneumothorax. RAD/Chest Insp/Exp 2 View IMPRESSION: No evidence of pneumothorax on the post left thoracentesis examination. Electronically Signed: Hany Patricio MD at 8:38 EDT ,
--- NOTE | 2023-07-14 15:25 | PRO.PCM_ITS ---
Procedure Report Date of Procedure: 07/14/23 Assessment & Plan Assessment/Plan (1) Bilateral pleural effusion: PLAN: PROCEDURE: Ultrasound Guided Thoracentesis ORDERING PROVIDER: Dr. Worley INDICATION: Male, 88 years old. Bilateral pleural effusions. PROVIDER: ALEXANDRA Mosley PROCEDURE: The risks, benefits, and alternatives to the procedure were explained to the patient. The specific risks of bleeding, infection, and pneumothorax requiring chest tube insertion were discussed and accepted. Written informed consent was obtained. The patient was placed in the sitting, upright position. Ultrasonographic evaluation of the bilateral lower pleural spaces was carried out. An adequate pocket was identified in the left lower pleural space.The overlying skin was prepped and draped in sterile fashion. 2% lidocaine was administered subcutaneously for local anesthesia. Under ultrasound guidance, a 5-[place] thoracentesis needle/catheter system was advanced into the left posterior lower pleural fluid collection. 1240 ml of clear yellow colored fluid was drained. 100 mL of this fluid was collected and sent to the laboratory for analysis. The catheter was removed, and a sterile dressing was applied. The patient tolerated the procedure well. A chest x-ray was ordered. IMPRESSION: Successful ultrasound-guided thoracentesis of left pleural effusion. Procedures Radiology Radiology US Procedures: 91512 Thoracentesis
[2023-07-14 16:11] LABS: Body Fluid Mononuclear WBC # 0.103 10^3/uL; Body Fluid Mononuclear WBC % 54.8 %; Body Fluid Polynuclear WBC # 0.085 10^3/uL; Body Fluid Polynuclear WBC % 45.2 %; Body Fluid Total Cells Counted 0.203 10^3/ul; White Blood Count/Body Fluid 0.188 10^3/uL
[2023-07-14 16:23] LABS: Glucose, Body Fluid 180 mg/dL (40-70); LDH,Body Fluid 81 Units/L (Not Establ.); Protein, Body Fluid 1.7 g/dL (Not Establ.)
[2023-07-14 16:26] LABS: Red Cell Count/Body Fluid 30 /mm3
[2023-07-14 17:29] LABS: Auto B Fluid Analyzer BKGD Ct COUNTS W/IN LIMITS (W/IN LIMITS)
[2023-07-14 17:30] LABS: Appearance/Body Fluid CLEAR; Color/Body Fluid YELLOW; Lymphocytes 12 %; Macrophages 2 %; Monocytes 36 %; Neutrophil (Segs) 50 %
[2023-07-14 17:32] LABS: Body Fluid QC Type(s) BF4Q
[2023-07-14] MEDS: Atorvastatin Calcium 10 MG Tablet 5 MG PO (22:08)
[2023-07-15] VITALS (8 sets, daily range): BP systolic 106–117; BP diastolic 52–55; PULSE 95–97; RESP 18–24; TEMP 36.4–37.1; O2SAT 95–100; BMI 23.7
--- NOTE | 2023-07-15 07:25 | PCM.PN.HOSP ---
Reason for Visit Reason for Visit: Diagnoses Atherosclerotic heart disease of [place] coronary artery without angina pectoris (07/13/23) Other supraventricular tachycardia (07/13/23) Paroxysmal atrial fibrillation (07/13/23) Other persistent atrial fibrillation (07/13/23) Unspecified diastolic (congestive) heart failure (07/13/23) Heart failure, unspecified (07/13/23) Pleural effusion, not elsewhere classified (07/13/23) Acute kidney failure, unspecified (07/13/23) Dyspnea, unspecified (07/13/23) Presence of xenogenic heart valve (07/13/23) Subjective Subjective Feels better. Still weak. Objective Data Objective Data Vital Signs: Vital Signs Temp Pulse Resp BP Pulse Ox O2 Del Method O2 Flow Rate 36.8 C 95 20 H 117/53 L 100 Nasal Cannula 4 07/14/23 22:00 07/14/23 22:08 07/14/23 22:00 07/14/23 22:08 07/15/23 04:28 07/15/23 04:28 07/15/23 04:28 Oxygen Flow Rate (L/min) 4 Oxygen Delivery Method Nasal Cannula Weight: 77.2 kg Body Mass Index (BMI) 23.7 Intake & Output: Intake and Output for Last 24 Hours 07/13/23 07/14/23 07/15/23 23:59 23:59 23:59 Intake Total 950 / 1050 440 / 440 1000 / 1000 Output Total 1390 / 1390 Balance 950 / 900 -950 / -950 1000 / 1000 Lab / Micro Data 07/12/23 04:11 07/15/23 05:50 Labs: Laboratory Results - last 24 hr 07/14/23 06:22: Sodium 135 L, Potassium 4.5, Chloride 105, Carbon Dioxide 17.0 L, Anion Gap 13, BUN 86 H, Creatinine 2.79 H, Estim Creat Clear Calc 19.12, Est GFR (MDRD) Af Amer 28 L, Est GFR (MDRD) Non-Af 23 L, BUN/Creatinine Ratio 30.8 H, Glucose 172 H, Calcium 8.7, B-Natriuretic Peptide 2183.2 H 07/14/23 15:23: Fluid Glucose 180 H, Fluid Total Protein 1.7, Fluid LDH 81 07/14/23 15:25: Fluid Source OTHER, Fluid Color YELLOW, Fluid Appearance CLEAR, Fluid WBC 0.188, Fluid RBC 30, Fluid Tot Cell Count 0.203, Fld Polynuclear WBCs # 0.085, Fld Polynuclear WBCs % 45.2, Fluid Mononuclear WBCs 0.103, Fld Mononuclear WBCs % 54.8, Fluid Neutrophils 50, Fluid Lymphocytes 12, Fluid Monocytes 36, Fluid Macrophages 2, Fl Pathologist Comment May follow, Fluid Comment 2 SEE COMMENT Micro: Microbiology 07/14/23 10:53 Mucosa - Nose Respiratory Panel (PCR) - Final 07/14/23 10:55 Mucosa - Nasopharyngeal Coronavirus COVID-19 PCR - Final ABG Data ABG results: ABG 07/14/23 11:15 Specimen Type ART Sample Site L Radial pH 7.34 L Bicarbonate Actual 15.4 L Total CO2 16 Base Excess -10 L O2 Saturation 99 O2 % 4.0 ABG pCO2 28.3 L ABG pO2 128 H Asim Test Positive O2 Delivery Device Cannula Vent Mode Not entered Radiography Diagnostic Testing: Radiology Impression Chest X-Ray 07/14/23 08:50 IMPRESSION: Persistent small bilateral pleural effusions with bibasilar atelectasis and/or infiltrates worse at the left lung base. There is been improvement as compared to prior study. Electronically Signed: Hany Patricio MD at 10:43 EDT , Chest CT 07/14/23 08:52 IMPRESSION: Moderate degree of bilateral pleural effusions with bibasilar atelectasis and/or infiltrates. Electronically Signed: Hany Patricio MD at 10:59 EDT , Lung Scan-VQ PR 07/14/23 09:08 IMPRESSION: No evidence of pulmonary embolism. Electronically Signed: Hany Patricio MD at 10:42 EDT , Renal Ultrasound 07/14/23 12:13 IMPRESSION: No hydronephrosis bilaterally. Trabeculated bladder wall, possible neurogenic bladder as evidence of partial bladder outlet obstruction. Electronically Signed: Mil Quiñones MD at 19:18 EDT Reading Location ID and State: [address] [place] [address] Tel , Service support , Rhythm Strip Rhythm Strip: Atrial tachycardia with 3:1 conduction Physical Exam Const alert and no apparent distress HEENT head/scalp atraumatic and moist oral mucous membranes Resp normal respiratory effort, no retractions, no use of accessory muscles and clear to auscultation bilaterally Cardio regular rate, regular rhythm, S1 normal heart sound and S2 normal heart sound GI normal to inspection, nondistended, normoactive bowel sounds and soft to palpation Extremity normal to inspection Neuro Sensorium / Orientation: awake and alert Assessment & Plan Assessment/Plan (1) CHF (congestive heart failure): (2) Atrial fibrillation: QUALIFIERS: Atrial fibrillation type: persistent (not longstanding) Qualified Code(s): I48.19 - Other persistent atrial fibrillation PLAN: Plan acute HFpEF He had an echo on 07/04/2023 with an EF of 55% with dilated right and left atria furosemide dc'd given OTILIO No ACEi given OTILIO Pleural effusions likely cause of dyspena CT chest showed moderate pleural effusions. Thoracentesis on 07/13 removed 1240 cc fluid. Appears transudative OTILIO worsening this month: 1.29 on 07/04, now up to 3.34 continue hold diuresis FEUrea 12.91%. Consult nephrology. Will given IVF, 1 liters. US showed no hydronephrosis. Trabeculated bladder wall. Pt decline Reeves catheter Elevated troponin unclear if demand ischemia Seen by cardiology. Appears at baseline. already anticoagulated VQ negative Dyspnea VQ negative. Respiratory panel, COVID [address] showed pleural effusions Chronic conditions: pAfib: metop tart and apixaban held. History of esophageal cancer in remission/exocrine pancreatic insufficiency/history of DVT? He did have an esophagectomy between and has a port in his right chest remains in remission? Continue with his pancreatic medications GERD? Stable? Continue with PPI Gallbladder disease? Did have a HIDA scan on 07/05/2023 with an EF of less than 35%, he will need to follow-up with general surgery as an outpatient DVT: SCD Charges/Coding Visit Charges Inpatient E&M: 86491 Subs Hosp L2
[2023-07-15 07:30] LABS: Anion Gap 14 (5-15); BUN 101 mg/dL (7-18); BUN/Creat Ratio 30.2 RATIO (10-20); Calcium,Total 8.4 mg/dL (8.5-10.1); Chloride 107 mmol/L (98-107); Creatinine, Serum 3.34 mg/dL (0.70-1.30); EST Glomerular Filtration Rate 19 mL/min (>60); Est Glom Filt Rate - Afr Amer 23 mL/min (>60); Estimated Creatinine Clearance 15.97 ml/min; Globulin 3.2 g/dL (2.2-4.2); Glucose 156 mg/dL (74-106); LDH 495 U/L (87-241); Potassium 4.8 mmol/L (3.5-5.1); Protein, Total 6.5 g/dL (6.4-8.2); Sodium Level 135 mmol/L (136-145)
--- NOTE | 2023-07-15 08:26 | NURSING ---
Contacted Dr. Kelly regarding pt. not voiding from approx. 1900 until 0500 and bladder scan showing 463 ml at its largest volume. Explained that pt. has been eating and drinking very little and that pt. does not feel that he needs to urinate. Also explained that pt. was found to have over 100ml urine left in bladder several times after pt. voided over the last 48 hours despite pt. stating he felt his bladder was emptied. Order was given to straight cath pt. x1. approx. 410 ml of clear mary urine obtained from straight cath.
[2023-07-15] MEDS: Pantoprazole Sodium 20 MG Tablet PO ×2 (09:12→21:32)
[2023-07-15] MEDS: Budesonide 3 MG CAPSULE.EC 6 MG PO (09:13)
[2023-07-15] MEDS: Metoprolol Tartrate 50 MG Tablet PO ×2 (09:13→21:32)
[2023-07-15] MEDS: Ensure Plus High Protein 120 ML LIQUID PO ×2 (09:19→15:25)
--- NOTE | 2023-07-15 09:48 | PN.RENAL_ITS ---
Subjective Subjective No new complaints. Objective Data Objective Data Vital Signs: Vital Signs Temp Pulse Resp BP Pulse Ox O2 Del Method O2 Flow Rate 98.8 F 97 18 106/52 L 100 Nasal Cannula 2 07/15/23 09:09 07/15/23 09:13 07/15/23 09:09 07/15/23 09:13 07/15/23 09:09 07/15/23 09:09 07/15/23 09:09 Oxygen Flow Rate (L/min) 2 Oxygen Delivery Method Nasal Cannula Weight: 77.2 kg Body Mass Index (BMI) 23.7 Intake & Output: Intake and Output for Last 24 Hours 07/13/23 07/14/23 07/15/23 23:59 23:59 23:59 Intake Total 950 / 1050 440 / 560 1120 / 1120 Output Total 1390 / 1390 410 / 410 Balance 950 / 900 -950 / -830 710 / 710 Lab / Micro Data 07/12/23 04:11 07/15/23 05:50 Labs: Laboratory Results - last 24 hr 07/14/23 06:22: B-Natriuretic Peptide 2183.2 H 07/14/23 15:23: Fluid Glucose 180 H, Fluid Total Protein 1.7, Fluid LDH 81 07/14/23 15:25: Fluid Source OTHER, Fluid Color YELLOW, Fluid Appearance CLEAR, Fluid WBC 0.188, Fluid RBC 30, Fluid Tot Cell Count 0.203, Fld Polynuclear WBCs # 0.085, Fld Polynuclear WBCs % 45.2, Fluid Mononuclear WBCs 0.103, Fld Mononuclear WBCs % 54.8, Fluid Neutrophils 50, Fluid Lymphocytes 12, Fluid Monocytes 36, Fluid Macrophages 2, Fl Pathologist Comment May follow, Fluid Comment 2 SEE COMMENT 07/15/23 05:50: Sodium 135 L, Potassium 4.8, Chloride 107, Carbon Dioxide 14.0 L , Anion Gap 14, BUN 101 H*, Creatinine 3.34 H, Estim Creat Clear Calc 15.97, Est GFR (MDRD) Af Amer 23 L, Est GFR (MDRD) Non-Af 19 L, BUN/Creatinine Ratio 30.2 H , Glucose 156 H, Calcium 8.4 L, Lactate Dehydrogenase 495 H, Total Protein 6.5, Globulin 3.2, Albumin/Globulin Ratio 1.0 Micro: Microbiology 07/14/23 10:53 Mucosa - Nose Respiratory Panel (PCR) - Final 07/14/23 10:55 Mucosa - Nasopharyngeal Coronavirus COVID-19 PCR - Final ABG Data ABG results: ABG 07/14/23 11:15 Specimen Type ART Sample Site L Radial pH 7.34 L Bicarbonate Actual 15.4 L Total CO2 16 Base Excess -10 L O2 Saturation 99 O2 % 4.0 ABG pCO2 28.3 L ABG pO2 128 H Asim Test Positive O2 Delivery Device Cannula Vent Mode Not entered Radiography Diagnostic Testing: Radiology Impression Chest X-Ray 07/14/23 08:50 IMPRESSION: Persistent small bilateral pleural effusions with bibasilar atelectasis and/or infiltrates worse at the left lung base. There is been improvement as compared to prior study. Electronically Signed: Hany Patricio MD at 10:43 EDT , Chest CT 07/14/23 08:52 IMPRESSION: Moderate degree of bilateral pleural effusions with bibasilar atelectasis and/or infiltrates. Electronically Signed: Hany Patricio MD at 10:59 EDT , Lung Scan-VQ NM 07/14/23 09:08 IMPRESSION: No evidence of pulmonary embolism. Electronically Signed: Hany Patricio MD at 10:42 EDT , Renal Ultrasound 07/14/23 12:13 IMPRESSION: No hydronephrosis bilaterally. Trabeculated bladder wall, possible neurogenic bladder as evidence of partial bladder outlet obstruction. Electronically Signed: Mil Quiñones MD at 19:18 EDT , Rhythm Strip Rhythm Strip: Atrial tachycardia with 3:1 conduction Physical Exam Narrative Alert and orient x 3, no apparent distress S1, S2, rhythm irregular, rate controlled Lung sounds clear anteriorly. Diminished breath sounds posterior bases. No wheezes, rhonchi or rales noted Abdomen soft, nontender Trace, nonpitting edema noted bilateral lower legs with right greater than left Assessment & Plan Assessment/Plan (1) Acute kidney injury: PLAN: Baseline creatinine prior to previous admission is around 1.3. This admission she came in with a creatinine of 1.7. Initially received IV Lasix, has been on hold for about 3 days now. Creatinine continues to get worse. Blood pressure is low normal Echocardiogram with ejection fraction 55% BNP on admission was 2100 Urine analysis shows 1+ protein, microscopic hematuria Renal ultrasound without any hydronephrosis, trabeculated bladder Presumably acute renal failure is from cardiorenal syndrome. Discussed with staff. He does have moderate postvoid residuals up to 450. Required straight cath. Did not want a Reeves catheter. Repeat bladder scan today. Hold off on further IV fluids No recent contrast agents No new medications that can potentially cause OTILIO (2) (HFpEF) heart failure with preserved ejection fraction: (3) Paroxysmal atrial fibrillation:
--- NOTE | 2023-07-15 09:54 | NURSING ---
Pt is refusing to have rasmussen placed. RN educated pt. Pt still refusing at this time. RN made MD Meadows aware.
--- NOTE | 2023-07-15 10:16 | CASEMGMT ---
ELIZABETH CUTLER updated by therapy that patient is very weak and will need SNF at discharge. ELIZABETH CUTLER in to discuss progress with therapy and recommendation for SNF. A list of SNF providers including quality and resource use data and consistent with the patient?s preferred geographical region, medical needs, and insurance network [facility]. Patient states he wants to see how he continues to do with therapy and wants to go home. ELIZABETH CUTLER again discussed progress with therapy and that son work's during the day. Patient interested in TCU and agreeable to have referral sent. ELIZABETH CUTLER updated SW. CM will continue to follow this patient and plan for a safe discharge.
[2023-07-15] MEDS: Creon 24,000 unit DR Capsule PO ×2 (11:35→15:25)
--- NOTE | 2023-07-15 11:55 | PN.CARD_ITS ---
Subjective Subjective Feels better today. Sitting up in chair. No complaints. Objective Data Vital Signs: Vital Signs Temp Pulse Resp BP Pulse Ox O2 Del Method O2 Flow Rate 98.8 F 97 18 106/52 L 100 Nasal Cannula 2 07/15/23 09:09 07/15/23 09:13 07/15/23 09:09 07/15/23 09:13 07/15/23 09:09 07/15/23 09:09 07/15/23 10:17 Oxygen Flow Rate (L/min) 2 Oxygen Delivery Method Nasal Cannula Weight: 170 lb 3.15 oz Body Mass Index (BMI) 23.7 Intake & Output: Intake and Output for Last 24 Hours 07/13/23 07/14/23 07/15/23 23:59 23:59 23:59 Intake Total 950 / 1050 440 / 560 1120 / 1120 Output Total 1390 / 1390 410 / 410 Balance 950 / 900 -950 / -830 710 / 710 Lab / Micro Data 07/12/23 04:11 07/15/23 05:50 Labs: Laboratory Results - last 24 hr 07/14/23 06:22: B-Natriuretic Peptide 2183.2 H 07/14/23 15:23: Fluid Glucose 180 H, Fluid Total Protein 1.7, Fluid LDH 81 07/14/23 15:25: Fluid Source OTHER, Fluid Color YELLOW, Fluid Appearance CLEAR, Fluid WBC 0.188, Fluid RBC 30, Fluid Tot Cell Count 0.203, Fld Polynuclear WBCs # 0.085, Fld Polynuclear WBCs % 45.2, Fluid Mononuclear WBCs 0.103, Fld Mononuclear WBCs % 54.8, Fluid Neutrophils 50, Fluid Lymphocytes 12, Fluid Monocytes 36, Fluid Macrophages 2, Fl Pathologist Comment May follow, Fluid Comment 2 SEE COMMENT 07/15/23 05:50: Sodium 135 L, Potassium 4.8, Chloride 107, Carbon Dioxide 14.0 L , Anion Gap 14, BUN 101 H*, Creatinine 3.34 H, Estim Creat Clear Calc 15.97, Est GFR (MDRD) Af Amer 23 L, Est GFR (MDRD) Non-Af 19 L, BUN/Creatinine Ratio 30.2 H , Glucose 156 H, Calcium 8.4 L, Lactate Dehydrogenase 495 H, Total Protein 6.5, Globulin 3.2, Albumin/Globulin Ratio 1.0 Micro: Microbiology 07/14/23 10:53 Mucosa - Nose Respiratory Panel (PCR) - Final 07/14/23 10:55 Mucosa - Nasopharyngeal Coronavirus COVID-19 PCR - Final Rhythm Strip Rhythm Strip: Atrial tachycardia with 3:1 conduction Cardiology Labs/Tests 07/14/23 06:22: B-Natriuretic Peptide 2183.2 H 07/15/23 05:50: Sodium 135 L, Potassium 4.8, Chloride 107, Carbon Dioxide 14.0 L , Anion Gap 14, BUN 101 H*, Creatinine 3.34 H, Est GFR (MDRD) Af Amer 23 L, Est GFR (MDRD) Non-Af 19 L, BUN/Creatinine Ratio 30.2 H, Glucose 156 H, Calcium 8.4 L Rhythm: EKG: ECHO: Stress Test: Cardiac Cath: PCI: CT Surgery: Holter monitor: EPS: PPM: CXR: Chest CT Scan: Radiography Diagnostic Testing: Radiology Impression Chest X-Ray 07/14/23 08:50 IMPRESSION: Persistent small bilateral pleural effusions with bibasilar atelectasis and/or infiltrates worse at the left lung base. There is been improvement as compared to prior study. Electronically Signed: Hany Patricio MD at 10:43 EDT , Renal Ultrasound 07/14/23 12:13 IMPRESSION: No hydronephrosis bilaterally. Trabeculated bladder wall, possible neurogenic bladder as evidence of partial bladder outlet obstruction. Electronically Signed: Mil Quiñones MD at 19:18 EDT , Physical Exam Narrative Comfortable. No distress. Heart sounds 1 and 2 noted. Chest clear to auscultation bilaterally. Alert oriented x 3. 1+ bilateral ankle edema. Assessment & Plan Assessment/Plan (1) Dyspnea: PLAN: CT scan of the chest showed bibasilar atelectasis/infiltrates. I believe presently the patient's symptoms cannot be explained with diastolic heart failure as he does not appear to be fluid volume overloaded. Consider pneumonia. Consider starting antibiotics. Follow as per internal medicine. Consider pulmonology consult. (2) (HFpEF) heart failure with preserved ejection fraction: PLAN: Patient presently does not appear to be fluid volume overloaded. BNP remains elevated but most likely that is because of his worsening renal function. Furosemide being held for increasing creatinine. (3) Atrial tachycardia: PLAN: Presently ventricular rate controlled with metoprolol. Will continue to monitor. (4) Paroxysmal atrial fibrillation: PLAN: On apixaban for history of paroxysmal atrial fibrillation. (5) History of aortic valve replacement with bioprosthetic valve: PLAN: Periodic echo and clinical surveillance (6) Coronary artery disease: PLAN: History of nonobstructive coronary artery disease. Continue aspirin. Beta-blockers. Troponin mildly elevated but not much difference than baseline. (7) Acute kidney injury: PLAN: Renal functioning worsening. Nephrology on consult. PLAN: Plan No further cardiac input at present. Will sign off. See as needed. Please call if needed.
[2023-07-15] MEDS: 0.9% Saline Lock 10 ML Syringe IV (21:32)
[2023-07-16] VITALS (14 sets, daily range): BP systolic 96–113; BP diastolic 45–60; PULSE 89–94; RESP 16–36; TEMP 35.9–36.6; O2SAT 93–100; BMI 23.6
--- NOTE | 2023-07-16 07:30 | PN.HOSP_ITS ---
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 Objective Data Objective Data Vital Signs: Vital Signs Temp Pulse Resp BP Pulse Ox O2 Del Method O2 Flow Rate 36.4 C L 92 19 H 111/60 100 Nasal Cannula 2 07/16/23 05:21 07/16/23 05:21 07/16/23 05:21 07/16/23 05:21 07/16/23 05:21 07/16/23 05:21 07/16/23 05:21 Oxygen Flow Rate (L/min) 2 Oxygen Delivery Method Nasal Cannula Weight: 77 kg Body Mass Index (BMI) 23.6 Intake & Output: Intake and Output for Last 24 Hours 07/14/23 07/15/23 07/16/23 23:59 23:59 23:59 Intake Total 440 / 560 1120 / 1220 100 / 100 Output Total 1390 / 1390 1650 / 1650 220 / 220 Balance -950 / -830 -530 / -430 -120 / -120 Lab / Micro Data 07/16/23 07:10 07/16/23 07:10 Labs: Laboratory Results - last 24 hr 07/15/23 05:50: Sodium 135 L, Potassium 4.8, Chloride 107, Carbon Dioxide 14.0 L , Anion Gap 14, BUN 101 H*, Creatinine 3.34 H, Estim Creat Clear Calc 15.97, Est GFR (MDRD) Af Amer 23 L, Est GFR (MDRD) Non-Af 19 L, BUN/Creatinine Ratio 30.2 H , Glucose 156 H, Calcium 8.4 L, Lactate Dehydrogenase 495 H, Total Protein 6.5, Globulin 3.2, Albumin/Globulin Ratio 1.0 Micro: Microbiology 07/14/23 10:53 Mucosa - Nose Respiratory Panel (PCR) - Final 07/14/23 10:55 Mucosa - Nasopharyngeal Coronavirus COVID-19 PCR - Final Radiography Diagnostic Testing: Radiology Impression Chest X-Ray 07/14/23 08:50 IMPRESSION: Persistent small bilateral pleural effusions with bibasilar atelectasis and/or infiltrates worse at the left lung base. There is been improvement as compared to prior study. Electronically Signed: Hany Patricio MD at 10:43 EDT , Rhythm Strip Rhythm Strip: Atrial tachycardia with 3:1 conduction Physical Exam Const alert and no apparent distress HEENT head/scalp atraumatic Resp normal respiratory effort, no retractions, no use of accessory muscles and clear to auscultation bilaterally Cardio regular rate, regular rhythm, S1 normal heart sound and S2 normal heart sound GI normal to inspection, nondistended, normoactive bowel sounds, soft to palpation, non-tender and non-distended Extremity normal to inspection Assessment & Plan Assessment/Plan (1) CHF (congestive heart failure): (2) Atrial fibrillation: QUALIFIERS: Atrial fibrillation type: persistent (not longstanding) Qualified Code(s): I48.19 - Other persistent atrial fibrillation PLAN: Plan acute HFpEF * He had an echo on 07/04/2023 with an EF of 55% with dilated right and left atria * furosemide dc'd given OTILIO * No ACEi given OTILIO Pleural effusions * likely cause of dyspena * CT chest showed moderate pleural effusions. * Thoracentesis on 07/13 removed 1240 cc fluid. * Appears transudative OTILIO * worsening this month: 1.29 on 07/04, now up to 3.34 * continue hold diuresis * FEUrea 12.91%. * Consult nephrology. * Will given IVF, 1 liters. * US showed no hydronephrosis. Trabeculated bladder wall. * Pt declined Reeves catheter 07/13, but placed on 07/14. Elevated troponin * unclear if demand ischemia * Seen by cardiology. Appears at baseline. * already anticoagulated * VQ negative Dyspnea * VQ negative. Respiratory panel, COVID 19 negative * CT showed pleural effusions Chronic conditions: * pAfib: metop tart and apixaban held. * History of esophageal cancer in remission/exocrine pancreatic insufficiency/hi story of DVT? He did have an esophagectomy between and has a port in his right chest remains in remission? Continue with his pancreatic medications * GERD? Stable? Continue with PPI * Gallbladder disease? Did have a HIDA scan on 07/05/2023 with an EF of less than 35%, he will need to follow-up with general surgery as an outpatient DVT: SCD Charges/Coding Visit Charges Inpatient E&M: 59633 Subs Hosp L2
[2023-07-16 07:39] LABS: Absolute Lymphocyte Count 0.41 X10^3/uL (0.83-4.51); Absolute Neutrophil Count 10.1 X10^3/uL (2.0-7.7); Basophil# 0.01 X10^3/uL; Basophil% 0.1 % (0-1); Hematocrit 43.7 % (40-54); Hemoglobin 14.6 g/dL (13.0-16.5); Lymphocyte # 0.41 X10^3/ul (0.83-4.51); Lymphocyte % 3.6 % (19-41); Mean Corp Hgb Conc 33.4 g/dL (32-36); Mean Corpuscular Hgb 32.4 pg (27.0-32.0); Mean Corpuscular Volume 97.1 fL (80-94); Mean Platelet Vol. 11.2 fl (6.2-12.0); Monocyte# 0.76 X10^3/uL; Monocyte% 6.7 % (0-10); NRBC Flagged by Analyzer 0.7 % (0-5); Neutrophil # 10.11 X10^3/uL (2.7-7.7); Neutrophil % 88.9 % (47-70); POSITIVE DIFFERENTIAL YES; Platelet Count 120 K/mm3 (150-450); RBC Distribution Width CV 15.4 % (11.6-14.6); RBC Distribution Width SD 54.4 fl (35.1-43.9); White Blood Count 11.4 K/mm3 (4.4-11.0)
[2023-07-16 08:25] LABS: Anion Gap 18 (5-15); BUN 128 mg/dL (7-18); BUN/Creat Ratio 32.4 RATIO (10-20); Calcium,Total 8.7 mg/dL (8.5-10.1); Chloride 105 mmol/L (98-107); Creatinine, Serum 3.95 mg/dL (0.70-1.30); EST Glomerular Filtration Rate 15 mL/min (>60); Est Glom Filt Rate - Afr Amer 19 mL/min (>60); Glucose 170 mg/dL (74-106); Potassium 5.2 mmol/L (3.5-5.1); Sodium Level 135 mmol/L (136-145)
[2023-07-16] MEDS: Ensure Plus High Protein 120 ML LIQUID PO (08:55)
[2023-07-16] MEDS: Creon 24,000 unit DR Capsule PO (08:56)
[2023-07-16] MEDS: Pantoprazole Sodium 20 MG Tablet PO (09:43)
[2023-07-16] MEDS: Metoprolol Tartrate 50 MG Tablet PO (09:43)
--- NOTE | 2023-07-16 10:47 | PCM.PN.REN ---
Subjective Subjective Sitting in chair. Alert and oriented but appears drowsy. Reeves catheter placed earlier this morning with around 220 mL urine output. Urine is now bloody. Objective Data Objective Data Vital Signs: Vital Signs Temp Pulse Resp BP Pulse Ox O2 Del Method O2 Flow Rate 97.6 F L 94 16 110/51 L 100 Nasal Cannula 2 07/16/23 08:54 07/16/23 09:43 07/16/23 08:54 07/16/23 09:43 07/16/23 09:15 07/16/23 08:54 07/16/23 09:15 Oxygen Flow Rate (L/min) 2 Oxygen Delivery Method Nasal Cannula Weight: 77 kg Body Mass Index (BMI) 23.6 Intake & Output: Intake and Output for Last 24 Hours 07/14/23 07/15/23 07/16/23 23:59 23:59 23:59 Intake Total 440 / 560 1120 / 1220 100 / 100 Output Total 1390 / 1390 1860 / 1860 220 / 220 Balance -950 / -830 -740 / -640 -120 / -120 Lab / Micro Data 07/16/23 07:10 07/16/23 07:10 Labs: Laboratory Results - last 24 hr 07/16/23 07:10: WBC 11.4 H, RBC 4.50 L, Hgb 14.6, Hct 43.7, MCV 97.1 H, MCH 32.4 H, MCHC 33.4, RDW Std Deviation 54.4 H, RDW Coeff of Rick 15.4 H, Plt Count 120 L, MPV 11.2, Immature Gran % (Auto) 0.700, Neut % (Auto) 88.9 H, Lymph % (Auto) 3.6 L, [place] % (Auto) 6.7, Eos % (Auto) 0.0, Baso % (Auto) 0.1, Absolute Neuts (auto) 10.1 H, Absolute Lymphs (auto) 0.41 L, Nucleated RBC % 0.7, Sodium 135 L, Potassium 5.2 H, Chloride 105, Carbon Dioxide 12.0 L, Anion Gap 18 H, BUN 128 H*, Creatinine 3.95 H, Estim Creat Clear Calc 13.50, Est GFR (MDRD) Af Amer 19 L, Est GFR (MDRD) Non-Af 15 L, BUN/Creatinine Ratio 32.4 H, Glucose 170 H, Calcium 8.7 Micro: Microbiology 07/14/23 10:53 Mucosa - Nose Respiratory Panel (PCR) - Final 07/14/23 10:55 Mucosa - Nasopharyngeal Coronavirus COVID-19 PCR - Final Rhythm Strip Rhythm Strip: Atrial tachycardia with 3:1 conduction Physical Exam Narrative Alert and orient x 3, no apparent distress, drowsy S1, S2, rhythm irregular, rate controlled Lung sounds clear anteriorly and posteriorly. No wheezes, rhonchi or rales noted Abdomen soft, nontender Trace, nonpitting edema noted bilateral lower legs Indwelling Reeves catheter with bloody colored urine in bag Assessment & Plan Assessment/Plan (1) Acute kidney injury: PLAN: - Baseline creatinine prior to previous admission is around 1.3. Creatinine was 1.32 on July 06. This admission he came in with a creatinine of 1.7. Initially received IV Lasix, has been on hold since at least Friday. Creatinine continues to get worse--> SCr 3.95mg/dL today, Bicarb 12, K+ 5.2. Presumably acute renal failure is from cardiorenal syndrome; however may have component from obstructive process. He had moderate postvoid residuals up to 450ml and required straight cath. Renal ultrasound without any hydronephrosis, trabeculated bladder. Patient was agreeable to Reeves catheter early this morning. Patient does have some urine output. Will start gentle IV fluids, bicarb drip. Recommend limiting potassium in diet. Hopefully renal function will start to improve and turn around since Reeves has been placed and beginning IV fluids. At this time there is no acute indication of renal placement therapy, there are no significant uremic symptoms. Will continue to follow trajectory of kidney function. Discussed nephrology plan with patient, questions were answered. - Blood pressure is low normal, Echocardiogram with ejection fraction 55%, BNP on admission was 2100 -Discussed nephrology plan with Dr. Worley (2) (HFpEF) heart failure with preserved ejection fraction: (3) Paroxysmal atrial fibrillation:
[2023-07-16] MEDS: Budesonide 3 MG CAPSULE.EC 6 MG PO (11:25)
[2023-07-16 11:44] LABS: Source- Body Fluid THORACENTESIS
[2023-07-16] MEDS: Sodium Bicarbonate 150 MEQ in Dextrose 5%-Water (1000mL Bag) 1,000 ML 50 MEQ IV (13:52)
--- NOTE | 2023-07-16 22:39 | NURSING ---
pt took bipap off, refusing to wear bipap at this time. Placed on 2L NC, 99%.
--- NOTE | 2023-07-16 23:42 | NURSING ---
called daughter Nikole to update about pt current condition, explained that pt has an increased work of breathing, high RR and SOB. Explained that pt is currently refusing bipap at this time and that with poor kidney function lasix currently on hold. Nikole requested staff to call brother, attempted to call brother, no answer.
[2023-07-17] VITALS (22 sets, daily range): BP systolic 60–122; BP diastolic 42–88; PULSE 82–94; RESP 16–31; TEMP 35.8–37; O2SAT 90–100; BMI 23.6
--- NOTE | 2023-07-17 07:55 | PN.HOSP_ITS ---
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 Objective Data Objective Data Vital Signs: Vital Signs Temp Pulse Resp BP Pulse Ox O2 Del Method O2 Flow Rate 36.3 C L 87 31 H 111/50 L 100 Nasal Cannula 2 07/17/23 04:29 07/17/23 04:29 07/17/23 04:29 07/17/23 04:29 07/17/23 04:29 07/17/23 04:29 07/17/23 04:29 FiO2 24 07/16/23 21:30 Oxygen Flow Rate (L/min) 2 Oxygen Delivery Method Nasal Cannula Weight: 77 kg Body Mass Index (BMI) 23.6 Intake & Output: Intake and Output for Last 24 Hours 07/15/23 07/16/23 07/17/23 23:59 23:59 23:59 Intake Total 1120 / 1220 635 / 635 0 / 0 Output Total 1860 / 1860 2850 / 2900 50 / 50 Balance -740 / -640 -2215 / -2265 -50 / -50 Lab / Micro Data 07/16/23 07:10 07/17/23 06:10 Labs: Laboratory Results - last 24 hr 07/14/23 15:25: Fluid Source THORACENTESIS, Fluid Color YELLOW, Fluid Appearance CLEAR, Fluid WBC 0.188, Fluid RBC 30, Fluid Tot Cell Count 0.203, Fld Polynuclear WBCs # 0.085, Fld Polynuclear WBCs % 45.2, Fluid Mononuclear WBCs 0.103, Fld Mononuclear WBCs % 54.8, Fluid Neutrophils 50, Fluid Lymphocytes 12, Fluid Monocytes 36, Fluid Macrophages 2, Fl Pathologist Comment May follow, Fluid Comment 2 SEE COMMENT 07/16/23 07:10: Sodium 135 L, Potassium 5.2 H, Chloride 105, Carbon Dioxide 12.0 L, Anion Gap 18 H, BUN 128 H*, Creatinine 3.95 H, Estim Creat Clear Calc 13.50, Est GFR (MDRD) Af Amer 19 L, Est GFR (MDRD) Non-Af 15 L, BUN/Creatinine Ratio 32.4 H, Glucose 170 H, Calcium 8.7 Micro: Microbiology 07/14/23 10:53 Mucosa - Nose Respiratory Panel (PCR) - Final 07/14/23 10:55 Mucosa - Nasopharyngeal Coronavirus COVID-19 PCR - Final Rhythm Strip Rhythm Strip: Atrial tachycardia with 3:1 conduction Physical Exam Const alert Constitutional Narrative: listless. afebrile. HEENT head/scalp atraumatic and moist oral mucous membranes Resp normal respiratory effort, no retractions, no use of accessory muscles and clear to auscultation bilaterally Cardio regular rate, regular rhythm, S1 normal heart sound and S2 normal heart sound GI normal to inspection, nondistended, normoactive bowel sounds, soft to palpation, non-tender and non-distended Extremity Extremity Narrative: edema in UE. Neuro Sensorium / Orientation: awake Assessment & Plan Assessment/Plan (1) CHF (congestive heart failure): (2) Atrial fibrillation: QUALIFIERS: Atrial fibrillation type: persistent (not longsta nding) Qualified Code(s): I48.19 - Other persistent atrial fibrillation PLAN: Plan OTILIO * worsening this month: 1.29 on 07/04, now up to 4.86 * Given rapid onset, autoimmune serologies sent. * US showed no hydronephrosis. Trabeculated bladder wall. * Pt declined Reeves catheter 07/13, but placed on 07/14. Desite that, creatinine has continued to worsen. * Nephrology recommending HD. Pt and family agreeable. General surgery on consult for tunneled HD catheter. acute HFpEF * He had an echo on 07/04/2023 with an EF of 55% with dilated right and left atria * furosemide dc'd given OTILIO * No ACEi given OTILIO Pleural effusions * likely cause of dyspena * CT chest showed moderate pleural effusions. * Thoracentesis on 07/13 removed 1240 cc fluid. * Appears transudative Elevated troponin * suspect demand ischemia * Seen by cardiology. Appears at baseline. * already anticoagulated * VQ negative Dyspnea * VQ negative. Respiratory panel, COVID 19 negative * CT showed pleural effusions Encephalopathy * ongoing concern for uremia * avoid potentiating medications Chronic conditions: * pAfib: metop tart and apixaban held. * History of esophageal cancer in remission/exocrine pancreatic insufficiency/history of DVT? He did have an esophagectomy between and has a port in his right chest remains in remission? Continue with his pancreatic medications * GERD? Stable? Continue with PPI * Gallbladder disease? Did have a HIDA scan on 07/05/2023 with an EF of less than 35%, he will need to follow-up with general surgery as an outpatient DVT: SCD Disposition: TBD, but not until sometime next week. Pt will need HD and to evaluate his response, I suspect he will need SNF when he is medically ready. Discussed with the patient's daughter at bedside. Greater than 55 minutes of which greater than 50% time was counseling patient and his daughter at bedside about the plan for dialysis, steps, including tunneled dialysis catheter and evaluate his response to dialysis. Charges/Coding Visit Charges Inpatient E&M: 22514 Subs Hosp L3
[2023-07-17 08:15] LABS: Anion Gap 20 (5-15); BUN 145 mg/dL (7-18); BUN/Creat Ratio 29.8 RATIO (10-20); Calcium,Total 8.6 mg/dL (8.5-10.1); Chloride 102 mmol/L (98-107); Creatinine, Serum 4.86 mg/dL (0.70-1.30); EST Glomerular Filtration Rate 12 mL/min (>60); Est Glom Filt Rate - Afr Amer 15 mL/min (>60); Estimated Creatinine Clearance 10.97 ml/min; Glucose 161 mg/dL (74-106); Potassium 5.7 mmol/L (3.5-5.1); Sodium Level 136 mmol/L (136-145)
[2023-07-17 09:20] LABS: Pathologist Comment/Body Fluid Reviewed
--- NOTE | 2023-07-17 10:07 | PN.RENAL_ITS ---
Subjective Subjective Patient is resting in bed. Daughter at bedside. Patient is alert and oriented but very drowsy. Objective Data Objective Data Vital Signs: Vital Signs Temp Pulse Resp BP Pulse Ox O2 Del Method O2 Flow Rate 97.8 F 88 18 102/42 L 100 Nasal Cannula 2 07/17/23 07:18 07/17/23 07:18 07/17/23 07:18 07/17/23 07:18 07/17/23 07:18 07/17/23 07:18 07/17/23 07:18 FiO2 24 07/16/23 21:30 Oxygen Flow Rate (L/min) 2 Oxygen Delivery Method Nasal Cannula Weight: 77 kg Body Mass Index (BMI) 23.6 Intake & Output: Intake and Output for Last 24 Hours 07/15/23 07/16/23 07/17/23 23:59 23:59 23:59 Intake Total 1120 / 1220 635 / 635 0 / 0 Output Total 1860 / 1860 2850 / 2900 50 / 50 Balance -740 / -640 -2215 / -2265 -50 / -50 Lab / Micro Data 07/16/23 07:10 07/17/23 06:10 Labs: Laboratory Results - last 24 hr 07/14/23 15:25: Fluid Source THORACENTESIS, Fluid Color YELLOW, Fluid Appearance CLEAR, Fluid WBC 0.188, Fluid RBC 30, Fluid Tot Cell Count 0.203, Fld Polynuclear WBCs # 0.085, Fld Polynuclear WBCs % 45.2, Fluid Mononuclear WBCs 0.103, Fld Mononuclear WBCs % 54.8, Fluid Neutrophils 50, Fluid Lymphocytes 12, Fluid Monocytes 36, Fluid Macrophages 2, Fl Pathologist Comment Reviewed, Fluid Comment 2 SEE COMMENT 07/17/23 06:10: Sodium 136, Potassium 5.7 H, Chloride 102, Carbon Dioxide 14.0 L , Anion Gap 20 H, BUN 145 H*, Creatinine 4.86 H, Estim Creat Clear Calc 10.97, Est GFR (MDRD) Af Amer 15 L, Est GFR (MDRD) Non-Af 12 L, BUN/Creatinine Ratio 29.8 H, Glucose 161 H, Calcium 8.6 Micro: Microbiology 07/14/23 10:53 Mucosa - Nose Respiratory Panel (PCR) - Final 07/14/23 10:55 Mucosa - Nasopharyngeal Coronavirus COVID-19 PCR - Final Rhythm Strip Rhythm Strip: Atrial tachycardia with 3:1 conduction Physical Exam Narrative Alert and orient x 3, no apparent distress, drowsy S1, S2, rhythm irregular, rate controlled Lung sounds diminished anteriorly and posteriorly Abdomen soft, nontender Trace, nonpitting edema noted bilateral lower legs Indwelling Reeves catheter with bloody colored urine in bag Assessment & Plan Assessment/Plan (1) Acute kidney injury: PLAN: - Baseline creatinine prior to previous admission is around 1.3. Creatinine was 1.32 on July 06. This admission he came in with a creatinine of 1.7. Initially received IV Lasix, has been on hold since at least Friday. Creatinine continues to get worse-->07/15 SCr 3.95mg/dL, Bicarb 12, K+ 5.2--> yesterday attempted to start gentle IVF but due to rales, difficulty breathing IVF stopped only after few hours of infusion. Today SCr 4.86, BUN 145, egfr 12, bicarb 14 and K+ 5.7. Urine output low. Patient has some mild uremic symptoms. Patient is heading towards needing [employer]. Patient is alert and oriented (drowsy), daughter at bedside. Discussed current renal function and the trajectory of renal function over the past few days. Reviewed role of hemodialysis, risks of dialysis. Patient and daughter in agreement with starting hemodialysis. Will consult surgery for tunneled hemodialysis catheter placement. Will plan for dialysis after catheter placed over 2 hours, 2K bath with little to no fluid removal, plan dialysis the next day over 2.5 hours, 2K bath with fluid removal as patient/blood pressure tolerates. Will check hepatitis B surface antigen, PT and INR, and renal serologies. Presumably acute renal failure is from cardiorenal syndrome; however may have component from obstructive process. He had moderate postvoid residuals up to 450ml and required straight cath. Renal ultrasound without any hydronephrosis, trabeculated bladder. Patient was agreeable to Reeves catheter placed yesterday. Only around 400 mL urine output for yesterday. Scant urine in Reeves today. - History of A-fib. Had been on Eliquis, last dose 07/13. Blood pressure is marginal low. Will decrease metoprolol dose. - Blood pressure is low normal, Echocardiogram with ejection fraction 55%, BNP on admission was 2100 - discussed nephrology plan with Dr. Worley and d/c planning team as patient will likely need outpatient HD arrangements at [facility], Dx: OTILIO (2) (HFpEF) heart failure with preserved ejection fraction: (3) Paroxysmal atrial fibrillation:
--- NOTE | 2023-07-17 11:11 | NURSING ---
Port noted to be out of chest. Port reaccessed with good blood return.
--- NOTE | 2023-07-17 12:32 | NURSING ---
KAYKAY Shoemaker called RN and verbally ordered for this pt to receive 2 amps of IV push Bicarb.
[2023-07-17 13:10] LABS: Prothrombin Time (Protime)PT. 48.1 SECONDS (11.7-14.9)
[2023-07-17 13:17] LABS: International Normalized Ratio 5.3
[2023-07-17] MEDS: Sodium Bicarbonate 8.4% 50 ML Syringe 50 MEQ IV ×2 (13:35)
--- NOTE | 2023-07-17 14:00 | CASEMGMT ---
ELIZABETH CUTLER updated by [employer] erp architect KAYKAY Leela that patient will need outpatient HD at discharge and to setup at [facility]. ELIZABETH CUTLER sent referral through [facility].
[2023-07-17 14:04] LABS: Hepatitis B Surface Antigen Non-Reactive (Nonreactive)
[2023-07-17] MEDS: Phytonadione (Vit K) 10 MG in 0.9% Normal Saline (50mL Bag) 50 ML 150 MG IV (14:37)
--- NOTE | 2023-07-17 14:48 | CON.PCM.SX_ITS ---
Assessment & Plan Assessment/Plan (1) Chronic renal failure, stage 5: PLAN: I have been consulted in conjunction with Dr. Yap. He has independently evaluated this patient. Patient continues to have worsening creatinine and will need to begin dialysis. Dr. Yap will plan to perform a left chest tunneled dialysis catheter placement. Procedure details, risks and benefits have been explained and reviewed with the patient and his daughter. Patient is agreeable to proceed with whatever his daughter decides. Patient lives with his son, Milagros, who is POA. Patient's daughter and patient have had the opportunity to ask and have questions answered. Patient's son will be notified that he will have to sign consent for the patient as patient seems confused. Plan to proceed to the OR tomorrow around 13:45 for dialysis catheter placement. Thank you for allowing us to participate in this patient's care. HPI Consult Data Date of Consult: 07/17/23 HPI Narrative Reason for Consultation: In need of dialysis access HPI Narrative: MILAGROS MELVIN, is a 88 M I have been consulted in conjunction with Dr. Yap for dialysis catheter placement. Patient has been having a decline in his renal function. Patient is a poor historian. His daughter is at bedside and provides majority of the history. Patient denies having any central lines or previous dialysis catheter placements. he has never been on dialysis before. 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 He is in remission. He has a right chest port-a-cath which is flushed every 6 weeks. He notes prior to his previous recent hospitalizations, he ws independent. He has a history of A Fib on Eliquis. [facility] Medical History Abdominal pain Abnormal abdominal CT scan Adjustment disorder Alcohol use Arthritis Atherosclerotic heart disease of [place] coronary artery without angina pectoris Back pain Cancer Cardiology follow-up encounter Chemotherapy-induced nausea Chest discomfort Dehydration DVT (deep venous thrombosis) Dyspepsia Encounter for adjustment or management of vascular access device Former smoker Gastric reflux History of DVT (deep vein thrombosis) History of echocardiogram History of hiatal hernia History of stress test Hx of peripheral neuropathy Hyperlipidemia Hypokalemia Injury of head and neck Low iron Migraine headache Nonrheumatic aortic (valve) stenosis Nonrheumatic aortic valve disorder Premature ventricular contraction Primary cancer of lower third of esophagus Restless legs SBO (small bowel obstruction) Submandibular gland swelling TIA (transient ischemic attack) Wears glasses Wears hearing aid Wears partial dentures Home Medications aspirin 81 mg chewable tablet 81 mg PO QHS Heart health 07/20/20 [History Last Taken 07/02/23] simvastatin 10 mg tablet 10 mg PO MOWEFR cholesterol 90 days #39 tabs 07/23/22 [Rx Last Taken 07/02/23] omeprazole 20 mg capsule,delayed release 20 mg PO BID reflux #180 caps 08/14/22 [Rx Last Taken 07/02/23] budesonide 3 mg capsule,delayed,extended release 6 mg (2 x 3 mg) PO DAILY bowls 30 days #60 ea 11/08/22 [Rx Last Taken 07/02/23] pseawy-cmzduqui-sjenocd 2 - 3 cap PO TID enzyme 07/03/23 [History Last Taken 0 07/02/23] multivitamin-ferrous fumarate-folic acid 18 mg-400 mcg tablet (Daily Multivitamin with Iron) 1 tab PO DAILY vitamin 07/03/23 [History Last Taken 07/02/23] propylene glycol 0.6 % eye drops (Systane Balance) 1 drp EACH EYE BID PRN dry eye(s) 07/03/23 [History Last Taken 07/02/23] apixaban 2.5 mg tablet 2.5 mg PO BID #120 tabs 07/05/23 [Rx Last Taken Unknown] furosemide 40 mg tablet (Lasix) 40 mg PO DAILY #30 tabs 07/07/23 [Rx Last Taken Unknown] metoprolol tartrate 25 mg tablet 12.5 mg PO .x4/day blood pressure 07/11/23 [History Last Taken Unknown] Allergy/AdvReac Type Severity Reaction Status Date / Time diphenhydramine Allergy Intermediate Restless Verified 07/07/23 15:16 [From Benadryl] legs Family History Father No problems noted. Mother Cancer Surgical History History of aortic valve replacement with bioprosthetic valve (~02/13/16) History of bilateral cataract extraction History of cardiac catheterization History of esophageal surgery History of esophagogastroduodenoscopy (EGD) History of hernia repair (~09/01/21) History of repair of hiatal hernia Hx of brain surgery Hx of CABG (~02/13/16) Hx of colonoscopy Hx of decompressive lumbar laminectomy Hx of exploratory laparotomy (~04/2022) Social History Smoking Status: Former smoker how long ago did patient quit smokin02/13/2016 second hand exposure: No alcohol intake: current alcohol intake frequency: holidays/special occasions only substance use type: does not use caffeine: Yes Type: coffee Number of servings: 3 and tea Number of servings: 1 what type of physical activity do you participate in: none frequency: does not exercise ROS Constitutional Constitutional: Reports daytime sleepiness Eyes Eyes: Reports systems reviewed and no addt'l complaints, except as documented ENT HEENT: Reports systems reviewed and no addt'l complaints, except as documented Cardiovascular Cardiovascular: Reports systems reviewed and no addt'l complaints, except as documented Respiratory/Chest Respiratory/Chest: Reports systems reviewed and no addt'l complaints, except as documented Gastrointestinal Gastrointestinal: Reports systems reviewed and no addt'l complaints, except as documented Genitourinary Genitourinary: Reports systems reviewed and no addt'l complaints, except as documented Musculoskeletal Musculoskeletal: Reports systems reviewed and no addt'l complaints, except as documented Integumentary Integumentary: Reports systems reviewed and no addt'l complaints, except as documented Neurologic Neurologic: Reports systems reviewed and no addt'l complaints, except as documented Psychiatric Psychiatric: Reports systems reviewed and no addt'l complaints, except as documented Endocrine Endocrinology: Reports systems reviewed and no addt'l complaints, except as documented Hematologic/Lymphatic Hematologic/Lymphatic: Reports systems reviewed and no addt'l complaints, except as documented Allergic/Immunologic Allergic/Immunologic: Reports systems reviewed and no addt'l complaints, except as documented Physical Exam Const alert, oriented x3 and no apparent distress General Appearance: lethargic and frail Nutritional Appearance: cachectic HEENT normocephalic and head/scalp atraumatic Eyes PERRL Neck full ROM Chest Chest Narrative: Right chest port noted and accessed Resp clear to auscultation bilaterally Effort and Inspection: decreased respiratory effort Cardio regular rate and regular rhythm GI normal to inspection, nondistended, normoactive bowel sounds no CVA tenderness Back/Spine no CVA tenderness Extremity normal to inspection Skin Skin Narrative: No concerning rashes or skin lesions Neuro no focal motor deficits and no sensory deficits noted Psych Appearance: disheveled Thought Process: confused Lab / Micro Data 07/16/23 07:10 07/17/23 06:10 Labs: Laboratory Results - last 24 hr 07/14/23 15:25: Fl Pathologist Comment Reviewed 07/17/23 06:10: Sodium 136, Potassium 5.7 H, Chloride 102, Carbon Dioxide 14.0 L , Anion Gap 20 H, BUN 145 H*, Creatinine 4.86 H, Estim Creat Clear Calc 10.97, Est GFR (MDRD) Af Amer 15 L, Est GFR (MDRD) Non-Af 12 L, BUN/Creatinine Ratio 29.8 H, Glucose 161 H, Calcium 8.6 07/17/23 10:40: Hep Bs Antigen Non-Reactive 07/17/23 11:15: PT 48.1 H, INR 5.3 H* Rhythm Strip Rhythm Strip: Atrial tachycardia with 3:1 conduction Charges/Coding Visit Charges Office Visits / Consults: 31154 IP Consult L3
[2023-07-17] MEDS: 0.9% Saline Lock 10 ML Syringe IV (20:46)
[2023-07-18] VITALS (23 sets, daily range): BP systolic 2–210; BP diastolic 31–92; PULSE 85–92; RESP 16–32; TEMP 35.7–36.6; O2SAT 93–100; BMI 24.3; BMI 24.2
--- NOTE | 2023-07-18 05:55 | EKG12_ITS ---
Test Reason : am ekg Blood Pressure : / mmHG Vent. Rate : 088 BPM Atrial Rate : 088 BPM P-R Int : 152 ms QRS Dur : 110 ms QT Int : 394 ms P-R-T Axes : 095 -08 -84 degrees QTc Int : 476 ms ATRIAL TACH WITH 2:1 CONDUCTION Incomplete right bundle branch block Anteroseptal infarct (cited on or before 11-JUL-2023) NS ST & T wave abnormality, consider inferior ischemia Abnormal ECG Confirmed by Yohannes Rock ([id number]), legal editor OTTO CALABRESE ([id number]) on 07/18/2023 8:34:27 AM Referred By: Confirmed By:Yohannes Rock
[2023-07-18 07:15] LABS: Absolute Neutrophil Count 9.9 X10^3/uL (2.0-7.7); Basophil# 0.01 X10^3/uL; Basophil% 0.1 % (0-1); Hemoglobin 13.2 g/dL (13.0-16.5); Lymphocyte % 1.9 % (19-41); Mean Corp Hgb Conc 32.2 g/dL (32-36); Mean Corpuscular Hgb 31.3 pg (27.0-32.0); Mean Corpuscular Volume 97.2 fL (80-94); Mean Platelet Vol. 12.4 fl (6.2-12.0); Monocyte# 0.54 X10^3/uL; Monocyte% 5.1 % (0-10); NRBC Flagged by Analyzer 1.4 % (0-5); Neutrophil # 9.88 X10^3/uL (2.7-7.7); Neutrophil % 92.4 % (47-70); POSITIVE COUNT YES; POSITIVE DIFFERENTIAL YES; Platelet Count 65 K/mm3 (150-450); RBC Distribution Width CV 15.9 % (11.6-14.6); RBC Distribution Width SD 55.6 fl (35.1-43.9); Red Blood Count 4.22 M/mm3 (4.6-6.2); White Blood Count 10.7 K/mm3 (4.4-11.0)
[2023-07-18 07:19] LABS: Differential Indicated SCAN CRITERIA MET
[2023-07-18 07:24] LABS: International Normalized Ratio 3.9; Prothrombin Time (Protime)PT. 37.7 SECONDS (11.7-14.9)
[2023-07-18 07:45] LABS: Anion Gap 23 (5-15); BUN 170 mg/dL (7-18); BUN/Creat Ratio 30.5 RATIO (10-20); Calcium,Total 8.5 mg/dL (8.5-10.1); Chloride 103 mmol/L (98-107); Creatinine, Serum 5.58 mg/dL (0.70-1.30); EST Glomerular Filtration Rate 10 mL/min (>60); Est Glom Filt Rate - Afr Amer 12 mL/min (>60); Estimated Creatinine Clearance 9.56 ml/min; Glucose 135 mg/dL (74-106); Potassium 5.6 mmol/L (3.5-5.1); Sodium Level 139 mmol/L (136-145)
[2023-07-18 08:53] LABS: Platelet Estimate MOD DEC (ADEQ)
--- NOTE | 2023-07-18 09:22 | PN.HOSP_ITS ---
Subjective Subjective Doing well, no issues overnight. Slight productive cough with brown sputum Objective Data Objective Data Vital Signs: Vital Signs Temp Pulse Resp BP Pulse Ox O2 Del Method O2 Flow Rate 97.5 F L 88 20 H 109/73 100 Nasal Cannula 2 07/18/23 03:57 07/18/23 03:57 07/18/23 03:57 07/18/23 03:57 07/18/23 07:47 07/18/23 08:36 07/18/23 08:36 FiO2 24 07/18/23 04:15 Oxygen Flow Rate (L/min) 2 Oxygen Delivery Method Nasal Cannula Weight: 173 lb 15.115 oz Body Mass Index (BMI) 24.3 Intake & Output: Intake and Output for Last 24 Hours 07/17/23 07/18/23 07/19/23 03:59 03:59 03:59 Intake Total 535 / 535 451 / 451 0 / 0 Output Total 2900 / 2900 2630 / 2630 100 / 100 Balance -2365 / -2365 -2179 / -2179 -100 / -100 Lab / Micro Data 07/18/23 06:05 07/18/23 06:05 Labs: Laboratory Results - last 24 hr 07/17/23 10:40: Hep Bs Antigen Non-Reactive 07/17/23 11:15: PT 48.1 H, INR 5.3 H* 07/17/23 14:00: Blood Type A POSITIVE 07/18/23 06:05: WBC 10.7, RBC 4.22 L, Hgb 13.2, Hct 41.0, MCV 97.2 H, MCH 31.3, MCHC 32.2, RDW Std Deviation 55.6 H, RDW Coeff of Rick 15.9 H, Plt Count 65 L, MPV 12.4 H, Immature Gran % (Auto) 0.500, Neut % (Auto) 92.4 H, Lymph % (Auto) 1.9 L, [place] % (Auto) 5.1, Eos % (Auto) 0.0, Baso % (Auto) 0.1, Absolute Neuts (auto) 9.9 H, Absolute Lymphs (auto) 0.20 L, Nucleated RBC % 1.4, Differential Comment COMMENT, Platelet Estimate MOD DEC, PT 37.7 H, INR 3.9, Sodium 139, Potassium 5.6 H, Chloride 103, Carbon Dioxide 13.0 L, Anion Gap 23 H, BUN 170 H* , Creatinine 5.58 H, Estim Creat Clear Calc 9.56, Est GFR (MDRD) Af Amer 12 L, Est GFR (MDRD) Non-Af 10 L, BUN/Creatinine Ratio 30.5 H, Glucose 135 H, Calcium 8.5 Micro: Microbiology 07/14/23 10:53 Mucosa - Nose Respiratory Panel (PCR) - Final 07/14/23 10:55 Mucosa - Nasopharyngeal Coronavirus COVID-19 PCR - Final Rhythm Strip Rhythm Strip: Atrial tachycardia with 3:1 conduction Physical Exam Narrative General: Alert, Oriented x3, Cooperative, No apparent distress HEENT: Atraumatic, PERRLA, EOMI, Normocephalic Oral: Moist Mucosa Neck: Supple, No JVD Lungs: Diminished, Normal air movement, No rhonchi, No wheeze, No rales, upper airway sounds from mucus Cardiovascular: Regular rate, Regular Rhythm, Normal S1, Normal S2, No murmurs Abdomen: Soft, Non Tender, Non-Distended, No Hepato-splenomegaly Extremities: Edema, Capillary Refill Less than 3 Seconds Skin: No rashes, No breakdown Musculoskeletal: No Tenderness to Palpation of Joints or Extremities Neurological: No focal neurological deficits, Motor Exam 5/5 strength throughout, Sensory exam intact to light touch and pain Psych/Mental Status: Flat Assessment & Plan Assessment/Plan (1) CHF (congestive heart failure): (2) Atrial fibrillation: QUALIFIERS: Atrial fibrillation type: persistent (not longstanding) Qualified Code(s): I48.19 - Other persistent atrial fibrillation PLAN: Plan OTILIO * worsening this month: 1.29 on 07/04, now up to 4.86 * Given rapid onset, autoimmune serologies sent. * US showed no hydronephrosis. Trabeculated bladder wall. * Pt declined Reeves catheter 07/13, but placed on 07/14. Desite that, creatinine has continued to worsen. * Nephrology recommending HD. Pt and family agreeable. General surgery on consult for tunneled HD catheter. 07/18/2023: BUN and creatinine continue to climb today, plan for tunneled dialysis catheter today acute HFpEF * He had an echo on 07/04/2023 with an EF of 55% with dilated right and left atria * furosemide dc'd given OTILIO * No ACEi given OTILIO Pleural effusions * likely cause of dyspena * CT chest showed moderate pleural effusions. * Thoracentesis on 07/13 removed 1240 cc fluid. * Appears transudative Elevated troponin * suspect demand ischemia * Seen by cardiology. Appears at baseline. * already anticoagulated * VQ negative Dyspnea * VQ negative. Respiratory panel, COVID 19 negative * CT showed pleural effusions 07/18/2023: Sputum culture ordered secondary to appearance and smell of expectorated mucus Encephalopathy * ongoing concern for uremia * avoid potentiating medications Chronic conditions: * pAfib: metop tart and apixaban held. * History of esophageal cancer in remission/exocrine pancreatic insufficiency/history of DVT? He did have an esophagectomy his heart and has a port in his right chest remains in remission? Continue with his pancreatic medications * GERD? Stable? Continue with PPI * Gallbladder disease? Did have a HIDA scan on 07/05/2023 with an EF of less than 35%, he will need to follow-up with general surgery as an outpatient DVT: SCD Charges/Coding Visit Charges Inpatient E&M: 53379 Subs Hosp L2
[2023-07-18] MEDS: 0.9% Saline Lock 10 ML Syringe IV ×2 (09:31→18:14)
--- NOTE | 2023-07-18 10:05 | CASEMGMT ---
SALVADOR spoke with patient's daughter, Nikole. SALVADOR explained that patient was interested in TCU. SALVADOR explained TCU will not be able to take patient since he will be on dialysis. SALVADOR did find the list of SNF's in patient's room. SALVADOR explained [facility] does offer dialysis on site, but patient is acute so he will no be able to do onsite. SALVADOR explained some of the nursing homes are able to transport patients to and from dialysis. Nikole thanked SALVADOR. SALVADOR to follow up Friday. [facility]lie [facility] INSTALLATION ENGINEER CHAKA
--- NOTE | 2023-07-18 11:17 | PN.RENAL_ITS ---
Subjective Subjective Patient is resting in bed. No overnight events. He is alert and oriented but drowsy again this morning. Daughter at bedside. Objective Data Objective Data Vital Signs: Vital Signs Temp Pulse Resp BP Pulse Ox O2 Del Method O2 Flow Rate 97.4 F L 91 24 H 98/51 L 100 Nasal Cannula 2 07/18/23 11:09 07/18/23 11:09 07/18/23 11:09 07/18/23 11:09 07/18/23 11:09 07/18/23 11:09 07/18/23 11:09 FiO2 24 07/18/23 04:15 Oxygen Flow Rate (L/min) 2 Oxygen Delivery Method Nasal Cannula Weight: 78.9 kg Body Mass Index (BMI) 24.3 Intake & Output: Intake and Output for Last 24 Hours 07/16/23 07/17/23 07/18/23 23:59 23:59 23:59 Intake Total 635 / 635 451 / 451 0 / 0 Output Total 2850 / 2900 2680 / 2680 100 / 100 Balance -2215 / -2265 -2229 / -2229 -100 / -100 Lab / Micro Data 07/18/23 06:05 07/18/23 06:05 Labs: Laboratory Results - last 24 hr 07/17/23 10:40: Hep Bs Antigen Non-Reactive 07/17/23 11:15: PT 48.1 H, INR 5.3 H* 07/17/23 14:00: Blood Type A POSITIVE 07/18/23 06:05: WBC 10.7, RBC 4.22 L, Hgb 13.2, Hct 41.0, MCV 97.2 H, MCH 31.3, MCHC 32.2, RDW Std Deviation 55.6 H, RDW Coeff of Rick 15.9 H, Plt Count 65 L, MPV 12.4 H, Immature Gran % (Auto) 0.500, Neut % (Auto) 92.4 H, Lymph % (Auto) 1.9 L, [place] % (Auto) 5.1, Eos % (Auto) 0.0, Baso % (Auto) 0.1, Absolute Neuts (auto) 9.9 H, Absolute Lymphs (auto) 0.20 L, Nucleated RBC % 1.4, Differential Comment COMMENT, Platelet Estimate MOD DEC, PT 37.7 H, INR 3.9, Sodium 139, Potassium 5.6 H, Chloride 103, Carbon Dioxide 13.0 L, Anion Gap 23 H, BUN 170 H* , Creatinine 5.58 H, Estim Creat Clear Calc 9.56, Est GFR (MDRD) Af Amer 12 L, Est GFR (MDRD) Non-Af 10 L, BUN/Creatinine Ratio 30.5 H, Glucose 135 H, Calcium 8.5 Micro: Microbiology 07/14/23 10:53 Mucosa - Nose Respiratory Panel (PCR) - Final 07/14/23 10:55 Mucosa - Nasopharyngeal Coronavirus COVID-19 PCR - Final Rhythm Strip Rhythm Strip: Atrial tachycardia with 3:1 conduction Physical Exam Narrative Alert and orient x 3, no apparent distress, drowsy S1, S2, rhythm irregular, rate controlled Lung sounds with audible rhonchi Abdomen soft, nontender 1+ edema noted bilateral lower legs Indwelling Reeves catheter with scant bloody colored urine in bag Assessment & Plan Assessment/Plan (1) Acute kidney injury: PLAN: - Baseline creatinine prior to previous admission is around 1.3. Creatinine was 1.32 on July 06. This admission he came in with a creatinine of 1.7. Initially received IV Lasix, has been on hold since at least Friday. Creatinine continues to worsen-->07/15 SCr 3.95mg/dL, Bicarb 12, K+ 5.2--> attempted to start gentle IVF but due to rales, difficulty breathing IVF stopped only after few hours of infusion. 07/16 SCr 4.86, BUN 145, egfr 12, bicarb 14 and K+ 5.7. Today SCr 5.58, BUN 170, K+ 5.6, bicarb 13. Urine output remains low. 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 Consult placed for surgery team, planning tunneled HD catheter today and then dialysis afterwards. He will dialyze around 2.5 hours today, 2k bath, low BFR and if bps allow will try and attempt fluid removal with HD today. Plan for dialysis again tomorrow over 3hours and attempt fluid removal as bp allows. Patient can have midodrine prn during HD. Will check hepatitis B surface antigen and renal serologies. Presumably acute renal failure is from cardiorenal syndrome; however may have component from obstructive process. He had moderate postvoid residuals up to 450ml and required straight cath. Renal ultrasound without any hydronephrosis, trabeculated bladder. Patient was agreeable to Reeves catheter. - History of A-fib. Had been on Eliquis but now on hold. Blood pressure is marginal low. yesterday decreased metoprolol dose with holding parameters. - Blood pressure is low normal, Echocardiogram with ejection fraction 55%, BNP on admission was 2100 - discussed nephrology plan with d/c planning team as patient will likely need outpatient HD arrangements at [facility], Dx: OTILIO (2) (HFpEF) heart failure with preserved ejection fraction: (3) Paroxysmal atrial fibrillation:
[2023-07-18] MEDS: 0.9% Normal Saline (500mL Bag) 500 ML 15 ML IV (12:01)
[2023-07-18 13:01] LABS: Potassium 5.1 mmol/L (3.5-5.1)
[2023-07-18] MEDS: Cefazolin 2 GM in 0.9% Normal Saline (100mL Bag) 100 ML IV (13:58)
[2023-07-18 14:10] LABS: Anti-dsDNA Ab <1 IU/mL (0-9)
[2023-07-18] MEDS: Bupivacaine Mpf 0.5% 30 ML VIAL (15:10)
[2023-07-18] MEDS: Heparin 10,000 UNITS/10 ML Vial 10000 UNITS (15:11)
--- NOTE | 2023-07-18 15:16 | OP.PCM_ITS ---
Report of Operation Date of Procedure: 07/18/23 Pre-Operative Diagnosis: Acute renal failure requiring hemodialysis access Post-Operative Diagnosis: Same Surgery/Procedure Performed:: Insertion of left-sided tunneled hemodialysis catheter Description of Surgical Findings:: ? Normal venous anatomy with initial placement short of desired location requiring repositioning Surgeon: Yohannes Yap Type of Anesthesia: MAC/Supplemental/Local Anesthesiologist: Edouard Rodriguez Specimen's removed: None Estimated Blood Loss (mL): 50 Description of Procedure: Insert op report hemodialysis catheter after appropriate identification in the preoperative holding area the patient was brought to the operating room where they were positioned supine on the operating room table. Preoperative antibiotics were completely administered. Sedation was begun per anesthesia and the patient's left neck was prepped and draped in usual sterile fashion after confirming patency of the left internal jugular vein with bedside ultrasound. Formal timeout was conducted to confirm both the patient and the procedure. Procedure was begun with ultrasound-guided access of the left internal jugular vein using a micropuncture access kit. Fluoroscopy confirmed appropriate position of the wire and the micro access sheath. At this point I made a measurement from the insertion site to the mid atrium of approximately 17 cm. Desiring some room for the patient's tunneling/cuff placement, elected to pro ceed with a 23 cm catheter. The 035 guidewire from the catheter kit was placed through the micro access sheath and again fluoroscopy was used to confirm this placement. The insertion site was then enlarged sharply and bluntly. Measuring back from the proximal insertion site on the catheter, we determined that the tunneling site would need to be minimal and the shortest distance to a infraclavicular position put this span at 8 cm inferior. Therefore this was measured out on the patient's chest and a counterincision was made at this point after instilling local anesthetic. A gentle curve of the tunneling tract to the insertion site was also instilled with local anesthetic. Then the catheter was connected to the tunneling device and was tunneled to the insertion site. Next the insertion site was serially dilated and the peel-away sheath was placed under fluoroscopy. The catheter was fed through the peel-away sheath and once we neared completion another fluoroscopy image was obtained. Unfortunately this showed that the catheter tip was in the proximal superior vena cava and given that this was a dialysis line I sought deeper positioning and approximation to the right atrium. Thus, I placed a 035 Glidewire through one of the catheter terminals and under fluoroscopy advanced the catheter to this position. This repositioning resulted in some mild blood loss but this was kept at a minimum by clamping the catheter about the wire until the wire could be with drawn. Ultimately I was able to achieve catheter tip positioning adjacent to the right atrium and the wire was withdrawn. Functionally, the catheter was tested with aspiration and flush of injectable saline which it did with ease. The insertion site was then closed with a single interrupted 2-0 nylon stitch. Another 2-0 nylon stitch was used to close down the insertion site at the tunneling entrance as a means of creating a cerclage. Lastly, the catheter was secured at the tiedown points on each port with a interrupted 2-0 nylon. Now the catheter was locked with 2.0mL heparinized saline (concentration 1000 units/mL) per package specification. A chlorhexidine gel dressing was placed about the catheter tunneling exit site using sterile technique. A small OpSite was applied to the insertion site. Patient was then allowed to emerge from sedation and was taken to PACU in stable condition. A chest x-ray was ordered in PACU for review of the catheter placement and to exclude pneumothorax. Grafts/Implants Used: 23 cm palindrome hemodialysis catheter Complications None Procedures Cardiovascular CF Procedures [id number]: [id number] Insert tunneled cv cath
--- NOTE | 2023-07-18 15:35 | RAD_ITS ---
STUDY: X-RAY CHEST REASON FOR EXAM: Male, 88 years old. Status post line placement TECHNIQUE: Single AP portable view of the chest. COMPARISON: Comparison is made with prior study dated July 14, 2023. FINDINGS: A left-sided double lumen catheter has been placed with the tip at the junction of the superior vena cava and right atrium. Progressive bibasilar pulmonary infiltrates . Blunting of both costophrenic angles. Sternal cerclage wires and vascular clips are present from a prior sternotomy and coronary artery bypass graft procedure (CABG). Normal mediastinum and claude. Normal visualized pulmonary arteries. There is atherosclerotic calcification of the aortic arch with tortuosity. There are diffuse degenerative changes of the visualized thoracic spine. There is degenerative osteoarthritis of the bilateral shoulders. There is no demonstrated abnormality of the visualized soft tissue structures of the upper abdomen. RAD/CXR for Line Placement IMPRESSION: The tip of the left-sided double lumen catheter is at the junction of the superior vena cava and right atrium. Progressive bilateral infiltrates worse on the left base. Electronically Signed: Hany Patricio MD at 15:47 EDT ,
[2023-07-18] MEDS: Heparin 10,000 UNITS/10 ML Vial IV (18:12)
[2023-07-18] MEDS: 0.9% Normal Saline 1,000 ML IV.SOLN. 1000 ML OPERA.SITE (18:12)
[2023-07-18] MEDS: PureFlow B 2K Dialysis Soln 1 BAG 6 BAG PF (18:13)
[2023-07-18] MEDS: Midodrine HCl 5 MG Tablet 10 MG PO (18:27)
[2023-07-19] VITALS (17 sets, daily range): BP systolic 81–183; BP diastolic 35–75; PULSE 82–97; RESP 16–32; TEMP 36.2–36.7; O2SAT 96–100; BMI 23.8; BMI 23.7
[2023-07-19 06:48] LABS: Absolute Lymphocyte Count 0.09 X10^3/uL (0.83-4.51); Absolute Neutrophil Count 7.6 X10^3/uL (2.0-7.7); Basophil# 0.03 X10^3/uL; Basophil% 0.3 % (0-1); Eosinophils% 9.8 % (0-5); Hematocrit 39.6 % (40-54); Hemoglobin 12.8 g/dL (13.0-16.5); Lymphocyte # 0.09 X10^3/ul (0.83-4.51); Mean Corp Hgb Conc 32.3 g/dL (32-36); Mean Corpuscular Hgb 31.4 pg (27.0-32.0); Mean Corpuscular Volume 97.3 fL (80-94); Mean Platelet Vol. 12.5 fl (6.2-12.0); Monocyte# 0.51 X10^3/uL; Monocyte% 5.5 % (0-10); NRBC Flagged by Analyzer 1.8 % (0-5); Neutrophil # 7.64 X10^3/uL (2.7-7.7); Neutrophil % 83.1 % (47-70); POSITIVE COUNT YES; POSITIVE DIFFERENTIAL YES; POSITIVE MORPHOLOGY YES; Platelet Count 43 K/mm3 (150-450); RBC Distribution Width CV 16.2 % (11.6-14.6); RBC Distribution Width SD 56.9 fl (35.1-43.9); Red Blood Count 4.07 M/mm3 (4.6-6.2); White Blood Count 9.2 K/mm3 (4.4-11.0)
[2023-07-19 06:52] LABS: Differential Indicated SCAN CRITERIA MET
[2023-07-19 07:24] LABS: Anion Gap 19 (5-15); BUN 146 mg/dL (7-18); BUN/Creat Ratio 27.1 RATIO (10-20); Calcium,Total 8.2 mg/dL (8.5-10.1); Chloride 107 mmol/L (98-107); Creatinine, Serum 5.38 mg/dL (0.70-1.30); EST Glomerular Filtration Rate 11 mL/min (>60); Est Glom Filt Rate - Afr Amer 13 mL/min (>60); Estimated Creatinine Clearance 9.91 ml/min; Glucose 117 mg/dL (74-106); Potassium 5.3 mmol/L (3.5-5.1); Sodium Level 140 mmol/L (136-145)
[2023-07-19 07:38] LABS: Differential Comment SCANNED
[2023-07-19] MEDS: Midodrine HCl 5 MG Tablet 10 MG PO (07:48)
[2023-07-19] MEDS: 0.9% Normal Saline 1,000 ML IV.SOLN. 1000 ML OPERA.SITE (08:19)
[2023-07-19] MEDS: PureFlow B 2K Dialysis Soln 1 BAG 6 BAG PF (08:19)
--- NOTE | 2023-07-19 09:12 | PN.SURG_ITS ---
Subjective Subjective Patient is currently receiving dialysis no issues with the catheter also received dialysis last night. Objective Data Objective Data Vital Signs: Vital Signs Temp Pulse Resp BP Pulse Ox O2 Del Method O2 Flow Rate 97.1 F L 90 27 H 93/42 L 100 Room Air 2 07/19/23 08:00 07/19/23 09:00 07/19/23 09:00 07/19/23 09:00 07/19/23 09:00 07/19/23 09:00 07/18/23 21:55 FiO2 24 07/19/23 08:30 Oxygen Flow Rate (L/min) 2 Oxygen Delivery Method Room Air Weight: 169 lb 15.622 oz Body Mass Index (BMI) 23.8 Intake & Output: Intake and Output for Last 24 Hours 07/17/23 07/18/23 07/19/23 23:59 23:59 23:59 Intake Total 451 / 451 273.25 / 273.25 Output Total 2680 / 2680 735 / 735 50 / 50 Balance -2229 / -2229 -461.75 / -461.75 -50 / -50 Lab / Micro Data 07/19/23 06:30 07/19/23 06:30 Labs: Laboratory Results - last 24 hr 07/17/23 10:40: Double Strand DNA Ab <1 07/18/23 12:49: Potassium 5.1 07/19/23 06:30: WBC 9.2, RBC 4.07 L, Hgb 12.8 L, Hct 39.6 L, MCV 97.3 H, MCH 31.4, MCHC 32.3, RDW Std Deviation 56.9 H, RDW Coeff of Rick 16.2 H, Plt Count 43 L*, MPV 12.5 H, Immature Gran % (Auto) 0.300, Neut % (Auto) 83.1 H, Lymph % (Auto) 1.0 L, [place] % (Auto) 5.5, Eos % (Auto) 9.8 H, Baso % (Auto) 0.3, Absolute Neuts (auto) 7.6, Absolute Lymphs (auto) 0.09 L, Nucleated RBC % 1.8, Differ ential Comment SCANNED, Diff Path Review August, Sodium 140, Potassium 5.3 H, Chloride 107, Carbon Dioxide 14.0 L, Anion Gap 19 H, BUN 146 H*, Creatinine 5.38 H, Estim Creat Clear Calc 9.91, Est GFR (MDRD) Af Amer 13 L, Est GFR (MDRD) Non- Af 11 L, BUN/Creatinine Ratio 27.1 H, Glucose 117 H, Calcium 8.2 L Micro: Microbiology 07/14/23 10:53 Mucosa - Nose Respiratory Panel (PCR) - Final 07/14/23 10:55 Mucosa - Nasopharyngeal Coronavirus COVID-19 PCR - Final Radiography Diagnostic Testing: Radiology Impression Chest X-Ray 07/18/23 15:35 IMPRESSION: The tip of the left-sided double lumen catheter is at the junction of the superior vena cava and right atrium. Progressive bilateral infiltrates worse on the left base. Electronically Signed: Hany Patricio MD at 15:47 EDT , Rhythm Strip Rhythm Strip: Atrial tachycardia with 3:1 conduction Physical Exam Narrative Left tunneled dialysis catheter in place-currently on dialysis Const no apparent distress Assessment & Plan Assessment/Plan (1) Chronic renal failure, stage 5: PLAN: Plan Patient's tunnel left dialysis catheter working well for dialysis. Will sign off, call with any questions. Taya Cobb M.D. Pager: [phone] [facility] [address] [place] [address], [facility], [address] [place] [address] Office: [phone]
--- NOTE | 2023-07-19 09:41 | PN.HOSP_ITS ---
Subjective Subjective No issues overnight, dialysis catheter placed yesterday at about 340 taken off with dialysis. This morning had to have midodrine prior to dialysis given soft pressures Objective Data Objective Data Vital Signs: Vital Signs Temp Pulse Resp BP Pulse Ox O2 Del Method O2 Flow Rate 97.1 F L 91 26 H 81/52 L 100 Bi-pap 2 07/19/23 08:00 07/19/23 09:26 07/19/23 09:26 07/19/23 09:26 07/19/23 09:26 07/19/23 09:26 07/18/23 21:55 FiO2 24 07/19/23 09:26 Oxygen Flow Rate (L/min) 2 Oxygen Delivery Method Bi-pap Weight: 169 lb 15.622 oz Body Mass Index (BMI) 23.8 Intake & Output: Intake and Output for Last 24 Hours 07/18/23 07/19/23 07/20/23 03:59 03:59 03:59 Intake Total 451 / 451 273.25 / 273.25 Output Total 2630 / 2630 735 / 735 50 / 50 Balance -2179 / -2179 -461.75 / -461.75 -50 / -50 Lab / Micro Data 07/19/23 06:30 07/19/23 06:30 Labs: Laboratory Results - last 24 hr 07/17/23 10:40: Double Strand DNA Ab <1 07/18/23 12:49: Potassium 5.1 07/19/23 06:30: WBC 9.2, RBC 4.07 L, Hgb 12.8 L, Hct 39.6 L, MCV 97.3 H, MCH 31.4, MCHC 32.3, RDW Std Deviation 56.9 H, RDW Coeff of Rick 16.2 H, Plt Count 43 L*, MPV 12.5 H, Immature Gran % (Auto) 0.300, Neut % (Auto) 83.1 H, Lymph % (Auto) 1.0 L, [place] % (Auto) 5.5, Eos % (Auto) 9.8 H, Baso % (Auto) 0.3, Absolute Neuts (auto) 7.6, Absolute Lymphs (auto) 0.09 L, Nucleated RBC % 1.8, Differential Comment SCANNED, Diff Path Review August, Sodium 140, Potassium 5.3 H, Chloride 107, Carbon Dioxide 14.0 L, Anion Gap 19 H, BUN 146 H*, Creatinine 5.38 H, Estim Creat Clear Calc 9.91, Est GFR (MDRD) Af Amer 13 L, Est GFR (MDRD) Non-Af 11 L, BUN/Creatinine Ratio 27.1 H, Glucose 117 H, Calcium 8.2 L Micro: Microbiology 07/14/23 10:53 Mucosa - Nose Respiratory Panel (PCR) - Final 07/14/23 10:55 Mucosa - Nasopharyngeal Coronavirus COVID-19 PCR - Final Radiography Diagnostic Testing: Radiology Impression Chest X-Ray 07/18/23 15:35 IMPRESSION: The tip of the left-sided double lumen catheter is at the junction of the superior vena cava and right atrium. Progressive bilateral infiltrates worse on the left base. Electronically Signed: Hany Patricio MD at 15:47 EDT Reading Location ID and State: [address] [place] [address] , Service support , Rhythm Strip Rhythm Strip: Atrial tachycardia with 3:1 conduction Physical Exam Narrative General: Alert, Oriented x3, Cooperative, No apparent distress HEENT: Atraumatic, PERRLA, EOMI, Normocephalic Oral: Moist Mucosa Neck: Supple, No JVD Lungs: Diminished, Normal air movement, No rhonchi, No wheeze, No rales, upper airway sounds from mucus Cardiovascular: Regular rate, Regular Rhythm, Normal S1, Normal S2, No murmurs Abdomen: Soft, Non Tender, Non-Distended, No Hepato-splenomegaly Extremities: Edema, Capillary Refill Less than 3 Seconds Skin: No rashes, No breakdown Musculoskeletal: No Tenderness to Palpation of Joints or Extremities Neurological: No focal neurological deficits, Motor Exam 5/5 strength throughout, Sensory exam intact to light touch and pain Psych/Mental Status: Flat Assessment & Plan Assessment/Plan (1) CHF (congestive heart failure): (2) Atrial fibrillation: QUALIFIERS: Atrial fibrillation type: persistent (not longstanding) Qualified Code(s): I48.19 - Other persistent atrial fibrillation PLAN: Plan OTILIO * worsening this month: 1.29 on 07/04, now up to 4.86 * Given rapid onset, autoimmune serologies sent. * US showed no hydronephrosis. Trabeculated bladder wall. * Pt declined Reeves catheter 07/13, but placed on 07/14. Desite that, creatinine has continued to worsen. * Nephrology recommending HD. Pt and family agreeable. General surgery on consult for tunneled HD catheter. 07/18/2023: BUN and creatinine continue to climb today, plan for tunneled dialysis catheter today 07/19/2023: Doing dialysis again today and attempt at removing 1 L, had to be given midodrine this morning to assist with blood pressure management acute HFpEF * He had an echo on 07/04/2023 with an EF of 55% with dilated right and left atria * furosemide dc'd given OTILIO * No ACEi given OTILIO Pleural effusions * likely cause of dyspena * CT chest showed moderate pleural effusions. * Thoracentesis on 07/13 removed 1240 cc fluid. * Appears transudative Elevated troponin * suspect demand ischemia * Seen by cardiology. Appears at baseline. * already anticoagulated * VQ negative Dyspnea * VQ negative. Respiratory panel, COVID 19 negative * CT showed pleural effusions 07/18/2023: Sputum culture ordered secondary to appearance and smell of expectorated mucus Encephalopathy * ongoing concern for uremia * avoid potentiating medications Chronic conditions: * pAfib: metop tart and apixaban held. * History of esophageal cancer in remission/exocrine pancreatic insufficiency/history of DVT? He did have an esophagectomy his heart and has a port in his right chest remains in remission? Continue with his pancreatic medications * GERD? Stable? Continue with PPI * Gallbladder disease? Did have a HIDA scan on 07/05/2023 with an EF of less than 35%, he will need to follow-up with general surgery as an outpatient DVT: SCD Charges/Coding Visit Charges Inpatient E&M: 76316 Subs Hosp L2
[2023-07-19] MEDS: 0.9% Saline Lock 10 ML Syringe IV ×2 (10:49→14:25)
[2023-07-19] MEDS: Heparin 10,000 UNITS/10 ML Vial IV (10:49)
[2023-07-19] MEDS: LORazepam 2 MG/ML Syringe IV (14:24)
--- NOTE | 2023-07-19 17:56 | NURSING ---
Patient did not receive any IV fluids or IV medications in the last hour of life. [facility] requesting this information be documented in patients chart.
--- NOTE | 2023-07-20 17:22 | EXP.PCM_ITS ---
Preliminary Cause of Preliminary Cause of Preliminary Cause of : Acute respiratory failure Date of Admission: 07/11/23 Date of : 07/19/23 Principle Diagnosis Problem List: Active and Suspected Problems (Updated 07/17/23 @ 15:07 by Lizz CHANG, PA-C) Bilateral pleural effusion (Acute) Dyspnea (Acute) Coronary artery disease (Acute) Acute kidney injury (Acute) (HFpEF) heart failure with preserved ejection fraction (Acute) Paroxysmal atrial fibrillation (Acute) Atrial tachycardia (Acute) Atrial fibrillation (Acute) Hospital Course Mr. Tavarez is an 88-year-old gentleman who presented initially to the hospital for worsening shortness of breath secondary to acute on chronic diastolic heart failure. He initially was treated with diuretics and increasing his beta- moira as he also had history of paroxysmal A-fib. Approximately 48 hours after admission renal function started to deteriorate and nephrology was consulted and ultimately recommended initiation potentially of dialysis. He did also have pleural effusions during this admission and these were drained with an ultrasound-guided thoracentesis on 07/14/2023. Multiple conversations were had initially with his rising creatinine however family ultimately elected to proceed with dialysis catheter placement. During this time, diagnostic evaluations including autoimmune serologies were sent to determine the initial cause of his worsening renal function, these still have not returned however his condition continued to deteriorate with rising troponins as well as increasing lethargy and worsening respiratory status. He started to have to wear BiPAP at night and then also during the day. On 07/18/2023 it was noticed that his sputum was discolored and had an odor to it and so this was sent for culture it has ultimately returned to Citrobacter, antibiotics were not initiated initially secondary to the lack of a leukocytosis and the fact that he was afebrile and given his renal function I do not want to start anything empiric pending finalization of cultures. On 07/19/2023 family proceeded to make him hospice as they felt that his respiratory status was declining, he was more lethargic as the day went on and he was not tolerating dialysis easily, he needed midodrine and his blood pressures were still low and limiting the amount of fluid that could be removed. He was made hospice on 07/19/2023 and he on 07/19/2023 at 1734. Visit Charges Inpatient E&M: 71361 Disch Hosp >30min
[2023-07-21 08:08] LABS: Anti-Glomerular Basement Memb < 0.2 units (0.0-0.9); Complement C3 65 mg/dL (82-167); Cytoplasmic Ab (C-ANCA) <1:20 titer (Neg:<1:20); Immunoglobulin A 347 mg/dL (61-437); Immunoglobulin G 923 mg/dL (603-1613); Immunoglobulin M 90 mg/dL (15-143); Perinuclear Ab (P-ANCA) <1:20 titer (Neg:<1:20)
[2023-07-22 09:34] LABS: Pathologist Review Reviewed
== END 2023-07-19 19:31 | DRG 291 ==
LOC: ED 14:23 → PCU 14:39
PROVIDERS: Anesthesiology; Internal Medicine Cardiovascular Disease; Nurse Practitioner Adult Health; Surgery; Admitting Provider Family Medicine; Emergency Provider Student in an Organized Health Care Education/Training Program; PCP Family Medicine; Visit Provider Family Medicine
PROC: 0JH63XZ Insertion of Tunneled Vascular Access Device into Chest Subcutaneous Tissue and Fascia, Percutaneous Approach (ICD-10-PCS; principal; 2023-07-18 12:50)
DX: I13.2 Hypertensive heart and chronic kidney disease with heart failure and with stage 5 chronic kidney disease, or end stage renal disease (principal); I50.33 Acute on chronic diastolic (congestive) heart failure; J96.00 Acute respiratory failure, unspecified whether with hypoxia or hypercapnia; N17.9 Acute kidney failure, unspecified; G93.40 Encephalopathy, unspecified; N18.5 Chronic kidney disease, stage 5; I48.19 Other persistent atrial fibrillation; I48.92 Unspecified atrial flutter; J90 Pleural effusion, not elsewhere classified; I47.19 Other supraventricular tachycardia; I24.89 Other forms of acute ischemic heart disease; E78.5 Hyperlipidemia, unspecified; I25.10 Atherosclerotic heart disease of native coronary artery without angina pectoris; K21.9 Gastro-esophageal reflux disease without esophagitis; I44.30 Unspecified atrioventricular block; Z95.2 Presence of prosthetic heart valve; Z79.01 Long term (current) use of anticoagulants; Z87.891 Personal history of nicotine dependence; Z79.82 Long term (current) use of aspirin; Z85.01 Personal history of malignant neoplasm of esophagus
CPT/HCPCS: 32555; 36415; 36591; 36600; 71045; 71046; 71250; 76000; 76770; 78597; 80048; 81001; 82570; 82784; 82803; 82945; 83520; 83615; 83880; 84132; 84156; 84157; 84484; 84540; 85025; 85610; 86160; 86225; 86256; 86334; 86335; 86900; 86901; 87070; 87077; 87186; 87205; 87340; 87633; 87635; 88108; 88305; 88313; 88341; 88342; 89050; 90937; 92526; 92610; 93005; 94002; 94003; 94668; 94762; 97110; 97162; 97166; 97530; 97535; 97802; 99252; 99285; A9540; J7030; J7040; P9017; 90662; A4216; C1769; G0257; G0463; J1940; J3490